=== PATIENT | female | born 1935 | race American Indian/Alaskan Native ===

== ENCOUNTER 2018-05-15 10:01 | Inpatient (IN) | payer MEDICARE, BC ==
[2018-05-15] MEDS ORDERED: Iodixanol 320 MG/ML 100 ML BOTTLE IV ONE ×3 (10:25→13:08)
[2018-05-15] MEDS ORDERED: Iodixanol 320 MG/ML 200 ML BOTTLE IV ONE (10:25)
[2018-05-15] MEDS ORDERED: Lidocaine PF 2% (5 ml) Inj (For Cardiac Arrhy) ONE (10:25)
[2018-05-15 10:30] LABS: BASO # 0.03 K/mm3 (0.0-2.0); BASO % 0.4 % (0.0-3.0); EOS # 0.1 (0.0-0.7); EOS % 1.5 % (1.5-5.0); GRAN # 4.94 (1.4-6.5); GRAN % 72.9 % (50.0-68.0); HEMOGLOBIN 13.4 g/dL (12.0-16.0); LYMPH # 0.9 (1.2-3.4); LYMPH % 12.5 % (22.0-35.0); MEAN CELL VOLUME 97.5 fl (80.0-105.0); MEAN CORPUSCULAR HGB CONC 31.8 g/dl (31.0-37.0); MONO # 0.9 (0.1-0.6); MONO % 12.7 % (1.0-6.0); RBC 4.32 10^6/uL (3.5-6.1); RED CELL DISTRIBUTION WIDTH 15.9 % (11.5-14.5); WHITE BLOOD COUNT 6.8 10^3/ul (4.5-11.0)
[2018-05-15 10:38] LABS: INR 1.17; PARTIAL THROMBOPLASTIN TIME 32.6 Seconds (25.1-36.5); PROTHROMBIN TIME 13.5 SECONDS (9.4-12.5)
[2018-05-15 10:46] LABS: CALCIUM 10.9 mg/dL (8.4-10.5)
[2018-05-15] MEDS ORDERED: Midazolam 2 MG/2 ML VIAL ONE ×2 (11:42→12:48)
[2018-05-15] MEDS ORDERED: DiphenhydrAMINE 50 mg/ml Inj ONE ×2 (13:00→14:07)
[2018-05-15] MEDS ORDERED: Albuterol-Ipratrop 3 mg / 0.5 (3 ml) UD IH ONE (13:17)
[2018-05-15] MEDS ORDERED: Levalbuterol 1.25 MG/3 ML Inhal Soln UD ONE (13:57)
[2018-05-15] MEDS ORDERED: Levalbuterol 1.25 MG/3 ML Inhal Soln UD IH ONE (13:57)
[2018-05-15] MEDS ORDERED: DiphenhydrAMINE 50 mg/ml Inj IVP ONE (14:07)
[2018-05-15] MEDS: Racepinephrine 2.25% Inhal Soln 0.5 ML UD IH PRN ×2 (14:10→22:02)
[2018-05-15] MEDS ORDERED: Racepinephrine 2.25% Inhal Soln 0.5 ML UD ONE (14:10)
[2018-05-15] MEDS ORDERED: MethylPREDNISolone 40 mg Vial ONE ×2 (14:32→14:42)
[2018-05-15 14:50] LABS: ARTERIAL BLOOD GAS HCO3 20.5 mmol/L (21-28); ARTERIAL BLOOD GAS HEMOGLOBIN 13.3 g/dL (11.7-17.4); ARTERIAL BLOOD GAS O2 CAPACITY 18.6 mL/dl (16-24); ARTERIAL BLOOD GAS O2 CONTENT 18.6 ML/dl (15-23); ARTERIAL BLOOD GAS O2 SAT 99.9 % (95-98); ARTERIAL BLOOD GAS PCO2 55 mm/Hg (35-45); ARTERIAL BLOOD GAS TCO2 22.2 mmol.L (22-28)
[2018-05-15 14:52] LABS: ARTERIAL BLOOD GAS PH 7.18 (7.35-7.45)
--- NOTE | 2018-05-15 15:05 | CP.PCM.HP ---
<Antonella Leyva - Last Filed: 05/15/18 18:28> History of Present Illness - History of Present Illness History of Present Illness: PGY-1 Antonella Leyva D.O. H&P for Dr. Cast's service: Susan Meza is an 82 yo female with a history of Afib, CHF, pacemaker, CAD, PVD, HTN, HLD, GERD, and hypothyroidism who presented from [facility] ( [facility]) for a same-day surgery of femoral angioplasty. While post-op in the PACU, patient began experiencing significant shortness of breath and cough. Patient in respiratory distress and could not tell us history or how she was feeling. Patient's daughter, Jose Manuel ([phone]), was contacted. She stated that the patient lives with her; however, she's been in rehab since January after being hospitalized for dysfunctional AVM for hemodialysis and hypotension. Daughter reported that patient was complaining of a "rattling" cough for the last 2 days. She denies fevers, chills, or pain. She denies any history of pulmonary disorders. She has a remote smoking history- quit 40 years ago. Patient's PMD, Dr. Mueller, was also called to obtain medical history and medications. In the PACU, patient was given Benadryl, racemic epi, Pepcid, and Solu-medrol. She was place don BiPap. CXR and AXR were negative. ICU was consulted and accepted the patient to the unit. PMH: CKD- HD TThSat HTN HLD CAD- no stents PVD- multiple stents in LEs GERD Hypothyroidism Afib CHF Pacemaker Carotid endarterectomy H/o gout H/o pleural effusions Meds: ASA 81 mg PO daily Protonix 40 mg PO daily Midodrine 5 mg PO TTS Sensipar 30 mg PO daily Phoslo 667 mg PO TID Lipitor 40 mg PO daily Allopurinol 100 mg PO daily Tylenol 325 mg PO PRN All: NKA FH: reviewed and unremarkable SH: lives with daughter currently in [facility] since January remote smoking history denies alcohol, illicit drugs PMD: Ervin Nephro: Bi Cardio: Ameen Code status : DNR- discussed at length with daughterJose Manuel Present on Admission - Present on Admission Any Indicators Present on Admission: No History of DVT/PE: No History of Uncontrolled Diabetes: No Urinary Catheter: No Decubitus Ulcer Present: No History Surgical Site Infection Following: None Review of Systems - Review of Systems Systems not reviewed;Unavailable: Acuity of Condition, Respiratory Distress Past Patient History - Infectious Disease Hx of Infectious Diseases: None - Tetanus Immunizations Tetanus Immunization: Unknown - Past Medical History & Family History Past Medical History?: Yes Past Family History: Reviewed and not pertinent - Past Social History Smoking Status: Former Smoker Chewing Tobacco Use: No Cigar Use: No Alcohol: None Drugs: Denies Home Situation {Lives}: With Family (daughter) - CARDIAC Hx Cardiac Disorders: Yes Hx Atrial Fibrillation: Yes Hx Congestive Heart Failure: Yes Hx Pacemaker: Yes - NEUROLOGICAL Hx Paralysis: No - RENAL Hx Chronic Kidney Disease: Yes Hx Dialysis: Yes - HEMATOLOGICAL/ONCOLOGICAL Hx Blood Transfusions: No Hx Blood Transfusion Reaction: No - MUSCULOSKELETAL/RHEUMATOLOGICAL Hx Musculoskeletal Disorders: No - PSYCHIATRIC Hx Emotional Abuse: No Hx Physical Abuse: No Hx Substance Use: No - SURGICAL HISTORY Hx Surgeries: Yes - ANESTHESIA Hx Anesthesia Reactions: No Hx Malignant Hyperthermia: No Meds Allergies/Adverse Reactions: Allergies Allergy/AdvReac Type Severity Reaction Status Date / Time No Known Allergies Allergy Verified 05/07/18 11:54 Physical Exam - Constitutional Appears: In Acute Distress - Head Exam Head Exam: ATRAUMATIC, NORMAL INSPECTION - Eye Exam Eye Exam: EOMI, Normal appearance - ENT Exam ENT Exam: Mucous Membranes Moist, Normal Exam - Neck Exam Neck exam: Positive for: Normal Inspection - Respiratory Exam Respiratory Exam: Accessory Muscle Use, Decreased Breath Sounds, Respiratory Distress, Stridor. absent: Wheezes - Cardiovascular Exam Cardiovascular Exam: Tachycardia, REGULAR RHYTHM, +S1, +S2 - GI/Abdominal Exam GI & Abdominal Exam: Distended, Normal Bowel Sounds - Rectal Exam Rectal Exam: Deferred - Extremities Exam Additional comments: discoloration of LEs, pedal pulses 1+ b/l - Neurological Exam Neurological exam: Alert - Psychiatric Exam Psychiatric exam: Anxious - Skin Skin Exam: Dry, Normal Color, Warm Additional comments: dialysis cath on L chest wall Results - Vital Signs Recent Vital Signs: Last Vital Signs Temp 96.2 F L 05/15/18 10:38 Pulse 74 05/15/18 10:38 Resp 20 05/15/18 10:38 BP 129/65 05/15/18 10:38 Pulse Ox 96 05/15/18 10:38 - Labs Result Diagrams: 05/15/18 17:47 05/15/18 10:25 Labs: Laboratory Results - last 24 hr 05/15/18 05/15/18 05/15/18 10:25 10:25 10:25 WBC 6.8 RBC 4.32 Hgb 13.4 Hct 42.1 MCV 97.5 MCH 31.0 MCHC 31.8 RDW 15.9 H Plt Count 224 MPV 10.0 Gran % 72.9 H Lymph % (Auto) 12.5 L Todd % (Auto) 12.7 H Eos % (Auto) 1.5 Baso % (Auto) 0.4 Gran # 4.94 Lymph # (Auto) 0.9 L Todd # (Auto) 0.9 H Eos # (Auto) 0.1 Baso # (Auto) 0.03 PT 13.5 H INR 1.17 APTT 32.6 Sodium 136 Potassium 5.7 H* Chloride 97 L Carbon Dioxide 27 Anion Gap 18 BUN 41 H Creatinine 6.5 H Est GFR ( Amer) 7 Est GFR (Non-Af Amer) 6 Random Glucose 88 Calcium 10.9 H Assessment & Plan - Assessment and Plan (Free Text) Assessment: Patient is an 82 yo female who presented after a femoral angioplasty with respiratory distress. Patient's daughter reports patient had a cough for the past 2 days. Patient was treated for a potential allergic reaction as she was noted to have stridor. She was placed on BiPap and admitted to the ICU. Plan: Shortness of breath with respiratory acidosis, improved- suspect 2/2 sedation or allergic reaction or fluid overload - CXR: no active disease - ABG, FiO2 100: pH 7.18, pO2 221, pCO2 55 - ABG on BiPap, FiO2 50: pH 7.42, pO2 188, pCO2 32 - BiPap - Benadryl x1 - Solumedrol x1 - Racepinephrine 0,5 mL IH Q3H PRN - Xopenex 1,25 mg IH Q6H ZAINAB, Q3H PRN - Acetylcysteine 20% 4mL Q6H - f/u BNP - f/u LA, procal - ICU consulted (Macario) Abdominal distention - AXR: no abnormalities - Zofran 4 mg IV x1 - GI consulted (Blanca) CKD on HD TTSat - K 5.7 - Ca 10.9 - BUN 41, Cr 6.5 - Nephrology consulted (Bi) H/o of Afib with pacemaker - Cardiology consulted (Ramiro) H/o of CHF - f/u BNP - f/u echo - Cardiology consulted (Ramiro) HTN - Hold midodrine - Hydralazine 10 mg IV Q6H PRN IVF: not indicated Diet: NPO- swallow eval GI ppx: Pepcid 20 mg IV daily VTE ppx: SCDs Code status: DNR Case discussed with Dr. Cast <Selam Cast - Last Filed: 05/17/18 17:42> Results - Vital Signs Recent Vital Signs: Last Vital Signs Temp 97.2 F L 05/17/18 08:50 Pulse 70 05/17/18 11:37 Resp 18 05/17/18 08:50 BP 117/56 L 05/17/18 11:37 Pulse Ox 83 L 05/17/18 08:50 - Labs Result Diagrams: 05/17/18 14:30 05/17/18 13:20 Labs: Laboratory Results - last 24 hr 05/16/18 05/16/18 05/16/18 23:18 23:18 23:18 WBC 7.3 D RBC 3.81 Hgb 11.8 L Hct 36.4 MCV 95.5 MCH 31.0 MCHC 32.4 RDW 15.8 H Plt Count 239 MPV 11.0 Gran % 82.2 H Lymph % (Auto) 12.1 L Todd % (Auto) 5.6 Eos % (Auto) 0.0 L Baso % (Auto) 0.1 Gran # 5.99 Lymph # (Auto) 0.9 L Todd # (Auto) 0.4 Eos # (Auto) 0.0 Baso # (Auto) 0.01 PT 15.6 H INR 1.36 Sodium 134 Potassium 5.9 H* D Chloride 96 L Carbon Dioxide 22 Anion Gap 21 H BUN 38 H Creatinine 6.0 H Est GFR ( Amer) 8 Est GFR (Non-Af Amer) 7 POC Glucose (mg/dL) Random Glucose 83 Calcium 10.1 Phosphorus Magnesium Total Bilirubin 0.8 AST 31 ALT 16 Alkaline Phosphatase 90 Total Protein 7.2 Albumin 3.5 Globulin 3.7 Albumin/Globulin Ratio 0.9 L Blood Type Blood Type Confirm Antibody Screen Crossmatch BBK History Checked 05/16/18 05/17/18 05/17/18 23:18 00:04 05:25 WBC 7.4 RBC 3.49 L Hgb 10.5 L Hct 33.2 L MCV 95.1 MCH 30.1 MCHC 31.6 RDW 15.9 H Plt Count 189 MPV 10.1 Gran % 76.2 H Lymph % (Auto) 13.0 L Todd % (Auto) 10.8 H Eos % (Auto) 0.0 L Baso % (Auto) 0.0 Gran # 5.62 Lymph # (Auto) 1.0 L Todd # (Auto) 0.8 H Eos # (Auto) 0.0 Baso # (Auto) 0.00 PT INR Sodium Potassium Chloride Carbon Dioxide Anion Gap BUN Creatinine Est GFR ( Amer) Est GFR (Non-Af Amer) POC Glucose (mg/dL) Random Glucose Calcium Phosphorus Magnesium Total Bilirubin AST ALT Alkaline Phosphatase Total Protein Albumin Globulin Albumin/Globulin Ratio Blood Type B POSITIVE Blood Type Confirm B POSITIVE Antibody Screen Negative Crossmatch See Detail BBK History Checked No verified bt 05/17/18 05/17/18 05/17/18 05:25 13:20 13:58 WBC RBC Hgb Hct MCV MCH MCHC RDW Plt Count MPV Gran % Lymph % (Auto) Todd % (Auto) Eos % (Auto) Baso % (Auto) Gran # Lymph # (Auto) Todd # (Auto) Eos # (Auto) Baso # (Auto) PT INR Sodium 133 135 Potassium 6.3 H* 5.6 H* Chloride 97 L 97 L Carbon Dioxide 24 16 L Anion Gap 19 28 H BUN 44 H 42 H Creatinine 5.9 H 6.2 H Est GFR ( Amer) 8 8 Est GFR (Non-Af Amer) 7 6 POC Glucose (mg/dL) 22 L* Random Glucose 73 30 L* D Calcium 9.8 10.5 Phosphorus 4.8 H Magnesium 2.2 Total Bilirubin 0.7 AST 31 ALT 20 Alkaline Phosphatase 76 Total Protein 6.3 Albumin 3.0 Globulin 3.3 Albumin/Globulin Ratio 0.9 L Blood Type Blood Type Confirm Antibody Screen Crossmatch BBK History Checked 05/17/18 14:30 WBC RBC Hgb 11.2 L Hct 34.4 L MCV MCH MCHC RDW Plt Count MPV Gran % Lymph % (Auto) Todd % (Auto) Eos % (Auto) Baso % (Auto) Gran # Lymph # (Auto) Todd # (Auto) Eos # (Auto) Baso # (Auto) PT INR Sodium Potassium Chloride Carbon Dioxide Anion Gap BUN Creatinine Est GFR ( Amer) Est GFR (Non-Af Amer) POC Glucose (mg/dL) Random Glucose Calcium Phosphorus Magnesium Total Bilirubin AST ALT Alkaline Phosphatase Total Protein Albumin Globulin Albumin/Globulin Ratio Blood Type Blood Type Confirm Antibody Screen Crossmatch BBK History Checked Attending/Attestation - Attestation I have personally seen and examined this patient.: Yes I have fully participated in the care of the patient.: Yes I have reviewed all pertinent clinical information: Yes Notes (Text): 05/17/18 16:53 Attending note; Patient seen and examined with the resident in PACU. Patient's daughter by the bedside. Patient is alert and awake. Patient has significant shortness of breath and stridor. Just got breathing treatments and IV Solu-Medrol. Started on racemic epinephrine inhalation. Patient is a 82 year old female with a history of Afib, CHF, pacemaker, CAD, PVD, HTN, HLD, GERD, and hypothyroidism who presented from [facility] for a same-day surgery of femoral angioplasty. While post-op in the PACU, patient began experiencing significant shortness of breath and cough. significant wheezing noted. Continue DuoNeb, IV Solu-Medrol. Pulmonary evaluation appreciated. Patient will be transferred to ICU. Placed on BiPAP for hypercapnic respiratory failure. History of coronary artery disease. Continue aspirin. s/p femoral angiogram and angioplasty. End-stage renal disease on dialysis; patient will get hemodialysis tomorrow. Case discussed with nephrology in detail. Renal diet ordered. Abdominal distention; abdominal x-ray showed nonspecific gas pattern. GI evaluation requested. Follow up closely in ICU. Patient is DNR. The diagnosis, follow-up plan discussed with patient daughter in detail.
--- NOTE | 2018-05-15 15:28 | RAD ---
Date of service: 05/15/2018 HISTORY: dyspnea COMPARISON: 09/06/2017 FINDINGS: LUNGS: No active pulmonary disease. PLEURA: No significant pleural effusion identified, no pneumothorax apparent. CARDIOVASCULAR: Moderate cardiomegaly OSSEOUS STRUCTURES: No significant abnormalities. VISUALIZED UPPER ABDOMEN: Normal. OTHER FINDINGS: Right-sided pacemaker. Left-sided dialysis catheter IMPRESSION: No active disease.
[2018-05-15] MEDS ORDERED: Acetylcysteine 20% Inhal Soln (4ml) IH PRN (15:35)
[2018-05-15] MEDS ORDERED: Levalbuterol 1.25 MG/3 ML Inhal Soln UD IH PRN (16:00)
[2018-05-15] MEDS ORDERED: Albuterol 0.083% Inhal Sol (2.5 mg/3 mL) UD IH STA (16:15)
--- NOTE | 2018-05-15 17:08 | CP.PCM.CON ---
<Agueda Menendez - Last Filed: 05/15/18 17:03> History of Present Illness - History of Present Illness History of Present Illness: Agueda Menendez, PGY2, ICU Consult Note for Dr Jordan Sorto: Reason for consult: respiratory distress s/p angio 82 year old female with PMH CHF s/p pacemaker, HTN, GERD, CAD (no stents), gout , pleural effusions (many years ago), PAD (w stents), came to [facility] same day surgery today for angio cath vascular procedure for lower extremity PAD. LE duplex showed 05/01/18 showed severely abnormal ABIs at rest, R 0.56 and L 0.49., b/l SFA occlusive disease. Most HPI obtained from primary team, daughters at bedside, chart review due to patient's condition/respiratory distress. Patient underwent conscious sedation today during the procedure. After IV contrast injection, patient had respiratory distress with stridor, given racemic epinephrine with Benadryl with some improvement. CXR obtained showed vascular congestion, ABG showed respiratory acidosis. On Physical exam, patient AOx4, with inspiratory stridor, decreased breath sounds (no wheezing, crackles appreciated), pulse ox 96-98%. As per daughter, patient is coming from [facility] rehab, was having mild cough for past 2-3 days, no fevers, nausea, vomiting, abdominal pain, decreased appetite, diarrhea. ROS limited due to patient's condition. PMD: Dr Ervin Pat PMH: CHF s/p pacemaker, HTN, GERD, CAD (no stents), gout, pleural effusions ( many years ago), PAD (w stents) PSH: stent placement, cardiac cath NKA FH: noncontributory SH: Used to live with her daughter. Deconditioned in February 2018, went to [facility]. Former smoker, quit 40 years ago, occasional ETOH use. Review of Systems - Review of Systems Systems not reviewed;Unavailable: Respiratory Distress Past Patient History - CARDIAC Hx Pacemaker: No - NEUROLOGICAL Hx Paralysis: No - HEMATOLOGICAL/ONCOLOGICAL Hx Blood Transfusions: No Hx Blood Transfusion Reaction: No - MUSCULOSKELETAL/RHEUMATOLOGICAL Hx Musculoskeletal Disorders: No - PSYCHIATRIC Hx Emotional Abuse: No Hx Physical Abuse: No Hx Substance Use: No - SURGICAL HISTORY Hx Surgeries: Yes - ANESTHESIA Hx Anesthesia Reactions: No Hx Malignant Hyperthermia: No Meds Allergies/Adverse Reactions: Allergies Allergy/AdvReac Type Severity Reaction Status Date / Time No Known Allergies Allergy Verified 05/07/18 11:54 - Medications Medications: Current Medications Acetylcysteine (Acetylcysteine 20%) 4 ml IH Q6 PRN PRN Reason: Cough Darbepoetin Arthur (Aranesp) 40 mcg IVP ONCE ONE Stop: 05/16/18 06:01 Doxercalciferol (Hectorol) 4 mcg IV ONCE ONE Stop: 05/16/18 06:01 Famotidine (Pepcid) 20 mg IVP DAILY DIANA Hydralazine HCl (Apresoline) 10 mg IVP Q6 PRN PRN Reason: Systolic Blood Pressure Levalbuterol HCl (Xopenex) 1.25 mg IH [id number] DIANA Levalbuterol HCl (Xopenex) 1.25 mg IH Q3 PRN PRN Reason: Shortness of Breath Ondansetron HCl (Zofran Inj) 4 mg IVP ONCE PRN PRN Reason: Nausea/Vomiting Racepinephrine (Racepinephrine 2.25% Inhl Soln) 0.5 ml IH Q3 PRN PRN Reason: Shortness of Breath Physical Exam - Constitutional Appears: No Acute Distress Additional comments: Initially, patient had stridor. Once patient received duoneb treatment and put on bipap, patient was more comfortable with improving pulse ox, improving tachycardia - Head Exam Head Exam: ATRAUMATIC, NORMOCEPHALIC - Eye Exam Eye Exam: EOMI, PERRL. absent: Conjunctival injection, Nystagmus, Scleral icterus Pupil Exam: NORMAL ACCOMODATION, PERRL. absent: Mydriatic, Unequal - ENT Exam ENT Exam: Mucous Membranes Moist - Neck Exam Neck exam: Positive for: Full Rom - Respiratory Exam Respiratory Exam: Decreased Breath Sounds, Stridor. absent: Accessory Muscle Use, Rales, Rhonchi, Wheezes - Cardiovascular Exam Cardiovascular Exam: Tachycardia, +S1, +S2. absent: Systolic Murmur - GI/Abdominal Exam GI & Abdominal Exam: Distended, Hypoactive Bowel Sounds, Tenderness (Mild diffuse TTP). absent: Firm, Guarding, Rebound, Rigid - Extremities Exam Extremities exam: Positive for: normal inspection. Negative for: calf tenderness, pedal edema Additional comments: 1+ pulses, DP and PT pulses, left and right legs - Back Exam Back exam: NORMAL INSPECTION - Neurological Exam Neurological exam: Alert, Oriented x3 - Skin Skin Exam: Dry, Normal Color, Warm Results - Vital Signs Recent Vital Signs: Last Vital Signs Temp 98.2 F 05/15/18 15:28 Pulse 117 H 05/15/18 15:28 Resp 19 05/15/18 15:28 BP 182/98 H 05/15/18 15:28 Pulse Ox 96 05/15/18 10:38 - Labs Result Diagrams: 05/15/18 10:25 05/15/18 10:25 Labs: Laboratory Results - last 24 hr 05/15/18 05/15/18 05/15/18 10:25 10:25 10:25 WBC 6.8 RBC 4.32 Hgb 13.4 Hct 42.1 MCV 97.5 MCH 31.0 MCHC 31.8 RDW 15.9 H Plt Count 224 MPV 10.0 Gran % 72.9 H Lymph % (Auto) 12.5 L Baldwin % (Auto) 12.7 H Eos % (Auto) 1.5 Baso % (Auto) 0.4 Gran # 4.94 Lymph # (Auto) 0.9 L Baldwin # (Auto) 0.9 H Eos # (Auto) 0.1 Baso # (Auto) 0.03 PT 13.5 H INR 1.17 APTT 32.6 pCO2 pO2 HCO3 ABG pH ABG Total CO2 ABG O2 Saturation ABG O2 Content ABG Base Excess ABG Hemoglobin ABG Carboxyhemoglobin POC ABG HHb (Measured) ABG Methemoglobin ABG O2 Capacity Hgb O2 Saturation FiO2 Sodium 136 Potassium 5.7 H* Chloride 97 L Carbon Dioxide 27 Anion Gap 18 BUN 41 H Creatinine 6.5 H Est GFR ( Amer) 7 Est GFR (Non-Af Amer) 6 Random Glucose 88 Calcium 10.9 H 05/15/18 14:45 WBC RBC Hgb Hct MCV MCH MCHC RDW Plt Count MPV Gran % Lymph % (Auto) Baldwin % (Auto) Eos % (Auto) Baso % (Auto) Gran # Lymph # (Auto) Baldwin # (Auto) Eos # (Auto) Baso # (Auto) PT INR APTT pCO2 55 H pO2 221.0 H HCO3 20.5 L ABG pH 7.18 L* ABG Total CO2 22.2 ABG O2 Saturation 99.9 H ABG O2 Content 18.6 ABG Base Excess -8.3 L ABG Hemoglobin 13.3 ABG Carboxyhemoglobin 2.1 H POC ABG HHb (Measured) 0.1 ABG Methemoglobin 1.1 ABG O2 Capacity 18.6 Hgb O2 Saturation 96.8 FiO2 100.0 Sodium Potassium Chloride Carbon Dioxide Anion Gap BUN Creatinine Est GFR ( Amer) Est GFR (Non-Af Amer) Random Glucose Calcium Assessment & Plan - Assessment and Plan (Free Text) Assessment: 82 year old female with PMH CHF s/p pacemaker, HTN, GERD, CAD (no stents), gout , pleural effusions (many years ago), PAD (w stents), admitted to ICU for hypercapneic respiratory distress following angio cath vascular procedure for lower extremity PAD: Pulm: Hypercapneic respiratory distress 2/2 sedation in OR vs allergic reaction to dye vs fluid overload (chf exacerbation in dialysis patient) - ABG showed respiratory acidosis, pH 7.18, pCO2 55, pO2 221, HCO3 20.5. - CXR showed stable cardiomegaly, vascular congestion. - Will start bipap 18/6, will maintain SpO2>95%. - racemic epinehrine and benadryl given in OR. - start racemic epinephrine q3 prn, xopenex diana and prn - methylprednisolone 125 mg IV given. Will start scheduled IV steroids. - mucomyst inh for cough - F/u lactic acid, procal - f/u BNP, echo - Nephro Dr Pat consulted. Patient will go for dialysis tomorrow morning. - Low threshold for intubation - Monitor Cardio: HR 90s-100s, sinus rhythm. Hx of CAD, CHF w pacemaker f/u echo Hypertensive currently. Hydralazine prn. hold home midodrine GI: distended abdomen. Abdomen x ray reviewed, no perforation noted. NPO. Pepcid for prophylaxis. Renal: BUN/Cr 41/6.5. Will dram CMP now. Patient has a history of ESRD on HD T- -Sun. nephro Dr Pat on board. CXR shows vascular congestion. will go for dialysis tomorrow AM. ID: afebrile, no leukocytosis. F/u procal. CXR neg for infiltrates. No antibiotics for now. Monitor. Heme: Hgb stable. Plts stable. Cont to monitor. PPX: Pepcid, SCDs Code status: DNR Case seen and discussed with Dr Jordan Sorto. <Jordan Sorto - Last Filed: 05/15/18 17:19> Meds - Medications Medications: Current Medications Acetylcysteine (Acetylcysteine 20%) 4 ml IH Q6 PRN PRN Reason: Cough Darbepoetin Arthur (Aranesp) 40 mcg IVP ONCE ONE Stop: 05/16/18 06:01 Doxercalciferol (Hectorol) 4 mcg IV ONCE ONE Stop: 05/16/18 06:01 Famotidine (Pepcid) 20 mg IVP DAILY DIANA Hydralazine HCl (Apresoline) 10 mg IVP Q6 PRN PRN Reason: Systolic Blood Pressure Levalbuterol HCl (Xopenex) 1.25 mg IH [id number] DIANA Levalbuterol HCl (Xopenex) 1.25 mg IH Q3 PRN PRN Reason: Shortness of Breath Ondansetron HCl (Zofran Inj) 4 mg IVP ONCE PRN PRN Reason: Nausea/Vomiting Racepinephrine (Racepinephrine 2.25% Inhl Soln) 0.5 ml IH Q3 PRN PRN Reason: Shortness of Breath Results - Vital Signs Recent Vital Signs: Last Vital Signs Temp 98.2 F 05/15/18 15:28 Pulse 106 H 05/15/18 15:30 Resp 19 05/15/18 15:28 BP 182/98 H 05/15/18 15:28 Pulse Ox 96 05/15/18 10:38 - Labs Result Diagrams: 05/15/18 10:25 05/15/18 10:25 Labs: Laboratory Results - last 24 hr 05/15/18 05/15/18 05/15/18 10:25 10:25 10:25 WBC 6.8 RBC 4.32 Hgb 13.4 Hct 42.1 MCV 97.5 MCH 31.0 MCHC 31.8 RDW 15.9 H Plt Count 224 MPV 10.0 Gran % 72.9 H Lymph % (Auto) 12.5 L Baldwin % (Auto) 12.7 H Eos % (Auto) 1.5 Baso % (Auto) 0.4 Gran # 4.94 Lymph # (Auto) 0.9 L Baldwin # (Auto) 0.9 H Eos # (Auto) 0.1 Baso # (Auto) 0.03 PT 13.5 H INR 1.17 APTT 32.6 pCO2 pO2 HCO3 ABG pH ABG Total CO2 ABG O2 Saturation ABG O2 Content ABG Base Excess ABG Hemoglobin ABG Carboxyhemoglobin POC ABG HHb (Measured) ABG Methemoglobin ABG O2 Capacity Hgb O2 Saturation FiO2 Sodium 136 Potassium 5.7 H* Chloride 97 L Carbon Dioxide 27 Anion Gap 18 BUN 41 H Creatinine 6.5 H Est GFR ( Amer) 7 Est GFR (Non-Af Amer) 6 Random Glucose 88 Calcium 10.9 H 05/15/18 14:45 WBC RBC Hgb Hct MCV MCH MCHC RDW Plt Count MPV Gran % Lymph % (Auto) Baldwin % (Auto) Eos % (Auto) Baso % (Auto) Gran # Lymph # (Auto) Baldwin # (Auto) Eos # (Auto) Baso # (Auto) PT INR APTT pCO2 55 H pO2 221.0 H HCO3 20.5 L ABG pH 7.18 L* ABG Total CO2 22.2 ABG O2 Saturation 99.9 H ABG O2 Content 18.6 ABG Base Excess -8.3 L ABG Hemoglobin 13.3 ABG Carboxyhemoglobin 2.1 H POC ABG HHb (Measured) 0.1 ABG Methemoglobin 1.1 ABG O2 Capacity 18.6 Hgb O2 Saturation 96.8 FiO2 100.0 Sodium Potassium Chloride Carbon Dioxide Anion Gap BUN Creatinine Est GFR ( Amer) Est GFR (Non-Af Amer) Random Glucose Calcium Addendum Addendum: 05/15/18 17:19 ICU Attending Addendum: Patient seen and examined. Case reviewed on round with housestaff. Agree with resident note above with the following additions/exceptions: 82F PMH CHF s/p pacemaker, HTN, GERD, CAD, PAD (w stents), admitted to ICU for hypercapneic respiratory distress following angio cath vascular procedure for lower extremity PAD. ABG shows pH 7.18, pCO2 55, pO2 221 on 100% suggesting more of a ventilation problem. She has no hx of obstructive lung disease. She has had a cough the past few days. CXR shows some pulm vasc congestion. It is possible that she has a URI however no fevers, no leukocytosis, no sputum , no inflitrate on CXR. Possbile that she is fluid overloaded causing cough. FOr now will assist her ventilation with Bipap 16/8 repeat ABG in 1 hour If she gets worse, she will need to be intubated i discussed this with her daughers and they confirmed she is DNR but ok to intubate holding off abx in the absence of fever, leukocytosis, infiltrate on CXR in regards to fluids, she is HD dependant and nephro consulted for HD rest of care above Jordan Sorto MD [facility] TIme: 31 mins
[2018-05-15 17:58] LABS: BASO # 0.01 K/mm3 (0.0-2.0); BASO % 0.1 % (0.0-3.0); EOS % 0.4 % (1.5-5.0); GRAN # 6.51 (1.4-6.5); GRAN % 88.1 % (50.0-68.0); LYMPH # 0.4 (1.2-3.4); LYMPH % 5.9 % (22.0-35.0); MEAN CORPUSCULAR HEMOGLOBIN 33.8 pg (25.0-35.0); MEAN CORPUSCULAR HGB CONC 34.1 g/dl (31.0-37.0); MEAN PLATELET VOLUME 10.9 fl (7.0-11.0); MONO # 0.4 (0.1-0.6); MONO % 5.5 % (1.0-6.0); RBC 3.85 10^6/uL (3.5-6.1); RED CELL DISTRIBUTION WIDTH 16.1 % (11.5-14.5); WHITE BLOOD COUNT 7.4 10^3/ul (4.5-11.0)
[2018-05-15] MEDS ORDERED: Racepinephrine 2.25% Inhal Soln 0.5 ML UD IH SCH (18:00)
[2018-05-15 18:04] LABS: ARTERIAL BLOOD GAS HCO3 20.8 mmol/L (21-28); ARTERIAL BLOOD GAS O2 SAT 99.9 % (95-98); ARTERIAL BLOOD GAS PCO2 32 mm/Hg (35-45); ARTERIAL BLOOD GAS PH 7.42 (7.35-7.45); ARTERIAL BLOOD GAS TCO2 21.8 mmol.L (22-28)
--- NOTE | 2018-05-15 18:22 | RAD ---
Date of service: 05/15/2018 HISTORY: distention COMPARISON: No prior. FINDINGS: BOWEL: Examination is limited by patient body habitus. There is gas in the stomach and colon. The bowel gas pattern is nonspecific. No bowel dilatation. BONES: Normal. OTHER FINDINGS: None. IMPRESSION: Limited examination due to patient body habitus and underpenetration. Nonspecific bowel gas pattern.
[2018-05-15] MEDS: diltiaZEM IVPB 100mg in NS 100 ML IV PRN (18:59)
[2018-05-15 19:29] LABS: ALB/GLOB RATIO 0.9 (1.1-1.8); ALBUMIN 3.3 g/dL (3.0-4.8); CALCIUM 10.1 mg/dL (8.4-10.5)
[2018-05-15] MEDS: Levalbuterol 1.25 MG/3 ML Inhal Soln UD IH SCH (19:36)
[2018-05-15 19:44] LABS: TROPONIN I 0.14 ng/mL
[2018-05-15] MEDS ORDERED: Albuterol 0.083% Inhal Sol (2.5 mg/3 mL) UD INH SCH (20:00)
--- NOTE | 2018-05-15 20:01 | VASCULAR ---
PROCEDURE: 1. Abdominal aortogram and bilateral lower extremity runoff with left selective views. 2. Terminal left external iliac artery and left common femoral artery jet stream atherectomy and drug-eluting balloon angioplasty 3. Long segment left SFA jet stream atherectomy balloon angioplasty and drug-eluting balloon angioplasty. 4. Left tibioperoneal trunk and proximal left peroneal angioplasty 5. Left profunda femoral artery origin angioplasty. HISTORY: End-stage renal disease. Severe peripheral vascular disease. Left foot rest pain and gangrene. PHYSICIAN(S): Bk Ruiz M.D. TECHNIQUE: The relative risks and indications of the procedure were explained to the patient and her daughter and consent obtained. The patient was placed supine on the arteriogram table and the right groin prepped and draped in the usual sterile fashion. Conscious sedation and monitoring were provided throughout the procedure by a nurse. Via a right common femoral artery approach, a 5 [place] sheath was placed in the right groin. Through the sheath and over a guidewire, a 5 [place] flush catheter was placed in the abdominal aorta at the level of the renal arteries and a PA DSA abdominal aortogram performed. The catheter was pulled down to the aortic bifurcation and bilateral oblique DSA pelvic arteriograms performed. Overlapping bilateral lower extremity DSA arteriograms were obtained from the inguinal ligaments to the ankles. A 0.035 angled Glidewire was advanced over the bifurcation and placed in the proximal left SFA. A 7 [place] 45 cm destination sheath was placed in the left external iliac artery. Heparin 5000 units IV and nitroglycerin in 250 mcg aliquots were given. With significant difficulties diffuse calcified disease in the left common femoral artery and left SFA was crossed with various 0.035 and 0.014 guidewires.. 0.014 support wire was placed in the left peroneal artery. The left tibioperoneal trunk and proximal left peroneal artery were dilated with a 3.0 x 4 cm angioplasty balloon. An flux - neutrinity filter wire was deployed in the left popliteal artery below the knee. The terminal left external iliac artery and left common femoral artery underwent jet stream atherectomy with a 2.4/3.4 catheter. Four passes were performed. The left common femoral artery was dilated with 6 mm angioplasty balloon and subsequently 7 mm drug-eluting balloon. Jet stream atherectomy of the mid to distal left SFA was performed. The left popliteal artery was dilated with 5 mm drug-eluting balloon. The left SFA was dilated with 5 and 6 mm balloons. No stents were required. 0.035 support wire was placed across the left profunda femoral artery origin. The left profunda femoral artery origin was dilated with 6 mm balloon. Completion angiograms were obtained. The sheath was removed hemostasis obtained with a Perclose device. The patient was transferred to recovery. FINDINGS: Renal arteries are atretic consistent with history for dialysis. 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 The arteries are calcified. Aortic bifurcation is patent. The common and external iliac arteries are tortuous calcified but patent. Right lower extremity: The right common femoral artery is patent with significant posterior plaque.. The right profunda femoral artery is hypertrophied. There is critical diffuse calcified atherosclerotic disease with multiple critical stenoses of the right SFA. There is reconstitution of the right popliteal artery above the knee. The right popliteal artery is continuous. There is severe right trifurcation and tibial occlusive disease. The trifurcation 3 tibial arteries are occluded proximally. Left lower extremity: There is critical calcified irregular disease of the left common femoral artery. The left profunda femoral artery is hypertrophied. There is diffuse calcified disease of the left SFA of the mid to distal left SFA and left popliteal artery above the knee are noted. There is severe left trifurcation and tibial occlusive disease. Left anterior tibial and posterior tibial arteries are occluded. The left peroneal artery is a predominant supply to the foot with multifocal disease involving the left tibioperoneal trunk and proximal left peroneal artery. There is severe left pedal occlusive disease. The left peroneal artery supplies the plantar arch. There is reconstitution of the distal left anterior tibial artery and dorsalis pedis artery. IMPRESSION: 1.Successful terminal left external iliac artery and left common femoral artery jet stream atherectomy and drug-eluting balloon angioplasty. 2. Successful long segment jet stream atherectomy and balloon angioplasty of the mid to distal left SFA and popliteal artery above the knee 3. Successful left tibioperoneal trunk and proximal left peroneal artery angioplasty. 4. Successful left profunda femoral artery origin angioplasty.
[2018-05-15 21:29] VITALS: BMI 26.1
[2018-05-15] MEDS ORDERED: guaiFENesin 100 mg/5 ml Syrup UD PO PRN (22:52)
[2018-05-16] MEDS: Levalbuterol 1.25 MG/3 ML Inhal Soln UD IH SCH (02:02)
--- NOTE | 2018-05-16 02:40 | CON ---
DATE: 05/15/2018 CARDIOLOGY CONSULTATION REASON FOR THE CONSULTATION: AFib, sick sinus syndrome status post pacemaker, severe PAD, status post respiratory failure, impending. BRIEF CLINICAL HISTORY: An 82-year-old female with past medical history significant for atrial fibrillation, possibly status post pacemaker, hypertension, gastroesophageal reflux, coronary artery disease, gout, end-stage renal disease, on dialysis, resident of [facility], severe PAD, KLEVER done on 05/01/2018 shows right has 0.56 and left has 0.56. Today, the patient was undergoing for abdominal aortogram and peripheral angiogram, During the anesthesia, the patient developed a stridor, get epinephrine and Benadryl with improvement and put on noninvasive ventilator. Now the patient in room 129, bed 3. Denies any chest pain, shortness of breath, any palpitation, on noninvasive ventilator. PAST HISTORY: Significant for gastroesophageal reflux disease, hypertension, coronary artery disease, in the chart mentioned no stent, history of atrial fibrillation, not on anticoagulation, status post pacemaker. History of end stage renal disease, on dialysis. History of gout, blurred vision, CAD, no stent in the chart mentioned. SOCIAL HISTORY: Lives with daughter. Now the patient is at [facility] after body get deconditionig since , ex-smoker, quit 40 years ago. No history of alcohol abuse. PHYSICAL EXAMINATION: VITAL SIGNS: As follows: Height of the patient is 5 feet 5 inches, weight of the patient is 180pounds, body mass index 26.3 kg/m2. Temperature afebrile, heart rate 106, blood pressure 182/98. HEENT: PERRLA. Extraocular muscles intact. NECK: Supple. No carotid bruits or thyromegaly. CHEST: Clear to auscultation. HEART: S1 and S2 regular. ABDOMEN: Soft. EXTREMITIES: Clubbing and cyanosis negative. DIAGNOSTIC DATA: Telemetry shows atrial flutter, rate of 85. LABORATORY DATA: Blood workup as follows: WBC 7.4, hemoglobin 13, hematocrit 38.1, platelet count 179. Chemistry shows sodium 137, potassium 5.7, chloride 97, carbon dioxide 27, anion gap of 18, BUN 41, creatinine 6.5. IMPRESSION: An 82-year-old female with past medical history significant for coronary artery disease, nonobstructive, no stent; end-stage renal disease, on dialysis; severe peripheral arterial disease, status post peripheral angiogram and percutaneous transluminal coronary angioplasty, after that the patient possibly developed ALLERGIC TO DYE, respiratory distress, maintained with noninvasive ventilator; history of atrial fibrillation, not on anticoagulation; status post pacemaker. RECOMMENDATIONS: We will start IV Cardizem. Get EKG, lipid profile, TSH, hemoglobin A1c. We will get echo. Further recommendations after hospital course. We will follow with you. Thank you, , for providing us the opportunity in taking care of the patient Susan Meza. Liam Rubio MD MTDD
[2018-05-16 04:52] LABS: BASO # 0.01 K/mm3 (0.0-2.0); BASO % 0.2 % (0.0-3.0); GRAN # 4.21 (1.4-6.5); GRAN % 90.8 % (50.0-68.0); HEMOGLOBIN 11.3 g/dL (12.0-16.0); LYMPH # 0.4 (1.2-3.4); LYMPH % 7.5 % (22.0-35.0); MEAN CELL VOLUME 96.2 fl (80.0-105.0); MEAN CORPUSCULAR HEMOGLOBIN 30.4 pg (25.0-35.0); MEAN CORPUSCULAR HGB CONC 31.6 g/dl (31.0-37.0); MEAN PLATELET VOLUME 10.4 fl (7.0-11.0); MONO # 0.1 (0.1-0.6); MONO % 1.5 % (1.0-6.0); PLATELET COUNT 207 10^3/uL (120.0-450.0); RBC 3.72 10^6/uL (3.5-6.1); RED CELL DISTRIBUTION WIDTH 15.8 % (11.5-14.5); WHITE BLOOD COUNT 4.6 10^3/ul (4.5-11.0)
[2018-05-16] MEDS ORDERED: Darbepoetin Alfa 40 mcg/ml Inj IVP ONE (06:00)
[2018-05-16] MEDS ORDERED: Doxercalciferol 4 mcg/2 ml Inj IV ONE (06:00)
[2018-05-16 06:09] LABS: ALB/GLOB RATIO 0.9 (1.1-1.8); ALBUMIN 3.2 g/dL (3.0-4.8); CALCIUM 10.2 mg/dL (8.4-10.5); TROPONIN I 0.16 ng/mL
[2018-05-16] MEDS: diltiaZEM IVPB 100mg in NS 100 ML IV PRN (06:17)
[2018-05-16 06:46] LABS: BAND 2 % (0-2); LARGE PLATELETS PRESENT; LYMPHOCYTE 5 % (22.0-35.0); MONOCYTE 4 % (1.0-6.0); NEUTROPHIL 89 % (50.0-70.0); PLATELET ESTIMATE NORMAL (NORMAL)
[2018-05-16 06:47] LABS: HYPOCHROMIA SLIGHT
--- NOTE | 2018-05-16 07:55 | CP.PCM.CON ---
<Reyes Quinonez - Last Filed: 05/16/18 13:12> History of Present Illness - History of Present Illness History of Present Illness: GI Fellow PGY4, Consult note. Susan Meza is an 82F with extensive medical history who presented for elective femoral angioplasty and became SOB in pacu so transferred to ICU for observation. Patient is currently stable in NAD. GI is consulted for abdominal distension. Patient denies n/v/abdominal pain. She has had this abdominal distension "for awhile". She admits to have BMs and passing flatus. Nursing reports no BMs overnight. PMHx - Afib, chf, PM, CAD, HTN, ESRD 12pt ROS neg except for above. Past Patient History - Infectious Disease Hx of Infectious Diseases: None - Tetanus Immunizations Tetanus Immunization: Unknown - Past Medical History & Family History Past Medical History?: Yes Past Family History: Reviewed and not pertinent - Past Social History Smoking Status: Former Smoker - CARDIAC Hx Cardiac Disorders: Yes Hx Congestive Heart Failure: Yes Hx Hypertension: Yes Hx Pacemaker: Yes Hx Peripheral Vascular Disease: Yes - NEUROLOGICAL Hx Paralysis: No - HEENT Hx Cataracts: Yes - RENAL Hx Chronic Kidney Disease: Yes Hx Dialysis: Yes (//sun) Date of Last Dialysis Treatment: 05/13/18 - ENDOCRINE/METABOLIC Hx Hypothyroidism: Yes - HEMATOLOGICAL/ONCOLOGICAL Hx Blood Transfusions: No Hx Blood Transfusion Reaction: No - MUSCULOSKELETAL/RHEUMATOLOGICAL Hx Musculoskeletal Disorders: Yes Hx Falls: No Hx Gout: Yes - GASTROINTESTINAL Hx Gastrointestinal Disorders: Yes Hx Gastroesophageal Reflux: Yes - PSYCHIATRIC Hx Emotional Abuse: No Hx Physical Abuse: No Hx Substance Use: No - SURGICAL HISTORY Hx Surgeries: Yes Other/Comment: left AV shunt - ANESTHESIA Hx Anesthesia Reactions: No Hx Malignant Hyperthermia: No Meds Allergies/Adverse Reactions: Allergies Allergy/AdvReac Type Severity Reaction Status Date / Time No Known Allergies Allergy Verified 05/07/18 11:54 - Medications Medications: Current Medications Acetylcysteine (Acetylcysteine 20%) 4 ml IH Q6 PRN PRN Reason: Cough Famotidine (Pepcid) 20 mg IVP DAILY ZAINAB Guaifenesin (Robitussin) 100 mg PO Q4H PRN PRN Reason: Cough Last Admin: 05/15/18 22:59 Dose: 100 mg Hydralazine HCl (Apresoline) 10 mg IVP Q6 PRN PRN Reason: Systolic Blood Pressure diltiaZEM IVPB 100mg in NS (Cardizem 100mg In Ns) 100 mls @ 5 mls/hr IV .Q20H PRN; Protocol; 5 MG/HR PRN Reason: TITRATE PER MD ORDER Last Admin: 05/16/18 06:17 Dose: 5 mg/hr, 5 mls/hr Levalbuterol HCl (Xopenex) 1.25 mg IH [id number] Last Admin: 05/16/18 02:02 Dose: 1.25 mg Levalbuterol HCl (Xopenex) 1.25 mg IH Q3 PRN PRN Reason: Shortness of Breath Ondansetron HCl (Zofran Inj) 4 mg IVP ONCE PRN PRN Reason: Nausea/Vomiting Racepinephrine (Racepinephrine 2.25% Inhl Soln) 0.5 ml IH Q3 PRN PRN Reason: Shortness of Breath Last Admin: 05/15/18 22:02 Dose: 0.5 ml Physical Exam - Constitutional Appears: Non-toxic, No Acute Distress - Head Exam Head Exam: NORMAL INSPECTION - Eye Exam Eye Exam: Normal appearance - ENT Exam ENT Exam: Mucous Membranes Moist - Neck Exam Neck exam: Positive for: Normal Inspection - Respiratory Exam Respiratory Exam: Clear to Auscultation Bilateral, NORMAL BREATHING PATTERN - Cardiovascular Exam Cardiovascular Exam: REGULAR RHYTHM, +S1, +S2 - GI/Abdominal Exam GI & Abdominal Exam: Distended, Normal Bowel Sounds, Soft. absent: Tenderness Additional comments: Percussion tympanic - Rectal Exam Rectal Exam: Deferred - Extremities Exam Extremities exam: Positive for: normal inspection - Neurological Exam Neurological exam: Alert, CN II-XII Intact, Oriented x3 - Psychiatric Exam Psychiatric exam: Normal Affect, Normal Mood - Skin Skin Exam: Dry, Normal Color Results - Vital Signs Recent Vital Signs: Last Vital Signs Temp 96.6 F L 05/15/18 19:09 Pulse 75 05/16/18 06:00 Resp 17 05/15/18 19:09 BP 160/97 H 05/15/18 19:09 Pulse Ox 96 05/15/18 10:38 - Labs Result Diagrams: 05/16/18 08:30 05/16/18 08:30 Labs: Laboratory Results - last 24 hr 05/15/18 05/15/18 05/15/18 10:25 10:25 10:25 WBC 6.8 RBC 4.32 Hgb 13.4 Hct 42.1 MCV 97.5 MCH 31.0 MCHC 31.8 RDW 15.9 H Plt Count 224 MPV 10.0 Gran % 72.9 H Lymph % (Auto) 12.5 L [place] % (Auto) 12.7 H Eos % (Auto) 1.5 Baso % (Auto) 0.4 Gran # 4.94 Lymph # (Auto) 0.9 L [place] # (Auto) 0.9 H Eos # (Auto) 0.1 Baso # (Auto) 0.03 Neutrophils % (Manual) Band Neutrophils % Lymphocytes % (Manual) Monocytes % (Manual) Platelet Evaluation Large Platelets Hypochromasia PT 13.5 H INR 1.17 APTT 32.6 pCO2 pO2 HCO3 ABG pH ABG Total CO2 ABG O2 Saturation ABG O2 Content ABG Base Excess ABG Hemoglobin ABG Carboxyhemoglobin POC ABG HHb (Measured) ABG Methemoglobin ABG O2 Capacity ABG Potassium Hgb O2 Saturation Glucose Lactate FiO2 Pressure Support Inspiratory BiPAP Sodium 136 Potassium 5.7 H* Chloride 97 L Carbon Dioxide 27 Anion Gap 18 BUN 41 H Creatinine 6.5 H Est GFR ( Amer) 7 Est GFR (Non-Af Amer) 6 Random Glucose 88 Calcium 10.9 H Phosphorus Magnesium Total Bilirubin AST ALT Alkaline Phosphatase Troponin I NT-Pro-B Natriuret Pep Total Protein Albumin Globulin Albumin/Globulin Ratio Triglycerides Cholesterol LDL Cholesterol Direct HDL Cholesterol TSH 3rd Generation Arterial Blood Potassium 05/15/18 05/15/18 05/15/18 14:45 17:47 17:47 WBC 7.4 RBC 3.85 Hgb 13.0 Hct 38.1 MCV 99.0 MCH 33.8 MCHC 34.1 RDW 16.1 H Plt Count 179 MPV 10.9 Gran % 88.1 H Lymph % (Auto) 5.9 L [place] % (Auto) 5.5 Eos % (Auto) 0.4 L Baso % (Auto) 0.1 Gran # 6.51 H Lymph # (Auto) 0.4 L [place] # (Auto) 0.4 Eos # (Auto) 0.0 Baso # (Auto) 0.01 Neutrophils % (Manual) Band Neutrophils % Lymphocytes % (Manual) Monocytes % (Manual) Platelet Evaluation Large Platelets Hypochromasia PT INR APTT pCO2 55 H pO2 221.0 H HCO3 20.5 L ABG pH 7.18 L* ABG Total CO2 22.2 ABG O2 Saturation 99.9 H ABG O2 Content 18.6 ABG Base Excess -8.3 L ABG Hemoglobin 13.3 ABG Carboxyhemoglobin 2.1 H POC ABG HHb (Measured) 0.1 ABG Methemoglobin 1.1 ABG O2 Capacity 18.6 ABG Potassium Hgb O2 Saturation 96.8 Glucose Lactate FiO2 100.0 Pressure Support Inspiratory BiPAP Sodium 135 Potassium 5.8 H* Chloride 98 Carbon Dioxide 25 Anion Gap 18 BUN 41 H Creatinine 6.4 H Est GFR ( Amer) 8 Est GFR (Non-Af Amer) 6 Random Glucose 98 Calcium 10.1 Phosphorus 3.9 Magnesium 2.2 Total Bilirubin 1.1 AST 42 H ALT 13 Alkaline Phosphatase 104 Troponin I 0.14 H* NT-Pro-B Natriuret Pep 150712 H Total Protein 6.7 Albumin 3.3 Globulin 3.5 Albumin/Globulin Ratio 0.9 L Triglycerides Cholesterol LDL Cholesterol Direct HDL Cholesterol TSH 3rd Generation Arterial Blood Potassium 05/15/18 05/15/18 05/16/18 17:59 21:58 04:15 WBC 4.6 D RBC 3.72 Hgb 11.3 L Hct 35.8 L MCV 96.2 MCH 30.4 MCHC 31.6 RDW 15.8 H Plt Count 207 MPV 10.4 Gran % 90.8 H Lymph % (Auto) 7.5 L [place] % (Auto) 1.5 Eos % (Auto) 0.0 L Baso % (Auto) 0.2 Gran # 4.21 Lymph # (Auto) 0.4 L [place] # (Auto) 0.1 Eos # (Auto) 0.0 Baso # (Auto) 0.01 Neutrophils % (Manual) 89 H Band Neutrophils % 2 Lymphocytes % (Manual) 5 L Monocytes % (Manual) 4 Platelet Evaluation Normal Large Platelets Present Hypochromasia Slight PT INR APTT pCO2 32 L pO2 188.0 H HCO3 20.8 L ABG pH 7.42 ABG Total CO2 21.8 L ABG O2 Saturation 99.9 H ABG O2 Content ABG Base Excess -2.8 L ABG Hemoglobin ABG Carboxyhemoglobin POC ABG HHb (Measured) ABG Methemoglobin ABG O2 Capacity ABG Potassium 5.3 H Hgb O2 Saturation Glucose 96 Lactate 1.5 FiO2 50.0 Pressure Support 8 Inspiratory BiPAP 16 Sodium 133.0 Potassium Chloride 102.0 Carbon Dioxide Anion Gap BUN Creatinine Est GFR ( Amer) Est GFR (Non-Af Amer) Random Glucose Calcium Phosphorus Magnesium Total Bilirubin AST ALT Alkaline Phosphatase Troponin I 0.15 H* NT-Pro-B Natriuret Pep Total Protein Albumin Globulin Albumin/Globulin Ratio Triglycerides Cholesterol LDL Cholesterol Direct HDL Cholesterol TSH 3rd Generation Arterial Blood Potassium 5.3 H 05/16/18 05/16/18 04:15 04:15 WBC RBC Hgb Hct MCV MCH MCHC RDW Plt Count MPV Gran % Lymph % (Auto) [place] % (Auto) Eos % (Auto) Baso % (Auto) Gran # Lymph # (Auto) [place] # (Auto) Eos # (Auto) Baso # (Auto) Neutrophils % (Manual) Band Neutrophils % Lymphocytes % (Manual) Monocytes % (Manual) Platelet Evaluation Large Platelets Hypochromasia PT INR APTT pCO2 pO2 HCO3 ABG pH ABG Total CO2 ABG O2 Saturation ABG O2 Content ABG Base Excess ABG Hemoglobin ABG Carboxyhemoglobin POC ABG HHb (Measured) ABG Methemoglobin ABG O2 Capacity ABG Potassium Hgb O2 Saturation Glucose Lactate FiO2 Pressure Support Inspiratory BiPAP Sodium 136 Potassium 6.4 H* Chloride 98 Carbon Dioxide 20 L Anion Gap 25 H BUN 46 H Creatinine 6.8 H Est GFR ( Amer) 7 Est GFR (Non-Af Amer) 6 Random Glucose 116 H Calcium 10.2 Phosphorus 4.5 Magnesium 2.2 Total Bilirubin 0.9 AST 29 ALT 14 Alkaline Phosphatase 94 Troponin I 0.16 H* NT-Pro-B Natriuret Pep Total Protein 6.6 Albumin 3.2 Globulin 3.4 Albumin/Globulin Ratio 0.9 L Triglycerides 73 Cholesterol 101 L LDL Cholesterol Direct 33 HDL Cholesterol 35 TSH 3rd Generation 3.79 Arterial Blood Potassium Assessment & Plan - Assessment and Plan (Free Text) Assessment: 82F with extensive medical history admitted to ICU after elective femoral angioplast for acute SOB and GI consulted for chronic abdominal distension. #Chronic abdominal distension #SOB #ESRD #CHF #CAD #HTN #Afib s/p PPM PLAN: - DDx includes chronic obstruction, pseudo-obstruction ([place]). - Encourage mobilization, out of bed to chair - CT abdomen pelvis without contrast - Monitor BMs, nausea, vomiting. - Avoid medicines that can slow the bowels (anticholinergics, opiates.) - IVF per ICU - OK to start full liquid and advance to Puree diet as tolerated. - Date & Time Date: 05/16/18 Time: 07:58 <Neema Rios V - Last Filed: 05/16/18 22:02> Meds - Medications Medications: Current Medications Acetylcysteine (Acetylcysteine 20%) 4 ml IH Q6 PRN PRN Reason: Cough Diltiazem HCl (Cardizem) 30 mg PO QID [facility] Last Admin: 05/16/18 17:45 Dose: 30 mg Famotidine (Pepcid) 20 mg IVP DAILY [facility] Last Admin: 05/16/18 13:26 Dose: 20 mg Guaifenesin (Robitussin) 100 mg PO Q4H PRN PRN Reason: Cough Last Admin: 05/15/18 22:59 Dose: 100 mg Hydralazine HCl (Apresoline) 10 mg IVP Q6 PRN PRN Reason: Systolic Blood Pressure Levalbuterol HCl (Xopenex) 1.25 mg IH [id number] [facility] Last Admin: 05/16/18 02:02 Dose: 1.25 mg Levalbuterol HCl (Xopenex) 1.25 mg IH Q3 PRN PRN Reason: Shortness of Breath Ondansetron HCl (Zofran Inj) 4 mg IVP ONCE PRN PRN Reason: Nausea/Vomiting Racepinephrine (Racepinephrine 2.25% Inhl Soln) 0.5 ml IH Q3 PRN PRN Reason: Shortness of Breath Last Admin: 05/15/18 22:02 Dose: 0.5 ml Results - Vital Signs Recent Vital Signs: Last Vital Signs Temp 97.3 F L 05/16/18 19:42 Pulse 70 05/16/18 19:42 Resp 22 05/16/18 19:42 BP 119/53 L 05/16/18 19:00 Pulse Ox 96 05/15/18 10:38 - Labs Result Diagrams: 05/16/18 08:30 05/16/18 08:30 Labs: Laboratory Results - last 24 hr 05/15/18 05/16/18 05/16/18 21:58 04:15 04:15 WBC 4.6 D RBC 3.72 Hgb 11.3 L Hct 35.8 L MCV 96.2 MCH 30.4 MCHC 31.6 RDW 15.8 H Plt Count 207 MPV 10.4 Gran % 90.8 H Lymph % (Auto) 7.5 L [place] % (Auto) 1.5 Eos % (Auto) 0.0 L Baso % (Auto) 0.2 Gran # 4.21 Lymph # (Auto) 0.4 L [place] # (Auto) 0.1 Eos # (Auto) 0.0 Baso # (Auto) 0.01 Neutrophils % (Manual) 89 H Band Neutrophils % 2 Lymphocytes % (Manual) 5 L Monocytes % (Manual) 4 Platelet Evaluation Normal Large Platelets Present Hypochromasia Slight Sodium Potassium Chloride Carbon Dioxide Anion Gap BUN Creatinine Est GFR ( Amer) Est GFR (Non-Af Amer) Random Glucose Hemoglobin A1c Calcium Phosphorus Magnesium Total Bilirubin AST ALT Alkaline Phosphatase Troponin I 0.15 H* Total Protein Albumin Globulin Albumin/Globulin Ratio Triglycerides Cholesterol LDL Cholesterol Direct HDL Cholesterol Procalcitonin 3.58 H TSH 3rd Generation Hep Bs Antigen Hep Bs Antibody Hep B Core IgM Ab 05/16/18 05/16/18 05/16/18 04:15 04:15 04:15 WBC RBC Hgb Hct MCV MCH MCHC RDW Plt Count MPV Gran % Lymph % (Auto) [place] % (Auto) Eos % (Auto) Baso % (Auto) Gran # Lymph # (Auto) [place] # (Auto) Eos # (Auto) Baso # (Auto) Neutrophils % (Manual) Band Neutrophils % Lymphocytes % (Manual) Monocytes % (Manual) Platelet Evaluation Large Platelets Hypochromasia Sodium 136 Potassium 6.4 H* Chloride 98 Carbon Dioxide 20 L Anion Gap 25 H BUN 46 H Creatinine 6.8 H Est GFR ( Amer) 7 Est GFR (Non-Af Amer) 6 Random Glucose 116 H Hemoglobin A1c 4.9 Calcium 10.2 Phosphorus 4.5 Magnesium 2.2 Total Bilirubin 0.9 AST 29 ALT 14 Alkaline Phosphatase 94 Troponin I 0.16 H* Total Protein 6.6 Albumin 3.2 Globulin 3.4 Albumin/Globulin Ratio 0.9 L Triglycerides 73 Cholesterol 101 L LDL Cholesterol Direct 33 HDL Cholesterol 35 Procalcitonin TSH 3rd Generation 3.79 Hep Bs Antigen Hep Bs Antibody Hep B Core IgM Ab 05/16/18 05/16/18 05/16/18 07:00 07:00 08:30 WBC 4.9 RBC 3.52 Hgb 10.8 L Hct 33.8 L MCV 96.0 MCH 30.7 MCHC 32.0 RDW 15.9 H Plt Count 199 MPV 9.9 Gran % 85.3 H Lymph % (Auto) 6.5 L [place] % (Auto) 8.0 H Eos % (Auto) 0.0 L Baso % (Auto) 0.2 Gran # 4.17 Lymph # (Auto) 0.3 L [place] # (Auto) 0.4 Eos # (Auto) 0.0 Baso # (Auto) 0.01 Neutrophils % (Manual) Band Neutrophils % Lymphocytes % (Manual) Monocytes % (Manual) Platelet Evaluation Large Platelets Hypochromasia Sodium Potassium Chloride Carbon Dioxide Anion Gap BUN Creatinine Est GFR ( Amer) Est GFR (Non-Af Amer) Random Glucose Hemoglobin A1c Calcium Phosphorus Magnesium Total Bilirubin AST ALT Alkaline Phosphatase Troponin I Total Protein Albumin Globulin Albumin/Globulin Ratio Triglycerides Cholesterol LDL Cholesterol Direct HDL Cholesterol Procalcitonin TSH 3rd Generation Hep Bs Antigen Negative Hep Bs Antibody Positive Hep B Core IgM Ab Negative 05/16/18 08:30 WBC RBC Hgb Hct MCV MCH MCHC RDW Plt Count MPV Gran % Lymph % (Auto) [place] % (Auto) Eos % (Auto) Baso % (Auto) Gran # Lymph # (Auto) [place] # (Auto) Eos # (Auto) Baso # (Auto) Neutrophils % (Manual) Band Neutrophils % Lymphocytes % (Manual) Monocytes % (Manual) Platelet Evaluation Large Platelets Hypochromasia Sodium 136 Potassium 4.4 Chloride 96 L Carbon Dioxide 26 Anion Gap 18 BUN 26 H Creatinine 4.0 H Est GFR ( Amer) 13 Est GFR (Non-Af Amer) 11 Random Glucose 105 Hemoglobin A1c Calcium 9.3 Phosphorus 2.9 Magnesium 2.1 Total Bilirubin 0.9 AST 28 ALT 17 Alkaline Phosphatase 102 Troponin I Total Protein 7.0 Albumin 3.4 Globulin 3.6 Albumin/Globulin Ratio 0.9 L Triglycerides Cholesterol LDL Cholesterol Direct HDL Cholesterol Procalcitonin TSH 3rd Generation Hep Bs Antigen Hep Bs Antibody Hep B Core IgM Ab Attending/Attestation - Attestation I have personally seen and examined this patient.: Yes I have fully participated in the care of the patient.: Yes I have reviewed all pertinent clinical information: Yes Notes (Text): This is an addendum to GI consult report dictated by the GI Fellow.The patient was seen and examined earlier. Medical records, lab studies, imagings were reviewed. Last 24 hours events reviewed. Agreed with the above treatment plan as outlined in GI Fellow 's notes with the addition of the following This 82 year old patient status post femoral angiogram Post procedure found to have some wheezing possible allergic reaction was admitted ICU Patient did have episode of A.fib History of status post PPM for sick sinus syndrome The patient was found to have an abdominal distention GI consult was called for evaluation Patient denies any abdominal pain On examination abdomen distended nontender Abdominal xray was non diagnostic Request CT of the abdomen and pelvis with no yesica or PO contrast 05/16/18 21:45
--- NOTE | 2018-05-16 08:11 | CON ---
DATE: 05/15/2018 REASON FOR CONSULTATION: Hyperkalemia, shortness of breath, ESRD, status post angiogram. HISTORY OF PRESENTING ILLNESS: An 82-year lady, known to me from prior evaluations, outpatient hemodialysis. The patient was brought to the hospital for a same day procedure, the patient had an angiogram and angioplasty done of her left lower extremity. This was sent for a nonhealing ulcer of the left heel. Procedure was successfully performed. The patient started complaining of shortness of breath in the PACU. Consultation is requested for shortness of breath and hyperkalemia. Currently, the patient is seen in the PACU. She is on her way to the ICU. She is on BiPAP. She is awake. She is responsive. Daughter is at bedside. The patient denies any pain. She denies any shortness of breath at present. She denies any chest tightness. As per the daughter, the patient is feeling much better right now. Earlier, she was agitated and uncomfortable. Currently, her blood pressure is 182/98, heart rate is 117, respiratory rate is 19. She is afebrile. Her blood work showed a potassium of 5.7. PAST MEDICAL AND SURGICAL HISTORY: Hypertension, CHF, pulmonary hypertension, COPD, ESRD, anemia of chronic kidney disease, secondary hyperparathyroidism, peripheral vascular disease. FAMILY HISTORY: Noncontributory. SOCIAL HISTORY: Ex-smoker, no alcohol use, no IV drug abuse. ALLERGIES: NO KNOWN DRUG ALLERGIES. MEDICATIONS: Protonix 40; midodrine 5 Sunday, , Sunday; Cinacalcet 30, calcium acetate 3 caps three times a day, Lipitor 40, aspirin 81, allopurinol 100, Tylenol 325 p.r.n. REVIEW OF SYSTEMS: All systems are reviewed, pertinent positives as mentioned in the history of presenting illness, rest unremarkable. PHYSICAL EXAMINATION: GENERAL: Elderly lady lying in bed in the PACU, en route to the ICU. VITAL SIGNS: Blood pressure 188/98, heart rate 117, respiratory rate 19, temperature 98.2. HEENT: Normocephalic, atraumatic, positive pallor. NECK: Supple, no JVD. Lungs: Bilateral equal entry, bilateral equal expansion, no rales appreciated anteriorly. CARDIAC: S1 and S2, , regular rate and rhythm, positive murmur, no rub. ABDOMEN: Distended, soft, bowel sounds present. EXTREMITIES: Ulcer of the left heel, left foot feels warm. Actually feels warmer than the right foot. CURRENT MEDICATIONS: Mucomyst every 6, Xopenex, Zofran. The patient also received Solu-Medrol 40 mg, Pepcid 20 mg, DuoNeb. ASSESSMENT AND PLAN 1. Respiratory distress./respiratory failure/chronic obstructive pulmonary disease exacerbation. 2. Demetrice Pat MD MTDD
[2018-05-16] MEDS ORDERED: Barium Sulfate Susp 2.1% w/v, 2.0% w/w 450 mL Bottle PO ONE (08:19)
[2018-05-16 08:36] LABS: BASO # 0.01 K/mm3 (0.0-2.0); BASO % 0.2 % (0.0-3.0); GRAN # 4.17 (1.4-6.5); GRAN % 85.3 % (50.0-68.0); HEMOGLOBIN 10.8 g/dL (12.0-16.0); LYMPH # 0.3 (1.2-3.4); LYMPH % 6.5 % (22.0-35.0); MEAN CORPUSCULAR HEMOGLOBIN 30.7 pg (25.0-35.0); MEAN PLATELET VOLUME 9.9 fl (7.0-11.0); MONO # 0.4 (0.1-0.6); RBC 3.52 10^6/uL (3.5-6.1); RED CELL DISTRIBUTION WIDTH 15.9 % (11.5-14.5); WHITE BLOOD COUNT 4.9 10^3/ul (4.5-11.0)
[2018-05-16 08:57] LABS: ALB/GLOB RATIO 0.9 (1.1-1.8); ALBUMIN 3.4 g/dL (3.0-4.8); CALCIUM 9.3 mg/dL (8.4-10.5)
--- NOTE | 2018-05-16 10:02 | CP.CCUPN ---
<Erika Ghotra - Last Filed: 05/16/18 12:09> CCU Subjective - Physician Review Subjective (Free Text): ICU progress note for Dr. Hernandez Patient seen and examined this am at bedside. Patient is resting comfortably on 2LNC. No longer exhibiting afib on monitor. Patient otherwise denies SINGH, CP , SOB, abdominal pain, N, or vomiting. 05/16/18 09:58 CCU Objective - Vital Signs / Intake & Output Vital Signs (Last 4 hours): Vital Signs Pulse 05/16/18 06:00 75 Intake and Output (Last 8hrs): Intake & Output 05/15/18 05/16/18 05/16/18 22:59 06:59 14:59 Intake Total 15 160 Balance 15 160 Weight 157 lb 157 lb Intake: IV 15 160 Right Antecubital 15 60 Other: # Voids Urine, Voided 0 - Physical Exam Head: Positive for: Atraumatic, Normocephalic Pupils: Positive for: PERRL Extroacular Muscles: Positive for: EOMI Mouth: Positive for: Moist Mucous Membranes Respiratory/Chest: Positive for: Clear to Auscultation, Good Air Exchange Cardiovascular: Positive for: Regular Rate and Rhythm Abdomen: Positive for: Distention, Normal Bowel Sounds. Negative for: Tenderness, Peritoneal Signs, Guarding Upper Extremity: Positive for: Normal Inspection. Negative for: Cyanosis, Edema Lower Extremity: Positive for: Normal Inspection. Negative for: Edema Neurological: Positive for: GCS=15, CN II-XII Intact, Speech Normal Skin: Positive for: Warm, Dry, Rashes, Normal Color Psychiatric: Positive for: Alert, Oriented x 3 - Medications Active Medications: Active Medications Generic Name Dose Route Start Last Admin Trade Name Freq PRN Reason Stop Dose Admin Acetylcysteine 4 ml 05/15/18 15:35 Acetylcysteine 20% IH Q6 PRN Cough Famotidine 20 mg 05/15/18 16:30 Pepcid IVP DAILY DIANA Guaifenesin 100 mg 05/15/18 22:52 05/15/18 22:59 Robitussin PO 100 mg Q4H PRN Administration Cough Hydralazine HCl 10 mg 05/15/18 16:14 Apresoline IVP Q6 PRN Systolic Blood Pressure diltiaZEM IVPB 100mg in NS 100 mls @ 5 mls/hr 05/15/18 18:47 05/16/18 06:17 Cardizem 100mg In Ns IV 5 mg/hr .Q20H PRN 5 mls/hr TITRATE PER MD ORDER Administration Protocol 5 MG/HR Levalbuterol HCl 1.25 mg 05/15/18 20:00 05/16/18 02:02 Xopenex IH 1.25 mg [id number] DIANA Administration Levalbuterol HCl 1.25 mg 05/15/18 16:00 Xopenex IH Q3 PRN Shortness of Breath Ondansetron HCl 4 mg 05/15/18 14:19 Zofran Inj IVP ONCE PRN Nausea/Vomiting Racepinephrine 0.5 ml 05/15/18 15:23 05/15/18 22:02 Racepinephrine 2.25% Inhl Soln IH 0.5 ml Q3 PRN Administration Shortness of Breath - Patient Studies Lab Studies: Lab Studies 05/16/18 05/16/18 05/16/18 Range/Units 08:30 08:30 04:15 WBC 4.9 (4.5-11.0) 10^3/ul RBC 3.52 (3.5-6.1) 10^6/uL Hgb 10.8 L (12.0-16.0) g/dL Hct 33.8 L (36.0-48.0) % MCV 96.0 (80.0-105.0) fl MCH 30.7 (25.0-35.0) pg MCHC 32.0 (31.0-37.0) g/dl RDW 15.9 H (11.5-14.5) % Plt Count 199 (120.0-450.0) 10^3/uL MPV 9.9 (7.0-11.0) fl Gran % 85.3 H (50.0-68.0) % Lymph % (Auto) 6.5 L (22.0-35.0) % [place] % (Auto) 8.0 H (1.0-6.0) % Eos % (Auto) 0.0 L (1.5-5.0) % Baso % (Auto) 0.2 (0.0-3.0) % Gran # 4.17 (1.4-6.5) Lymph # (Auto) 0.3 L (1.2-3.4) [place] # (Auto) 0.4 (0.1-0.6) Eos # (Auto) 0.0 (0.0-0.7) Baso # (Auto) 0.01 (0.0-2.0) K/mm3 Neutrophils % (Manual) (50.0-70.0) % Band Neutrophils % (0-2) % Lymphocytes % (Manual) (22.0-35.0) % Monocytes % (Manual) (1.0-6.0) % Platelet Evaluation (NORMAL) Large Platelets Hypochromasia PT (9.4-12.5) SECONDS INR APTT (25.1-36.5) Seconds pCO2 (35-45) mm/Hg pO2 (80-100) mm/Hg HCO3 (21-28) mmol/L ABG pH (7.35-7.45) ABG Total CO2 (22-28) mmol.L ABG O2 Saturation (95-98) % ABG O2 Content (15-23) ML/dl ABG Base Excess (-2.0-3.0) mmol/L ABG Hemoglobin (11.7-17.4) g/dL ABG Carboxyhemoglobin (0.5-1.5) % POC ABG HHb (Measured) (0-5) % ABG Methemoglobin (0.0-3.0) % ABG O2 Capacity (16-24) mL/dl ABG Potassium (3.6-5.2) mmol/L Hgb O2 Saturation (95.0-98.0) % Glucose (65-105) mg/dl Lactate (0.7-2.1) mmol/L FiO2 % Pressure Support Inspiratory BiPAP Sodium 136 (132-148) mmol/L Potassium 4.4 (3.6-5.0) mmol/L Chloride 96 L (98-107) mmol/L Carbon Dioxide 26 (21-33) mmol/L Anion Gap 18 (10-20) BUN 26 H (7-21) mg/dL Creatinine 4.0 H (0.7-1.2) mg/dl Est GFR ( Amer) 13 Est GFR (Non-Af Amer) 11 Random Glucose 105 (70-110) mg/dL Calcium 9.3 (8.4-10.5) mg/dL Phosphorus 2.9 (2.5-4.5) mg/dL Magnesium 2.1 (1.7-2.2) mg/dL Total Bilirubin 0.9 (0.2-1.3) mg/dL AST 28 (14-36) U/L ALT 17 (7-56) U/L Alkaline Phosphatase 102 (38-126) U/L Troponin I ng/mL NT-Pro-B Natriuret Pep (0-450) pg/mL Total Protein 7.0 (5.8-8.3) g/dL Albumin 3.4 (3.0-4.8) g/dL Globulin 3.6 gm/dL Albumin/Globulin Ratio 0.9 L (1.1-1.8) Triglycerides (35-160) mg/dL Cholesterol (130-200) mg/dL LDL Cholesterol Direct (0-129) mg/dL HDL Cholesterol (29-60) mg/dL TSH 3rd Generation 3.79 (0.46-4.68) mIU/mL Arterial Blood Potassium (3.6-5.2) mmol/L 05/16/18 05/16/18 05/15/18 Range/Units 04:15 04:15 21:58 WBC 4.6 D (4.5-11.0) 10^3/ul RBC 3.72 (3.5-6.1) 10^6/uL Hgb 11.3 L (12.0-16.0) g/dL Hct 35.8 L (36.0-48.0) % MCV 96.2 (80.0-105.0) fl MCH 30.4 (25.0-35.0) pg MCHC 31.6 (31.0-37.0) g/dl RDW 15.8 H (11.5-14.5) % Plt Count 207 (120.0-450.0) 10^3/uL MPV 10.4 (7.0-11.0) fl Gran % 90.8 H (50.0-68.0) % Lymph % (Auto) 7.5 L (22.0-35.0) % [place] % (Auto) 1.5 (1.0-6.0) % Eos % (Auto) 0.0 L (1.5-5.0) % Baso % (Auto) 0.2 (0.0-3.0) % Gran # 4.21 (1.4-6.5) Lymph # (Auto) 0.4 L (1.2-3.4) [place] # (Auto) 0.1 (0.1-0.6) Eos # (Auto) 0.0 (0.0-0.7) Baso # (Auto) 0.01 (0.0-2.0) K/mm3 Neutrophils % (Manual) 89 H (50.0-70.0) % Band Neutrophils % 2 (0-2) % Lymphocytes % (Manual) 5 L (22.0-35.0) % Monocytes % (Manual) 4 (1.0-6.0) % Platelet Evaluation Normal (NORMAL) Large Platelets Present Hypochromasia Slight PT (9.4-12.5) SECONDS INR APTT (25.1-36.5) Seconds pCO2 (35-45) mm/Hg pO2 (80-100) mm/Hg HCO3 (21-28) mmol/L ABG pH (7.35-7.45) ABG Total CO2 (22-28) mmol.L ABG O2 Saturation (95-98) % ABG O2 Content (15-23) ML/dl ABG Base Excess (-2.0-3.0) mmol/L ABG Hemoglobin (11.7-17.4) g/dL ABG Carboxyhemoglobin (0.5-1.5) % POC ABG HHb (Measured) (0-5) % ABG Methemoglobin (0.0-3.0) % ABG O2 Capacity (16-24) mL/dl ABG Potassium (3.6-5.2) mmol/L Hgb O2 Saturation (95.0-98.0) % Glucose (65-105) mg/dl Lactate (0.7-2.1) mmol/L FiO2 % Pressure Support Inspiratory BiPAP Sodium 136 (132-148) mmol/L Potassium 6.4 H* (3.6-5.0) mmol/L Chloride 98 (98-107) mmol/L Carbon Dioxide 20 L (21-33) mmol/L Anion Gap 25 H (10-20) BUN 46 H (7-21) mg/dL Creatinine 6.8 H (0.7-1.2) mg/dl Est GFR ( Amer) 7 Est GFR (Non-Af Amer) 6 Random Glucose 116 H (70-110) mg/dL Calcium 10.2 (8.4-10.5) mg/dL Phosphorus 4.5 (2.5-4.5) mg/dL Magnesium 2.2 (1.7-2.2) mg/dL Total Bilirubin 0.9 (0.2-1.3) mg/dL AST 29 (14-36) U/L ALT 14 (7-56) U/L Alkaline Phosphatase 94 (38-126) U/L Troponin I 0.16 H* 0.15 H* ng/mL NT-Pro-B Natriuret Pep (0-450) pg/mL Total Protein 6.6 (5.8-8.3) g/dL Albumin 3.2 (3.0-4.8) g/dL Globulin 3.4 gm/dL Albumin/Globulin Ratio 0.9 L (1.1-1.8) Triglycerides 73 (35-160) mg/dL Cholesterol 101 L (130-200) mg/dL LDL Cholesterol Direct 33 (0-129) mg/dL HDL Cholesterol 35 (29-60) mg/dL TSH 3rd Generation (0.46-4.68) mIU/mL Arterial Blood Potassium (3.6-5.2) mmol/L 05/15/18 05/15/18 05/15/18 Range/Units 17:59 17:47 17:47 WBC 7.4 (4.5-11.0) 10^3/ul RBC 3.85 (3.5-6.1) 10^6/uL Hgb 13.0 (12.0-16.0) g/dL Hct 38.1 (36.0-48.0) % MCV 99.0 (80.0-105.0) fl MCH 33.8 (25.0-35.0) pg MCHC 34.1 (31.0-37.0) g/dl RDW 16.1 H (11.5-14.5) % Plt Count 179 (120.0-450.0) 10^3/uL MPV 10.9 (7.0-11.0) fl Gran % 88.1 H (50.0-68.0) % Lymph % (Auto) 5.9 L (22.0-35.0) % [place] % (Auto) 5.5 (1.0-6.0) % Eos % (Auto) 0.4 L (1.5-5.0) % Baso % (Auto) 0.1 (0.0-3.0) % Gran # 6.51 H (1.4-6.5) Lymph # (Auto) 0.4 L (1.2-3.4) [place] # (Auto) 0.4 (0.1-0.6) Eos # (Auto) 0.0 (0.0-0.7) Baso # (Auto) 0.01 (0.0-2.0) K/mm3 Neutrophils % (Manual) (50.0-70.0) % Band Neutrophils % (0-2) % Lymphocytes % (Manual) (22.0-35.0) % Monocytes % (Manual) (1.0-6.0) % Platelet Evaluation (NORMAL) Large Platelets Hypochromasia PT (9.4-12.5) SECONDS INR APTT (25.1-36.5) Seconds pCO2 32 L (35-45) mm/Hg pO2 188.0 H (80-100) mm/Hg HCO3 20.8 L (21-28) mmol/L ABG pH 7.42 (7.35-7.45) ABG Total CO2 21.8 L (22-28) mmol.L ABG O2 Saturation 99.9 H (95-98) % ABG O2 Content (15-23) ML/dl ABG Base Excess -2.8 L (-2.0-3.0) mmol/L ABG Hemoglobin (11.7-17.4) g/dL ABG Carboxyhemoglobin (0.5-1.5) % POC ABG HHb (Measured) (0-5) % ABG Methemoglobin (0.0-3.0) % ABG O2 Capacity (16-24) mL/dl ABG Potassium 5.3 H (3.6-5.2) mmol/L Hgb O2 Saturation (95.0-98.0) % Glucose 96 (65-105) mg/dl Lactate 1.5 (0.7-2.1) mmol/L FiO2 50.0 % Pressure Support 8 Inspiratory BiPAP 16 Sodium 133.0 135 (132-148) mmol/L Potassium 5.8 H* (3.6-5.0) mmol/L Chloride 102.0 98 (98-107) mmol/L Carbon Dioxide 25 (21-33) mmol/L Anion Gap 18 (10-20) BUN 41 H (7-21) mg/dL Creatinine 6.4 H (0.7-1.2) mg/dl Est GFR ( Amer) 8 Est GFR (Non-Af Amer) 6 Random Glucose 98 (70-110) mg/dL Calcium 10.1 (8.4-10.5) mg/dL Phosphorus 3.9 (2.5-4.5) mg/dL Magnesium 2.2 (1.7-2.2) mg/dL Total Bilirubin 1.1 (0.2-1.3) mg/dL AST 42 H (14-36) U/L ALT 13 (7-56) U/L Alkaline Phosphatase 104 (38-126) U/L Troponin I 0.14 H* ng/mL NT-Pro-B Natriuret Pep [id number] H (0-450) pg/mL Total Protein 6.7 (5.8-8.3) g/dL Albumin 3.3 (3.0-4.8) g/dL Globulin 3.5 gm/dL Albumin/Globulin Ratio 0.9 L (1.1-1.8) Triglycerides (35-160) mg/dL Cholesterol (130-200) mg/dL LDL Cholesterol Direct (0-129) mg/dL HDL Cholesterol (29-60) mg/dL TSH 3rd Generation (0.46-4.68) mIU/mL Arterial Blood Potassium 5.3 H (3.6-5.2) mmol/L 05/15/18 05/15/18 05/15/18 Range/Units 14:45 10:25 10:25 WBC (4.5-11.0) 10^3/ul RBC (3.5-6.1) 10^6/uL Hgb (12.0-16.0) g/dL Hct (36.0-48.0) % MCV (80.0-105.0) fl MCH (25.0-35.0) pg MCHC (31.0-37.0) g/dl RDW (11.5-14.5) % Plt Count (120.0-450.0) 10^3/uL MPV (7.0-11.0) fl Gran % (50.0-68.0) % Lymph % (Auto) (22.0-35.0) % [place] % (Auto) (1.0-6.0) % Eos % (Auto) (1.5-5.0) % Baso % (Auto) (0.0-3.0) % Gran # (1.4-6.5) Lymph # (Auto) (1.2-3.4) [place] # (Auto) (0.1-0.6) Eos # (Auto) (0.0-0.7) Baso # (Auto) (0.0-2.0) K/mm3 Neutrophils % (Manual) (50.0-70.0) % Band Neutrophils % (0-2) % Lymphocytes % (Manual) (22.0-35.0) % Monocytes % (Manual) (1.0-6.0) % Platelet Evaluation (NORMAL) Large Platelets Hypochromasia PT 13.5 H (9.4-12.5) SECONDS INR 1.17 APTT 32.6 (25.1-36.5) Seconds pCO2 55 H (35-45) mm/Hg pO2 221.0 H (80-100) mm/Hg HCO3 20.5 L (21-28) mmol/L ABG pH 7.18 L* (7.35-7.45) ABG Total CO2 22.2 (22-28) mmol.L ABG O2 Saturation 99.9 H (95-98) % ABG O2 Content 18.6 (15-23) ML/dl ABG Base Excess -8.3 L (-2.0-3.0) mmol/L ABG Hemoglobin 13.3 (11.7-17.4) g/dL ABG Carboxyhemoglobin 2.1 H (0.5-1.5) % POC ABG HHb (Measured) 0.1 (0-5) % ABG Methemoglobin 1.1 (0.0-3.0) % ABG O2 Capacity 18.6 (16-24) mL/dl ABG Potassium (3.6-5.2) mmol/L Hgb O2 Saturation 96.8 (95.0-98.0) % Glucose (65-105) mg/dl Lactate (0.7-2.1) mmol/L FiO2 100.0 % Pressure Support Inspiratory BiPAP Sodium 136 (132-148) mmol/L Potassium 5.7 H* (3.6-5.0) mmol/L Chloride 97 L (98-107) mmol/L Carbon Dioxide 27 (21-33) mmol/L Anion Gap 18 (10-20) BUN 41 H (7-21) mg/dL Creatinine 6.5 H (0.7-1.2) mg/dl Est GFR ( Amer) 7 Est GFR (Non-Af Amer) 6 Random Glucose 88 (70-110) mg/dL Calcium 10.9 H (8.4-10.5) mg/dL Phosphorus (2.5-4.5) mg/dL Magnesium (1.7-2.2) mg/dL Total Bilirubin (0.2-1.3) mg/dL AST (14-36) U/L ALT (7-56) U/L Alkaline Phosphatase (38-126) U/L Troponin I ng/mL NT-Pro-B Natriuret Pep (0-450) pg/mL Total Protein (5.8-8.3) g/dL Albumin (3.0-4.8) g/dL Globulin gm/dL Albumin/Globulin Ratio (1.1-1.8) Triglycerides (35-160) mg/dL Cholesterol (130-200) mg/dL LDL Cholesterol Direct (0-129) mg/dL HDL Cholesterol (29-60) mg/dL TSH 3rd Generation (0.46-4.68) mIU/mL Arterial Blood Potassium (3.6-5.2) mmol/L 05/15/18 Range/Units 10:25 WBC 6.8 (4.5-11.0) 10^3/ul RBC 4.32 (3.5-6.1) 10^6/uL Hgb 13.4 (12.0-16.0) g/dL Hct 42.1 (36.0-48.0) % MCV 97.5 (80.0-105.0) fl MCH 31.0 (25.0-35.0) pg MCHC 31.8 (31.0-37.0) g/dl RDW 15.9 H (11.5-14.5) % Plt Count 224 (120.0-450.0) 10^3/uL MPV 10.0 (7.0-11.0) fl Gran % 72.9 H (50.0-68.0) % Lymph % (Auto) 12.5 L (22.0-35.0) % [place] % (Auto) 12.7 H (1.0-6.0) % Eos % (Auto) 1.5 (1.5-5.0) % Baso % (Auto) 0.4 (0.0-3.0) % Gran # 4.94 (1.4-6.5) Lymph # (Auto) 0.9 L (1.2-3.4) [place] # (Auto) 0.9 H (0.1-0.6) Eos # (Auto) 0.1 (0.0-0.7) Baso # (Auto) 0.03 (0.0-2.0) K/mm3 Neutrophils % (Manual) (50.0-70.0) % Band Neutrophils % (0-2) % Lymphocytes % (Manual) (22.0-35.0) % Monocytes % (Manual) (1.0-6.0) % Platelet Evaluation (NORMAL) Large Platelets Hypochromasia PT (9.4-12.5) SECONDS INR APTT (25.1-36.5) Seconds pCO2 (35-45) mm/Hg pO2 (80-100) mm/Hg HCO3 (21-28) mmol/L ABG pH (7.35-7.45) ABG Total CO2 (22-28) mmol.L ABG O2 Saturation (95-98) % ABG O2 Content (15-23) ML/dl ABG Base Excess (-2.0-3.0) mmol/L ABG Hemoglobin (11.7-17.4) g/dL ABG Carboxyhemoglobin (0.5-1.5) % POC ABG HHb (Measured) (0-5) % ABG Methemoglobin (0.0-3.0) % ABG O2 Capacity (16-24) mL/dl ABG Potassium (3.6-5.2) mmol/L Hgb O2 Saturation (95.0-98.0) % Glucose (65-105) mg/dl Lactate (0.7-2.1) mmol/L FiO2 % Pressure Support Inspiratory BiPAP Sodium (132-148) mmol/L Potassium (3.6-5.0) mmol/L Chloride (98-107) mmol/L Carbon Dioxide (21-33) mmol/L Anion Gap (10-20) BUN (7-21) mg/dL Creatinine (0.7-1.2) mg/dl Est GFR ( Amer) Est GFR (Non-Af Amer) Random Glucose (70-110) mg/dL Calcium (8.4-10.5) mg/dL Phosphorus (2.5-4.5) mg/dL Magnesium (1.7-2.2) mg/dL Total Bilirubin (0.2-1.3) mg/dL AST (14-36) U/L ALT (7-56) U/L Alkaline Phosphatase (38-126) U/L Troponin I ng/mL NT-Pro-B Natriuret Pep (0-450) pg/mL Total Protein (5.8-8.3) g/dL Albumin (3.0-4.8) g/dL Globulin gm/dL Albumin/Globulin Ratio (1.1-1.8) Triglycerides (35-160) mg/dL Cholesterol (130-200) mg/dL LDL Cholesterol Direct (0-129) mg/dL HDL Cholesterol (29-60) mg/dL TSH 3rd Generation (0.46-4.68) mIU/mL Arterial Blood Potassium (3.6-5.2) mmol/L Laboratory Results - last 24 hr 05/15/18 05/15/18 05/15/18 10:25 10:25 10:25 WBC 6.8 RBC 4.32 Hgb 13.4 Hct 42.1 MCV 97.5 MCH 31.0 MCHC 31.8 RDW 15.9 H Plt Count 224 MPV 10.0 Gran % 72.9 H Lymph % (Auto) 12.5 L [place] % (Auto) 12.7 H Eos % (Auto) 1.5 Baso % (Auto) 0.4 Gran # 4.94 Lymph # (Auto) 0.9 L [place] # (Auto) 0.9 H Eos # (Auto) 0.1 Baso # (Auto) 0.03 Neutrophils % (Manual) Band Neutrophils % Lymphocytes % (Manual) Monocytes % (Manual) Platelet Evaluation Large Platelets Hypochromasia PT 13.5 H INR 1.17 APTT 32.6 pCO2 pO2 HCO3 ABG pH ABG Total CO2 ABG O2 Saturation ABG O2 Content ABG Base Excess ABG Hemoglobin ABG Carboxyhemoglobin POC ABG HHb (Measured) ABG Methemoglobin ABG O2 Capacity ABG Potassium Hgb O2 Saturation Glucose Lactate FiO2 Pressure Support Inspiratory BiPAP Sodium 136 Potassium 5.7 H* Chloride 97 L Carbon Dioxide 27 Anion Gap 18 BUN 41 H Creatinine 6.5 H Est GFR ( Amer) 7 Est GFR (Non-Af Amer) 6 Random Glucose 88 Calcium 10.9 H Phosphorus Magnesium Total Bilirubin AST ALT Alkaline Phosphatase Troponin I NT-Pro-B Natriuret Pep Total Protein Albumin Globulin Albumin/Globulin Ratio Triglycerides Cholesterol LDL Cholesterol Direct HDL Cholesterol TSH 3rd Generation Arterial Blood Potassium 05/15/18 05/15/18 05/15/18 14:45 17:47 17:47 WBC 7.4 RBC 3.85 Hgb 13.0 Hct 38.1 MCV 99.0 MCH 33.8 MCHC 34.1 RDW 16.1 H Plt Count 179 MPV 10.9 Gran % 88.1 H Lymph % (Auto) 5.9 L [place] % (Auto) 5.5 Eos % (Auto) 0.4 L Baso % (Auto) 0.1 Gran # 6.51 H Lymph # (Auto) 0.4 L [place] # (Auto) 0.4 Eos # (Auto) 0.0 Baso # (Auto) 0.01 Neutrophils % (Manual) Band Neutrophils % Lymphocytes % (Manual) Monocytes % (Manual) Platelet Evaluation Large Platelets Hypochromasia PT INR APTT pCO2 55 H pO2 221.0 H HCO3 20.5 L ABG pH 7.18 L* ABG Total CO2 22.2 ABG O2 Saturation 99.9 H ABG O2 Content 18.6 ABG Base Excess -8.3 L ABG Hemoglobin 13.3 ABG Carboxyhemoglobin 2.1 H POC ABG HHb (Measured) 0.1 ABG Methemoglobin 1.1 ABG O2 Capacity 18.6 ABG Potassium Hgb O2 Saturation 96.8 Glucose Lactate FiO2 100.0 Pressure Support Inspiratory BiPAP Sodium 135 Potassium 5.8 H* Chloride 98 Carbon Dioxide 25 Anion Gap 18 BUN 41 H Creatinine 6.4 H Est GFR ( Amer) 8 Est GFR (Non-Af Amer) 6 Random Glucose 98 Calcium 10.1 Phosphorus 3.9 Magnesium 2.2 Total Bilirubin 1.1 AST 42 H ALT 13 Alkaline Phosphatase 104 Troponin I 0.14 H* NT-Pro-B Natriuret Pep [id number] H Total Protein 6.7 Albumin 3.3 Globulin 3.5 Albumin/Globulin Ratio 0.9 L Triglycerides Cholesterol LDL Cholesterol Direct HDL Cholesterol TSH 3rd Generation Arterial Blood Potassium 05/15/18 05/15/18 05/16/18 17:59 21:58 04:15 WBC 4.6 D RBC 3.72 Hgb 11.3 L Hct 35.8 L MCV 96.2 MCH 30.4 MCHC 31.6 RDW 15.8 H Plt Count 207 MPV 10.4 Gran % 90.8 H Lymph % (Auto) 7.5 L [place] % (Auto) 1.5 Eos % (Auto) 0.0 L Baso % (Auto) 0.2 Gran # 4.21 Lymph # (Auto) 0.4 L [place] # (Auto) 0.1 Eos # (Auto) 0.0 Baso # (Auto) 0.01 Neutrophils % (Manual) 89 H Band Neutrophils % 2 Lymphocytes % (Manual) 5 L Monocytes % (Manual) 4 Platelet Evaluation Normal Large Platelets Present Hypochromasia Slight PT INR APTT pCO2 32 L pO2 188.0 H HCO3 20.8 L ABG pH 7.42 ABG Total CO2 21.8 L ABG O2 Saturation 99.9 H ABG O2 Content ABG Base Excess -2.8 L ABG Hemoglobin ABG Carboxyhemoglobin POC ABG HHb (Measured) ABG Methemoglobin ABG O2 Capacity ABG Potassium 5.3 H Hgb O2 Saturation Glucose 96 Lactate 1.5 FiO2 50.0 Pressure Support 8 Inspiratory BiPAP 16 Sodium 133.0 Potassium Chloride 102.0 Carbon Dioxide Anion Gap BUN Creatinine Est GFR ( Amer) Est GFR (Non-Af Amer) Random Glucose Calcium Phosphorus Magnesium Total Bilirubin AST ALT Alkaline Phosphatase Troponin I 0.15 H* NT-Pro-B Natriuret Pep Total Protein Albumin Globulin Albumin/Globulin Ratio Triglycerides Cholesterol LDL Cholesterol Direct HDL Cholesterol TSH 3rd Generation Arterial Blood Potassium 5.3 H 05/16/18 05/16/18 05/16/18 04:15 04:15 08:30 WBC 4.9 RBC 3.52 Hgb 10.8 L Hct 33.8 L MCV 96.0 MCH 30.7 MCHC 32.0 RDW 15.9 H Plt Count 199 MPV 9.9 Gran % 85.3 H Lymph % (Auto) 6.5 L [place] % (Auto) 8.0 H Eos % (Auto) 0.0 L Baso % (Auto) 0.2 Gran # 4.17 Lymph # (Auto) 0.3 L [place] # (Auto) 0.4 Eos # (Auto) 0.0 Baso # (Auto) 0.01 Neutrophils % (Manual) Band Neutrophils % Lymphocytes % (Manual) Monocytes % (Manual) Platelet Evaluation Large Platelets Hypochromasia PT INR APTT pCO2 pO2 HCO3 ABG pH ABG Total CO2 ABG O2 Saturation ABG O2 Content ABG Base Excess ABG Hemoglobin ABG Carboxyhemoglobin POC ABG HHb (Measured) ABG Methemoglobin ABG O2 Capacity ABG Potassium Hgb O2 Saturation Glucose Lactate FiO2 Pressure Support Inspiratory BiPAP Sodium 136 Potassium 6.4 H* Chloride 98 Carbon Dioxide 20 L Anion Gap 25 H BUN 46 H Creatinine 6.8 H Est GFR ( Amer) 7 Est GFR (Non-Af Amer) 6 Random Glucose 116 H Calcium 10.2 Phosphorus 4.5 Magnesium 2.2 Total Bilirubin 0.9 AST 29 ALT 14 Alkaline Phosphatase 94 Troponin I 0.16 H* NT-Pro-B Natriuret Pep Total Protein 6.6 Albumin 3.2 Globulin 3.4 Albumin/Globulin Ratio 0.9 L Triglycerides 73 Cholesterol 101 L LDL Cholesterol Direct 33 HDL Cholesterol 35 TSH 3rd Generation 3.79 Arterial Blood Potassium 05/16/18 08:30 WBC RBC Hgb Hct MCV MCH MCHC RDW Plt Count MPV Gran % Lymph % (Auto) [place] % (Auto) Eos % (Auto) Baso % (Auto) Gran # Lymph # (Auto) [place] # (Auto) Eos # (Auto) Baso # (Auto) Neutrophils % (Manual) Band Neutrophils % Lymphocytes % (Manual) Monocytes % (Manual) Platelet Evaluation Large Platelets Hypochromasia PT INR APTT pCO2 pO2 HCO3 ABG pH ABG Total CO2 ABG O2 Saturation ABG O2 Content ABG Base Excess ABG Hemoglobin ABG Carboxyhemoglobin POC ABG HHb (Measured) ABG Methemoglobin ABG O2 Capacity ABG Potassium Hgb O2 Saturation Glucose Lactate FiO2 Pressure Support Inspiratory BiPAP Sodium 136 Potassium 4.4 Chloride 96 L Carbon Dioxide 26 Anion Gap 18 BUN 26 H Creatinine 4.0 H Est GFR ( Amer) 13 Est GFR (Non-Af Amer) 11 Random Glucose 105 Calcium 9.3 Phosphorus 2.9 Magnesium 2.1 Total Bilirubin 0.9 AST 28 ALT 17 Alkaline Phosphatase 102 Troponin I NT-Pro-B Natriuret Pep Total Protein 7.0 Albumin 3.4 Globulin 3.6 Albumin/Globulin Ratio 0.9 L Triglycerides Cholesterol LDL Cholesterol Direct HDL Cholesterol TSH 3rd Generation Arterial Blood Potassium Review of Systems - Review of Systems All systems: reviewed and no additional remarkable complaints except (as per HPI ) Critical Care Progress Note - Prophylaxis GI Prophylaxis GI: PPI - Prophylaxis DVT Prophylaxis DVT: SCDs - Nutrition Nutrition: Nutrition Category Date Time Status NPO Diet [DIET] Diets 05/15/18 Dinner Ordered Assessment/Plan - Assessment and Plan (Free Text) Assessment: 82 year old female with PMH CHF s/p pacemaker, HTN, GERD, CAD (no stents), gout , pleural effusions (many years ago), PAD (w stents), admitted to ICU for hypercapneic respiratory distress following angio cath vascular procedure for lower extremity PAD; placed on bipap, repeat blood gas approximately 2-3 hours later normal. decreased to 12/6 on bipap. Bipap removed overnight satting well on 2L NC. Recieving dialysis today in setting of ESRD and hyperkalemia; Cleared for transfer out of ICU after dialysis today. Plan: Pulm: Hypercapneic respiratory distress 2/2 sedation in OR vs allergic reaction to dye vs fluid overload (chf exacerbation in dialysis patient) - initial ABG showed respiratory acidosis, pH 7.18, pCO2 55, pO2 221, HCO3 20.5. - CXR showed stable cardiomegaly, vascular congestion. - racemic epinehrine and benadryl given in OR. - repeat blood gas pH 7.42 O2 221 - on 2LNC, will maintain SpO2>95%. - duobebs Q6hrs, xopenex diana and prn - Steroids 20 BID - mucomyst inh for cough - Lactic acid and procal WNL - BNP 08094+ - Nephro Dr Pat consulted. Patient being dialyzed this am. - Monitor Cardio: -HR 90s-100s, sinus rhythm; overnight patient developed afib no longer in afib - started on cardizem drip; now transitioned to 30mg PO daily cardizem per Dr. Rubio -Hx of CAD, CHF w pacemaker -f/u echo -Hypertensive intermittently; Hydralazine prn. -hold home midodrine GI: - soft,distended abdomen. -Abdomen x ray reviewed, no perforation noted. -GI consulted, f/u recs -Abdomen CT pending -NPO. -Pepcid for prophylaxis. Renal: -BUN/Cr 26/4 -K 6.7 prior to dialysis, 4.4 after -Patient has a history of ESRD on HD T--Sat. -nephro Dr Pat on board. -CXR shows vascular congestion. - dialysis this am ID: -afebrile, no leukocytosis. - procal negative -CXR neg for infiltrates. -No antibiotics for now. Monitor. Heme: Hgb stable. Plts stable. Cont to monitor. PPX: Pepcid, SCDs Code status: DNR Seen and discussed with Dr. Hernandez - Date & Time Date: 05/16/18 <Sherwin Hernandez - Last Filed: 05/16/18 14:33> CCU Objective - Vital Signs / Intake & Output Vital Signs (Last 4 hours): Vital Signs Temp Pulse Resp BP 05/16/18 14:11 70 24 05/16/18 14:10 70 05/16/18 14:09 70 24 05/16/18 14:08 70 71 H 05/16/18 14:07 70 23 05/16/18 14:06 70 21 05/16/18 14:05 70 20 05/16/18 14:04 70 27 H 05/16/18 14:03 70 17 05/16/18 14:02 70 05/16/18 14:01 70 22 05/16/18 14:00 70 05/16/18 13:59 70 23 05/16/18 13:58 71 05/16/18 13:57 70 21 05/16/18 13:56 70 18 05/16/18 13:55 70 20 05/16/18 13:54 70 05/16/18 13:53 70 36 H 05/16/18 13:52 77 76 H 05/16/18 13:51 77 59 H 05/16/18 13:50 70 23 05/16/18 13:49 70 42 H 05/16/18 13:48 70 24 05/16/18 13:47 70 56 H 05/16/18 13:46 70 20 05/16/18 13:45 70 69 H 05/16/18 13:44 71 23 05/16/18 13:43 70 05/16/18 13:42 70 23 05/16/18 13:41 70 70 H 05/16/18 13:40 70 24 05/16/18 13:39 70 65 H 05/16/18 13:38 70 55 H 05/16/18 13:37 70 57 H 05/16/18 13:36 70 05/16/18 13:35 70 45 H 05/16/18 13:34 70 71 H 05/16/18 13:33 70 42 H 05/16/18 13:32 70 05/16/18 13:31 70 21 05/16/18 13:30 70 54 H 05/16/18 13:29 70 22 05/16/18 13:28 70 86 H 05/16/18 13:27 70 26 H 05/16/18 13:26 70 18 05/16/18 13:25 70 23 05/16/18 13:24 70 47 H 05/16/18 13:23 70 31 H 05/16/18 13:22 70 70 H 05/16/18 13:21 70 30 H 05/16/18 13:20 70 38 H 05/16/18 13:19 70 47 H 05/16/18 13:18 70 40 H 05/16/18 13:17 70 05/16/18 13:16 70 33 H 05/16/18 13:15 70 05/16/18 13:14 70 41 H 05/16/18 13:13 70 55 H 05/16/18 13:12 70 35 H 18 13:11 70 70 H 05/16/18 13:10 70 41 H 05/16/18 13:09 70 67 H 05/16/18 13:08 70 48 H 05/16/18 13:07 70 31 H 05/16/18 12:48 97.9 F 70 22 05/16/18 12:47 97.9 F 70 21 05/16/18 12:46 97.9 F 70 23 05/16/18 12:45 97.9 F 70 84 H 05/16/18 12:44 97.9 F 70 24 05/16/18 12:43 97.9 F 70 38 H 05/16/18 12:42 97.9 F 70 23 05/16/18 12:41 97.9 F 70 52 H 05/16/18 12:40 97.9 F 70 61 H 05/16/18 12:39 97.9 F 70 56 H 05/16/18 12:38 97.9 F 70 55 H 05/16/18 12:37 97.9 F 70 05/16/18 11:26 70 118/63 Intake and Output (Last 8hrs): Intake & Output 05/15/18 05/16/18 05/16/18 22:59 06:59 14:59 Intake Total 15 160 Balance 15 160 Weight 157 lb 157 lb Intake: IV 15 160 Right Antecubital 15 60 Other: # Voids Urine, Voided 0 - Medications Active Medications: Active Medications Generic Name Dose Route Start Last Admin Trade Name Freq PRN Reason Stop Dose Admin Acetylcysteine 4 ml 05/15/18 15:35 Acetylcysteine 20% IH Q6 PRN Cough Diltiazem HCl 30 mg 05/16/18 10:00 05/16/18 11:26 Cardizem PO 30 mg QID DIANA Administration Famotidine 20 mg 05/15/18 16:30 05/16/18 13:26 Pepcid IVP 20 mg DAILY DIANA Administration Guaifenesin 100 mg 05/15/18 22:52 05/15/18 22:59 Robitussin PO 100 mg Q4H PRN Administration Cough Hydralazine HCl 10 mg 05/15/18 16:14 Apresoline IVP Q6 PRN Systolic Blood Pressure Levalbuterol HCl 1.25 mg 05/15/18 20:00 05/16/18 02:02 Xopenex IH 1.25 mg [id number] DIANA Administration Levalbuterol HCl 1.25 mg 05/15/18 16:00 Xopenex IH Q3 PRN Shortness of Breath Ondansetron HCl 4 mg 05/15/18 14:19 Zofran Inj IVP ONCE PRN Nausea/Vomiting Racepinephrine 0.5 ml 05/15/18 15:23 05/15/18 22:02 Racepinephrine 2.25% Inhl Soln IH 0.5 ml Q3 PRN Administration Shortness of Breath - Patient Studies Lab Studies: Lab Studies 05/16/18 05/16/18 05/16/18 Range/Units 08:30 08:30 07:00 WBC 4.9 (4.5-11.0) 10^3/ul RBC 3.52 (3.5-6.1) 10^6/uL Hgb 10.8 L (12.0-16.0) g/dL Hct 33.8 L (36.0-48.0) % MCV 96.0 (80.0-105.0) fl MCH 30.7 (25.0-35.0) pg MCHC 32.0 (31.0-37.0) g/dl RDW 15.9 H (11.5-14.5) % Plt Count 199 (120.0-450.0) 10^3/uL MPV 9.9 (7.0-11.0) fl Gran % 85.3 H (50.0-68.0) % Lymph % (Auto) 6.5 L (22.0-35.0) % [place] % (Auto) 8.0 H (1.0-6.0) % Eos % (Auto) 0.0 L (1.5-5.0) % Baso % (Auto) 0.2 (0.0-3.0) % Gran # 4.17 (1.4-6.5) Lymph # (Auto) 0.3 L (1.2-3.4) [place] # (Auto) 0.4 (0.1-0.6) Eos # (Auto) 0.0 (0.0-0.7) Baso # (Auto) 0.01 (0.0-2.0) K/mm3 Neutrophils % (Manual) (50.0-70.0) % Band Neutrophils % (0-2) % Lymphocytes % (Manual) (22.0-35.0) % Monocytes % (Manual) (1.0-6.0) % Platelet Evaluation (NORMAL) Large Platelets Hypochromasia pCO2 (35-45) mm/Hg pO2 (80-100) mm/Hg HCO3 (21-28) mmol/L ABG pH (7.35-7.45) ABG Total CO2 (22-28) mmol.L ABG O2 Saturation (95-98) % ABG O2 Content (15-23) ML/dl ABG Base Excess (-2.0-3.0) mmol/L ABG Hemoglobin (11.7-17.4) g/dL ABG Carboxyhemoglobin (0.5-1.5) % POC ABG HHb (Measured) (0-5) % ABG Methemoglobin (0.0-3.0) % ABG O2 Capacity (16-24) mL/dl ABG Potassium (3.6-5.2) mmol/L Hgb O2 Saturation (95.0-98.0) % Glucose (65-105) mg/dl Lactate (0.7-2.1) mmol/L FiO2 % Pressure Support Inspiratory BiPAP Sodium 136 (132-148) mmol/L Potassium 4.4 (3.6-5.0) mmol/L Chloride 96 L (98-107) mmol/L Carbon Dioxide 26 (21-33) mmol/L Anion Gap 18 (10-20) BUN 26 H (7-21) mg/dL Creatinine 4.0 H (0.7-1.2) mg/dl Est GFR ( Amer) 13 Est GFR (Non-Af Amer) 11 Random Glucose 105 (70-110) mg/dL Hemoglobin A1c (4.2-6.5) % Calcium 9.3 (8.4-10.5) mg/dL Phosphorus 2.9 (2.5-4.5) mg/dL Magnesium 2.1 (1.7-2.2) mg/dL Total Bilirubin 0.9 (0.2-1.3) mg/dL AST 28 (14-36) U/L ALT 17 (7-56) U/L Alkaline Phosphatase 102 (38-126) U/L Troponin I ng/mL NT-Pro-B Natriuret Pep (0-450) pg/mL Total Protein 7.0 (5.8-8.3) g/dL Albumin 3.4 (3.0-4.8) g/dL Globulin 3.6 gm/dL Albumin/Globulin Ratio 0.9 L (1.1-1.8) Triglycerides (35-160) mg/dL Cholesterol (130-200) mg/dL LDL Cholesterol Direct (0-129) mg/dL HDL Cholesterol (29-60) mg/dL Procalcitonin (0.19-0.49) NG/ML TSH 3rd Generation (0.46-4.68) mIU/mL Arterial Blood Potassium (3.6-5.2) mmol/L Hep Bs Antigen (NEGATIVE) Hep Bs Antibody Positive (NEGATIVE) Hep B Core IgM Ab (NEGATIVE) 05/16/18 05/16/18 05/16/18 Range/Units 07:00 04:15 04:15 WBC (4.5-11.0) 10^3/ul RBC (3.5-6.1) 10^6/uL Hgb (12.0-16.0) g/dL Hct (36.0-48.0) % MCV (80.0-105.0) fl MCH (25.0-35.0) pg MCHC (31.0-37.0) g/dl RDW (11.5-14.5) % Plt Count (120.0-450.0) 10^3/uL MPV (7.0-11.0) fl Gran % (50.0-68.0) % Lymph % (Auto) (22.0-35.0) % [place] % (Auto) (1.0-6.0) % Eos % (Auto) (1.5-5.0) % Baso % (Auto) (0.0-3.0) % Gran # (1.4-6.5) Lymph # (Auto) (1.2-3.4) [place] # (Auto) (0.1-0.6) Eos # (Auto) (0.0-0.7) Baso # (Auto) (0.0-2.0) K/mm3 Neutrophils % (Manual) (50.0-70.0) % Band Neutrophils % (0-2) % Lymphocytes % (Manual) (22.0-35.0) % Monocytes % (Manual) (1.0-6.0) % Platelet Evaluation (NORMAL) Large Platelets Hypochromasia pCO2 (35-45) mm/Hg pO2 (80-100) mm/Hg HCO3 (21-28) mmol/L ABG pH (7.35-7.45) ABG Total CO2 (22-28) mmol.L ABG O2 Saturation (95-98) % ABG O2 Content (15-23) ML/dl ABG Base Excess (-2.0-3.0) mmol/L ABG Hemoglobin (11.7-17.4) g/dL ABG Carboxyhemoglobin (0.5-1.5) % POC ABG HHb (Measured) (0-5) % ABG Methemoglobin (0.0-3.0) % ABG O2 Capacity (16-24) mL/dl ABG Potassium (3.6-5.2) mmol/L Hgb O2 Saturation (95.0-98.0) % Glucose (65-105) mg/dl Lactate (0.7-2.1) mmol/L FiO2 % Pressure Support Inspiratory BiPAP Sodium (132-148) mmol/L Potassium (3.6-5.0) mmol/L Chloride (98-107) mmol/L Carbon Dioxide (21-33) mmol/L Anion Gap (10-20) BUN (7-21) mg/dL Creatinine (0.7-1.2) mg/dl Est GFR ( Amer) Est GFR (Non-Af Amer) Random Glucose (70-110) mg/dL Hemoglobin A1c 4.9 (4.2-6.5) % Calcium (8.4-10.5) mg/dL Phosphorus (2.5-4.5) mg/dL Magnesium (1.7-2.2) mg/dL Total Bilirubin (0.2-1.3) mg/dL AST (14-36) U/L ALT (7-56) U/L Alkaline Phosphatase (38-126) U/L Troponin I ng/mL NT-Pro-B Natriuret Pep (0-450) pg/mL Total Protein (5.8-8.3) g/dL Albumin (3.0-4.8) g/dL Globulin gm/dL Albumin/Globulin Ratio (1.1-1.8) Triglycerides (35-160) mg/dL Cholesterol (130-200) mg/dL LDL Cholesterol Direct (0-129) mg/dL HDL Cholesterol (29-60) mg/dL Procalcitonin (0.19-0.49) NG/ML TSH 3rd Generation 3.79 (0.46-4.68) mIU/mL Arterial Blood Potassium (3.6-5.2) mmol/L Hep Bs Antigen Negative (NEGATIVE) Hep Bs Antibody (NEGATIVE) Hep B Core IgM Ab Negative (NEGATIVE) 05/16/18 05/16/18 05/16/18 Range/Units 04:15 04:15 04:15 WBC 4.6 D (4.5-11.0) 10^3/ul RBC 3.72 (3.5-6.1) 10^6/uL Hgb 11.3 L (12.0-16.0) g/dL Hct 35.8 L (36.0-48.0) % MCV 96.2 (80.0-105.0) fl MCH 30.4 (25.0-35.0) pg MCHC 31.6 (31.0-37.0) g/dl RDW 15.8 H (11.5-14.5) % Plt Count 207 (120.0-450.0) 10^3/uL MPV 10.4 (7.0-11.0) fl Gran % 90.8 H (50.0-68.0) % Lymph % (Auto) 7.5 L (22.0-35.0) % [place] % (Auto) 1.5 (1.0-6.0) % Eos % (Auto) 0.0 L (1.5-5.0) % Baso % (Auto) 0.2 (0.0-3.0) % Gran # 4.21 (1.4-6.5) Lymph # (Auto) 0.4 L (1.2-3.4) [place] # (Auto) 0.1 (0.1-0.6) Eos # (Auto) 0.0 (0.0-0.7) Baso # (Auto) 0.01 (0.0-2.0) K/mm3 Neutrophils % (Manual) 89 H (50.0-70.0) % Band Neutrophils % 2 (0-2) % Lymphocytes % (Manual) 5 L (22.0-35.0) % Monocytes % (Manual) 4 (1.0-6.0) % Platelet Evaluation Normal (NORMAL) Large Platelets Present Hypochromasia Slight pCO2 (35-45) mm/Hg pO2 (80-100) mm/Hg HCO3 (21-28) mmol/L ABG pH (7.35-7.45) ABG Total CO2 (22-28) mmol.L ABG O2 Saturation (95-98) % ABG O2 Content (15-23) ML/dl ABG Base Excess (-2.0-3.0) mmol/L ABG Hemoglobin (11.7-17.4) g/dL ABG Carboxyhemoglobin (0.5-1.5) % POC ABG HHb (Measured) (0-5) % ABG Methemoglobin (0.0-3.0) % ABG O2 Capacity (16-24) mL/dl ABG Potassium (3.6-5.2) mmol/L Hgb O2 Saturation (95.0-98.0) % Glucose (65-105) mg/dl Lactate (0.7-2.1) mmol/L FiO2 % Pressure Support Inspiratory BiPAP Sodium 136 (132-148) mmol/L Potassium 6.4 H* (3.6-5.0) mmol/L Chloride 98 (98-107) mmol/L Carbon Dioxide 20 L (21-33) mmol/L Anion Gap 25 H (10-20) BUN 46 H (7-21) mg/dL Creatinine 6.8 H (0.7-1.2) mg/dl Est GFR ( Amer) 7 Est GFR (Non-Af Amer) 6 Random Glucose 116 H (70-110) mg/dL Hemoglobin A1c (4.2-6.5) % Calcium 10.2 (8.4-10.5) mg/dL Phosphorus 4.5 (2.5-4.5) mg/dL Magnesium 2.2 (1.7-2.2) mg/dL Total Bilirubin 0.9 (0.2-1.3) mg/dL AST 29 (14-36) U/L ALT 14 (7-56) U/L Alkaline Phosphatase 94 (38-126) U/L Troponin I 0.16 H* ng/mL NT-Pro-B Natriuret Pep (0-450) pg/mL Total Protein 6.6 (5.8-8.3) g/dL Albumin 3.2 (3.0-4.8) g/dL Globulin 3.4 gm/dL Albumin/Globulin Ratio 0.9 L (1.1-1.8) Triglycerides 73 (35-160) mg/dL Cholesterol 101 L (130-200) mg/dL LDL Cholesterol Direct 33 (0-129) mg/dL HDL Cholesterol 35 (29-60) mg/dL Procalcitonin 3.58 H (0.19-0.49) NG/ML TSH 3rd Generation (0.46-4.68) mIU/mL Arterial Blood Potassium (3.6-5.2) mmol/L Hep Bs Antigen (NEGATIVE) Hep Bs Antibody (NEGATIVE) Hep B Core IgM Ab (NEGATIVE) 05/15/18 05/15/18 05/15/18 Range/Units 21:58 17:59 17:47 WBC (4.5-11.0) 10^3/ul RBC (3.5-6.1) 10^6/uL Hgb (12.0-16.0) g/dL Hct (36.0-48.0) % MCV (80.0-105.0) fl MCH (25.0-35.0) pg MCHC (31.0-37.0) g/dl RDW (11.5-14.5) % Plt Count (120.0-450.0) 10^3/uL MPV (7.0-11.0) fl Gran % (50.0-68.0) % Lymph % (Auto) (22.0-35.0) % [place] % (Auto) (1.0-6.0) % Eos % (Auto) (1.5-5.0) % Baso % (Auto) (0.0-3.0) % Gran # (1.4-6.5) Lymph # (Auto) (1.2-3.4) [place] # (Auto) (0.1-0.6) Eos # (Auto) (0.0-0.7) Baso # (Auto) (0.0-2.0) K/mm3 Neutrophils % (Manual) (50.0-70.0) % Band Neutrophils % (0-2) % Lymphocytes % (Manual) (22.0-35.0) % Monocytes % (Manual) (1.0-6.0) % Platelet Evaluation (NORMAL) Large Platelets Hypochromasia pCO2 32 L (35-45) mm/Hg pO2 188.0 H (80-100) mm/Hg HCO3 20.8 L (21-28) mmol/L ABG pH 7.42 (7.35-7.45) ABG Total CO2 21.8 L (22-28) mmol.L ABG O2 Saturation 99.9 H (95-98) % ABG O2 Content (15-23) ML/dl ABG Base Excess -2.8 L (-2.0-3.0) mmol/L ABG Hemoglobin (11.7-17.4) g/dL ABG Carboxyhemoglobin (0.5-1.5) % POC ABG HHb (Measured) (0-5) % ABG Methemoglobin (0.0-3.0) % ABG O2 Capacity (16-24) mL/dl ABG Potassium 5.3 H (3.6-5.2) mmol/L Hgb O2 Saturation (95.0-98.0) % Glucose 96 (65-105) mg/dl Lactate 1.5 (0.7-2.1) mmol/L FiO2 50.0 % Pressure Support 8 Inspiratory BiPAP 16 Sodium 133.0 135 (132-148) mmol/L Potassium 5.8 H* (3.6-5.0) mmol/L Chloride 102.0 98 (98-107) mmol/L Carbon Dioxide 25 (21-33) mmol/L Anion Gap 18 (10-20) BUN 41 H (7-21) mg/dL Creatinine 6.4 H (0.7-1.2) mg/dl Est GFR ( Amer) 8 Est GFR (Non-Af Amer) 6 Random Glucose 98 (70-110) mg/dL Hemoglobin A1c (4.2-6.5) % Calcium 10.1 (8.4-10.5) mg/dL Phosphorus 3.9 (2.5-4.5) mg/dL Magnesium 2.2 (1.7-2.2) mg/dL Total Bilirubin 1.1 (0.2-1.3) mg/dL AST 42 H (14-36) U/L ALT 13 (7-56) U/L Alkaline Phosphatase 104 (38-126) U/L Troponin I 0.15 H* 0.14 H* ng/mL NT-Pro-B Natriuret Pep [id number] H (0-450) pg/mL Total Protein 6.7 (5.8-8.3) g/dL Albumin 3.3 (3.0-4.8) g/dL Globulin 3.5 gm/dL Albumin/Globulin Ratio 0.9 L (1.1-1.8) Triglycerides (35-160) mg/dL Cholesterol (130-200) mg/dL LDL Cholesterol Direct (0-129) mg/dL HDL Cholesterol (29-60) mg/dL Procalcitonin (0.19-0.49) NG/ML TSH 3rd Generation (0.46-4.68) mIU/mL Arterial Blood Potassium 5.3 H (3.6-5.2) mmol/L Hep Bs Antigen (NEGATIVE) Hep Bs Antibody (NEGATIVE) Hep B Core IgM Ab (NEGATIVE) 05/15/18 05/15/18 Range/Units 17:47 14:45 WBC 7.4 (4.5-11.0) 10^3/ul RBC 3.85 (3.5-6.1) 10^6/uL Hgb 13.0 (12.0-16.0) g/dL Hct 38.1 (36.0-48.0) % MCV 99.0 (80.0-105.0) fl MCH 33.8 (25.0-35.0) pg MCHC 34.1 (31.0-37.0) g/dl RDW 16.1 H (11.5-14.5) % Plt Count 179 (120.0-450.0) 10^3/uL MPV 10.9 (7.0-11.0) fl Gran % 88.1 H (50.0-68.0) % Lymph % (Auto) 5.9 L (22.0-35.0) % [place] % (Auto) 5.5 (1.0-6.0) % Eos % (Auto) 0.4 L (1.5-5.0) % Baso % (Auto) 0.1 (0.0-3.0) % Gran # 6.51 H (1.4-6.5) Lymph # (Auto) 0.4 L (1.2-3.4) [place] # (Auto) 0.4 (0.1-0.6) Eos # (Auto) 0.0 (0.0-0.7) Baso # (Auto) 0.01 (0.0-2.0) K/mm3 Neutrophils % (Manual) (50.0-70.0) % Band Neutrophils % (0-2) % Lymphocytes % (Manual) (22.0-35.0) % Monocytes % (Manual) (1.0-6.0) % Platelet Evaluation (NORMAL) Large Platelets Hypochromasia pCO2 55 H (35-45) mm/Hg pO2 221.0 H (80-100) mm/Hg HCO3 20.5 L (21-28) mmol/L ABG pH 7.18 L* (7.35-7.45) ABG Total CO2 22.2 (22-28) mmol.L ABG O2 Saturation 99.9 H (95-98) % ABG O2 Content 18.6 (15-23) ML/dl ABG Base Excess -8.3 L (-2.0-3.0) mmol/L ABG Hemoglobin 13.3 (11.7-17.4) g/dL ABG Carboxyhemoglobin 2.1 H (0.5-1.5) % POC ABG HHb (Measured) 0.1 (0-5) % ABG Methemoglobin 1.1 (0.0-3.0) % ABG O2 Capacity 18.6 (16-24) mL/dl ABG Potassium (3.6-5.2) mmol/L Hgb O2 Saturation 96.8 (95.0-98.0) % Glucose (65-105) mg/dl Lactate (0.7-2.1) mmol/L FiO2 100.0 % Pressure Support Inspiratory BiPAP Sodium (132-148) mmol/L Potassium (3.6-5.0) mmol/L Chloride (98-107) mmol/L Carbon Dioxide (21-33) mmol/L Anion Gap (10-20) BUN (7-21) mg/dL Creatinine (0.7-1.2) mg/dl Est GFR ( Amer) Est GFR (Non-Af Amer) Random Glucose (70-110) mg/dL Hemoglobin A1c (4.2-6.5) % Calcium (8.4-10.5) mg/dL Phosphorus (2.5-4.5) mg/dL Magnesium (1.7-2.2) mg/dL Total Bilirubin (0.2-1.3) mg/dL AST (14-36) U/L ALT (7-56) U/L Alkaline Phosphatase (38-126) U/L Troponin I ng/mL NT-Pro-B Natriuret Pep (0-450) pg/mL Total Protein (5.8-8.3) g/dL Albumin (3.0-4.8) g/dL Globulin gm/dL Albumin/Globulin Ratio (1.1-1.8) Triglycerides (35-160) mg/dL Cholesterol (130-200) mg/dL LDL Cholesterol Direct (0-129) mg/dL HDL Cholesterol (29-60) mg/dL Procalcitonin (0.19-0.49) NG/ML TSH 3rd Generation (0.46-4.68) mIU/mL Arterial Blood Potassium (3.6-5.2) mmol/L Hep Bs Antigen (NEGATIVE) Hep Bs Antibody (NEGATIVE) Hep B Core IgM Ab (NEGATIVE) Laboratory Results - last 24 hr 05/15/18 05/15/18 05/15/18 14:45 17:47 17:47 WBC 7.4 RBC 3.85 Hgb 13.0 Hct 38.1 MCV 99.0 MCH 33.8 MCHC 34.1 RDW 16.1 H Plt Count 179 MPV 10.9 Gran % 88.1 H Lymph % (Auto) 5.9 L [place] % (Auto) 5.5 Eos % (Auto) 0.4 L Baso % (Auto) 0.1 Gran # 6.51 H Lymph # (Auto) 0.4 L [place] # (Auto) 0.4 Eos # (Auto) 0.0 Baso # (Auto) 0.01 Neutrophils % (Manual) Band Neutrophils % Lymphocytes % (Manual) Monocytes % (Manual) Platelet Evaluation Large Platelets Hypochromasia pCO2 55 H pO2 221.0 H HCO3 20.5 L ABG pH 7.18 L* ABG Total CO2 22.2 ABG O2 Saturation 99.9 H ABG O2 Content 18.6 ABG Base Excess -8.3 L ABG Hemoglobin 13.3 ABG Carboxyhemoglobin 2.1 H POC ABG HHb (Measured) 0.1 ABG Methemoglobin 1.1 ABG O2 Capacity 18.6 ABG Potassium Hgb O2 Saturation 96.8 Glucose Lactate FiO2 100.0 Pressure Support Inspiratory BiPAP Sodium 135 Potassium 5.8 H* Chloride 98 Carbon Dioxide 25 Anion Gap 18 BUN 41 H Creatinine 6.4 H Est GFR ( Amer) 8 Est GFR (Non-Af Amer) 6 Random Glucose 98 Hemoglobin A1c Calcium 10.1 Phosphorus 3.9 Magnesium 2.2 Total Bilirubin 1.1 AST 42 H ALT 13 Alkaline Phosphatase 104 Troponin I 0.14 H* NT-Pro-B Natriuret Pep [id number] H Total Protein 6.7 Albumin 3.3 Globulin 3.5 Albumin/Globulin Ratio 0.9 L Triglycerides Cholesterol LDL Cholesterol Direct HDL Cholesterol Procalcitonin TSH 3rd Generation Arterial Blood Potassium Hep Bs Antigen Hep Bs Antibody Hep B Core IgM Ab 05/15/18 05/15/18 05/16/18 17:59 21:58 04:15 WBC RBC Hgb Hct MCV MCH MCHC RDW Plt Count MPV Gran % Lymph % (Auto) [place] % (Auto) Eos % (Auto) Baso % (Auto) Gran # Lymph # (Auto) [place] # (Auto) Eos # (Auto) Baso # (Auto) Neutrophils % (Manual) Band Neutrophils % Lymphocytes % (Manual) Monocytes % (Manual) Platelet Evaluation Large Platelets Hypochromasia pCO2 32 L pO2 188.0 H HCO3 20.8 L ABG pH 7.42 ABG Total CO2 21.8 L ABG O2 Saturation 99.9 H ABG O2 Content ABG Base Excess -2.8 L ABG Hemoglobin ABG Carboxyhemoglobin POC ABG HHb (Measured) ABG Methemoglobin ABG O2 Capacity ABG Potassium 5.3 H Hgb O2 Saturation Glucose 96 Lactate 1.5 FiO2 50.0 Pressure Support 8 Inspiratory BiPAP 16 Sodium 133.0 Potassium Chloride 102.0 Carbon Dioxide Anion Gap BUN Creatinine Est GFR ( Amer) Est GFR (Non-Af Amer) Random Glucose Hemoglobin A1c Calcium Phosphorus Magnesium Total Bilirubin AST ALT Alkaline Phosphatase Troponin I 0.15 H* NT-Pro-B Natriuret Pep Total Protein Albumin Globulin Albumin/Globulin Ratio Triglycerides Cholesterol LDL Cholesterol Direct HDL Cholesterol Procalcitonin 3.58 H TSH 3rd Generation Arterial Blood Potassium 5.3 H Hep Bs Antigen Hep Bs Antibody Hep B Core IgM Ab 05/16/18 05/16/18 05/16/18 04:15 04:15 04:15 WBC 4.6 D RBC 3.72 Hgb 11.3 L Hct 35.8 L MCV 96.2 MCH 30.4 MCHC 31.6 RDW 15.8 H Plt Count 207 MPV 10.4 Gran % 90.8 H Lymph % (Auto) 7.5 L [place] % (Auto) 1.5 Eos % (Auto) 0.0 L Baso % (Auto) 0.2 Gran # 4.21 Lymph # (Auto) 0.4 L [place] # (Auto) 0.1 Eos # (Auto) 0.0 Baso # (Auto) 0.01 Neutrophils % (Manual) 89 H Band Neutrophils % 2 Lymphocytes % (Manual) 5 L Monocytes % (Manual) 4 Platelet Evaluation Normal Large Platelets Present Hypochromasia Slight pCO2 pO2 HCO3 ABG pH ABG Total CO2 ABG O2 Saturation ABG O2 Content ABG Base Excess ABG Hemoglobin ABG Carboxyhemoglobin POC ABG HHb (Measured) ABG Methemoglobin ABG O2 Capacity ABG Potassium Hgb O2 Saturation Glucose Lactate FiO2 Pressure Support Inspiratory BiPAP Sodium 136 Potassium 6.4 H* Chloride 98 Carbon Dioxide 20 L Anion Gap 25 H BUN 46 H Creatinine 6.8 H Est GFR ( Amer) 7 Est GFR (Non-Af Amer) 6 Random Glucose 116 H Hemoglobin A1c 4.9 Calcium 10.2 Phosphorus 4.5 Magnesium 2.2 Total Bilirubin 0.9 AST 29 ALT 14 Alkaline Phosphatase 94 Troponin I 0.16 H* NT-Pro-B Natriuret Pep Total Protein 6.6 Albumin 3.2 Globulin 3.4 Albumin/Globulin Ratio 0.9 L Triglycerides 73 Cholesterol 101 L LDL Cholesterol Direct 33 HDL Cholesterol 35 Procalcitonin TSH 3rd Generation Arterial Blood Potassium Hep Bs Antigen Hep Bs Antibody Hep B Core IgM Ab 05/16/18 05/16/18 05/16/18 04:15 07:00 07:00 WBC RBC Hgb Hct MCV MCH MCHC RDW Plt Count MPV Gran % Lymph % (Auto) [place] % (Auto) Eos % (Auto) Baso % (Auto) Gran # Lymph # (Auto) [place] # (Auto) Eos # (Auto) Baso # (Auto) Neutrophils % (Manual) Band Neutrophils % Lymphocytes % (Manual) Monocytes % (Manual) Platelet Evaluation Large Platelets Hypochromasia pCO2 pO2 HCO3 ABG pH ABG Total CO2 ABG O2 Saturation ABG O2 Content ABG Base Excess ABG Hemoglobin ABG Carboxyhemoglobin POC ABG HHb (Measured) ABG Methemoglobin ABG O2 Capacity ABG Potassium Hgb O2 Saturation Glucose Lactate FiO2 Pressure Support Inspiratory BiPAP Sodium Potassium Chloride Carbon Dioxide Anion Gap BUN Creatinine Est GFR ( Amer) Est GFR (Non-Af Amer) Random Glucose Hemoglobin A1c Calcium Phosphorus Magnesium Total Bilirubin AST ALT Alkaline Phosphatase Troponin I NT-Pro-B Natriuret Pep Total Protein Albumin Globulin Albumin/Globulin Ratio Triglycerides Cholesterol LDL Cholesterol Direct HDL Cholesterol Procalcitonin TSH 3rd Generation 3.79 Arterial Blood Potassium Hep Bs Antigen Negative Hep Bs Antibody Positive Hep B Core IgM Ab Negative 05/16/18 05/16/18 08:30 08:30 WBC 4.9 RBC 3.52 Hgb 10.8 L Hct 33.8 L MCV 96.0 MCH 30.7 MCHC 32.0 RDW 15.9 H Plt Count 199 MPV 9.9 Gran % 85.3 H Lymph % (Auto) 6.5 L [place] % (Auto) 8.0 H Eos % (Auto) 0.0 L Baso % (Auto) 0.2 Gran # 4.17 Lymph # (Auto) 0.3 L [place] # (Auto) 0.4 Eos # (Auto) 0.0 Baso # (Auto) 0.01 Neutrophils % (Manual) Band Neutrophils % Lymphocytes % (Manual) Monocytes % (Manual) Platelet Evaluation Large Platelets Hypochromasia pCO2 pO2 HCO3 ABG pH ABG Total CO2 ABG O2 Saturation ABG O2 Content ABG Base Excess ABG Hemoglobin ABG Carboxyhemoglobin POC ABG HHb (Measured) ABG Methemoglobin ABG O2 Capacity ABG Potassium Hgb O2 Saturation Glucose Lactate FiO2 Pressure Support Inspiratory BiPAP Sodium 136 Potassium 4.4 Chloride 96 L Carbon Dioxide 26 Anion Gap 18 BUN 26 H Creatinine 4.0 H Est GFR ( Amer) 13 Est GFR (Non-Af Amer) 11 Random Glucose 105 Hemoglobin A1c Calcium 9.3 Phosphorus 2.9 Magnesium 2.1 Total Bilirubin 0.9 AST 28 ALT 17 Alkaline Phosphatase 102 Troponin I NT-Pro-B Natriuret Pep Total Protein 7.0 Albumin 3.4 Globulin 3.6 Albumin/Globulin Ratio 0.9 L Triglycerides Cholesterol LDL Cholesterol Direct HDL Cholesterol Procalcitonin TSH 3rd Generation Arterial Blood Potassium Hep Bs Antigen Hep Bs Antibody Hep B Core IgM Ab Critical Care Progress Note - Nutrition Nutrition: Nutrition Category Date Time Status NPO Diet [DIET] Diets 05/15/18 Dinner Ordered Assessment/Plan - Assessment and Plan (Free Text) Plan: Patient seen and examined on rounds with resident, agree with note with following additions/exceptions: Patient is 82yo female with PMH CHF s/p pacemaker, HTN, GERD, CAD (no stents), gout, pleural effusions (many years ago), PAD (w stents), admitted to ICU for hypercapneic respiratory failure following angio cath vascular procedure for lower extremity PAD, placed on bipap, with subsequent resolution of hypercapnia. Currently afebrile, BP stable, comfortable in NAD, doing well, on 2LNC, AAOx3, undergoing HD, tolerating it well. GI following. CT A/P pending Nausea, Vomiting, Diarrhea ESRD on HD PAD Hypercapnic resp failure, resolved CAD Recommend: - supp o2 as needed, duonebs PRN - NO ID issues - follow up CT A/P, follow up GI - follow up IR - ASA, Plavix, Statin - FS control - rate control, switch IV cardizem to PO cardizem, current HR 70s - A/C as per cardiology - GI ppx - DVT ppx - transfer to telemetry
--- NOTE | 2018-05-16 11:01 | PN ---
DATE: 05/16/2018 REASON FOR THE CONSULTATION: Atrial fibrillation, sick sinus syndrome, status post pacemaker, severe PAD, status post impending respiratory failure, on noninvasive ventilator. PHYSICAL EXAMINATION: GENERAL: On examination, the patient feels a lot better. Awake and alert than yesterday, on noninvasive ventilator. VITAL SIGNS: Temperature afebrile, heart rate 72, blood pressure 175/100. HEENT: PERRLA, intact. NECK: Supple. No carotid bruit. No thyromegaly. CHEST: Clear to auscultation. HEART: S1 and S2 regular. ABDOMEN: Soft. EXTREMITIES: Clubbing and cyanosis negative. LABORATORY DATA: Blood workup as follows: WBC 4.9, hemoglobin 10.8, hematocrit 33.8, platelet count 199. Chemistry: Sodium 130, potassium 4.4, chloride 93, carbon dioxide 26, anion gap of 18, BUN 26, creatinine 4. IMPRESSION: An 82-year-old female with past medical history significant for coronary artery disease, severe peripheral arterial disease, bedridden, sick sinus syndrome with status post pacemaker. Yesterday, underwent abdominal aortogram, peripheral angiogram, possible allergic reaction to the dye and started wheezing. Moved to Intensive Care Unit. Initially, thought the patient needs to be intubated, but later on managed by noninvasive ventilator, went into atrial fibrillation with rapid ventricular rate. Subsequently, the patient was managed and started on Cardizem drip, hemodynamically stable. RECOMMENDATIONS: We will change the Cardizem to p.o. We will get echo to assess LV function. We will also get TSH, lipid profile and hemoglobin A1c. Thank you, Dr. Cast, for providing us the opportunity in taking care of Susan Meza. Liam Rubio MD
[2018-05-16 12:59] LABS: HEPATITIS B SURFACE AG Negative (NEGATIVE)
[2018-05-16 13:04] LABS: HEPATITIS B CORE AB NEGATIVE (NEGATIVE)
--- NOTE | 2018-05-16 14:57 | CP.PCM.PN ---
<Antonella Leyva - Last Filed: 05/16/18 16:39> Subjective - Date & Time of Evaluation Date of Evaluation: 05/16/18 Time of Evaluation: 07:30 - Subjective Subjective: PGY-1 Antonella Leyva D.O. Medicine progress note for Dr. Cast's service : Patient was seen and examined this morning. Overnight, the patient developed Afib RVR and was placed on a Cardizem drip by cardiology. Patient has a history of Afib. She is in normal sinus rhythm this morning. She is not in acute distress. She was able to be taken off BiPap last night. She now has 2L O2 via nasal cannula. Patiant is able to state that she feels "ok." She denies pain. Objective - Vital Signs/Intake and Output Vital Signs (last 24 hours): Temp Pulse Resp BP Pulse Ox 97.9 F 70 24 118/63 96 05/16/18 12:48 05/16/18 14:11 05/16/18 14:11 05/16/18 11:26 05/15/18 10:38 Intake and Output: 05/16/18 05/16/18 06:59 18:59 Intake Total 160 Balance 160 - Medications Medications: Current Medications Acetylcysteine (Acetylcysteine 20%) 4 ml IH Q6 PRN PRN Reason: Cough Diltiazem HCl (Cardizem) 30 mg PO QID COUNTS INCLUDE 234 BEDS AT THE [facility] Last Admin: 05/16/18 11:26 Dose: 30 mg Famotidine (Pepcid) 20 mg IVP DAILY COUNTS INCLUDE 234 BEDS AT THE [facility] Last Admin: 05/16/18 13:26 Dose: 20 mg Guaifenesin (Robitussin) 100 mg PO Q4H PRN PRN Reason: Cough Last Admin: 05/15/18 22:59 Dose: 100 mg Hydralazine HCl (Apresoline) 10 mg IVP Q6 PRN PRN Reason: Systolic Blood Pressure Levalbuterol HCl (Xopenex) 1.25 mg IH [id number] COUNTS INCLUDE 234 BEDS AT THE [facility] Last Admin: 05/16/18 02:02 Dose: 1.25 mg Levalbuterol HCl (Xopenex) 1.25 mg IH Q3 PRN PRN Reason: Shortness of Breath Ondansetron HCl (Zofran Inj) 4 mg IVP ONCE PRN PRN Reason: Nausea/Vomiting Racepinephrine (Racepinephrine 2.25% Inhl Soln) 0.5 ml IH Q3 PRN PRN Reason: Shortness of Breath Last Admin: 05/15/18 22:02 Dose: 0.5 ml - Labs Labs: 05/16/18 08:30 05/16/18 08:30 PT 13.5 SECONDS (9.4-12.5) H 05/15/18 10:25 INR 1.17 05/15/18 10:25 APTT 32.6 Seconds (25.1-36.5) 05/15/18 10:25 - Constitutional Appears: Non-toxic, No Acute Distress - Head Exam Head Exam: ATRAUMATIC, NORMAL INSPECTION - Eye Exam Eye Exam: EOMI, Normal appearance - ENT Exam ENT Exam: Mucous Membranes Moist - Neck Exam Neck Exam: Normal Inspection - Respiratory Exam Respiratory Exam: Decreased Breath Sounds, Wheezes, NORMAL BREATHING PATTERN. absent: Accessory Muscle Use Additional comments: nasal cannula 2 L O2 - Cardiovascular Exam Cardiovascular Exam: REGULAR RHYTHM, +S1, +S2 Additional comments: pacemaker - GI/Abdominal Exam GI & Abdominal Exam: Distended, Normal Bowel Sounds. absent: Tenderness - Rectal Exam Rectal Exam: Deferred - Extremities Exam Extremities Exam: Normal Inspection - Back Exam Additional comments: discoloration of LEs, pedal pulses 1+ b/l - Neurological Exam Neurological Exam: Alert, Awake, Oriented x3 Neuro motor strength exam: Left Upper Extremity: 5, Right Upper Extremity: 5, Left Lower Extremity: 5, Right Lower Extremity: 5 - Skin Skin Exam: Dry, Normal Color, Warm - Additional Findings Additional findings: dialysis cath on L chest wall Assessment and Plan - Assessment and Plan (Free Text) Assessment: Patient is an 82 yo female who presented after a femoral angioplasty with respiratory distress. Patient's daughter reports patient had a cough for the past 2 days. Patient was treated for a potential allergic reaction as she was noted to have stridor. She was placed on BiPap and admitted to the ICU. She was able to be taken off of BiPap. She received dialysis this morning (TThSat). Plan: Shortness of breath with respiratory acidosis, resolved- suspect 2/2 sedation or allergic reaction or fluid overload - CXR: cardiomegaly, no active disease - ABG, FiO2 100: pH 7.18, pO2 221, pCO2 55 - ABG on BiPap, FiO2 50: pH 7.42, pO2 188, pCO2 32 - BiPap discontinued, now on NC 2L - Benadryl x1 - Solumedrol x1 - Racepinephrine 0.5 mL IH Q3H PRN - Xopenex 1,25 mg IH Q6H ZAINAB, Q3H PRN - Acetylcysteine 20% 4mL Q6H - Robitussin 100 mg PO Q4H - BNP 144,000 (before HD) - LA wnl (1.5) - Procal elevated (3.58) - ICU consulted (Macario) Abdominal distention - AXR: no abnormalities - Zofran 4 mg IV x1 - f/u CT A/P - GI consulted (Blanca) CKD on HD TTSat - K 5.7->4.4 - Ca 10.9 - BUN 41->26, Cr 6.5->4 - Trop 0.14-0.16 - Nephrology consulted (Bi) H/o of Afib with pacemaker- patient went into Afib RVR over night and was placed on Cardizem drip, now NSR - Pacemaker - Cardizem 30 mg PO QID - Cardiology consulted (Ramiro) H/o of CHF - BNP 144,000 (before HD) - f/u echo - Cardiology consulted (Ramiro) HTN - Hold midodrine - Hydralazine 10 mg IV Q6H PRN IVF: not indicated Diet: clear liquids- advance as tolerated GI ppx: Pepcid 20 mg IV daily VTE ppx: SCDs Code status: DNR Case discussed with Dr. Cast. <Selam Cast - Last Filed: 05/17/18 17:46> Objective - Vital Signs/Intake and Output Vital Signs (last 24 hours): Temp Pulse Resp BP Pulse Ox 97.2 F L 70 18 117/56 L 83 L 05/17/18 08:50 05/17/18 11:37 05/17/18 08:50 05/17/18 11:37 05/17/18 08:50 Intake and Output: 05/17/18 05/17/18 06:59 18:59 Intake Total 300 Balance 300 - Medications Medications: Current Medications Acetylcysteine (Acetylcysteine 20%) 4 ml IH Q6 PRN PRN Reason: Cough Diltiazem HCl (Cardizem) 30 mg PO QID COUNTS INCLUDE 234 BEDS AT THE [facility] Last Admin: 05/17/18 11:37 Dose: 30 mg Famotidine (Pepcid) 20 mg IVP DAILY COUNTS INCLUDE 234 BEDS AT THE [facility] Last Admin: 05/16/18 13:26 Dose: 20 mg Guaifenesin (Robitussin) 100 mg PO Q4H PRN PRN Reason: Cough Last Admin: 05/15/18 22:59 Dose: 100 mg Hydralazine HCl (Apresoline) 10 mg IVP Q6 PRN PRN Reason: Systolic Blood Pressure Levalbuterol HCl (Xopenex) 1.25 mg IH [id number] COUNTS INCLUDE 234 BEDS AT THE [facility] Last Admin: 05/17/18 13:19 Dose: 1.25 mg Levalbuterol HCl (Xopenex) 1.25 mg IH Q3 PRN PRN Reason: Shortness of Breath Mupirocin (Bactroban Ointment) 1 gm NS BID COUNTS INCLUDE 234 BEDS AT THE [facility] Stop: 05/21/18 10:01 Last Admin: 05/17/18 03:02 Dose: 1 dose Ondansetron HCl (Zofran Inj) 4 mg IVP ONCE PRN PRN Reason: Nausea/Vomiting Racepinephrine (Racepinephrine 2.25% Inhl Soln) 0.5 ml IH Q3 PRN PRN Reason: Shortness of Breath Last Admin: 05/15/18 22:02 Dose: 0.5 ml - Labs Labs: 05/17/18 14:30 05/17/18 13:20 PT 15.6 SECONDS (9.4-12.5) H 05/16/18 23:18 INR 1.36 05/16/18 23:18 APTT 32.6 Seconds (25.1-36.5) 05/15/18 10:25 Attending/Attestation - Attestation I have personally seen and examined this patient.: Yes I have fully participated in the care of the patient.: Yes I have reviewed all pertinent clinical information, including history, physical exam and plan: Yes Notes (Text): 05/17/18 17:42 Attending note; Patient seen and examined with the resident in ICU. Getting hemodialysis now. Patient is more alert and awake. Denies any shortness of breath. On oxygen nasal cannula. Complaining of mild cough. Denies any fevers, chills. Complaining of abdominal distention. But denies any abdominal pain. Tolerating liquid diet. Patient is a 82 year old female with a history of Afib, CHF, pacemaker, CAD, PVD, HTN, HLD, GERD, and hypothyroidism who presented from [facility] for a same-day surgery of femoral angioplasty. While post-op in the PACU, patient began experiencing significant shortness of breath and cough. Shortness of breath and wheezing improved. Continue DuoNeb. Pulmonary evaluation appreciated. History of coronary artery disease. Continue aspirin. Mildly elevated troponin. Patient had an episode of atrial fibrillation. Treated with IV cardizem drip. We will switch to by mouth Cardizem. Cardiology evaluation appreciated. s/p femoral angiogram and angioplasty. Patient was evaluated by Dr. Bk Ruiz today. End-stage renal disease on dialysis; continue hemodialysis. Case discussed with nephrology in detail. Renal diet ordered. Abdominal distention; abdominal x-ray showed nonspecific gas pattern. GI evaluation appreciated. We will get CT abdomen and pelvis. Follow up closely in ICU. Patient is DNR. The diagnosis, follow-up plan discussed with patient daughter in detail. 05/17/18 17:44 05/17/18 17:45
--- NOTE | 2018-05-16 16:50 | PN ---
DATE: 05/16/2018 SUBJECTIVE: The patient is seen in the ICU. She is awake. She is alert. She complains of some shortness of breath. She complains of cough. She complains of abdominal distention. She denies any chest tightness. She reports that the pain in her left foot is much better. She reports that her left foot appears much better than before. PHYSICAL EXAMINATION: GENERAL: Elderly lady lying in bed in the ICU. VITAL SIGNS: Blood pressure 118/63, heart rate 104, respiratory rate 30, temperature 97.9. HEENT: Normocephalic, atraumatic, positive pallor. NECK: Supple, no JVD. LUNGS: Bilateral equal air entry, bilateral rhonchi, distant breath sounds. CARDIAC: S1 and S2, regular rate and rhythm, positive murmur, no rub. ABDOMEN: Distended, soft, nontender. Bowel sounds present. EXTREMITIES: Hyperpigmentation of the left foot, Doppler pulses on the left foot. At present, left foot appears warmer than the right foot, no edema. LABORATORY DATA: WBC 4.9, hemoglobin 10.8, hematocrit 33.8, platelets 199. Sodium 136, potassium 4.4, chloride 96, CO2 26, BUN 26, creatinine 4, glucose 105, calcium 9.3, phosphorus 2.9, magnesium 2.1, albumin 3.4. Abdominal x-ray, nonspecific bowel gas pattern. CURRENT MEDICATIONS: Mucomyst, Apresoline p.r.n., Cardizem 30 q.i.d., Pepcid, Xopenex, Zofran, calcium gluconate 1 g given this morning. ASSESSMENT: 1. An 82-year-old lady with history of longstanding hypertension, congestive heart failure, coronary artery disease, permanent pacemaker, severe peripheral arterial disease, end-stage renal disease, anemia of chronic kidney disease, secondary hyperparathyroidism, gastroesophageal reflux disease, was admitted to the ICU after angiogram and angioplasty of the left lower extremity yesterday. The patient became increasingly short of breath in the PACU. She developed respiratory failure, respiratory acidosis. The patient was started on BiPAP. She was also found to be hyperkalemic. Patient monitored overnight in the ICU. 2. Hyperkalemia, resolved with treatment. 3. Respiratory distress, much improved. 4. End-stage renal disease, the patient underwent an urgent dialysis early this morning. 5. Anemia of chronic kidney disease. 6. Chronic dry cough. 7. History of pleural effusions. PLAN: 1. The patient is stable post urgent dialysis this morning. 2. Hyperkalemia has resolved. 3. We will assess for dialysis again tomorrow. 4. Blood pressure is much better controlled now. 5. Distended abdomen, follow up CT scan report. Case discussed with ICU team at length, case discussed with dialysis staff multiple times, case discussed with residents. More than 35 minutes spent in the care of this elderly patient with multiple medical problems. Demetrice Pat MD
--- NOTE | 2018-05-16 18:21 | CT ---
Date of service: 05/16/2018 PROCEDURE: CT Abdomen and Pelvis without intravenous contrast HISTORY: abdominal distention COMPARISON: None. TECHNIQUE: Unenhanced study. Neither oral nor intravenous contrast administered. Radiation dose: Total exam DLP = 860.09 mGy-cm. This CT exam was performed using one or more of the following dose reduction techniques: Automated exposure control, adjustment of the mA and/or kV according to patient size, and/or use of iterative reconstruction technique. FINDINGS: LOWER THORAX: Small bilateral pleural effusions with increased, elevated Hounsfield unit values suggesting either hemorrhagic or densely proteinaceous fluid. LIVER: Unremarkable. No gross lesion or ductal dilatation. GALLBLADDER AND BILE DUCTS: Vicarious excretion of contrast in the gallbladder. PANCREAS: Unremarkable. No gross lesion or ductal dilatation. SPLEEN: Unremarkable. ADRENALS: Unremarkable. No mass. KIDNEYS AND URETERS: Atrophic kidneys bilaterally. Right kidney measures 3.2 x 4.7 cm. Left kidney measures 2.8 x 6.9 cm. Upper tract nonobstructing calculi identified on the left. VASCULATURE: Calcified nonaneurysmal abdominal aorta. BOWEL: Diverticulosis without an acute inflammatory component or other associated pathologic process. APPENDIX: Unremarkable. Normal appendix. PERITONEUM: High density and large volume intra-abdominal and pelvic ascites. Mean Hounsfield unit values vary between 65 and 80. The findings are consistent with an likely reflective of hemorrhagic ascitic fluid. High density proteinaceous fluid can also assume this appearance. LYMPH NODES: Unremarkable. No enlarged lymph nodes. BLADDER: Unremarkable. REPRODUCTIVE: Unremarkable. BONES: No acute fracture. OTHER FINDINGS: Bilateral flank edema and anasarca. This is particularly prominent in the left flank. This raise possibility of hemorrhagic fluid. No discrete, drainable collection. Cephalocaudal dimension of this 24.6 cm with orthogonal measurements 8 cm. IMPRESSION: High volume, complex intra-abdominal and pelvic ascites. Most likely etiology relates to hemorrhage/hemoperitoneum. Severe diffuse anasarca bilaterally. The findings in the left flank particularly severe. Severe bilateral renal atrophy. Additional benign and/or incidental findings described above.. Delay in interpretation relates to the fact that this inpatient study was marked routine and therefore not interpreted in a more timely manner. This relates to the ordering status of the examination.
[2018-05-16 23:29] LABS: BASO # 0.01 K/mm3 (0.0-2.0); BASO % 0.1 % (0.0-3.0); GRAN # 5.99 (1.4-6.5); GRAN % 82.2 % (50.0-68.0); HEMOGLOBIN 11.8 g/dL (12.0-16.0); LYMPH # 0.9 (1.2-3.4); LYMPH % 12.1 % (22.0-35.0); MEAN CELL VOLUME 95.5 fl (80.0-105.0); MEAN CORPUSCULAR HGB CONC 32.4 g/dl (31.0-37.0); MONO # 0.4 (0.1-0.6); MONO % 5.6 % (1.0-6.0); RBC 3.81 10^6/uL (3.5-6.1); RED CELL DISTRIBUTION WIDTH 15.8 % (11.5-14.5); WHITE BLOOD COUNT 7.3 10^3/ul (4.5-11.0)
[2018-05-16 23:33] LABS: INR 1.36; PROTHROMBIN TIME 15.6 SECONDS (9.4-12.5)
[2018-05-16 23:45] LABS: ALB/GLOB RATIO 0.9 (1.1-1.8); ALBUMIN 3.5 g/dL (3.0-4.8); CALCIUM 10.1 mg/dL (8.4-10.5)
[2018-05-17] MEDS ORDERED: Sod Polystyrene Sulf 15 gm/60 ml Susp PO ONE (00:39)
[2018-05-17] MEDS: Mupirocin 2% Ointment 15 GM TUBE NS SCH ×3 (03:02→18:09)
[2018-05-17 06:28] LABS: GRAN # 5.62 (1.4-6.5); GRAN % 76.2 % (50.0-68.0); HEMOGLOBIN 10.5 g/dL (12.0-16.0); MEAN CELL VOLUME 95.1 fl (80.0-105.0); MEAN CORPUSCULAR HEMOGLOBIN 30.1 pg (25.0-35.0); MEAN CORPUSCULAR HGB CONC 31.6 g/dl (31.0-37.0); MEAN PLATELET VOLUME 10.1 fl (7.0-11.0); MONO # 0.8 (0.1-0.6); MONO % 10.8 % (1.0-6.0); RBC 3.49 10^6/uL (3.5-6.1); RED CELL DISTRIBUTION WIDTH 15.9 % (11.5-14.5); WHITE BLOOD COUNT 7.4 10^3/ul (4.5-11.0)
[2018-05-17 07:20] LABS: ALB/GLOB RATIO 0.9 (1.1-1.8); CALCIUM 9.8 mg/dL (8.4-10.5)
[2018-05-17] MEDS ORDERED: Albuterol 0.083% Inhal Sol (2.5 mg/3 mL) UD INH STA (07:44)
[2018-05-17] MEDS ORDERED: Insulin Regular 1 UNITS/0.01 ML ML IV ONE (07:51)
[2018-05-17] MEDS ORDERED: Dextrose 50% SYRINGE Inj (50 ml) IVP ONE (07:51)
--- NOTE | 2018-05-17 07:53 | CP.PCM.PN ---
<Teja Almazan - Last Filed: 05/17/18 11:55> Subjective - Date & Time of Evaluation Date of Evaluation: 05/17/18 Time of Evaluation: 07:53 - Subjective Subjective: GI Progress Note for Dr. Rios's Service- Manuel, PGY2 Patient seen and assessed at bedside in ICU. Overnight patient was found to have large fluid collection in abdomen/pelvis suspicious for hemorrhage on CT. She was transferred to ICU from telemetry for closer monitoring of VS and H/H. Patient currently denies any fevers, chills, chest pain, SOB, abdominal pain, N/ V/D/C, changes in urine output or any skin changes. Objective - Vital Signs/Intake and Output Vital Signs (last 24 hours): Temp Pulse Resp BP Pulse Ox 95.7 F L 73 25 H 100/48 L 96 05/16/18 21:54 05/16/18 22:50 05/16/18 21:54 05/16/18 22:50 05/15/18 10:38 - Medications Medications: Current Medications Acetylcysteine (Acetylcysteine 20%) 4 ml IH Q6 PRN PRN Reason: Cough Calcium Gluconate (Calcium Gluconate Iv) 1,000 mg IVP ONCE ONE Stop: 05/17/18 07:45 Dextrose (Dextrose 50% Inj) 50 ml IVP ONCE ONE Stop: 05/17/18 07:52 Diltiazem HCl (Cardizem) 30 mg PO QID [facility] Last Admin: 05/16/18 22:50 Dose: 30 mg Famotidine (Pepcid) 20 mg IVP DAILY [facility] Last Admin: 05/16/18 13:26 Dose: 20 mg Guaifenesin (Robitussin) 100 mg PO Q4H PRN PRN Reason: Cough Last Admin: 05/15/18 22:59 Dose: 100 mg Hydralazine HCl (Apresoline) 10 mg IVP Q6 PRN PRN Reason: Systolic Blood Pressure Insulin Human Regular (Humulin R) 10 units IV ONCE ONE Stop: 05/17/18 07:52 Levalbuterol HCl (Xopenex) 1.25 mg IH [id number] [facility] Last Admin: 05/16/18 02:02 Dose: 1.25 mg Levalbuterol HCl (Xopenex) 1.25 mg IH Q3 PRN PRN Reason: Shortness of Breath Mupirocin (Bactroban Ointment) 1 gm NS BID ZAINAB Stop: 05/21/18 10:01 Last Admin: 05/17/18 03:02 Dose: 1 dose Ondansetron HCl (Zofran Inj) 4 mg IVP ONCE PRN PRN Reason: Nausea/Vomiting Racepinephrine (Racepinephrine 2.25% Inhl Soln) 0.5 ml IH Q3 PRN PRN Reason: Shortness of Breath Last Admin: 05/15/18 22:02 Dose: 0.5 ml - Labs Labs: 05/17/18 05:25 05/17/18 05:25 PT 15.6 SECONDS (9.4-12.5) H 05/16/18 23:18 INR 1.36 05/16/18 23:18 APTT 32.6 Seconds (25.1-36.5) 05/15/18 10:25 - Constitutional Appears: Non-toxic, No Acute Distress - Head Exam Head Exam: ATRAUMATIC - Eye Exam Eye Exam: EOMI - Neck Exam Neck Exam: Full ROM - Respiratory Exam Respiratory Exam: NORMAL BREATHING PATTERN. absent: Accessory Muscle Use, Respiratory Distress - Cardiovascular Exam Cardiovascular Exam: Irregular Rhythm, +S1, +S2. absent: Bradycardia, Tachycardia, Clicks, Diastolic murmur, Gallop, REGULAR RHYTHM, JVD, RRR, Rubs, + S4, Murmur - GI/Abdominal Exam GI & Abdominal Exam: Distended (Moderate), Firm (Lower quadrants firm), Soft ( Upper quadrants soft to palpation), Normal Bowel Sounds. absent: Bruit, Guarding, Rigid, Diminished Bowel Sounds, Hernia, Hyperactive Bowel Sounds, Hypoactive Bowel Sounds, Mass, Organomegaly, Pulsatile Mass, Rebound - Rectal Exam Rectal Exam: Deferred - Neurological Exam Neurological Exam: Alert, Awake, Oriented x3 - Psychiatric Exam Psychiatric exam: Normal Affect, Normal Mood - Skin Skin Exam: Dry, Intact, Normal Color, Warm Assessment and Plan - Assessment and Plan (Free Text) Assessment: 82 year old female with a past medical history significant for CHF, atrial fibrillation, ESRD (HD TThSa), HTN, GERD, CAD, gout, and PAD (w/ stents) admitted to CCU after becoming SOB s/p elective femoral angioplasty on 05/15. GI was consulted for abdominal distention, noted to be chronic by patient. Plan: -CT Abdomen/Pelvis showed high volume complex intra-abdominal and pelvic ascites most likely etiology relates to hemorrhage/hemoperitoneum, severe diffuse anasarca bilaterally with the left flank particularly severe and severe bilateral renal atrophy -H/H currently stable at 10.5/33.2 (13.4/42.1 on 05/15/18) -HDS and VSS -Clear Liquid Diet -Continue Pepcid for GI prophylaxis GI Disposition: Patient to have paracentesis done by IR. Will follow up total protein, albumin, cell count, gram stain, culture/smear and cytology. Continue to follow up hemoglobin with serial CBC's. Patient seen and case discussed with attending, Dr. Rios. <Neema Rios V - Last Filed: 05/18/18 20:41> Objective - Vital Signs/Intake and Output Vital Signs (last 24 hours): Temp Pulse Resp BP Pulse Ox 98.8 F 68 23 119/48 L 91 L 05/18/18 18:20 05/18/18 18:36 05/18/18 18:20 05/18/18 18:36 05/18/18 18:20 Intake and Output: 05/18/18 05/19/18 18:59 06:59 Intake Total 950 Output Total 0 Balance 950 - Medications Medications: Current Medications Acetaminophen (Tylenol 325mg Tab) 650 mg PO Q6H PRN PRN Reason: Pain, Mild (1-3) Acetylcysteine (Acetylcysteine 20%) 4 ml IH Q6 PRN PRN Reason: Cough Aspirin (Ecotrin) 81 mg PO DAILY [facility] Last Admin: 05/18/18 14:32 Dose: 81 mg Clopidogrel Bisulfate (Plavix) 75 mg PO DAILY [facility] Last Admin: 05/18/18 14:32 Dose: 75 mg Diltiazem HCl (Cardizem) 30 mg PO QID [facility] Last Admin: 05/18/18 18:36 Dose: Not Given Famotidine (Pepcid) 20 mg IVP DAILY [facility] Last Admin: 05/18/18 10:05 Dose: 20 mg Guaifenesin (Robitussin) 100 mg PO Q4H PRN PRN Reason: Cough Last Admin: 05/15/18 22:59 Dose: 100 mg Hydralazine HCl (Apresoline) 10 mg IVP Q6 PRN PRN Reason: Systolic Blood Pressure Meropenem 500 mg/ Sodium (Chloride) 50 mls @ 100 mls/hr IVPB Q12 ZAINAB PRN Reason: Protocol Last Admin: 05/18/18 10:08 Dose: 100 mls/hr Levalbuterol HCl (Xopenex) 1.25 mg IH [id number] ZAINAB Last Admin: 05/18/18 08:33 Dose: 1.25 mg Levalbuterol HCl (Xopenex) 1.25 mg IH Q3 PRN PRN Reason: Shortness of Breath Mupirocin (Bactroban Ointment) 1 gm NS BID ZAINAB Stop: 05/21/18 10:01 Last Admin: 05/18/18 18:43 Dose: 1 dose Ondansetron HCl (Zofran Inj) 4 mg IVP ONCE PRN PRN Reason: Nausea/Vomiting Oxycodone HCl (Oxycodone Immediate Release Tab) 5 mg PO Q6H PRN PRN Reason: Pain, severe (8-10) Last Admin: 05/18/18 20:22 Dose: 5 mg Racepinephrine (Racepinephrine 2.25% Inhl Soln) 0.5 ml IH Q3 PRN PRN Reason: Shortness of Breath Last Admin: 05/15/18 22:02 Dose: 0.5 ml - Labs Labs: 05/18/18 05:00 05/18/18 05:00 PT 15.6 SECONDS (9.4-12.5) H 05/16/18 23:18 INR 1.36 05/16/18 23:18 APTT 32.6 Seconds (25.1-36.5) 05/15/18 10:25 Attending/Attestation - Attestation I have personally seen and examined this patient.: Yes I have fully participated in the care of the patient.: Yes I have reviewed all pertinent clinical information, including history, physical exam and plan: Yes Notes (Text): This is a delayed addendum to GI followup report dictated by the Furnace Repair Mechanic. The patient was seen and evaluated earlier. Medical records, lab studies, imagings were reviewed. Last 24 hours events reviewed. Agreed with the above treatment plan as outlined in Furnace Repair Mechanic 's notes with the addition of the following Status post large volume paracentesis 4.8 liters fluid removed Discussed with auto job estimator and Dr. Bk Ruiz Followup ascitic fluid studies 05/18/18 20:37
[2018-05-17] MEDS: Levalbuterol 1.25 MG/3 ML Inhal Soln UD IH SCH ×3 (08:34→20:05)
--- NOTE | 2018-05-17 10:36 | CP.CCUPN ---
<Erika Ghotra - Last Filed: 05/17/18 11:25> CCU Subjective - Physician Review Subjective (Free Text): ICU progress note for Dr. Hernandez Patient seen and examined this am at bedside. NAEO per nursing. Patient has been hypothermic overnight but denies feeling cold and is fully alert and oriented. Patient is resting comfortably on 2LNC. Not exhibiting afib on monitor. Patient otherwise denies SINGH, CP, SOB, abdominal pain, N, or vomiting. 05/17/18 07:34 Critical Care Time Spent (in minutes): 734 CCU Objective - Vital Signs / Intake & Output Vital Signs (Last 4 hours): Vital Signs Temp Pulse Resp BP Pulse Ox 05/17/18 08:50 97.2 F L 70 18 83 L 05/17/18 08:40 97.2 F L 71 25 H 78 L 05/17/18 08:30 97.2 F L 70 26 H 92 L 05/17/18 08:20 97.2 F L 70 29 H 95 05/17/18 08:14 97.2 F L 70 22 05/17/18 08:13 97.2 F L 70 25 H 05/17/18 08:12 97.2 F L 70 55 H 05/17/18 08:11 97.2 F L 70 20 05/17/18 08:10 97.2 F L 70 19 05/17/18 08:09 97.2 F L 72 23 05/17/18 08:08 97.2 F L 73 15 05/17/18 08:07 97.2 F L 71 18 05/17/18 08:06 97.2 F L 70 20 05/17/18 08:05 97.2 F L 71 23 05/17/18 08:04 97.2 F L 70 05/17/18 08:03 97.2 F L 70 24 05/17/18 08:02 97.2 F L 70 22 05/17/18 08:01 97.2 F L 70 22 05/17/18 08:00 112/59 L 05/17/18 07:59 97.2 F L 70 43 H 05/17/18 07:58 97.2 F L 70 21 05/17/18 07:57 97.2 F L 70 20 05/17/18 07:56 108/45 L 05/17/18 07:55 97.2 F L 70 20 05/17/18 07:54 97.2 F L 70 26 H 05/17/18 07:53 97.2 F L 70 35 H 05/17/18 07:52 97.2 F L 70 16 05/17/18 07:51 97.2 F L 70 8 L 05/17/18 07:50 97.2 F L 70 21 05/17/18 07:49 97.2 F L 70 20 05/17/18 07:48 97.2 F L 70 18 05/17/18 07:47 97.2 F L 70 18 05/17/18 07:46 97.2 F L 70 16 05/17/18 07:45 97.2 F L 70 20 05/17/18 07:44 97.2 F L 70 05/17/18 07:43 97.2 F L 70 22 05/17/18 07:42 97.2 F L 70 05/17/18 07:41 97.2 F L 70 21 05/17/18 07:40 97.2 F L 70 05/17/18 07:39 97.2 F L 70 20 05/17/18 07:38 97.2 F L 70 14 05/17/18 07:37 97.2 F L 70 18 Intake and Output (Last 8hrs): Intake & Output 05/16/18 05/17/18 05/17/18 22:59 06:59 14:59 Intake Total 520 300 Output Total 2500 Balance -1979 300 Weight 161 lb 9.6 oz Intake: IV 40 100 Right Antecubital 40 100 Oral 480 200 Output: Other 2500 Other: # Voids Urine, Voided 0 # Bowel Movements 2 - Physical Exam Head: Positive for: Atraumatic, Normocephalic Pupils: Positive for: PERRL Extroacular Muscles: Positive for: EOMI Mouth: Positive for: Moist Mucous Membranes Respiratory/Chest: Positive for: Clear to Auscultation, Good Air Exchange Cardiovascular: Positive for: Regular Rate and Rhythm Abdomen: Positive for: Distention, Normal Bowel Sounds. Negative for: Tenderness, Peritoneal Signs, Guarding, McBurney's Point Tender Upper Extremity: Positive for: Normal Inspection. Negative for: Cyanosis, Edema Lower Extremity: Positive for: Normal Inspection. Negative for: Edema Neurological: Positive for: GCS=15, CN II-XII Intact, Speech Normal Skin: Positive for: Warm, Dry, Rashes, Normal Color Psychiatric: Positive for: Alert, Oriented x 3 - Medications Active Medications: Active Medications Generic Name Dose Route Start Last Admin Trade Name Freq PRN Reason Stop Dose Admin Acetylcysteine 4 ml 05/15/18 15:35 Acetylcysteine 20% IH Q6 PRN Cough Diltiazem HCl 30 mg 05/16/18 10:00 05/16/18 22:50 Cardizem PO 30 mg QID DIANA Administration Famotidine 20 mg 05/15/18 16:30 05/16/18 13:26 Pepcid IVP 20 mg DAILY DIANA Administration Guaifenesin 100 mg 05/15/18 22:52 05/15/18 22:59 Robitussin PO 100 mg Q4H PRN Administration Cough Hydralazine HCl 10 mg 05/15/18 16:14 Apresoline IVP Q6 PRN Systolic Blood Pressure Levalbuterol HCl 1.25 mg 05/15/18 20:00 05/17/18 08:34 Xopenex IH Not Given [id number] DIANA Levalbuterol HCl 1.25 mg 05/15/18 16:00 Xopenex IH Q3 PRN Shortness of Breath Mupirocin 1 gm 05/17/18 00:15 05/17/18 03:02 Bactroban Ointment NS 05/21/18 10:01 1 dose BID DIANA Administration Ondansetron HCl 4 mg 05/15/18 14:19 Zofran Inj IVP ONCE PRN Nausea/Vomiting Racepinephrine 0.5 ml 05/15/18 15:23 05/15/18 22:02 Racepinephrine 2.25% Inhl Soln IH 0.5 ml Q3 PRN Administration Shortness of Breath - Patient Studies Lab Studies: Microbiology Studies 05/15/18 16:20 MRSA Culture (Admit) - Final Naris MRSA DETECTED Lab Studies 05/17/18 05/17/18 05/17/18 Range/Units 05:25 05:25 00:04 WBC 7.4 (4.5-11.0) 10^3/ul RBC 3.49 L (3.5-6.1) 10^6/uL Hgb 10.5 L (12.0-16.0) g/dL Hct 33.2 L (36.0-48.0) % MCV 95.1 (80.0-105.0) fl MCH 30.1 (25.0-35.0) pg MCHC 31.6 (31.0-37.0) g/dl RDW 15.9 H (11.5-14.5) % Plt Count 189 (120.0-450.0) 10^3/uL MPV 10.1 (7.0-11.0) fl Gran % 76.2 H (50.0-68.0) % Lymph % (Auto) 13.0 L (22.0-35.0) % [place] % (Auto) 10.8 H (1.0-6.0) % Eos % (Auto) 0.0 L (1.5-5.0) % Baso % (Auto) 0.0 (0.0-3.0) % Gran # 5.62 (1.4-6.5) Lymph # (Auto) 1.0 L (1.2-3.4) [place] # (Auto) 0.8 H (0.1-0.6) Eos # (Auto) 0.0 (0.0-0.7) Baso # (Auto) 0.00 (0.0-2.0) K/mm3 PT (9.4-12.5) SECONDS INR Sodium 133 (132-148) mmol/L Potassium 6.3 H* (3.6-5.0) mmol/L Chloride 97 L (98-107) mmol/L Carbon Dioxide 24 (21-33) mmol/L Anion Gap 19 (10-20) BUN 44 H (7-21) mg/dL Creatinine 5.9 H (0.7-1.2) mg/dl Est GFR ( Amer) 8 Est GFR (Non-Af Amer) 7 Random Glucose 73 (70-110) mg/dL Hemoglobin A1c (4.2-6.5) % Calcium 9.8 (8.4-10.5) mg/dL Phosphorus 4.8 H (2.5-4.5) mg/dL Magnesium 2.2 (1.7-2.2) mg/dL Total Bilirubin 0.7 (0.2-1.3) mg/dL AST 31 (14-36) U/L ALT 20 (7-56) U/L Alkaline Phosphatase 76 (38-126) U/L Total Protein 6.3 (5.8-8.3) g/dL Albumin 3.0 (3.0-4.8) g/dL Globulin 3.3 gm/dL Albumin/Globulin Ratio 0.9 L (1.1-1.8) Procalcitonin (0.19-0.49) NG/ML Hep Bs Antigen (NEGATIVE) Hep Bs Antibody (NEGATIVE) Hep B Core IgM Ab (NEGATIVE) Blood Type Blood Type Confirm B POSITIVE Antibody Screen Crossmatch BBK History Checked 05/16/18 05/16/18 05/16/18 Range/Units 23:18 23:18 23:18 WBC (4.5-11.0) 10^3/ul RBC (3.5-6.1) 10^6/uL Hgb (12.0-16.0) g/dL Hct (36.0-48.0) % MCV (80.0-105.0) fl MCH (25.0-35.0) pg MCHC (31.0-37.0) g/dl RDW (11.5-14.5) % Plt Count (120.0-450.0) 10^3/uL MPV (7.0-11.0) fl Gran % (50.0-68.0) % Lymph % (Auto) (22.0-35.0) % [place] % (Auto) (1.0-6.0) % Eos % (Auto) (1.5-5.0) % Baso % (Auto) (0.0-3.0) % Gran # (1.4-6.5) Lymph # (Auto) (1.2-3.4) [place] # (Auto) (0.1-0.6) Eos # (Auto) (0.0-0.7) Baso # (Auto) (0.0-2.0) K/mm3 PT 15.6 H (9.4-12.5) SECONDS INR 1.36 Sodium 134 (132-148) mmol/L Potassium 5.9 H* D (3.6-5.0) mmol/L Chloride 96 L (98-107) mmol/L Carbon Dioxide 22 (21-33) mmol/L Anion Gap 21 H (10-20) BUN 38 H (7-21) mg/dL Creatinine 6.0 H (0.7-1.2) mg/dl Est GFR ( Amer) 8 Est GFR (Non-Af Amer) 7 Random Glucose 83 (70-110) mg/dL Hemoglobin A1c (4.2-6.5) % Calcium 10.1 (8.4-10.5) mg/dL Phosphorus (2.5-4.5) mg/dL Magnesium (1.7-2.2) mg/dL Total Bilirubin 0.8 (0.2-1.3) mg/dL AST 31 (14-36) U/L ALT 16 (7-56) U/L Alkaline Phosphatase 90 (38-126) U/L Total Protein 7.2 (5.8-8.3) g/dL Albumin 3.5 (3.0-4.8) g/dL Globulin 3.7 gm/dL Albumin/Globulin Ratio 0.9 L (1.1-1.8) Procalcitonin (0.19-0.49) NG/ML Hep Bs Antigen (NEGATIVE) Hep Bs Antibody (NEGATIVE) Hep B Core IgM Ab (NEGATIVE) Blood Type B POSITIVE Blood Type Confirm Antibody Screen Negative Crossmatch See Detail BBK History Checked No verified bt 05/16/18 05/16/18 05/16/18 Range/Units 23:18 07:00 07:00 WBC 7.3 D (4.5-11.0) 10^3/ul RBC 3.81 (3.5-6.1) 10^6/uL Hgb 11.8 L (12.0-16.0) g/dL Hct 36.4 (36.0-48.0) % MCV 95.5 (80.0-105.0) fl MCH 31.0 (25.0-35.0) pg MCHC 32.4 (31.0-37.0) g/dl RDW 15.8 H (11.5-14.5) % Plt Count 239 (120.0-450.0) 10^3/uL MPV 11.0 (7.0-11.0) fl Gran % 82.2 H (50.0-68.0) % Lymph % (Auto) 12.1 L (22.0-35.0) % [place] % (Auto) 5.6 (1.0-6.0) % Eos % (Auto) 0.0 L (1.5-5.0) % Baso % (Auto) 0.1 (0.0-3.0) % Gran # 5.99 (1.4-6.5) Lymph # (Auto) 0.9 L (1.2-3.4) [place] # (Auto) 0.4 (0.1-0.6) Eos # (Auto) 0.0 (0.0-0.7) Baso # (Auto) 0.01 (0.0-2.0) K/mm3 PT (9.4-12.5) SECONDS INR Sodium (132-148) mmol/L Potassium (3.6-5.0) mmol/L Chloride (98-107) mmol/L Carbon Dioxide (21-33) mmol/L Anion Gap (10-20) BUN (7-21) mg/dL Creatinine (0.7-1.2) mg/dl Est GFR ( Amer) Est GFR (Non-Af Amer) Random Glucose (70-110) mg/dL Hemoglobin A1c (4.2-6.5) % Calcium (8.4-10.5) mg/dL Phosphorus (2.5-4.5) mg/dL Magnesium (1.7-2.2) mg/dL Total Bilirubin (0.2-1.3) mg/dL AST (14-36) U/L ALT (7-56) U/L Alkaline Phosphatase (38-126) U/L Total Protein (5.8-8.3) g/dL Albumin (3.0-4.8) g/dL Globulin gm/dL Albumin/Globulin Ratio (1.1-1.8) Procalcitonin (0.19-0.49) NG/ML Hep Bs Antigen Negative (NEGATIVE) Hep Bs Antibody Positive (NEGATIVE) Hep B Core IgM Ab Negative (NEGATIVE) Blood Type Blood Type Confirm Antibody Screen Crossmatch BBK History Checked 05/16/18 05/16/18 Range/Units 04:15 04:15 WBC (4.5-11.0) 10^3/ul RBC (3.5-6.1) 10^6/uL Hgb (12.0-16.0) g/dL Hct (36.0-48.0) % MCV (80.0-105.0) fl MCH (25.0-35.0) pg MCHC (31.0-37.0) g/dl RDW (11.5-14.5) % Plt Count (120.0-450.0) 10^3/uL MPV (7.0-11.0) fl Gran % (50.0-68.0) % Lymph % (Auto) (22.0-35.0) % [place] % (Auto) (1.0-6.0) % Eos % (Auto) (1.5-5.0) % Baso % (Auto) (0.0-3.0) % Gran # (1.4-6.5) Lymph # (Auto) (1.2-3.4) [place] # (Auto) (0.1-0.6) Eos # (Auto) (0.0-0.7) Baso # (Auto) (0.0-2.0) K/mm3 PT (9.4-12.5) SECONDS INR Sodium (132-148) mmol/L Potassium (3.6-5.0) mmol/L Chloride (98-107) mmol/L Carbon Dioxide (21-33) mmol/L Anion Gap (10-20) BUN (7-21) mg/dL Creatinine (0.7-1.2) mg/dl Est GFR ( Amer) Est GFR (Non-Af Amer) Random Glucose (70-110) mg/dL Hemoglobin A1c 4.9 (4.2-6.5) % Calcium (8.4-10.5) mg/dL Phosphorus (2.5-4.5) mg/dL Magnesium (1.7-2.2) mg/dL Total Bilirubin (0.2-1.3) mg/dL AST (14-36) U/L ALT (7-56) U/L Alkaline Phosphatase (38-126) U/L Total Protein (5.8-8.3) g/dL Albumin (3.0-4.8) g/dL Globulin gm/dL Albumin/Globulin Ratio (1.1-1.8) Procalcitonin 3.58 H (0.19-0.49) NG/ML Hep Bs Antigen (NEGATIVE) Hep Bs Antibody (NEGATIVE) Hep B Core IgM Ab (NEGATIVE) Blood Type Blood Type Confirm Antibody Screen Crossmatch BBK History Checked Laboratory Results - last 24 hr 05/16/18 05/16/18 05/16/18 04:15 04:15 07:00 WBC RBC Hgb Hct MCV MCH MCHC RDW Plt Count MPV Gran % Lymph % (Auto) [place] % (Auto) Eos % (Auto) Baso % (Auto) Gran # Lymph # (Auto) [place] # (Auto) Eos # (Auto) Baso # (Auto) PT INR Sodium Potassium Chloride Carbon Dioxide Anion Gap BUN Creatinine Est GFR ( Amer) Est GFR (Non-Af Amer) Random Glucose Hemoglobin A1c 4.9 Calcium Phosphorus Magnesium Total Bilirubin AST ALT Alkaline Phosphatase Total Protein Albumin Globulin Albumin/Globulin Ratio Procalcitonin 3.58 H Hep Bs Antigen Negative Hep Bs Antibody Hep B Core IgM Ab Negative Blood Type Blood Type Confirm Antibody Screen Crossmatch BBK History Checked 05/16/18 05/16/18 05/16/18 07:00 23:18 23:18 WBC 7.3 D RBC 3.81 Hgb 11.8 L Hct 36.4 MCV 95.5 MCH 31.0 MCHC 32.4 RDW 15.8 H Plt Count 239 MPV 11.0 Gran % 82.2 H Lymph % (Auto) 12.1 L [place] % (Auto) 5.6 Eos % (Auto) 0.0 L Baso % (Auto) 0.1 Gran # 5.99 Lymph # (Auto) 0.9 L [place] # (Auto) 0.4 Eos # (Auto) 0.0 Baso # (Auto) 0.01 PT 15.6 H INR 1.36 Sodium Potassium Chloride Carbon Dioxide Anion Gap BUN Creatinine Est GFR ( Amer) Est GFR (Non-Af Amer) Random Glucose Hemoglobin A1c Calcium Phosphorus Magnesium Total Bilirubin AST ALT Alkaline Phosphatase Total Protein Albumin Globulin Albumin/Globulin Ratio Procalcitonin Hep Bs Antigen Hep Bs Antibody Positive Hep B Core IgM Ab Blood Type Blood Type Confirm Antibody Screen Crossmatch BBK History Checked 05/16/18 05/16/18 05/17/18 23:18 23:18 00:04 WBC RBC Hgb Hct MCV MCH MCHC RDW Plt Count MPV Gran % Lymph % (Auto) [place] % (Auto) Eos % (Auto) Baso % (Auto) Gran # Lymph # (Auto) [place] # (Auto) Eos # (Auto) Baso # (Auto) PT INR Sodium 134 Potassium 5.9 H* D Chloride 96 L Carbon Dioxide 22 Anion Gap 21 H BUN 38 H Creatinine 6.0 H Est GFR ( Amer) 8 Est GFR (Non-Af Amer) 7 Random Glucose 83 Hemoglobin A1c Calcium 10.1 Phosphorus Magnesium Total Bilirubin 0.8 AST 31 ALT 16 Alkaline Phosphatase 90 Total Protein 7.2 Albumin 3.5 Globulin 3.7 Albumin/Globulin Ratio 0.9 L Procalcitonin Hep Bs Antigen Hep Bs Antibody Hep B Core IgM Ab Blood Type B POSITIVE Blood Type Confirm B POSITIVE Antibody Screen Negative Crossmatch See Detail BBK History Checked No verified bt 05/17/18 05/17/18 05:25 05:25 WBC 7.4 RBC 3.49 L Hgb 10.5 L Hct 33.2 L MCV 95.1 MCH 30.1 MCHC 31.6 RDW 15.9 H Plt Count 189 MPV 10.1 Gran % 76.2 H Lymph % (Auto) 13.0 L [place] % (Auto) 10.8 H Eos % (Auto) 0.0 L Baso % (Auto) 0.0 Gran # 5.62 Lymph # (Auto) 1.0 L [place] # (Auto) 0.8 H Eos # (Auto) 0.0 Baso # (Auto) 0.00 PT INR Sodium 133 Potassium 6.3 H* Chloride 97 L Carbon Dioxide 24 Anion Gap 19 BUN 44 H Creatinine 5.9 H Est GFR ( Amer) 8 Est GFR (Non-Af Amer) 7 Random Glucose 73 Hemoglobin A1c Calcium 9.8 Phosphorus 4.8 H Magnesium 2.2 Total Bilirubin 0.7 AST 31 ALT 20 Alkaline Phosphatase 76 Total Protein 6.3 Albumin 3.0 Globulin 3.3 Albumin/Globulin Ratio 0.9 L Procalcitonin Hep Bs Antigen Hep Bs Antibody Hep B Core IgM Ab Blood Type Blood Type Confirm Antibody Screen Crossmatch BBK History Checked EKG/Cardiology Studies: Cardiology / EKG Studies 05/17/18 08:46 ELECTROCARDIOGRAM Routine Comment: Reason For Exam: A fib PRE OP:: N Does Patient Have a Pacemaker?: No Review of Systems - Review of Systems All systems: reviewed and no additional remarkable complaints except Review of Systems: as per HPI Critical Care Progress Note - Nutrition Nutrition: Nutrition Category Date Time Status Liquid Diet [DIET] Diets 05/16/18 Lunch Ordered Assessment/Plan - Assessment and Plan (Free Text) Assessment: Patient is 82yo female with PMH CHF s/p pacemaker, HTN, GERD, CAD (no stents), gout, pleural effusions (many years ago), PAD (w stents), admitted to ICU for hypercapneic respiratory failure following angio cath vascular procedure for lower extremity PAD, placed on bipap, with subsequent resolution of hypercapnia. Currently afebrile, BP stable, comfortable in NAD, doing well, on 2LNC, AAOx3, undergoing HD, tolerating it well. Will receive Dialysis today as well as paracentesis for evaluation of ascitic fluid. Plan: Pulm: - stable on O2NC 1-3 L, comfortable, no SOB, saturating well - Initial Hypercapneic respiratory distress 2/2 sedation in OR vs allergic reaction to dye vs fluid overload (chf exacerbation in dialysis patient) - initial ABG showed respiratory acidosis, pH 7.18, pCO2 55, pO2 221, HCO3 20.5. - CXR showed stable cardiomegaly, vascular congestion. - racemic epinehrine and benadryl given in OR. - repeat blood gas pH 7.42 O2 221 HCO3 32 CO2 20 - on 2LNC, will maintain SpO2>95%. - duobebs Q6hrs, xopenex diana and prn - Steroids 20 BID - mucomyst inh for cough - Lactic acid 1.4 and procal 3.58 - BNP 71770+ - Nephro Dr Pat consulted. Patient being dialyzed this am. - Monitor Cardio: -HR 90s-100s, sinus rhythm; previous run of Afib has resolved -30mg PO daily cardizem per Dr. Rubio -Hx of CAD, CHF w pacemaker -f/u echo read -Hypertensive intermittently; Hydralazine prn. -hold home midodrine GI: - soft,distended abdomen. -Abdomen x ray reviewed, no perforation noted. -GI consulted -Abdomen CT shows proteinaceous vs hemorrhagic ascites and similar looking small pleural effusions bilaterally -Normotensive, nontachycardic, nondiaphoretic, hgb 10.5 (baseline 11) -IR to do paracentesis today for fluid analysis -CLD -Pepcid for prophylaxis. Renal: -BUN/Cr 26/4 -K 6.3, Ca gluconate, Kayexalte and insulin/D50 given, will repeat BMP after dialysis -Patient has a history of ESRD on HD T-Th-Sat. -nephro Dr Pat on board. -previous CXR shows vascular congestion. - dialysis this am ID: -afebrile, no leukocytosis, mild hypothermia - procal 3.58 -CXR neg for infiltrates. -ID consulted, f/u recs Heme: Hgb stable 10.5 Plts stable. Cont to monitor. PPX: Pepcid, SCDs Code status: DNR Seen and discussed with Dr. David Ghotra, PGY 1 - Date & Time Date: 05/17/18 Time: 07:35 <Sherwin Hernandez - Last Filed: 05/17/18 12:16> CCU Objective - Vital Signs / Intake & Output Vital Signs (Last 4 hours): Vital Signs Temp Pulse Resp BP Pulse Ox 05/17/18 11:37 70 117/56 L 05/17/18 08:50 97.2 F L 70 18 83 L 05/17/18 08:40 97.2 F L 71 25 H 78 L 05/17/18 08:30 97.2 F L 70 26 H 92 L 05/17/18 08:20 97.2 F L 70 29 H 95 05/17/18 08:14 97.2 F L 70 22 Intake and Output (Last 8hrs): Intake & Output 05/16/18 05/17/18 05/17/18 22:59 06:59 14:59 Intake Total 520 300 Output Total 2500 Balance -1979 300 Weight 161 lb 9.6 oz Intake: IV 40 100 Right Antecubital 40 100 Oral 480 200 Output: Other 2500 Other: # Voids Urine, Voided 0 # Bowel Movements 2 - Medications Active Medications: Active Medications Generic Name Dose Route Start Last Admin Trade Name Freq PRN Reason Stop Dose Admin Acetylcysteine 4 ml 05/15/18 15:35 Acetylcysteine 20% IH Q6 PRN Cough Diltiazem HCl 30 mg 05/16/18 10:00 05/17/18 11:37 Cardizem PO 30 mg QID DIANA Administration Famotidine 20 mg 05/15/18 16:30 05/16/18 13:26 Pepcid IVP 20 mg DAILY DIANA Administration Guaifenesin 100 mg 05/15/18 22:52 05/15/18 22:59 Robitussin PO 100 mg Q4H PRN Administration Cough Hydralazine HCl 10 mg 05/15/18 16:14 Apresoline IVP Q6 PRN Systolic Blood Pressure Levalbuterol HCl 1.25 mg 05/15/18 20:00 05/17/18 08:34 Xopenex IH Not Given [id number] DIANA Levalbuterol HCl 1.25 mg 05/15/18 16:00 Xopenex IH Q3 PRN Shortness of Breath Mupirocin 1 gm 05/17/18 00:15 05/17/18 03:02 Bactroban Ointment NS 05/21/18 10:01 1 dose BID DIANA Administration Ondansetron HCl 4 mg 05/15/18 14:19 Zofran Inj IVP ONCE PRN Nausea/Vomiting Racepinephrine 0.5 ml 05/15/18 15:23 05/15/18 22:02 Racepinephrine 2.25% Inhl Soln IH 0.5 ml Q3 PRN Administration Shortness of Breath - Patient Studies Lab Studies: Microbiology Studies 05/15/18 16:20 MRSA Culture (Admit) - Final Naris MRSA DETECTED Lab Studies 05/17/18 05/17/18 05/17/18 Range/Units 05:25 05:25 00:04 WBC 7.4 (4.5-11.0) 10^3/ul RBC 3.49 L (3.5-6.1) 10^6/uL Hgb 10.5 L (12.0-16.0) g/dL Hct 33.2 L (36.0-48.0) % MCV 95.1 (80.0-105.0) fl MCH 30.1 (25.0-35.0) pg MCHC 31.6 (31.0-37.0) g/dl RDW 15.9 H (11.5-14.5) % Plt Count 189 (120.0-450.0) 10^3/uL MPV 10.1 (7.0-11.0) fl Gran % 76.2 H (50.0-68.0) % Lymph % (Auto) 13.0 L (22.0-35.0) % [place] % (Auto) 10.8 H (1.0-6.0) % Eos % (Auto) 0.0 L (1.5-5.0) % Baso % (Auto) 0.0 (0.0-3.0) % Gran # 5.62 (1.4-6.5) Lymph # (Auto) 1.0 L (1.2-3.4) [place] # (Auto) 0.8 H (0.1-0.6) Eos # (Auto) 0.0 (0.0-0.7) Baso # (Auto) 0.00 (0.0-2.0) K/mm3 PT (9.4-12.5) SECONDS INR Sodium 133 (132-148) mmol/L Potassium 6.3 H* (3.6-5.0) mmol/L Chloride 97 L (98-107) mmol/L Carbon Dioxide 24 (21-33) mmol/L Anion Gap 19 (10-20) BUN 44 H (7-21) mg/dL Creatinine 5.9 H (0.7-1.2) mg/dl Est GFR ( Amer) 8 Est GFR (Non-Af Amer) 7 Random Glucose 73 (70-110) mg/dL Hemoglobin A1c (4.2-6.5) % Calcium 9.8 (8.4-10.5) mg/dL Phosphorus 4.8 H (2.5-4.5) mg/dL Magnesium 2.2 (1.7-2.2) mg/dL Total Bilirubin 0.7 (0.2-1.3) mg/dL AST 31 (14-36) U/L ALT 20 (7-56) U/L Alkaline Phosphatase 76 (38-126) U/L Total Protein 6.3 (5.8-8.3) g/dL Albumin 3.0 (3.0-4.8) g/dL Globulin 3.3 gm/dL Albumin/Globulin Ratio 0.9 L (1.1-1.8) Procalcitonin (0.19-0.49) NG/ML Hep Bs Antigen (NEGATIVE) Hep Bs Antibody (NEGATIVE) Hep B Core IgM Ab (NEGATIVE) Blood Type Blood Type Confirm B POSITIVE Antibody Screen Crossmatch BBK History Checked 05/16/18 05/16/18 05/16/18 Range/Units 23:18 23:18 23:18 WBC (4.5-11.0) 10^3/ul RBC (3.5-6.1) 10^6/uL Hgb (12.0-16.0) g/dL Hct (36.0-48.0) % MCV (80.0-105.0) fl MCH (25.0-35.0) pg MCHC (31.0-37.0) g/dl RDW (11.5-14.5) % Plt Count (120.0-450.0) 10^3/uL MPV (7.0-11.0) fl Gran % (50.0-68.0) % Lymph % (Auto) (22.0-35.0) % [place] % (Auto) (1.0-6.0) % Eos % (Auto) (1.5-5.0) % Baso % (Auto) (0.0-3.0) % Gran # (1.4-6.5) Lymph # (Auto) (1.2-3.4) [place] # (Auto) (0.1-0.6) Eos # (Auto) (0.0-0.7) Baso # (Auto) (0.0-2.0) K/mm3 PT 15.6 H (9.4-12.5) SECONDS INR 1.36 Sodium 134 (132-148) mmol/L Potassium 5.9 H* D (3.6-5.0) mmol/L Chloride 96 L (98-107) mmol/L Carbon Dioxide 22 (21-33) mmol/L Anion Gap 21 H (10-20) BUN 38 H (7-21) mg/dL Creatinine 6.0 H (0.7-1.2) mg/dl Est GFR ( Amer) 8 Est GFR (Non-Af Amer) 7 Random Glucose 83 (70-110) mg/dL Hemoglobin A1c (4.2-6.5) % Calcium 10.1 (8.4-10.5) mg/dL Phosphorus (2.5-4.5) mg/dL Magnesium (1.7-2.2) mg/dL Total Bilirubin 0.8 (0.2-1.3) mg/dL AST 31 (14-36) U/L ALT 16 (7-56) U/L Alkaline Phosphatase 90 (38-126) U/L Total Protein 7.2 (5.8-8.3) g/dL Albumin 3.5 (3.0-4.8) g/dL Globulin 3.7 gm/dL Albumin/Globulin Ratio 0.9 L (1.1-1.8) Procalcitonin (0.19-0.49) NG/ML Hep Bs Antigen (NEGATIVE) Hep Bs Antibody (NEGATIVE) Hep B Core IgM Ab (NEGATIVE) Blood Type B POSITIVE Blood Type Confirm Antibody Screen Negative Crossmatch See Detail BBK History Checked No verified bt 05/16/18 05/16/18 05/16/18 Range/Units 23:18 07:00 07:00 WBC 7.3 D (4.5-11.0) 10^3/ul RBC 3.81 (3.5-6.1) 10^6/uL Hgb 11.8 L (12.0-16.0) g/dL Hct 36.4 (36.0-48.0) % MCV 95.5 (80.0-105.0) fl MCH 31.0 (25.0-35.0) pg MCHC 32.4 (31.0-37.0) g/dl RDW 15.8 H (11.5-14.5) % Plt Count 239 (120.0-450.0) 10^3/uL MPV 11.0 (7.0-11.0) fl Gran % 82.2 H (50.0-68.0) % Lymph % (Auto) 12.1 L (22.0-35.0) % [place] % (Auto) 5.6 (1.0-6.0) % Eos % (Auto) 0.0 L (1.5-5.0) % Baso % (Auto) 0.1 (0.0-3.0) % Gran # 5.99 (1.4-6.5) Lymph # (Auto) 0.9 L (1.2-3.4) [place] # (Auto) 0.4 (0.1-0.6) Eos # (Auto) 0.0 (0.0-0.7) Baso # (Auto) 0.01 (0.0-2.0) K/mm3 PT (9.4-12.5) SECONDS INR Sodium (132-148) mmol/L Potassium (3.6-5.0) mmol/L Chloride (98-107) mmol/L Carbon Dioxide (21-33) mmol/L Anion Gap (10-20) BUN (7-21) mg/dL Creatinine (0.7-1.2) mg/dl Est GFR ( Amer) Est GFR (Non-Af Amer) Random Glucose (70-110) mg/dL Hemoglobin A1c (4.2-6.5) % Calcium (8.4-10.5) mg/dL Phosphorus (2.5-4.5) mg/dL Magnesium (1.7-2.2) mg/dL Total Bilirubin (0.2-1.3) mg/dL AST (14-36) U/L ALT (7-56) U/L Alkaline Phosphatase (38-126) U/L Total Protein (5.8-8.3) g/dL Albumin (3.0-4.8) g/dL Globulin gm/dL Albumin/Globulin Ratio (1.1-1.8) Procalcitonin (0.19-0.49) NG/ML Hep Bs Antigen Negative (NEGATIVE) Hep Bs Antibody Positive (NEGATIVE) Hep B Core IgM Ab Negative (NEGATIVE) Blood Type Blood Type Confirm Antibody Screen Crossmatch BBK History Checked 05/16/18 05/16/18 Range/Units 04:15 04:15 WBC (4.5-11.0) 10^3/ul RBC (3.5-6.1) 10^6/uL Hgb (12.0-16.0) g/dL Hct (36.0-48.0) % MCV (80.0-105.0) fl MCH (25.0-35.0) pg MCHC (31.0-37.0) g/dl RDW (11.5-14.5) % Plt Count (120.0-450.0) 10^3/uL MPV (7.0-11.0) fl Gran % (50.0-68.0) % Lymph % (Auto) (22.0-35.0) % [place] % (Auto) (1.0-6.0) % Eos % (Auto) (1.5-5.0) % Baso % (Auto) (0.0-3.0) % Gran # (1.4-6.5) Lymph # (Auto) (1.2-3.4) [place] # (Auto) (0.1-0.6) Eos # (Auto) (0.0-0.7) Baso # (Auto) (0.0-2.0) K/mm3 PT (9.4-12.5) SECONDS INR Sodium (132-148) mmol/L Potassium (3.6-5.0) mmol/L Chloride (98-107) mmol/L Carbon Dioxide (21-33) mmol/L Anion Gap (10-20) BUN (7-21) mg/dL Creatinine (0.7-1.2) mg/dl Est GFR ( Amer) Est GFR (Non-Af Amer) Random Glucose (70-110) mg/dL Hemoglobin A1c 4.9 (4.2-6.5) % Calcium (8.4-10.5) mg/dL Phosphorus (2.5-4.5) mg/dL Magnesium (1.7-2.2) mg/dL Total Bilirubin (0.2-1.3) mg/dL AST (14-36) U/L ALT (7-56) U/L Alkaline Phosphatase (38-126) U/L Total Protein (5.8-8.3) g/dL Albumin (3.0-4.8) g/dL Globulin gm/dL Albumin/Globulin Ratio (1.1-1.8) Procalcitonin 3.58 H (0.19-0.49) NG/ML Hep Bs Antigen (NEGATIVE) Hep Bs Antibody (NEGATIVE) Hep B Core IgM Ab (NEGATIVE) Blood Type Blood Type Confirm Antibody Screen Crossmatch BBK History Checked Laboratory Results - last 24 hr 05/16/18 05/16/18 05/16/18 04:15 04:15 07:00 WBC RBC Hgb Hct MCV MCH MCHC RDW Plt Count MPV Gran % Lymph % (Auto) [place] % (Auto) Eos % (Auto) Baso % (Auto) Gran # Lymph # (Auto) [place] # (Auto) Eos # (Auto) Baso # (Auto) PT INR Sodium Potassium Chloride Carbon Dioxide Anion Gap BUN Creatinine Est GFR ( Amer) Est GFR (Non-Af Amer) Random Glucose Hemoglobin A1c 4.9 Calcium Phosphorus Magnesium Total Bilirubin AST ALT Alkaline Phosphatase Total Protein Albumin Globulin Albumin/Globulin Ratio Procalcitonin 3.58 H Hep Bs Antigen Negative Hep Bs Antibody Hep B Core IgM Ab Negative Blood Type Blood Type Confirm Antibody Screen Crossmatch BBK History Checked 05/16/18 05/16/18 05/16/18 07:00 23:18 23:18 WBC 7.3 D RBC 3.81 Hgb 11.8 L Hct 36.4 MCV 95.5 MCH 31.0 MCHC 32.4 RDW 15.8 H Plt Count 239 MPV 11.0 Gran % 82.2 H Lymph % (Auto) 12.1 L [place] % (Auto) 5.6 Eos % (Auto) 0.0 L Baso % (Auto) 0.1 Gran # 5.99 Lymph # (Auto) 0.9 L [place] # (Auto) 0.4 Eos # (Auto) 0.0 Baso # (Auto) 0.01 PT 15.6 H INR 1.36 Sodium Potassium Chloride Carbon Dioxide Anion Gap BUN Creatinine Est GFR ( Amer) Est GFR (Non-Af Amer) Random Glucose Hemoglobin A1c Calcium Phosphorus Magnesium Total Bilirubin AST ALT Alkaline Phosphatase Total Protein Albumin Globulin Albumin/Globulin Ratio Procalcitonin Hep Bs Antigen Hep Bs Antibody Positive Hep B Core IgM Ab Blood Type Blood Type Confirm Antibody Screen Crossmatch BBK History Checked 05/16/18 05/16/18 05/17/18 23:18 23:18 00:04 WBC RBC Hgb Hct MCV MCH MCHC RDW Plt Count MPV Gran % Lymph % (Auto) [place] % (Auto) Eos % (Auto) Baso % (Auto) Gran # Lymph # (Auto) [place] # (Auto) Eos # (Auto) Baso # (Auto) PT INR Sodium 134 Potassium 5.9 H* D Chloride 96 L Carbon Dioxide 22 Anion Gap 21 H BUN 38 H Creatinine 6.0 H Est GFR ( Amer) 8 Est GFR (Non-Af Amer) 7 Random Glucose 83 Hemoglobin A1c Calcium 10.1 Phosphorus Magnesium Total Bilirubin 0.8 AST 31 ALT 16 Alkaline Phosphatase 90 Total Protein 7.2 Albumin 3.5 Globulin 3.7 Albumin/Globulin Ratio 0.9 L Procalcitonin Hep Bs Antigen Hep Bs Antibody Hep B Core IgM Ab Blood Type B POSITIVE Blood Type Confirm B POSITIVE Antibody Screen Negative Crossmatch See Detail BBK History Checked No verified bt 05/17/18 05/17/18 05:25 05:25 WBC 7.4 RBC 3.49 L Hgb 10.5 L Hct 33.2 L MCV 95.1 MCH 30.1 MCHC 31.6 RDW 15.9 H Plt Count 189 MPV 10.1 Gran % 76.2 H Lymph % (Auto) 13.0 L [place] % (Auto) 10.8 H Eos % (Auto) 0.0 L Baso % (Auto) 0.0 Gran # 5.62 Lymph # (Auto) 1.0 L [place] # (Auto) 0.8 H Eos # (Auto) 0.0 Baso # (Auto) 0.00 PT INR Sodium 133 Potassium 6.3 H* Chloride 97 L Carbon Dioxide 24 Anion Gap 19 BUN 44 H Creatinine 5.9 H Est GFR ( Amer) 8 Est GFR (Non-Af Amer) 7 Random Glucose 73 Hemoglobin A1c Calcium 9.8 Phosphorus 4.8 H Magnesium 2.2 Total Bilirubin 0.7 AST 31 ALT 20 Alkaline Phosphatase 76 Total Protein 6.3 Albumin 3.0 Globulin 3.3 Albumin/Globulin Ratio 0.9 L Procalcitonin Hep Bs Antigen Hep Bs Antibody Hep B Core IgM Ab Blood Type Blood Type Confirm Antibody Screen Crossmatch BBK History Checked EKG/Cardiology Studies: Cardiology / EKG Studies 05/17/18 08:46 ELECTROCARDIOGRAM Routine Comment: Reason For Exam: A fib PRE OP:: N Does Patient Have a Pacemaker?: No Critical Care Progress Note - Nutrition Nutrition: Nutrition Category Date Time Status Liquid Diet [DIET] Diets 05/16/18 Lunch Ordered Assessment/Plan - Assessment and Plan (Free Text) Plan: Patient seen and examined on rounds with resident, agree with note with following additions/exceptions: Patient is 82yo female with PMH CHF s/p pacemaker, HTN, GERD, CAD (no stents), gout, pleural effusions (many years ago), PAD (w stents), admitted to ICU for hypercapneic respiratory failure following angio cath vascular procedure for lower extremity PAD, placed on bipap, with subsequent resolution of hypercapnia. Currently afebrile, BP stable, comfortable in NAD, doing well, on 2LNC, AAOx3, to undergo HD again today, K 6.[address] A/P done yesterday last night which showed cirrhosis, ascites, with possible proteinaceous vs hemorrhagic acites, patient to have diagnostic paracentesis today. HH stable. Nausea, Vomiting, Diarrhea ESRD on HD PAD Hypercapnic resp failure, resolved CAD Ascites, proteinaceous vs hemorrhagic Recommend: - supp o2 as needed, duonebs PRN - NO ID issues - follow up GI - follow up IR, paracentesis today - Statin - hold Plavix, ASA for now - FS control - Cardizem PO - GI ppx - DVT ppx, SCDs - monitor in MICU
--- NOTE | 2018-05-17 10:42 | CP.PCM.CON ---
<Zoila Montalvo - Last Filed: 05/17/18 11:51> History of Present Illness - History of Present Illness History of Present Illness: [id number] ID Consult note for Dr. Kerns Reason for consult: hypothermia, elevated procalcitonin 82yo female PMHx CHF s/p pacemaker, Afib, ESRD on HD T-Th-Sat, HTN, GERD, CAD ( no stents), gout, pleural effusions (many years ago), PAD (w/ stents) admitted to CCU after becoming SOB s/p elective femoral angioplasty on 05/15. Patient underwent conscious sedation and after receiving IV contrast, she started to experience respiratoy distress with stridor. Patient was given Racemic epinephrine and Benadryl and placed on BiPAP and had some improvement. CXR showed vascular congestion and ABG was evident for respiratory acidosis at that time but hypercapnia resolved on BiPAP. After patient was transferred to CCU, over the first night, she developed Afib RVR and was placed on a Cardizem drip by cardiology which is now switched to PO cardizem. Patient also has a history of abdominal distention and had a CT A/P that was evident of high volume complex intra-abdominal and pelvic ascites- etiology related to hemorrhage/ hemoperitoneium. IR to do paracentesis today for fluid analysis. Since admission , patient has also had low temperatures 96.2F-97.2F. Patient did not have an elevated WBC however she did have an elevated %neutrophils of 89 and band neutrophils of 2. Patient also had an elevated procalcitonin of 3.58. ID was consulted for hypothermia and elevated procalcitonin. Patient seen and examined at bedside this AM. Nursing reported no acute events overnight and patient has been NSR. Although patient continues to be hypothermic , she denies any subjective fever/chills. She reports her breathing has much improved and she is comfortable on NC. Patient denied acute complaints of headache, dizziness, chest pain, palpitations, SOB, cough, nausea, vomiting, bowel/bladder complaints, pain/swelling in her legs b/l. Of note, patient's LE duplex showed 05/01/18 showed severely abnormal ABIs at rest , R 0.56 and L 0.49., b/l SFA occlusive disease. PMHx: CHF s/p pacemaker, Afib, ESRD on HD T--Sat, HTN, GERD, CAD (no stents), gout, pleural effusions (many years ago), PAD (w/ stents) PSurgHx: stent placement, cardiac cath Meds: pls see chart ALL: NKDA FamHx: noncontributory SocHx: Used to live with her daughter. Deconditioned in February 2018, went to [facility]. Former smoker, quit 40 years ago, occasional ETOH use. Review of Systems - Review of Systems All systems: reviewed and no additional remarkable complaints except Review of Systems: as per HPI Past Patient History - Infectious Disease Hx of Infectious Diseases: None - Tetanus Immunizations Tetanus Immunization: Unknown - Past Medical History & Family History Past Medical History?: Yes Past Family History: Reviewed and not pertinent - Past Social History Smoking Status: Former Smoker - CARDIAC Hx Cardiac Disorders: Yes Hx Congestive Heart Failure: Yes Hx Hypertension: Yes Hx Pacemaker: Yes Hx Peripheral Vascular Disease: Yes - NEUROLOGICAL Hx Paralysis: No - HEENT Hx Cataracts: Yes - RENAL Hx Chronic Kidney Disease: Yes Hx Dialysis: Yes (//sun) Date of Last Dialysis Treatment: 05/13/18 - ENDOCRINE/METABOLIC Hx Hypothyroidism: Yes - HEMATOLOGICAL/ONCOLOGICAL Hx Blood Transfusions: No Hx Blood Transfusion Reaction: No - MUSCULOSKELETAL/RHEUMATOLOGICAL Hx Musculoskeletal Disorders: Yes Hx Falls: No Hx Gout: Yes - GASTROINTESTINAL Hx Gastrointestinal Disorders: Yes Hx Gastroesophageal Reflux: Yes - PSYCHIATRIC Hx Emotional Abuse: No Hx Physical Abuse: No Hx Substance Use: No - SURGICAL HISTORY Hx Surgeries: Yes Other/Comment: left AV shunt - ANESTHESIA Hx Anesthesia Reactions: No Hx Malignant Hyperthermia: No Meds Allergies/Adverse Reactions: Allergies Allergy/AdvReac Type Severity Reaction Status Date / Time No Known Allergies Allergy Verified 05/07/18 11:54 - Medications Medications: Current Medications Acetylcysteine (Acetylcysteine 20%) 4 ml IH Q6 PRN PRN Reason: Cough Diltiazem HCl (Cardizem) 30 mg PO QID ON LICENSE OF [facility] Last Admin: 05/16/18 22:50 Dose: 30 mg Famotidine (Pepcid) 20 mg IVP DAILY ON LICENSE OF [facility] Last Admin: 05/16/18 13:26 Dose: 20 mg Guaifenesin (Robitussin) 100 mg PO Q4H PRN PRN Reason: Cough Last Admin: 05/15/18 22:59 Dose: 100 mg Hydralazine HCl (Apresoline) 10 mg IVP Q6 PRN PRN Reason: Systolic Blood Pressure Levalbuterol HCl (Xopenex) 1.25 mg IH [id number] ON LICENSE OF [facility] Last Admin: 05/17/18 08:34 Dose: Not Given Levalbuterol HCl (Xopenex) 1.25 mg IH Q3 PRN PRN Reason: Shortness of Breath Mupirocin (Bactroban Ointment) 1 gm NS BID ZAINAB Stop: 05/21/18 10:01 Last Admin: 05/17/18 03:02 Dose: 1 dose Ondansetron HCl (Zofran Inj) 4 mg IVP ONCE PRN PRN Reason: Nausea/Vomiting Racepinephrine (Racepinephrine 2.25% Inhl Soln) 0.5 ml IH Q3 PRN PRN Reason: Shortness of Breath Last Admin: 05/15/18 22:02 Dose: 0.5 ml Physical Exam - Constitutional Appears: Non-toxic, No Acute Distress - Head Exam Head Exam: ATRAUMATIC, NORMAL INSPECTION, NORMOCEPHALIC - Eye Exam Eye Exam: EOMI, Normal appearance. absent: Conjunctival injection, Scleral icterus - ENT Exam ENT Exam: Mucous Membranes Dry - Respiratory Exam Respiratory Exam: NORMAL BREATHING PATTERN. absent: Accessory Muscle Use, Rales , Rhonchi, Wheezes, Respiratory Distress - Cardiovascular Exam Cardiovascular Exam: RRR, +S1, +S2 - GI/Abdominal Exam GI & Abdominal Exam: Diminished Bowel Sounds, Distended, Soft. absent: Firm, Guarding, Pulsatile Mass, Rigid, Tenderness Additional comments: tympanic to percussion - Rectal Exam Rectal Exam: Deferred - Extremities Exam Extremities exam: Negative for: pedal edema - Neurological Exam Neurological exam: Alert, CN II-XII Intact, Oriented x3 - Psychiatric Exam Psychiatric exam: Normal Affect, Normal Mood - Skin Skin Exam: Dry, Intact Results - Vital Signs Recent Vital Signs: Last Vital Signs Temp 97.2 F L 05/17/18 08:50 Pulse 70 05/17/18 08:50 Resp 18 05/17/18 08:50 BP 112/59 L 05/17/18 08:00 Pulse Ox 83 L 05/17/18 08:50 - Labs Result Diagrams: 05/17/18 05:25 05/17/18 05:25 Labs: Laboratory Results - last 24 hr 05/16/18 05/16/18 05/16/18 04:15 04:15 07:00 WBC RBC Hgb Hct MCV MCH MCHC RDW Plt Count MPV Gran % Lymph % (Auto) [place] % (Auto) Eos % (Auto) Baso % (Auto) Gran # Lymph # (Auto) [place] # (Auto) Eos # (Auto) Baso # (Auto) PT INR Sodium Potassium Chloride Carbon Dioxide Anion Gap BUN Creatinine Est GFR ( Amer) Est GFR (Non-Af Amer) Random Glucose Hemoglobin A1c 4.9 Calcium Phosphorus Magnesium Total Bilirubin AST ALT Alkaline Phosphatase Total Protein Albumin Globulin Albumin/Globulin Ratio Procalcitonin 3.58 H Hep Bs Antigen Negative Hep Bs Antibody Hep B Core IgM Ab Negative Blood Type Blood Type Confirm Antibody Screen Crossmatch BBK History Checked 05/16/18 05/16/18 05/16/18 07:00 23:18 23:18 WBC 7.3 D RBC 3.81 Hgb 11.8 L Hct 36.4 MCV 95.5 MCH 31.0 MCHC 32.4 RDW 15.8 H Plt Count 239 MPV 11.0 Gran % 82.2 H Lymph % (Auto) 12.1 L [place] % (Auto) 5.6 Eos % (Auto) 0.0 L Baso % (Auto) 0.1 Gran # 5.99 Lymph # (Auto) 0.9 L [place] # (Auto) 0.4 Eos # (Auto) 0.0 Baso # (Auto) 0.01 PT 15.6 H INR 1.36 Sodium Potassium Chloride Carbon Dioxide Anion Gap BUN Creatinine Est GFR ( Amer) Est GFR (Non-Af Amer) Random Glucose Hemoglobin A1c Calcium Phosphorus Magnesium Total Bilirubin AST ALT Alkaline Phosphatase Total Protein Albumin Globulin Albumin/Globulin Ratio Procalcitonin Hep Bs Antigen Hep Bs Antibody Positive Hep B Core IgM Ab Blood Type Blood Type Confirm Antibody Screen Crossmatch BBK History Checked 05/16/18 05/16/18 05/17/18 23:18 23:18 00:04 WBC RBC Hgb Hct MCV MCH MCHC RDW Plt Count MPV Gran % Lymph % (Auto) [place] % (Auto) Eos % (Auto) Baso % (Auto) Gran # Lymph # (Auto) [place] # (Auto) Eos # (Auto) Baso # (Auto) PT INR Sodium 134 Potassium 5.9 H* D Chloride 96 L Carbon Dioxide 22 Anion Gap 21 H BUN 38 H Creatinine 6.0 H Est GFR ( Amer) 8 Est GFR (Non-Af Amer) 7 Random Glucose 83 Hemoglobin A1c Calcium 10.1 Phosphorus Magnesium Total Bilirubin 0.8 AST 31 ALT 16 Alkaline Phosphatase 90 Total Protein 7.2 Albumin 3.5 Globulin 3.7 Albumin/Globulin Ratio 0.9 L Procalcitonin Hep Bs Antigen Hep Bs Antibody Hep B Core IgM Ab Blood Type B POSITIVE Blood Type Confirm B POSITIVE Antibody Screen Negative Crossmatch See Detail BBK History Checked No verified bt 05/17/18 05/17/18 05:25 05:25 WBC 7.4 RBC 3.49 L Hgb 10.5 L Hct 33.2 L MCV 95.1 MCH 30.1 MCHC 31.6 RDW 15.9 H Plt Count 189 MPV 10.1 Gran % 76.2 H Lymph % (Auto) 13.0 L [place] % (Auto) 10.8 H Eos % (Auto) 0.0 L Baso % (Auto) 0.0 Gran # 5.62 Lymph # (Auto) 1.0 L [place] # (Auto) 0.8 H Eos # (Auto) 0.0 Baso # (Auto) 0.00 PT INR Sodium 133 Potassium 6.3 H* Chloride 97 L Carbon Dioxide 24 Anion Gap 19 BUN 44 H Creatinine 5.9 H Est GFR ( Amer) 8 Est GFR (Non-Af Amer) 7 Random Glucose 73 Hemoglobin A1c Calcium 9.8 Phosphorus 4.8 H Magnesium 2.2 Total Bilirubin 0.7 AST 31 ALT 20 Alkaline Phosphatase 76 Total Protein 6.3 Albumin 3.0 Globulin 3.3 Albumin/Globulin Ratio 0.9 L Procalcitonin Hep Bs Antigen Hep Bs Antibody Hep B Core IgM Ab Blood Type Blood Type Confirm Antibody Screen Crossmatch BBK History Checked Assessment & Plan - Assessment and Plan (Free Text) Assessment: 82yo female PMHx CHF s/p pacemaker, Afib, ESRD on HD T--Sat, HTN, GERD, CAD ( no stents), gout, pleural effusions (many years ago), PAD (w/ stents) admitted to CCU after becoming SOB s/p elective femoral angioplasty on 05/15. ID consulted for hypothermia and elevated procalcitonin. Plan: -no leukocytosis/fever or overt signs of sepsis/infection with VSS -CT A/P evident of high volume complex intra-abdominal and pelvic ascites- etiology related to hemorrhage/hemoperitoneium. -IR to do paracentesis today for fluid analysis f/u fluid studies -f/u blood and urine cx -f/u Echo -MRSA Nares + Bactroban 1gm NS bid -elevated procalcitonin 3.58 noted - likely secondary to hx of ESRD on HD -CXR 05/15 unremarkable -monitor clinically closely of antibiotics at this time -continue management as per CCU team, primary team, and specialist teams ID will continue to follow Discussed with Dr. Saumya Montlavo PGY3 <Teddy Kerns - Last Filed: 05/17/18 16:38> Meds - Medications Medications: Current Medications Acetylcysteine (Acetylcysteine 20%) 4 ml IH Q6 PRN PRN Reason: Cough Diltiazem HCl (Cardizem) 30 mg PO QID ON LICENSE OF [facility] Last Admin: 05/17/18 11:37 Dose: 30 mg Famotidine (Pepcid) 20 mg IVP DAILY ON LICENSE OF [facility] Last Admin: 05/16/18 13:26 Dose: 20 mg Guaifenesin (Robitussin) 100 mg PO Q4H PRN PRN Reason: Cough Last Admin: 05/15/18 22:59 Dose: 100 mg Hydralazine HCl (Apresoline) 10 mg IVP Q6 PRN PRN Reason: Systolic Blood Pressure Levalbuterol HCl (Xopenex) 1.25 mg IH [id number] ON LICENSE OF [facility] Last Admin: 05/17/18 13:19 Dose: 1.25 mg Levalbuterol HCl (Xopenex) 1.25 mg IH Q3 PRN PRN Reason: Shortness of Breath Mupirocin (Bactroban Ointment) 1 gm NS BID ON LICENSE OF [facility] Stop: 05/21/18 10:01 Last Admin: 05/17/18 03:02 Dose: 1 dose Ondansetron HCl (Zofran Inj) 4 mg IVP ONCE PRN PRN Reason: Nausea/Vomiting Racepinephrine (Racepinephrine 2.25% Inhl Soln) 0.5 ml IH Q3 PRN PRN Reason: Shortness of Breath Last Admin: 05/15/18 22:02 Dose: 0.5 ml Results - Vital Signs Recent Vital Signs: Last Vital Signs Temp 97.2 F L 05/17/18 08:50 Pulse 70 05/17/18 11:37 Resp 18 05/17/18 08:50 BP 117/56 L 05/17/18 11:37 Pulse Ox 83 L 05/17/18 08:50 - Labs Result Diagrams: 05/17/18 14:30 05/17/18 13:20 Labs: Laboratory Results - last 24 hr 05/16/18 05/16/18 05/16/18 23:18 23:18 23:18 WBC 7.3 D RBC 3.81 Hgb 11.8 L Hct 36.4 MCV 95.5 MCH 31.0 MCHC 32.4 RDW 15.8 H Plt Count 239 MPV 11.0 Gran % 82.2 H Lymph % (Auto) 12.1 L [place] % (Auto) 5.6 Eos % (Auto) 0.0 L Baso % (Auto) 0.1 Gran # 5.99 Lymph # (Auto) 0.9 L [place] # (Auto) 0.4 Eos # (Auto) 0.0 Baso # (Auto) 0.01 PT 15.6 H INR 1.36 Sodium 134 Potassium 5.9 H* D Chloride 96 L Carbon Dioxide 22 Anion Gap 21 H BUN 38 H Creatinine 6.0 H Est GFR ( Amer) 8 Est GFR (Non-Af Amer) 7 POC Glucose (mg/dL) Random Glucose 83 Calcium 10.1 Phosphorus Magnesium Total Bilirubin 0.8 AST 31 ALT 16 Alkaline Phosphatase 90 Total Protein 7.2 Albumin 3.5 Globulin 3.7 Albumin/Globulin Ratio 0.9 L Blood Type Blood Type Confirm Antibody Screen Crossmatch BBK History Checked 05/16/18 05/17/18 05/17/18 23:18 00:04 05:25 WBC 7.4 RBC 3.49 L Hgb 10.5 L Hct 33.2 L MCV 95.1 MCH 30.1 MCHC 31.6 RDW 15.9 H Plt Count 189 MPV 10.1 Gran % 76.2 H Lymph % (Auto) 13.0 L [place] % (Auto) 10.8 H Eos % (Auto) 0.0 L Baso % (Auto) 0.0 Gran # 5.62 Lymph # (Auto) 1.0 L [place] # (Auto) 0.8 H Eos # (Auto) 0.0 Baso # (Auto) 0.00 PT INR Sodium Potassium Chloride Carbon Dioxide Anion Gap BUN Creatinine Est GFR ( Amer) Est GFR (Non-Af Amer) POC Glucose (mg/dL) Random Glucose Calcium Phosphorus Magnesium Total Bilirubin AST ALT Alkaline Phosphatase Total Protein Albumin Globulin Albumin/Globulin Ratio Blood Type B POSITIVE Blood Type Confirm B POSITIVE Antibody Screen Negative Crossmatch See Detail BBK History Checked No verified bt 05/17/18 05/17/18 05/17/18 05:25 13:20 13:58 WBC RBC Hgb Hct MCV MCH MCHC RDW Plt Count MPV Gran % Lymph % (Auto) [place] % (Auto) Eos % (Auto) Baso % (Auto) Gran # Lymph # (Auto) [place] # (Auto) Eos # (Auto) Baso # (Auto) PT INR Sodium 133 135 Potassium 6.3 H* 5.6 H* Chloride 97 L 97 L Carbon Dioxide 24 16 L Anion Gap 19 28 H BUN 44 H 42 H Creatinine 5.9 H 6.2 H Est GFR ( Amer) 8 8 Est GFR (Non-Af Amer) 7 6 POC Glucose (mg/dL) 22 L* Random Glucose 73 30 L* D Calcium 9.8 10.5 Phosphorus 4.8 H Magnesium 2.2 Total Bilirubin 0.7 AST 31 ALT 20 Alkaline Phosphatase 76 Total Protein 6.3 Albumin 3.0 Globulin 3.3 Albumin/Globulin Ratio 0.9 L Blood Type Blood Type Confirm Antibody Screen Crossmatch BBK History Checked 05/17/18 14:30 WBC RBC Hgb 11.2 L Hct 34.4 L MCV MCH MCHC RDW Plt Count MPV Gran % Lymph % (Auto) [place] % (Auto) Eos % (Auto) Baso % (Auto) Gran # Lymph # (Auto) [place] # (Auto) Eos # (Auto) Baso # (Auto) PT INR Sodium Potassium Chloride Carbon Dioxide Anion Gap BUN Creatinine Est GFR ( Amer) Est GFR (Non-Af Amer) POC Glucose (mg/dL) Random Glucose Calcium Phosphorus Magnesium Total Bilirubin AST ALT Alkaline Phosphatase Total Protein Albumin Globulin Albumin/Globulin Ratio Blood Type Blood Type Confirm Antibody Screen Crossmatch BBK History Checked Assessment & Plan - Assessment and Plan (Free Text) Plan: Infectious Diseases Attending Physician Addendum Patient seen and examined, discussed with medical staff physician. I have reviewed the pertinent clinical information for the patient, including history of present illness, medical, personal and social histories, lab results and imaging findings. I agree with the above findings, assessment and plan. In addition, we will monitor the patient off antibiotics. Patient presenting with dyspnea after angioplasty of lower extremities, with hypothermia - currently no signs of sepsis, no leukocytosis, stable blood pressure, no tachycardia. Since patient has pacemaker and dialysis catheter, will get blood cx, and do urine cx as well. Will monitor clinically together with the ICU team.
--- NOTE | 2018-05-17 11:59 | CARD ---
APPROVED REPORT Date of service: 05/17/2018 EKG Measurement Heart [id number] <Conclusion> Electronic ventricular pacemaker
[2018-05-17] MEDS ORDERED: MethylPREDNISolone 40 mg Vial IVP SCH (13:45)
[2018-05-17 13:58] LABS: CALCIUM 10.5 mg/dL (8.4-10.5)
[2018-05-17] MEDS ORDERED: Dextrose 50% SYRINGE Inj (50 ml) ONE (14:00)
--- NOTE | 2018-05-17 14:25 | PN ---
DATE: 05/17/2018 REASON FOR THE CONSULTATION AND FOLLOWUP: Atrial fibrillation, sick sinus syndrome, status post pacemaker, severe PAD, status post impending respiratory failure, on noninvasive ventilator. SUBJECTIVE: The patient denies any chest pain, shortness of breath, or any palpitation. OBJECTIVE: GENERAL: Not in apparent distress. VITAL SIGNS: Temperature afebrile, heart rate 73, blood pressure 100/48. HEENT: PERRLA. Extraocular muscles intact. NECK: Supple. No carotid bruits or thyromegaly. CHEST: Clear to auscultation. HEART: S1 and S2 regular. ABDOMEN: Soft. EXTREMITIES: Clubbing and cyanosis negative. LABORATORY DATA: Blood workup as follows: WBC 7.4, hemoglobin 10.5, hematocrit 33.2, platelet count 189. Chemistry shows sodium 136, potassium 6.3, chloride 97, carbon dioxide 27, anion gap of 19, BUN 44, creatinine 5.9. IMPRESSION: An 82-year-old female with a past medical history significant for chronic atrial fibrillation, resident of a [facility], severe peripheral arterial disease, sick sinus syndrome, status post permanent pacemaker, underwent abdominal aortogram and peripheral angiogram day before, possible allergic reaction to the dye, started wheezing, impending respiratory failure, managed without intubation with noninvasive ventilator. Now, the patient is much awake and alert, had a dialysis yesterday. RECOMMENDATIONS: Continue Cardizem 30 mg every 6. Dialysis as per gymnasium teacher. CVS status is stable. The patient is at [facility], [place]. The patient is bedridden. Risks and benefits ratio for anticoagulation though the patient has flutter/fib on admission, but the patient is bedridden and hard for her to manage anticoagulation, though risk for buttermaker stroke is much higher, but risks and benefits ratio for starting anticoagulation to be high; so, we will do without anticoagulation. We will repeat EKG. Telemetry earlier shows atrial flutter. Continue Cardizem and p.r.n. hydralazine. So far, the patient is stable and manage without noninvasive ventilator. Liam Rubio MD [facility] # [id number]
[2018-05-17 14:51] LABS: HEMOGLOBIN 11.2 g/dL (12.0-16.0)
--- NOTE | 2018-05-17 14:57 | CP.PCM.PN ---
<Antonella Leyva - Last Filed: 05/17/18 17:01> Subjective - Date & Time of Evaluation Date of Evaluation: 05/17/18 Time of Evaluation: 09:30 - Subjective Subjective: PGY-1 Antonella Leyva D.O. Medicine progress note for Dr. Cast's service : Patient was seen and examined this morning. Over night, patient became hypothermic at 95.7 F. Patient is normothermic this morning. She is resting comfortably. She denies pain. She denies shortness of breath. She says her cough is improving. She is scheduled for another dialysis session today due to hyperkalemia. She is also scheduled for a paracentesis. Daughter, Jose Manuel, was called and updated on patient condition. Daughter denies any history of liver disease or significant alcohol use. She states patient's abdomen has been distended over the 6 months but has never been worked up. Patient was re-examined in the afternoon after having a blood glucose reading of 22. She was treated with D50. Throughout the hypoglycemic episode, patient was asymptomatic. She had just finished lunch. We will advance her diet. Objective - Vital Signs/Intake and Output Vital Signs (last 24 hours): Temp Pulse Resp BP Pulse Ox 97.2 F L 70 18 117/56 L 83 L 05/17/18 08:50 05/17/18 11:37 05/17/18 08:50 05/17/18 11:37 05/17/18 08:50 Intake and Output: 05/17/18 05/17/18 06:59 18:59 Intake Total 300 Balance 300 - Medications Medications: Current Medications Acetylcysteine (Acetylcysteine 20%) 4 ml IH Q6 PRN PRN Reason: Cough Diltiazem HCl (Cardizem) 30 mg PO QID [facility] Last Admin: 05/17/18 11:37 Dose: 30 mg Famotidine (Pepcid) 20 mg IVP DAILY [facility] Last Admin: 05/16/18 13:26 Dose: 20 mg Guaifenesin (Robitussin) 100 mg PO Q4H PRN PRN Reason: Cough Last Admin: 05/15/18 22:59 Dose: 100 mg Hydralazine HCl (Apresoline) 10 mg IVP Q6 PRN PRN Reason: Systolic Blood Pressure Levalbuterol HCl (Xopenex) 1.25 mg IH [id number] [facility] Last Admin: 05/17/18 13:19 Dose: 1.25 mg Levalbuterol HCl (Xopenex) 1.25 mg IH Q3 PRN PRN Reason: Shortness of Breath Mupirocin (Bactroban Ointment) 1 gm NS BID ZAINAB Stop: 05/21/18 10:01 Last Admin: 05/17/18 03:02 Dose: 1 dose Ondansetron HCl (Zofran Inj) 4 mg IVP ONCE PRN PRN Reason: Nausea/Vomiting Racepinephrine (Racepinephrine 2.25% Inhl Soln) 0.5 ml IH Q3 PRN PRN Reason: Shortness of Breath Last Admin: 05/15/18 22:02 Dose: 0.5 ml - Labs Labs: 05/17/18 14:30 05/17/18 13:20 PT 15.6 SECONDS (9.4-12.5) H 05/16/18 23:18 INR 1.36 05/16/18 23:18 APTT 32.6 Seconds (25.1-36.5) 05/15/18 10:25 - Constitutional Appears: Non-toxic, No Acute Distress - Head Exam Head Exam: ATRAUMATIC, NORMAL INSPECTION - Eye Exam Eye Exam: EOMI, Normal appearance - ENT Exam ENT Exam: Mucous Membranes Moist, Normal Exam - Neck Exam Neck Exam: Normal Inspection - Respiratory Exam Respiratory Exam: Decreased Breath Sounds, NORMAL BREATHING PATTERN Additional comments: 5 L O2 via NC - Cardiovascular Exam Cardiovascular Exam: REGULAR RHYTHM, +S1, +S2. absent: Irregular Rhythm, Murmur - GI/Abdominal Exam GI & Abdominal Exam: Distended, Normal Bowel Sounds. absent: Tenderness - Rectal Exam Rectal Exam: Deferred - Extremities Exam Extremities Exam: Normal Inspection. absent: Normal Capillary Refill - Neurological Exam Neurological Exam: Alert, Awake, CN II-XII Intact, Oriented x3 - Psychiatric Exam Psychiatric exam: Normal Mood - Skin Skin Exam: Dry, Intact, Normal Color, Warm Assessment and Plan - Assessment and Plan (Free Text) Assessment: Patient is an 82 yo female who presented after a femoral angioplasty with respiratory distress. Patient's daughter reports patient had a cough for the past 2 days. Patient was treated for a potential allergic reaction as she was noted to have stridor. She was placed on BiPap and admitted to the ICU. She was able to be taken off of BiPap. She received dialysis yesterday on her regular schedule (TThSat). She was downgraded to telemetry yesterday. She is getting HD and paracentesis today. Plan: Shortness of breath with respiratory acidosis, resolved- suspect 2/2 fluid overload - CXR: cardiomegaly, no active disease - ABG, FiO2 100: pH 7.18, pO2 221, pCO2 55 - ABG on BiPap, FiO2 50: pH 7.42, pO2 188, pCO2 32 - BiPap discontinued, now on NC 5L - Racepinephrine 0.5 mL IH Q3H PRN - Xopenex 1,25 mg IH Q6H ZAINAB, Q3H PRN - Acetylcysteine 20% 4mL Q6H - Robitussin 100 mg PO Q4H - BNP 144,000 (before HD) - ICU consulted (Macario)- patient downgraded to telemetry Abdominal distention - AXR: no abnormalities - CT A/P: High volume, complex intra-abdominal and pelvic ascites. Most likely etiology relates to hemorrhage/hemoperitoneum. Severe diffuse anasarca bilaterally. The findings in the left flank particularly severe. Severe bilateral renal atrophy. - Zofran 4 mg IV x1 PRN - f/u paracentesis - GI consulted (Blanca) - IR consulted- paracentesis today Hypothermia- Tmin 95.7 - MRSA colonizer- Mupirocin in nares BID - CXR: cardiomegaly, no active disease - WBC wnl with L-shift - LA wnl (1.5) - Procal elevated (3.58) - ID consulted (Saumya)- rebolledo cultures, no abx at this time CKD on HD TTSat - Trop 0.14-0.16 - Nephrology consulted (Bi)- HD today for hyperkalemia (6.3->5.6) H/o of Afib with pacemaker- patient went into Afib RVR over night and was placed on Cardizem drip, now NSR - Pacemaker - Cardizem 30 mg PO QID - Cardiology consulted (Ramiro) H/o of CHF - BNP 144,000 (before HD) - f/u echo - Cardiology consulted (Ramiro) HTN - Hold midodrine - Hydralazine 10 mg IV Q6H PRN IVF: not indicated Diet: full liquids- advance as tolerated GI ppx: Pepcid 20 mg IV daily VTE ppx: SCDs Code status: DNR Case discussed with Dr. Cast. <Selam Cast - Last Filed: 05/18/18 13:18> Objective - Vital Signs/Intake and Output Vital Signs (last 24 hours): Temp Pulse Resp BP Pulse Ox 98.1 F 71 20 121/51 L 100 05/18/18 11:04 05/18/18 11:04 05/18/18 11:04 05/18/18 11:00 05/18/18 10:30 Intake and Output: 05/18/18 05/18/18 06:59 18:59 Intake Total 200 Output Total 0 Balance 200 - Medications Medications: Current Medications Acetaminophen (Tylenol 325mg Tab) 650 mg PO Q6H PRN PRN Reason: Pain, Mild (1-3) Acetylcysteine (Acetylcysteine 20%) 4 ml IH Q6 PRN PRN Reason: Cough Diltiazem HCl (Cardizem) 30 mg PO QID [facility] Last Admin: 05/18/18 10:07 Dose: 30 mg Famotidine (Pepcid) 20 mg IVP DAILY [facility] Last Admin: 05/18/18 10:05 Dose: 20 mg Guaifenesin (Robitussin) 100 mg PO Q4H PRN PRN Reason: Cough Last Admin: 05/15/18 22:59 Dose: 100 mg Hydralazine HCl (Apresoline) 10 mg IVP Q6 PRN PRN Reason: Systolic Blood Pressure Meropenem 500 mg/ Sodium (Chloride) 50 mls @ 100 mls/hr IVPB Q12 ZAINAB PRN Reason: Protocol Last Admin: 05/18/18 10:08 Dose: 100 mls/hr Levalbuterol HCl (Xopenex) 1.25 mg IH [id number] [facility] Last Admin: 05/18/18 08:33 Dose: 1.25 mg Levalbuterol HCl (Xopenex) 1.25 mg IH Q3 PRN PRN Reason: Shortness of Breath Mupirocin (Bactroban Ointment) 1 gm NS BID [facility] Stop: 05/21/18 10:01 Last Admin: 05/18/18 10:05 Dose: 1 dose Ondansetron HCl (Zofran Inj) 4 mg IVP ONCE PRN PRN Reason: Nausea/Vomiting Oxycodone HCl (Oxycodone Immediate Release Tab) 5 mg PO Q6H PRN PRN Reason: Pain, severe (8-10) Last Admin: 05/18/18 12:59 Dose: 5 mg Racepinephrine (Racepinephrine 2.25% Inhl Soln) 0.5 ml IH Q3 PRN PRN Reason: Shortness of Breath Last Admin: 05/15/18 22:02 Dose: 0.5 ml - Labs Labs: 05/18/18 05:00 05/18/18 05:00 PT 15.6 SECONDS (9.4-12.5) H 05/16/18 23:18 INR 1.36 05/16/18 23:18 APTT 32.6 Seconds (25.1-36.5) 05/15/18 10:25 Attending/Attestation - Attestation I have personally seen and examined this patient.: Yes I have fully participated in the care of the patient.: Yes I have reviewed all pertinent clinical information, including history, physical exam and plan: Yes Notes (Text): 05/18/18 13:10 Attending note; Patient seen and examined with the resident in ICU. Getting hemodialysis today. Denies any shortness of breath. On oxygen nasal cannula. Denies any fevers, chills. CT abdomen showed intra-abdominal and pelvic ascites. Complaining of abdominal distention. But denies any abdominal pain. Tolerating liquid diet. Patient is a 82 year old female with a history of Afib, CHF, pacemaker, CAD, PVD, HTN, HLD, GERD, and hypothyroidism who presented from [facility] for a same-day surgery of femoral angioplasty. While post-op in the PACU, patient began experiencing significant shortness of breath and cough. Shortness of breath and wheezing improved. Continue DuoNeb. Pulmonary evaluation appreciated. History of coronary artery disease. Mildly elevated troponin. Patient had an episode of atrial fibrillation. rate controlled. continue po Cardizem. Cardiology evaluation appreciated. Currently aspirin on hold. Patient had a history of GI bleed 1 month ago. EGD and colonoscopy not done. Eliquis and plavix was discontinued at that time. s/p femoral angiogram and angioplasty. Patient was evaluated by Dr. kB Ruiz today. plan for paracentesis to rule out hemoperitoneum. End-stage renal disease on dialysis; continue hemodialysis. Case discussed with nephrology in detail. Renal diet ordered. Hyperkalemia; continue dialysis. Follow up closely in ICU. Patient is DNR. Upon discharge the patient will follow up with PMD Dr. Mueller. Follow-up with cardiology Dr. Rivers at [facility]. The diagnosis, follow-up plan discussed with patient daughter in detail. 05/18/18 13:18
[2018-05-17] MEDS ORDERED: NOREPINEPHRINE BIT/0.9 % NACL 4 MG/250 ML BAG IV ONE (18:06)
--- NOTE | 2018-05-17 18:40 | CARD ---
APPROVED REPORT Date of service: 05/16/2018 EXAM: Two-dimensional and M-mode echocardiogram with Doppler and color Doppler. INDICATION CP/LVFX 2D DIMENSIONS RVDd4.7 (2.9-3.5cm)Left Atrium (2D)5.9 (1.6-4.0cm) IVSd1.3 (0.7-1.1cm)LVDd3.7 (3.9-5.9cm) PWd1.4 (0.7-1.1cm)LVDs2.2 (2.5-4.0cm) FS (%) 39.7 %LVEF (%)71.1 (>50%) M-Mode DIMENSIONS Aortic Root2.90 (2.2-3.7cm)Aortic Cusp Exc.0.50 (1.5-2.0cm) Aortic Valve AoV Peak Fthzelzo640.0cm/sAoV VTI24.1cmAO Peak GR.7mmHg LVOT Peak Btvasnoh69.0cm/sLVOT VTI15.10cmAO Mean GR.4mmHg Mitral Valve MV [id number] ratio0.0MVA (PHT)2.29cm2 TDI E/Lateral E'0.0E/Medial E'0.0 Pulmonary Valve PV Peak Lsrbunot70.3cm/sPV Peak Grad.3mmHg Tricuspid Valve TR Peak Ijreecoe492vn/sRAP [id number] Peak Gr.71mmHg [id number] LEFT VENTRICLE The left ventricle is normal size. There is mild concentric left ventricular hypertrophy. The left ventricular function is normal.Ef-65-70% There is a flattened septum consistent with right ventricle volume and pressure overload. A fib No left ventricle thrombus noted on this study. There is no ventricular septal defect visualized. There is no left ventricular aneurysm. There is no mass noted in the left ventricle. RIGHT VENTRICLE The right ventricle is severely dilated. There is normal right ventricular wall thickness. Systolic function is moderately to severely reduced. There is a pacemaker lead in the right ventricle. ATRIA The left atrium is severely dilated. The right atrium is severely dilated. There is a catheter/pacemaker lead seen in the right atrium. The interatrial septum is intact with no evidence for an atrial septal defect. AORTIC VALVE The aortic valve is calcified and displays decreased opening. There is trace aortic regurgitation. There is mild to moderate valvular aortic stenosis.ROBIN 1.5 cm2 by planimetry. There is no aortic valvular vegetation. MITRAL VALVE The mitral valve is calcified and displays decreased opening. Mitral regurgitation is mild to moderate. There is mild mitral valve stenosis.MVA 2.2 cm2 There is no evidence of mitral valve prolapse. TRICUSPID VALVE The tricuspid valve leaflets are thickened , but open well. There is severe tricuspid regurgitation.RVSP-81 mmof hg. There is severe pulmonary hypertension. There is no tricuspid valve stenosis. There is no tricuspid valve prolapse or vegetation. PULMONIC VALVE The pulmonic valve is mildly thickened. There is moderate to severe pulmonic valvular regurgitation. There is no pulmonic valvular stenosis. GREAT VESSELS The aortic root is normal in size. The ascending aorta is normal in size. The pulmonary artery is normal. The IVC is dilated. PERICARDIAL EFFUSION There is large left pleural effusion. There is no pericardial effusion. <Conclusion> The left ventricle is normal size. There is mild concentric left ventricular hypertrophy. The left ventricular function is normal.Ef-65-70% The right ventricle is severely dilated. Systolic function is moderately to severely reduced. There is trace aortic regurgitation. There is mild to moderate valvular aortic stenosis.ROBIN 1.5 cm2 by planimetry. Mitral regurgitation is mild to moderate. There is mild mitral valve stenosis.MVA 2.2 cm2 There is severe tricuspid regurgitation.RVSP-81 mmof hg. There is severe pulmonary hypertension. There is moderate to severe pulmonic valvular regurgitation. The IVC is dilated.
--- NOTE | 2018-05-17 18:40 | PN ---
Copied To: Demetrice Pat MD Attending MD: Demetrice Pat MD DATE: 05/17/2018 SUBJECTIVE: The patient is seen lying in bed in the ICU. She is arousable, she is groggy. She complains of being very tired. She complains of fatigue. She complains of some shortness of breath. She is currently receiving dialysis. Her potassium was 6.3 this morning. Although she had a CT scan done of her abdomen, which showed large collection in the left flank region. She is supposed to have paracentesis post dialysis. PHYSICAL EXAMINATION: GENERAL: Elderly lady lying in bed in the ICU, in moderate distress. VITAL SIGNS: Blood pressure 117/76, heart rate 70, respiratory rate 18 to 24, and temperature 97.2. HEENT: Normocephalic, atraumatic, positive pallor. NECK: Supple, no JVD. LUNGS: Bilateral equal air entry, bilateral rhonchi, no rales. CARDIAC: S1 and S2, regular rate and rhythm, positive murmur, no rub. ABDOMEN: Distended, soft, nontender, bowel sounds present. EXTREMITIES: No lower extremity edema. INTAKE AND OUTPUT: 820/2500 LABORATORY DATA: WBC 7.4, hemoglobin 10.5, hematocrit 33, and platelets 189. Sodium 135, potassium 5.6, chloride 97, CO2 of 16. BUN 42, creatinine 6.2. Glucose 30. Calcium 10.5, phosphorus 4.8. CT of the abdomen, high-volume complex intra-abdominal and pelvic ascites, diffuse anasarca. CURRENT MEDICATIONS: Cardizem 30 four times a day, Pepcid 20 IV daily, racepinephrine, Robitussin, Xopenex, and Zofran. ASSESSMENT: 1. Recurrent hyperkalemia, the patient received dialysis yesterday. She has hyperkalemia again. 2. Ascites, hemorrhagic ascites. 3. Cirrhosis of the liver? 4. Recent gastrointestinal bleed, the patient was admitted to the [facility] in March with black stools. 4. Congestive heart failure, cardiomyopathy, atrial fibrillation, and pulmonary hypertension. 5. End-stage renal disease. 6. Anemia of chronic kidney disease. 7. Hyperphosphatemia. PLAN: 1. Stable dialysis right now. 2. Ultrafiltration about 1-1/2 kg as tolerated. 3. Agree with paracentesis post dialysis. 4. Continue phosphate binders. 5. Monitor H and H. 6. The patient declined EGD and colonoscopy in March when she was admitted to the [facility]. 7. DNR/DNI noted. 8. Case discussed at length with ICU staff, ICU attending, PMD, and dialysis staff. More than 35 minutes spent in the care of this critically ill patient. Demetrice Pat MD
[2018-05-17 18:43] LABS: BODY FLUID TYPE PERITONEAL/ASCITES
[2018-05-17 19:21] LABS: BF GROSS APPEARANCE SL CLOUDY (CLEAR)
[2018-05-17 19:22] LABS: BODY FLUID TOTAL COUNT 100 (0-0)
[2018-05-18] MEDS: Levalbuterol 1.25 MG/3 ML Inhal Soln UD IH SCH ×2 (02:35→08:33)
[2018-05-18] MEDS ORDERED: Acetaminophen 650mg/20.3ml solution UD PO STA (03:31)
[2018-05-18 06:14] LABS: EOS % 0.1 % (1.5-5.0); GRAN # 5.91 (1.4-6.5); GRAN % 78.4 % (50.0-68.0); HEMOGLOBIN 10.7 g/dL (12.0-16.0); LYMPH % 12.7 % (22.0-35.0); MEAN CELL VOLUME 94.9 fl (80.0-105.0); MEAN CORPUSCULAR HEMOGLOBIN 30.6 pg (25.0-35.0); MEAN CORPUSCULAR HGB CONC 32.2 g/dl (31.0-37.0); MONO # 0.7 (0.1-0.6); MONO % 8.8 % (1.0-6.0); RBC 3.5 10^6/uL (3.5-6.1); RED CELL DISTRIBUTION WIDTH 15.8 % (11.5-14.5); WHITE BLOOD COUNT 7.5 10^3/ul (4.5-11.0)
[2018-05-18 06:26] LABS: ALB/GLOB RATIO 0.9 (1.1-1.8); ALBUMIN 2.8 g/dL (3.0-4.8); CALCIUM 9.4 mg/dL (8.4-10.5)
--- NOTE | 2018-05-18 07:10 | CP.PCM.PN ---
<Zoila Montalvo - Last Filed: 05/18/18 12:55> Subjective - Date & Time of Evaluation Date of Evaluation: 05/18/18 Time of Evaluation: 07:09 - Subjective Subjective: Pgy3 Medicine note for Dr. Cast Patient seen and examined at bedside. Bear-hugger in place. Patient s/p paracentesis by IR yesterday. No acute complaints this AM and no overnight events as per nursing. Patient denied acute complaints of fever, headache, dizziness, chest pain, SOB, cough, abd pain, nausea, vomiting, bowel/bladder complaints, pain/swelling in her legs b/l. Patient to be transferred to [facility]. Objective - Vital Signs/Intake and Output Vital Signs (last 24 hours): Temp Pulse Resp BP Pulse Ox 97.9 F 71 37 H 85/46 L 96 05/18/18 06:47 05/18/18 06:47 05/18/18 06:47 05/18/18 06:01 05/18/18 06:10 - Medications Medications: Current Medications Acetylcysteine (Acetylcysteine 20%) 4 ml IH Q6 PRN PRN Reason: Cough Diltiazem HCl (Cardizem) 30 mg PO QID [facility] Last Admin: 05/17/18 21:58 Dose: 30 mg Famotidine (Pepcid) 20 mg IVP DAILY [facility] Last Admin: 05/17/18 11:05 Dose: 20 mg Guaifenesin (Robitussin) 100 mg PO Q4H PRN PRN Reason: Cough Last Admin: 05/15/18 22:59 Dose: 100 mg Hydralazine HCl (Apresoline) 10 mg IVP Q6 PRN PRN Reason: Systolic Blood Pressure Levalbuterol HCl (Xopenex) 1.25 mg IH [id number] [facility] Last Admin: 05/18/18 02:35 Dose: 1.25 mg Levalbuterol HCl (Xopenex) 1.25 mg IH Q3 PRN PRN Reason: Shortness of Breath Mupirocin (Bactroban Ointment) 1 gm NS BID [facility] Stop: 05/21/18 10:01 Last Admin: 05/17/18 18:09 Dose: 1 dose Ondansetron HCl (Zofran Inj) 4 mg IVP ONCE PRN PRN Reason: Nausea/Vomiting Racepinephrine (Racepinephrine 2.25% Inhl Soln) 0.5 ml IH Q3 PRN PRN Reason: Shortness of Breath Last Admin: 05/15/18 22:02 Dose: 0.5 ml - Labs Labs: 05/18/18 05:00 05/18/18 05:00 PT 15.6 SECONDS (9.4-12.5) H 05/16/18 23:18 INR 1.36 05/16/18 23:18 APTT 32.6 Seconds (25.1-36.5) 05/15/18 10:25 - Constitutional Appears: Non-toxic, No Acute Distress - Head Exam Head Exam: ATRAUMATIC, NORMAL INSPECTION, NORMOCEPHALIC - Eye Exam Eye Exam: EOMI, Normal appearance. absent: Conjunctival injection, Scleral icterus - ENT Exam ENT Exam: Mucous Membranes Moist - Respiratory Exam Respiratory Exam: NORMAL BREATHING PATTERN. absent: Accessory Muscle Use, Rales , Rhonchi, Wheezes, Respiratory Distress - Cardiovascular Exam Cardiovascular Exam: REGULAR RHYTHM, +S1, +S2 - GI/Abdominal Exam GI & Abdominal Exam: Distended, Soft, Tenderness (mild to palpation). absent: Firm, Guarding, Rigid - Rectal Exam Rectal Exam: Deferred - Extremities Exam Extremities Exam: Normal Inspection. absent: Pedal Edema - Neurological Exam Neurological Exam: Alert, Awake, Oriented x3 - Psychiatric Exam Psychiatric exam: Normal Affect, Normal Mood - Skin Skin Exam: Dry, Intact Assessment and Plan - Assessment and Plan (Free Text) Assessment: 82yo female PMHx CHF s/p pacemaker, Afib, ESRD on HD T-Th-Sat, HTN, GERD, CAD ( no stents), gout, pleural effusions (many years ago), PAD (w/ stents) admitted to CCU after becoming SOB s/p elective femoral angioplasty on 05/15. Patient was placed on BiPAP with subsequent resolution of hypercapnia. Currently VSS. Patient has resumed HD as per regular TThSat schedule. Patient is s/p paracentesis that removed 4.8L nonbloody fluid yesterday. Patient clinically improving and has been downgraded to TELE. Plan: Abdominal distention - POD#1 IR u/s guided paracentesis Appearance- cloudy and netta WBC- 189 RBC- 4026 Total cell count- 100 Neutrophils- 26.5 Lymphocytes- 73.5 - f/u fluid studies - f/u GI reccs - AXR: no abnormalities - CT A/P: High volume, complex intra-abdominal and pelvic ascites. Most likely etiology relates to hemorrhage/hemoperitoneum. Severe diffuse anasarca bilaterally. The findings in the left flank particularly severe. Severe bilateral renal atrophy. - GI consulted (Blanca) Shortness of breath with respiratory acidosis - resolved; suspect 2/2 fluid overload - CXR: cardiomegaly, no active disease - ABG on admission: FiO2 100: pH 7.18, pO2 221, pCO2 55 ABG on BiPap, FiO2 50: pH 7.42, pO2 188, pCO2 32 BiPap discontinued, now on NC 5L - Racepinephrine 0.5 mL IH Q3H PRN - Xopenex 1,25 mg IH Q6H ZAINAB, Q3H PRN - Acetylcysteine 20% 4mL Q6H - Robitussin 100 mg PO Q4H - BNP 144,000 (before HD) Hypothermia- Tmin 95.7 - normothermic overnight - patient had barehugger in place this AM - Merrem q12 (started 05/18) - Patient received 1 dose of Vanc - MRSA colonizer- Mupirocin in nares BID - CXR: cardiomegaly, no active disease - WBC wnl with L-shift - LA wnl (1.5) - Procal elevated (3.58) - ID consulted (Saumya) CKD on HD TTSat - Trop 0.14-0.16 - Nephrology consulted (Bi) H/o of Afib with pacemaker - Pacemaker - Cardizem 30 mg PO QID - Cardiology consulted (Ramiro) H/o of CHF - BNP 144,000 (before HD) - Echo 05/17: LV wnl; mild concentric LVH; LVF normal EF 65-70%; RV severely dilated; systolic function is mod-severely reduced; trace AR, mild to mod valvular with ROBIN 1.5c,2; MR is mild-mod; mild MV stenosis MVA 2.2cm2; severe tricuspid regurg RVSP 81mmHg; severe pulm HTN; mod-severe pulm valvular regurg; IVC is dilated - Cardiology consulted (Ramiro) HTN - Hydralazine 10 mg IV Q6H PRN Diet: Renal GI ppx: Pepcid 20 mg IV daily VTE ppx: SCDs Code status: DNR Discussed with Dr. Segun Montalvo PGY3 <Selam Cast - Last Filed: 05/19/18 16:00> Objective - Vital Signs/Intake and Output Vital Signs (last 24 hours): Temp Pulse Resp BP Pulse Ox 97.2 F L 70 21 110/42 L 72 L 05/19/18 08:40 05/19/18 13:06 05/19/18 08:39 05/19/18 13:06 05/19/18 08:20 Intake and Output: 05/19/18 05/19/18 06:59 18:59 Intake Total 600 Output Total 0 Balance 600 - Medications Medications: Current Medications Acetaminophen (Tylenol 325mg Tab) 650 mg PO Q6H PRN PRN Reason: Pain, Mild (1-3) Acetylcysteine (Acetylcysteine 20%) 4 ml IH Q6 PRN PRN Reason: Cough Aspirin (Ecotrin) 81 mg PO DAILY [facility] Last Admin: 05/19/18 10:27 Dose: 81 mg Clopidogrel Bisulfate (Plavix) 75 mg PO DAILY [facility] Last Admin: 05/19/18 10:27 Dose: 75 mg Diltiazem HCl (Cardizem) 30 mg PO QID [facility] Last Admin: 05/19/18 13:06 Dose: Not Given Docusate Sodium (Colace) 100 mg PO TID [facility] Last Admin: 05/19/18 13:07 Dose: 100 mg Famotidine (Pepcid) 20 mg IVP DAILY [facility] Last Admin: 05/19/18 10:28 Dose: 20 mg Guaifenesin (Robitussin) 100 mg PO Q4H PRN PRN Reason: Cough Last Admin: 05/15/18 22:59 Dose: 100 mg Hydralazine HCl (Apresoline) 10 mg IVP Q6 PRN PRN Reason: Systolic Blood Pressure Levalbuterol HCl (Xopenex) 1.25 mg IH [id number] [facility] Last Admin: 05/19/18 13:18 Dose: Not Given Levalbuterol HCl (Xopenex) 1.25 mg IH Q3 PRN PRN Reason: Shortness of Breath Mupirocin (Bactroban Ointment) 1 gm NS BID [facility] Stop: 05/21/18 10:01 Last Admin: 05/19/18 10:20 Dose: 1 dose Ondansetron HCl (Zofran Inj) 4 mg IVP ONCE PRN PRN Reason: Nausea/Vomiting Oxycodone HCl (Oxycodone Immediate Release Tab) 5 mg PO Q6H PRN PRN Reason: Pain, severe (8-10) Last Admin: 05/19/18 01:30 Dose: 5 mg Racepinephrine (Racepinephrine 2.25% Inhl Soln) 0.5 ml IH Q3 PRN PRN Reason: Shortness of Breath Last Admin: 05/15/18 22:02 Dose: 0.5 ml - Labs Labs: 05/19/18 05:00 05/19/18 05:00 PT 15.6 SECONDS (9.4-12.5) H 05/16/18 23:18 INR 1.36 05/16/18 23:18 APTT 32.6 Seconds (25.1-36.5) 05/15/18 10:25 Attending/Attestation - Attestation I have personally seen and examined this patient.: Yes I have fully participated in the care of the patient.: Yes I have reviewed all pertinent clinical information, including history, physical exam and plan: Yes Notes (Text): 05/19/18 14:38 Attending note; Patient seen and examined with the resident in ICU. Denies any shortness of breath. On oxygen nasal cannula. Denies any fevers, chills. CT abdomen showed intra-abdominal and pelvic ascites. status post paracentesis. abdominal distention is improved. But denies any abdominal pain. Tolerating liquid diet. Patient is a 82 year old female with a history of Afib, CHF, pacemaker, CAD, PVD, HTN, HLD, GERD, and hypothyroidism who presented from [facility] for a same-day surgery of femoral angioplasty. While post-op in the PACU, patient began experiencing significant shortness of breath and cough. Shortness of breath and wheezing improved. Continue DuoNeb. Pulmonary evaluation appreciated. History of coronary artery disease. Mildly elevated troponin. Patient had an episode of atrial fibrillation. rate controlled. continue po Cardizem. Cardiology evaluation appreciated. started on aspirin and Plavix. Echocardiogram shows increased right ventricle systolic function,severe tricuspid regurgitation and severe pulmonary hypertension and elevated RVSP. s/p femoral angiogram and angioplasty.Continue asirin and plavix. End-stage renal disease on dialysis; continue hemodialysis. hyperkalemia; continue dialysis. Kayexalate when necessary. Low potassium diet ordered. Case discussed with nephrology in detail. ascites; status post paracentesis. Etiology unknown. Ascites fluid was cloudy. But no elevated neutrophils suggesting of SBP. ID evaluation appreciated. Systemic inflammatory response; status post one dose of vancomycin and meropenem. Cultures negative so far. ID evaluation appreciated. Upon discharge the patient will follow up with PMD . Follow-up with cardiology Dr. Rivers at [place]. prognosis is poor. Patient is DNR. PT evaluation requested. Possible transfer to [facility]. The diagnosis, follow-up plan discussed with patient daughter in detail.
[2018-05-18] MEDS ORDERED: Vancomycin 1gm in NS 250ml 1 GM/250 ML BAG IVPB STA (09:21)
[2018-05-18] MEDS ORDERED: Sod Polystyrene Sulf 15 gm/60 ml Susp PO ONE (09:57)
[2018-05-18] MEDS: Mupirocin 2% Ointment 15 GM TUBE NS SCH ×2 (10:05→18:43)
[2018-05-18] MEDS: Meropenem 500 MG in Sodium Chloride 0.9% 50 ML IVPB SCH ×2 (10:08→21:12)
--- NOTE | 2018-05-18 10:54 | CP.PCM.PN ---
<Reyes Quinonez - Last Filed: 05/18/18 10:50> Subjective - Date & Time of Evaluation Date of Evaluation: 05/18/18 Time of Evaluation: 10:50 - Subjective Subjective: She is doing well today. No complaints. 4.8L fluid removed for abdomen yesterday. Fluid sent for analysis. No complaints. Tolerating diet. Objective - Vital Signs/Intake and Output Vital Signs (last 24 hours): Temp Pulse Resp BP Pulse Ox 97.9 F 72 37 H 117/55 L 96 05/18/18 06:47 05/18/18 10:07 05/18/18 06:47 05/18/18 10:07 05/18/18 06:10 Intake and Output: 05/18/18 05/18/18 06:59 18:59 Intake Total 200 Output Total 0 Balance 200 - Medications Medications: Current Medications Acetylcysteine (Acetylcysteine 20%) 4 ml IH Q6 PRN PRN Reason: Cough Diltiazem HCl (Cardizem) 30 mg PO QID [facility] Last Admin: 05/18/18 10:07 Dose: 30 mg Famotidine (Pepcid) 20 mg IVP DAILY [facility] Last Admin: 05/18/18 10:05 Dose: 20 mg Guaifenesin (Robitussin) 100 mg PO Q4H PRN PRN Reason: Cough Last Admin: 05/15/18 22:59 Dose: 100 mg Hydralazine HCl (Apresoline) 10 mg IVP Q6 PRN PRN Reason: Systolic Blood Pressure Meropenem 500 mg/ Sodium (Chloride) 50 mls @ 100 mls/hr IVPB Q12 ZAIN[facility] PRN Reason: Protocol Last Admin: 05/18/18 10:08 Dose: 100 mls/hr Levalbuterol HCl (Xopenex) 1.25 mg IH [id number] [facility] Last Admin: 05/18/18 08:33 Dose: 1.25 mg Levalbuterol HCl (Xopenex) 1.25 mg IH Q3 PRN PRN Reason: Shortness of Breath Mupirocin (Bactroban Ointment) 1 gm NS BID [facility] Stop: 05/21/18 10:01 Last Admin: 05/18/18 10:05 Dose: 1 dose Ondansetron HCl (Zofran Inj) 4 mg IVP ONCE PRN PRN Reason: Nausea/Vomiting Racepinephrine (Racepinephrine 2.25% Inhl Soln) 0.5 ml IH Q3 PRN PRN Reason: Shortness of Breath Last Admin: 05/15/18 22:02 Dose: 0.5 ml - Labs Labs: 05/18/18 05:00 05/18/18 05:00 PT 15.6 SECONDS (9.4-12.5) H 05/16/18 23:18 INR 1.36 05/16/18 23:18 APTT 32.6 Seconds (25.1-36.5) 05/15/18 10:25 - Constitutional Appears: Non-toxic, No Acute Distress, Chronically Ill - Eye Exam Eye Exam: EOMI, Normal appearance - ENT Exam ENT Exam: Mucous Membranes Moist - Respiratory Exam Respiratory Exam: Clear to Ausculation Bilateral, NORMAL BREATHING PATTERN - Cardiovascular Exam Cardiovascular Exam: REGULAR RHYTHM - GI/Abdominal Exam GI & Abdominal Exam: Soft, Normal Bowel Sounds. absent: Tenderness - Extremities Exam Extremities Exam: Normal Inspection - Neurological Exam Neurological Exam: Alert, Awake, Oriented x3 - Psychiatric Exam Psychiatric exam: Normal Affect, Normal Mood - Skin Skin Exam: Dry, Normal Color Assessment and Plan - Assessment and Plan (Free Text) Assessment: 82F with extensive medical history admitted to ICU after elective femoral angioplast for acute SOB and GI consulted for chronic abdominal distension. #Tense Ascites #Hx of GI bleed at [facility] - she was on OAC which was d/c. She declined EGD/ colonoscopy at that time. She reports she did not want to take the risk at that time considering her extensive medical problems. #SOB #ESRD #CHF #CAD #HTN #Afib s/p PPM PLAN: - CT reviewed - significant ascites. s/p paracentesis 05/17 4.8L removed. - Unclear etiology of ascites - f/u fluid studies - Encourage mobilization, out of bed to chair - Monitor BMs, nausea, vomiting. - Avoid medicines that can slow the bowels (anticholinergics, opiates.) - IVF per ICU - Puree diet as tolerated. <Blanca,Kovil V - Last Filed: 05/18/18 20:46> Objective - Vital Signs/Intake and Output Vital Signs (last 24 hours): Temp Pulse Resp BP Pulse Ox 98.8 F 68 23 119/48 L 91 L 05/18/18 18:20 05/18/18 18:36 05/18/18 18:20 05/18/18 18:36 05/18/18 18:20 Intake and Output: 05/18/18 05/19/18 18:59 06:59 Intake Total 950 Output Total 0 Balance 950 - Medications Medications: Current Medications Acetaminophen (Tylenol 325mg Tab) 650 mg PO Q6H PRN PRN Reason: Pain, Mild (1-3) Acetylcysteine (Acetylcysteine 20%) 4 ml IH Q6 PRN PRN Reason: Cough Aspirin (Ecotrin) 81 mg PO DAILY [facility] Last Admin: 05/18/18 14:32 Dose: 81 mg Clopidogrel Bisulfate (Plavix) 75 mg PO DAILY [facility] Last Admin: 05/18/18 14:32 Dose: 75 mg Diltiazem HCl (Cardizem) 30 mg PO QID [facility] Last Admin: 05/18/18 18:36 Dose: Not Given Famotidine (Pepcid) 20 mg IVP DAILY [facility] Last Admin: 05/18/18 10:05 Dose: 20 mg Guaifenesin (Robitussin) 100 mg PO Q4H PRN PRN Reason: Cough Last Admin: 05/15/18 22:59 Dose: 100 mg Hydralazine HCl (Apresoline) 10 mg IVP Q6 PRN PRN Reason: Systolic Blood Pressure Meropenem 500 mg/ Sodium (Chloride) 50 mls @ 100 mls/hr IVPB Q12 [facility] PRN Reason: Protocol Last Admin: 05/18/18 10:08 Dose: 100 mls/hr Levalbuterol HCl (Xopenex) 1.25 mg IH [id number] [facility] Last Admin: 05/18/18 08:33 Dose: 1.25 mg Levalbuterol HCl (Xopenex) 1.25 mg IH Q3 PRN PRN Reason: Shortness of Breath Mupirocin (Bactroban Ointment) 1 gm NS BID [facility] Stop: 05/21/18 10:01 Last Admin: 05/18/18 18:43 Dose: 1 dose Ondansetron HCl (Zofran Inj) 4 mg IVP ONCE PRN PRN Reason: Nausea/Vomiting Oxycodone HCl (Oxycodone Immediate Release Tab) 5 mg PO Q6H PRN PRN Reason: Pain, severe (8-10) Last Admin: 05/18/18 20:22 Dose: 5 mg Racepinephrine (Racepinephrine 2.25% Inhl Soln) 0.5 ml IH Q3 PRN PRN Reason: Shortness of Breath Last Admin: 05/15/18 22:02 Dose: 0.5 ml - Labs Labs: 05/18/18 05:00 05/18/18 05:00 PT 15.6 SECONDS (9.4-12.5) H 05/16/18 23:18 INR 1.36 05/16/18 23:18 APTT 32.6 Seconds (25.1-36.5) 05/15/18 10:25 Attending/Attestation - Attestation I have personally seen and examined this patient.: Yes I have fully participated in the care of the patient.: Yes I have reviewed all pertinent clinical information, including history, physical exam and plan: Yes Notes (Text): This is a delayed addendum to GI progress report dictated by the GI Fellow.The patient was seen and examined earlier. Medical records, lab studies, imagings were reviewed. Last 24 hours events reviewed. Agreed with the above treatment plan as outlined in GI Fellow 's notes with the addition of the following Patient more comfortable Ascitic fluid albumen and cytology pending History of GI bleeding in the past Admitted in [facility] Refused endo procedures Presently DNR DNI Followup up conservative management Further GI workup based on clinic course 05/18/18 20:42
--- NOTE | 2018-05-18 11:22 | CP.PCM.PN ---
Subjective - Date & Time of Evaluation Date of Evaluation: 05/18/18 Time of Evaluation: 08:10 - Subjective Subjective: Patient seen and examined at bedside, reports no major complaints. Had paracentesis done yesterday by IR Objective - Vital Signs/Intake and Output Vital Signs (last 24 hours): Temp Pulse Resp BP Pulse Ox 98.1 F 71 20 121/51 L 100 05/18/18 11:04 05/18/18 11:04 05/18/18 11:04 05/18/18 11:00 05/18/18 10:30 Intake and Output: 05/18/18 05/18/18 06:59 18:59 Intake Total 200 Output Total 0 Balance 200 - Medications Medications: Current Medications Acetylcysteine (Acetylcysteine 20%) 4 ml IH Q6 PRN PRN Reason: Cough Diltiazem HCl (Cardizem) 30 mg PO QID [facility] Last Admin: 05/18/18 10:07 Dose: 30 mg Famotidine (Pepcid) 20 mg IVP DAILY [facility] Last Admin: 05/18/18 10:05 Dose: 20 mg Guaifenesin (Robitussin) 100 mg PO Q4H PRN PRN Reason: Cough Last Admin: 05/15/18 22:59 Dose: 100 mg Hydralazine HCl (Apresoline) 10 mg IVP Q6 PRN PRN Reason: Systolic Blood Pressure Meropenem 500 mg/ Sodium (Chloride) 50 mls @ 100 mls/hr IVPB Q12 [facility] PRN Reason: Protocol Last Admin: 05/18/18 10:08 Dose: 100 mls/hr Levalbuterol HCl (Xopenex) 1.25 mg IH [id number] [facility] Last Admin: 05/18/18 08:33 Dose: 1.25 mg Levalbuterol HCl (Xopenex) 1.25 mg IH Q3 PRN PRN Reason: Shortness of Breath Mupirocin (Bactroban Ointment) 1 gm NS BID [facility] Stop: 05/21/18 10:01 Last Admin: 05/18/18 10:05 Dose: 1 dose Ondansetron HCl (Zofran Inj) 4 mg IVP ONCE PRN PRN Reason: Nausea/Vomiting Racepinephrine (Racepinephrine 2.25% Inhl Soln) 0.5 ml IH Q3 PRN PRN Reason: Shortness of Breath Last Admin: 05/15/18 22:02 Dose: 0.5 ml - Labs Labs: 05/18/18 05:00 05/18/18 05:00 PT 15.6 SECONDS (9.4-12.5) H 05/16/18 23:18 INR 1.36 05/16/18 23:18 APTT 32.6 Seconds (25.1-36.5) 05/15/18 10:25 - Constitutional Appears: Non-toxic, No Acute Distress, Chronically Ill - Head Exam Head Exam: NORMAL INSPECTION - Eye Exam Eye Exam: Normal appearance - ENT Exam ENT Exam: Mucous Membranes Moist - Neck Exam Neck Exam: Full ROM - Respiratory Exam Respiratory Exam: Clear to Ausculation Bilateral, NORMAL BREATHING PATTERN - Cardiovascular Exam Cardiovascular Exam: REGULAR RHYTHM, +S1, +S2 - GI/Abdominal Exam GI & Abdominal Exam: Soft, Normal Bowel Sounds - Extremities Exam Extremities Exam: Pedal Edema - Neurological Exam Neurological Exam: Alert, Awake - Psychiatric Exam Psychiatric exam: Normal Affect - Skin Skin Exam: Normal Color, Warm Assessment and Plan - Assessment and Plan (Free Text) Assessment: Patient is 82yo female with PMH CHF s/p pacemaker, HTN, GERD, CAD, gout, PAD (w stents), admitted to ICU for hypercapneic respiratory failure following angio cath vascular procedure for lower extremity PAD, placed on bipap, with subsequent resolution of hypercapnia. Currently afebrile, BP stable, comfortable in NAD, doing well, on 2LNC, AAOx3, underwent HD yesterday, and had paracentesis (non-bloody), 4.8L removed GI following. HH stable. ESRD on HD PAD Hypercapnic resp failure, resolved CAD Ascites, s/p paracentesis Recommend: - supp o2 as needed, duonebs PRN - NO ID issues - follow up GI - follow up ascitic fluid cytology, cultures - Statin - ASA, Plavix - FS control - Cardizem PO - GI ppx - DVT ppx, HSQ - transfer to telemetry, stable
[2018-05-18] MEDS: oxyCODONE 5 mg Immediate Release Tab PO PRN ×2 (12:59→20:22)
--- NOTE | 2018-05-18 13:17 | PN ---
DATE: 05/17/2018 LOCATION: Patient in CCU 129, bed 3. REASON FOR CONSULTATION AND FOLLOWUP: Atrial fibrillation; sick sinus syndrome, status post permanent pacemaker insertion; severe PAD; status post impending respiratory failure. SUBJECTIVE: Patient conscious at rest, denies any chest pain. She states her breathing is better. Denies any palpitation. PHYSICAL EXAMINATION: VITAL SIGNS: Blood pressure 117/55, respirations 20, pulse 72, temperature 97.9. HEENT: Head is normocephalic. Eyes: Pupils normal. Conjunctivae slightly pale. NECK: JVP low. Carotid equal. THORAX: AP diameter normal. LUNGS: No significant rales. CARDIOVASCULAR: S1 and S2. ABDOMEN: Soft. EXTREMITIES: No clubbing. No cyanosis. LABORATORY DATA: WBC 7.5, hemoglobin 10.7, hematocrit 33.2, platelets 177. Sodium 134, potassium 5.3. BUN 39, creatinine 5.5. Sugar 88. Calcium, phosphorus, magnesium, AST, ALT normal. Total protein 5.8. Albumin 2.8. DIAGNOSES: Chronic atrial fibrillation, pacemaker; peripheral arterial disease; sick sinus syndrome, status post aortogram with peripheral angiography; possible allergic reaction to the dye and patient started wheezing, impending respiratory failure, managed with noninvasive ventilator. Now, the patient has improved. PLAN: The patient is getting hydralazine p.r.n. 10 mg IV for blood pressure, Cardizem 30 mg p.o. four times a day, meropenem 500 mg IV every 12 hours, Pepcid 20 mg IV daily, vancomycin 1 g IV stat was given, Xopenex hand nebulizer therapy. We will continue present therapy and we will follow with you. Presently, monitor showed paced rhythm. Dialysis as per Renal. Liam Liz MD
--- NOTE | 2018-05-18 15:11 | PN ---
DATE: 05/18/2018 SUBJECTIVE: The patient is seen earlier in 129, bed 3. No fevers and no chills. PHYSICAL EXAMINATION: VITAL SIGNS: Temperature is 97, blood pressure is 85/40, respiratory rate of 18, heart rate of 70. HEENT: Examination is unremarkable. NECK: Supple. LUNGS: Have decreased breath sounds. HEART: Normal S1 and S2. ABDOMEN: Soft. DATA: Laboratory examination reveals a white count of 7.5, hemoglobin of 10. Coagulation is noted and chemistries reveals a BUN of 39, creatinine of 5.5. Peritoneal fluid analysis is noted. Microbiology reveals MRSA is not detected. ASSESSMENT AND PLAN: This is an 82-year-old with congestive heart failure; pacemaker; atrial fibrillation; end-stage renal disease, on hemodialysis; hypertension; gastroesophageal reflux disease; coronary artery disease; gout; pleural effusion admitted with shortness of breath, respiratory failure, status post elective femoral angioplasty on 05/15/2018. The patient had hypothermia and shortness of breath. 1. SIRS, systemic inflammatory response syndrome and currently on Solu-Medrol. The patient did not have any leukocytosis. Awaiting for pancultures. We will follow closely with you. Currently off of antibiotics. Review of orders reveals the blood cultures are pending, body fluid cultures are pending. We will give a dose of vancomycin and empiric meropenem, pending culture results. Tom Gautam MD
[2018-05-19] MEDS ORDERED: Morphine 4 mg/ml ISec IVP ONE
[2018-05-19] MEDS: oxyCODONE 5 mg Immediate Release Tab PO PRN ×2 (01:30→21:19)
[2018-05-19 06:32] LABS: BASO # 0.01 K/mm3 (0.0-2.0); BASO % 0.1 % (0.0-3.0); EOS # 0.1 (0.0-0.7); EOS % 1.5 % (1.5-5.0); GRAN # 6.95 (1.4-6.5); GRAN % 79.6 % (50.0-68.0); HEMOGLOBIN 10.4 g/dL (12.0-16.0); LYMPH # 0.5 (1.2-3.4); LYMPH % 5.2 % (22.0-35.0); MEAN CELL VOLUME 96.2 fl (80.0-105.0); MEAN CORPUSCULAR HEMOGLOBIN 30.2 pg (25.0-35.0); MEAN CORPUSCULAR HGB CONC 31.4 g/dl (31.0-37.0); MEAN PLATELET VOLUME 11.1 fl (7.0-11.0); MONO # 1.2 (0.1-0.6); MONO % 13.6 % (1.0-6.0); RBC 3.44 10^6/uL (3.5-6.1); RED CELL DISTRIBUTION WIDTH 16.1 % (11.5-14.5); WHITE BLOOD COUNT 8.7 10^3/ul (4.5-11.0)
[2018-05-19 06:44] LABS: ALB/GLOB RATIO 0.9 (1.1-1.8); ALBUMIN 2.5 g/dL (3.0-4.8); CALCIUM 8.4 mg/dL (8.4-10.5)
--- NOTE | 2018-05-19 08:09 | CP.PCM.PN ---
<Reyes Quinonez - Last Filed: 05/19/18 08:04> Subjective - Date & Time of Evaluation Date of Evaluation: 05/19/18 Time of Evaluation: 08:04 - Subjective Subjective: GI Fellow PGY4 No acute overnight events. Possible reaccumulation of fluid, difficult to quantify. No complaints. She would like to get out of bed. Objective - Vital Signs/Intake and Output Vital Signs (last 24 hours): Temp Pulse Resp BP Pulse Ox 97.9 F 76 29 H 133/51 L 66 L 05/19/18 07:01 05/19/18 07:01 05/19/18 07:01 05/19/18 07:00 05/19/18 06:42 Intake and Output: 05/19/18 05/19/18 06:59 18:59 Intake Total 600 Output Total 0 Balance 600 - Medications Medications: Current Medications Acetaminophen (Tylenol 325mg Tab) 650 mg PO Q6H PRN PRN Reason: Pain, Mild (1-3) Acetylcysteine (Acetylcysteine 20%) 4 ml IH Q6 PRN PRN Reason: Cough Aspirin (Ecotrin) 81 mg PO DAILY [facility] Last Admin: 05/18/18 14:32 Dose: 81 mg Clopidogrel Bisulfate (Plavix) 75 mg PO DAILY [facility] Last Admin: 05/18/18 14:32 Dose: 75 mg Diltiazem HCl (Cardizem) 30 mg PO QID [facility] Last Admin: 05/19/18 00:02 Dose: Not Given Famotidine (Pepcid) 20 mg IVP DAILY [facility] Last Admin: 05/18/18 10:05 Dose: 20 mg Guaifenesin (Robitussin) 100 mg PO Q4H PRN PRN Reason: Cough Last Admin: 05/15/18 22:59 Dose: 100 mg Hydralazine HCl (Apresoline) 10 mg IVP Q6 PRN PRN Reason: Systolic Blood Pressure Meropenem 500 mg/ Sodium (Chloride) 50 mls @ 100 mls/hr IVPB Q12 ZAINAB PRN Reason: Protocol Last Admin: 05/18/18 21:12 Dose: 100 mls/hr Levalbuterol HCl (Xopenex) 1.25 mg IH [id number] [facility] Last Admin: 05/18/18 08:33 Dose: 1.25 mg Levalbuterol HCl (Xopenex) 1.25 mg IH Q3 PRN PRN Reason: Shortness of Breath Mupirocin (Bactroban Ointment) 1 gm NS BID ZAINAB Stop: 05/21/18 10:01 Last Admin: 05/18/18 18:43 Dose: 1 dose Ondansetron HCl (Zofran Inj) 4 mg IVP ONCE PRN PRN Reason: Nausea/Vomiting Oxycodone HCl (Oxycodone Immediate Release Tab) 5 mg PO Q6H PRN PRN Reason: Pain, severe (8-10) Last Admin: 05/19/18 01:30 Dose: 5 mg Racepinephrine (Racepinephrine 2.25% Inhl Soln) 0.5 ml IH Q3 PRN PRN Reason: Shortness of Breath Last Admin: 05/15/18 22:02 Dose: 0.5 ml - Labs Labs: 05/19/18 05:00 05/19/18 05:00 PT 15.6 SECONDS (9.4-12.5) H 05/16/18 23:18 INR 1.36 05/16/18 23:18 APTT 32.6 Seconds (25.1-36.5) 05/15/18 10:25 - Constitutional Appears: Non-toxic, No Acute Distress, Chronically Ill - Head Exam Head Exam: NORMAL INSPECTION - Eye Exam Eye Exam: Normal appearance - ENT Exam ENT Exam: Mucous Membranes Moist - Respiratory Exam Respiratory Exam: Clear to Ausculation Bilateral, NORMAL BREATHING PATTERN - Cardiovascular Exam Cardiovascular Exam: REGULAR RHYTHM, +S1, +S2 - GI/Abdominal Exam GI & Abdominal Exam: Distended, Soft, Normal Bowel Sounds. absent: Tenderness - Neurological Exam Neurological Exam: Alert, Awake, Oriented x3 - Psychiatric Exam Psychiatric exam: Normal Affect, Normal Mood - Skin Skin Exam: Dry, Normal Color Assessment and Plan - Assessment and Plan (Free Text) Assessment: 82F with extensive medical history admitted to ICU after elective femoral angioplast for acute SOB and GI consulted for chronic abdominal distension. #Tense Ascites #Hx of GI bleed at [facility] [place] - she was on OAC which was d/c. She declined EGD/ colonoscopy at that time. She reports she did not want to take the risk at that time considering her extensive medical problems. #SOB #ESRD #CHF #CAD #HTN #Afib s/p PPM PLAN: - CT reviewed - significant ascites. s/p paracentesis 05/17 4.8L removed. - Unclear etiology of ascites - f/u fluid studies... No signs of cirrhosis on imaging. Would recommend w/u for other causes, defer to primary based on plan of care given her medical history. - Encourage mobilization, out of bed to chair - Monitor BMs, nausea, vomiting. - Avoid medicines that can slow the bowels (anticholinergics, opiates.) - IVF per ICU - Puree diet as tolerated. <Blanca,Kovil V - Last Filed: 05/20/18 00:26> Objective - Vital Signs/Intake and Output Vital Signs (last 24 hours): Temp Pulse Resp BP Pulse Ox 99.1 F 72 21 90/40 L 93 L 05/19/18 18:12 05/19/18 18:12 05/19/18 18:12 05/19/18 18:00 05/19/18 17:20 - Medications Medications: Current Medications Acetaminophen (Tylenol 325mg Tab) 650 mg PO Q6H PRN PRN Reason: Pain, Mild (1-3) Acetylcysteine (Acetylcysteine 20%) 4 ml IH Q6 PRN PRN Reason: Cough Aspirin (Ecotrin) 81 mg PO DAILY [facility] Last Admin: 05/19/18 10:27 Dose: 81 mg Clopidogrel Bisulfate (Plavix) 75 mg PO DAILY [facility] Last Admin: 05/19/18 10:27 Dose: 75 mg Diltiazem HCl (Cardizem) 30 mg PO QID [facility] Last Admin: 05/19/18 13:06 Dose: Not Given Docusate Sodium (Colace) 100 mg PO TID [facility] Last Admin: 05/19/18 17:09 Dose: 100 mg Famotidine (Pepcid) 20 mg IVP DAILY [facility] Last Admin: 05/19/18 10:28 Dose: 20 mg Guaifenesin (Robitussin) 100 mg PO Q4H PRN PRN Reason: Cough Last Admin: 05/15/18 22:59 Dose: 100 mg Hydralazine HCl (Apresoline) 10 mg IVP Q6 PRN PRN Reason: Systolic Blood Pressure Levalbuterol HCl (Xopenex) 1.25 mg IH [id number] [facility] Last Admin: 05/19/18 13:18 Dose: Not Given Levalbuterol HCl (Xopenex) 1.25 mg IH Q3 PRN PRN Reason: Shortness of Breath Mupirocin (Bactroban Ointment) 1 gm NS BID ZAINAB Stop: 05/21/18 10:01 Last Admin: 05/19/18 17:10 Dose: 1 dose Ondansetron HCl (Zofran Inj) 4 mg IVP ONCE PRN PRN Reason: Nausea/Vomiting Oxycodone HCl (Oxycodone Immediate Release Tab) 5 mg PO Q6H PRN PRN Reason: Pain, severe (8-10) Last Admin: 05/19/18 01:30 Dose: 5 mg Racepinephrine (Racepinephrine 2.25% Inhl Soln) 0.5 ml IH Q3 PRN PRN Reason: Shortness of Breath Last Admin: 05/15/18 22:02 Dose: 0.5 ml - Labs Labs: 05/19/18 05:00 05/19/18 05:00 PT 15.6 SECONDS (9.4-12.5) H 05/16/18 23:18 INR 1.36 05/16/18 23:18 APTT 32.6 Seconds (25.1-36.5) 05/15/18 10:25 Attending/Attestation - Attestation I have personally seen and examined this patient.: Yes I have fully participated in the care of the patient.: Yes I have reviewed all pertinent clinical information, including history, physical exam and plan: Yes Notes (Text): This is an addendum to GI progress report dictated by the GI Fellow.The patient was seen and examined earlier. Medical records, lab studies, imagings were reviewed. Last 24 hours events reviewed. Agreed with the above treatment plan as outlined in GI Fellow 's notes with the addition of the following Followup LFT Ascitis fluid albumen pending Multiple co-morbidities 05/19/18 20:02 05/20/18 00:25
[2018-05-19] MEDS: Mupirocin 2% Ointment 15 GM TUBE NS SCH ×2 (10:20→17:10)
[2018-05-19] MEDS: Meropenem 500 MG in Sodium Chloride 0.9% 50 ML IVPB SCH (10:20)
--- NOTE | 2018-05-19 10:58 | PN ---
DATE: 05/19/2018 LOCATION: The patient is in CCU, 129, bed 3. REASON FOR CONSULTATION: Followup atrial fibrillation, sick sinus syndrome, status post permanent pacemaker insertion, severe PAD, status post impending respiratory failure. SUBJECTIVE: The patient is lying comfortably in bed without any chest pain. She denies any short of breath or palpitation at present. PHYSICAL EXAMINATION VITAL SIGNS: Blood pressure 126/54, respirations 17, pulse 76, temperature 97.2. HEENT: Head is normocephalic. Eyes: Pupils normal. Conjunctivae slightly pale. NECK: JVP low. Carotids equal. THORAX: AP diameter normal. LUNGS: No significant rales. CARDIOVASCULAR: S1 and S2. ABDOMEN: Soft. No organomegaly. EXTREMITIES: No clubbing. No cyanosis. LABORATORY DATA: WBC 8.7, hemoglobin 10.4, hematocrit 33.1, platelet 188. Sodium 134, potassium 4.6, BUN 36, creatinine 4.9. Calcium, phosphorus, magnesium normal. AST 44, ALT 21, total protein 5.5, albumin 2.5. DIAGNOSES: Chronic atrial fibrillation, pacemaker insertion, peripheral arterial disease, sick sinus syndrome, status post aortogram with peripheral angiography, possible allergic reaction to the dye and the patient started wheezing, impending respiratory failure, managed with noninvasive ventilator. Now, the patient's breathing is stable. The patient is on hydralazine 10 mg IV p.r.n. every 6 hourly, Cardizem 30 mg p.o. four times a day, aspirin 81 daily, meropenem 500 mg IV every 12 hours, Plavix 75 daily, Xopenex hand nebulizer therapy. We will follow with you. Liam Liz MD
--- NOTE | 2018-05-19 12:37 | PN ---
DATE: 05/19/2018 SUBJECTIVE: The patient is in bed in no acute distress, nontoxic. The patient is seen in [facility], bed 3. OBJECTIVE: VITAL SIGNS: On exam, temperature is 97, blood pressure is 129/50, respiratory rate of 18. HEENT: Examination is unremarkable. NECK: Supple. LUNGS: Have decreased breath sounds. HEART: Normal S1, S2. ABDOMEN: Soft. DATA: Laboratory examination reveals the patient's white count is 8.7, hemoglobin of 10, BUN of 36, creatinine of 4.9. Procalcitonin is noted at 3.58 and peritoneal fluid is noted to have 189 WBCs, which are 73% lymphocytes and hepatitis B surface antibody is positive. Microbiology reveals the peritoneal fluid cultures are negative. Ascitic fluid cultures, no growth. The blood cultures are negative. Nares MRSA is detected and review of orders reveals the patient to be on meropenem, Solu-Medrol, intermittent vancomycin. The patient's CAT scan of the abdomen and pelvis is reviewed, lower thorax with pleural effusions and anasarca, there is ascites. ASSESSMENT AND PLAN: This 82-year-old female seen in [facility], bed 3, appears to be comfortable with SIRS, systemic inflammatory response syndrome and cultures thus far are negative and currently, the patient is on intermittent vancomycin, empiric meropenem day #2. The patient now with a nasal cannula. The BiPAP is off, appears to be oxygenating well. Chest x-ray from 05/15/2018, no active lung disease. Afebrile. Normal white count. Negative cultures. We will discontinue the meropenem. Follow the patient off of antibiotics. The patient is at risk for developing nosocomial infections. Tom Gautam MD
[2018-05-19] MEDS: Levalbuterol 1.25 MG/3 ML Inhal Soln UD IH SCH (13:18)
--- NOTE | 2018-05-19 14:31 | CP.PCM.PN ---
<Anthony Argueta Mary Carmen - Last Filed: 05/19/18 14:27> Subjective - Date & Time of Evaluation Date of Evaluation: 05/19/18 Time of Evaluation: 14:29 - Subjective Subjective: Medicine progress note: Ellie, PGY - 2 IM Resdient Patient seen and examned at bedside. No acute events reported overnight. Patient states she is cold, but otherwsie denies any complaints. Tolerated breakfast well. Objective - Vital Signs/Intake and Output Vital Signs (last 24 hours): Temp Pulse Resp BP Pulse Ox 97.2 F L 70 21 110/42 L 72 L 05/19/18 08:40 05/19/18 13:06 05/19/18 08:39 05/19/18 13:06 05/19/18 08:20 Intake and Output: 05/19/18 05/19/18 06:59 18:59 Intake Total 600 Output Total 0 Balance 600 - Medications Medications: Current Medications Acetaminophen (Tylenol 325mg Tab) 650 mg PO Q6H PRN PRN Reason: Pain, Mild (1-3) Acetylcysteine (Acetylcysteine 20%) 4 ml IH Q6 PRN PRN Reason: Cough Aspirin (Ecotrin) 81 mg PO DAILY [facility] Last Admin: 05/19/18 10:27 Dose: 81 mg Clopidogrel Bisulfate (Plavix) 75 mg PO DAILY [facility] Last Admin: 05/19/18 10:27 Dose: 75 mg Diltiazem HCl (Cardizem) 30 mg PO QID [facility] Last Admin: 05/19/18 13:06 Dose: Not Given Docusate Sodium (Colace) 100 mg PO TID [facility] Last Admin: 05/19/18 13:07 Dose: 100 mg Famotidine (Pepcid) 20 mg IVP DAILY [facility] Last Admin: 05/19/18 10:28 Dose: 20 mg Guaifenesin (Robitussin) 100 mg PO Q4H PRN PRN Reason: Cough Last Admin: 05/15/18 22:59 Dose: 100 mg Hydralazine HCl (Apresoline) 10 mg IVP Q6 PRN PRN Reason: Systolic Blood Pressure Levalbuterol HCl (Xopenex) 1.25 mg IH [id number] [facility] Last Admin: 05/19/18 13:18 Dose: Not Given Levalbuterol HCl (Xopenex) 1.25 mg IH Q3 PRN PRN Reason: Shortness of Breath Mupirocin (Bactroban Ointment) 1 gm NS BID ZAINAB Stop: 05/21/18 10:01 Last Admin: 05/19/18 10:20 Dose: 1 dose Ondansetron HCl (Zofran Inj) 4 mg IVP ONCE PRN PRN Reason: Nausea/Vomiting Oxycodone HCl (Oxycodone Immediate Release Tab) 5 mg PO Q6H PRN PRN Reason: Pain, severe (8-10) Last Admin: 05/19/18 01:30 Dose: 5 mg Racepinephrine (Racepinephrine 2.25% Inhl Soln) 0.5 ml IH Q3 PRN PRN Reason: Shortness of Breath Last Admin: 05/15/18 22:02 Dose: 0.5 ml - Labs Labs: 05/19/18 05:00 05/19/18 05:00 PT 15.6 SECONDS (9.4-12.5) H 05/16/18 23:18 INR 1.36 05/16/18 23:18 APTT 32.6 Seconds (25.1-36.5) 05/15/18 10:25 - Constitutional Appears: Well - Head Exam Head Exam: ATRAUMATIC, NORMAL INSPECTION, NORMOCEPHALIC - Eye Exam Eye Exam: EOMI, Normal appearance, PERRL Pupil Exam: NORMAL ACCOMODATION, PERRL - ENT Exam ENT Exam: Mucous Membranes Moist, Normal Exam - Neck Exam Neck Exam: Full ROM, Normal Inspection. absent: Lymphadenopathy - Respiratory Exam Respiratory Exam: Clear to Ausculation Bilateral, NORMAL BREATHING PATTERN - Cardiovascular Exam Cardiovascular Exam: REGULAR RHYTHM, +S1, +S2. absent: Murmur - GI/Abdominal Exam GI & Abdominal Exam: Soft, Normal Bowel Sounds. absent: Tenderness - Extremities Exam Extremities Exam: Full ROM, Normal Capillary Refill, Normal Inspection. absent : Joint Swelling, Pedal Edema Additional comments: LLE pulse is dopplerable but not palpable. RLE no pulse palpabale - Back Exam Back Exam: NORMAL INSPECTION - Neurological Exam Neurological Exam: Alert, Awake, CN II-XII Intact, Normal Gait, Oriented x3 - Psychiatric Exam Psychiatric exam: Normal Affect, Normal Mood - Skin Skin Exam: Dry, Intact, Normal Color, Warm Assessment and Plan - Assessment and Plan (Free Text) Assessment: 82yo female PMHx CHF s/p pacemaker, Afib, ESRD on HD T-Th-Sat, HTN, GERD, CAD ( no stents), gout, pleural effusions (many years ago), PAD (w/ stents) admitted to CCU after becoming SOB s/p elective femoral angioplasty on 05/15. Patient was placed on BiPAP with subsequent resolution of hypercapnia. Currently VSS. Patient has resumed HD as per regular TThSat schedule. Patient is s/p paracentesis that removed 4.8L nonbloody fluid two days ago. Patient clinically improving and has been downgraded to remote tele. Plan: Abdominal distention - POD#2 IR u/s guided paracentesis Appearance- cloudy and netta WBC- 189 RBC- 4026 Total cell count- 100 Neutrophils- 26.5 Lymphocytes- 73.5 - f/u fluid studies - GI consulted (Blanca) Anemia, likely 2/2 CKD - Continue with Darbepoietin Acute Constipation - Colace TID Shortness of breath with respiratory acidosis - resolved - resolved; suspect 2/2 fluid overload - CXR: cardiomegaly, no active disease - BiPap discontinued - Racepinephrine 0.5 mL IH Q3H PRN - Xopenex 1,25 mg IH Q6H ZAINAB, Q3H PRN - Acetylcysteine 20% 4mL Q6H - Robitussin 100 mg PO Q4H Hypothermia- Tmin 95.7 - mildly hypothermic overnight - patient had barehugger in place this AM (only on her feet) - Merrem q12 (started 05/18) - Patient received 1 dose of Vanc - MRSA colonizer- Mupirocin in nares BID - CXR: cardiomegaly, no active disease - WBC wnl with L-shift - LA wnl (1.5) - Procal elevated (3.58) - ID consulted (Saumya) CKD on HD TTSat - Trop 0.14-0.16 - Nephrology consulted (Bi) H/o of Afib with pacemaker - Pacemaker - Cardizem 30 mg PO QID - Cardiology consulted (Ramiro) H/o of CHF - Cardiology consulted (Ramiro) - Continue cardizem as above, no new recs HTN - Hydralazine 10 mg IV Q6H PRN <Rangasamy,Ajantha - Last Filed: 05/19/18 16:13> Objective - Vital Signs/Intake and Output Vital Signs (last 24 hours): Temp Pulse Resp BP Pulse Ox 98.6 F 70 21 106/42 L 100 05/19/18 15:14 05/19/18 15:14 05/19/18 15:00 05/19/18 15:00 05/19/18 15:14 Intake and Output: 05/19/18 05/19/18 06:59 18:59 Intake Total 600 Output Total 0 Balance 600 - Medications Medications: Current Medications Acetaminophen (Tylenol 325mg Tab) 650 mg PO Q6H PRN PRN Reason: Pain, Mild (1-3) Acetylcysteine (Acetylcysteine 20%) 4 ml IH Q6 PRN PRN Reason: Cough Aspirin (Ecotrin) 81 mg PO DAILY [facility] Last Admin: 05/19/18 10:27 Dose: 81 mg Clopidogrel Bisulfate (Plavix) 75 mg PO DAILY [facility] Last Admin: 05/19/18 10:27 Dose: 75 mg Diltiazem HCl (Cardizem) 30 mg PO QID [facility] Last Admin: 05/19/18 13:06 Dose: Not Given Docusate Sodium (Colace) 100 mg PO TID [facility] Last Admin: 05/19/18 13:07 Dose: 100 mg Famotidine (Pepcid) 20 mg IVP DAILY [facility] Last Admin: 05/19/18 10:28 Dose: 20 mg Guaifenesin (Robitussin) 100 mg PO Q4H PRN PRN Reason: Cough Last Admin: 05/15/18 22:59 Dose: 100 mg Hydralazine HCl (Apresoline) 10 mg IVP Q6 PRN PRN Reason: Systolic Blood Pressure Levalbuterol HCl (Xopenex) 1.25 mg IH [id number] [facility] Last Admin: 05/19/18 13:18 Dose: Not Given Levalbuterol HCl (Xopenex) 1.25 mg IH Q3 PRN PRN Reason: Shortness of Breath Mupirocin (Bactroban Ointment) 1 gm NS BID [facility] Stop: 05/21/18 10:01 Last Admin: 05/19/18 10:20 Dose: 1 dose Ondansetron HCl (Zofran Inj) 4 mg IVP ONCE PRN PRN Reason: Nausea/Vomiting Oxycodone HCl (Oxycodone Immediate Release Tab) 5 mg PO Q6H PRN PRN Reason: Pain, severe (8-10) Last Admin: 05/19/18 01:30 Dose: 5 mg Racepinephrine (Racepinephrine 2.25% Inhl Soln) 0.5 ml IH Q3 PRN PRN Reason: Shortness of Breath Last Admin: 05/15/18 22:02 Dose: 0.5 ml - Labs Labs: 05/19/18 05:00 05/19/18 05:00 PT 15.6 SECONDS (9.4-12.5) H 05/16/18 23: INR 1.36 05/16/18: APTT 32.6 Seconds (25.1-36.5) 05/15/18 10:25 Attending/Attestation - Attestation I have personally seen and examined this patient.: Yes I have fully participated in the care of the patient.: Yes I have reviewed all pertinent clinical information, including history, physical exam and plan: Yes Notes (Text): 05/19/18 16:12 Attending note; Patient seen and examined with the resident in ICU. Denies any shortness of breath. Denies any fevers, chills. abdominal distention is improved. But denies any abdominal pain. Tolerating liquid diet. Patient is a 82 year old female with a history of Afib, CHF, pacemaker, CAD, PVD, HTN, HLD, GERD, and hypothyroidism who presented from [facility] for a same-day surgery of femoral angioplasty. While post-op in the PACU, patient began experiencing significant shortness of breath and cough. Shortness of breath and wheezing improved. Continue DuoNeb. Pulmonary evaluation appreciated. History of coronary artery disease. Mildly elevated troponin. Patient had an episode of atrial fibrillation. rate controlled. continue po Cardizem. Cardiology evaluation appreciated. started on aspirin and Plavix. Echocardiogram shows increased right ventricle systolic function,severe tricuspid regurgitation and severe pulmonary hypertension and elevated RVSP. s/p femoral angiogram and angioplasty.Continue aspirin and plavix. End-stage renal disease on dialysis; continue hemodialysis. hyperkalemia; resolved.continue dialysis. Kayexalate when necessary. Low potassium diet ordered. Case discussed with nephrology in detail. ascites; status post paracentesis. Etiology unknown. Ascites fluid was cloudy. But no elevated neutrophils suggesting of SBP. culture is negative. Systemic inflammatory response; status post one dose of vancomycin and meropenem. Cultures negative so far. ID evaluation appreciated. Upon discharge the patient will follow up with PMD . Follow-up with cardiology Dr. Rivers at [facility]. prognosis is poor. Patient is DNR. PT evaluation requested. Possible [facility]. The diagnosis, follow-up plan discussed with patient daughter in detail. 05/19/18 16:13
--- NOTE | 2018-05-19 18:24 | PN ---
DATE: 05/18/2018 SUBJECTIVE: The patient is seen in the ICU. She is awake. She is alert. She is complaining of intermittent pain in her left foot. She is currently receiving dialysis. PHYSICAL EXAMINATION: GENERAL: Elderly lady, lying in bed. VITAL SIGNS: Blood pressure 103/49, heart rate 74, respiratory rate 18-20, temperature 97.2. HEENT: Normocephalic, atraumatic, positive pallor. NECK: Supple, no JVD. LUNGS: Bilateral equal air entry, bilateral equal expansion, bilateral rhonchi. CARDIAC: S1 and S2, regular rate and rhythm, no murmur, no rub. ABDOMEN: Distended, soft, nontender, bowel sounds present. EXTREMITIES: No lower extremity edema. LABORATORY DATA: WBC 7.5, hemoglobin 10.7, hematocrit 33, platelets 177. Sodium 134, potassium 5.3, chloride 96, CO2 of 26, BUN 39, creatinine 5.5, glucose 89, calcium 9.4, phosphorus 3.9, magnesium 2.1, albumin 2.8. Peritoneal fluid slightly cloudy, wbc's 189, rbc's 4000. Blood cultures no growth. Body fluid culture no growth. MEDICATIONS: List reviewed. ASSESSMENT AND PLAN: 1. Respiratory failure/respiratory acidosis, resolved. 2. Ascites, status post paracentesis 4 L yesterday. 3. End-stage renal disease. 4. Hypertension. 5. Moderate pulmonary hypertension. 6. Peripheral vascular disease, status post angiogram and angioplasty of the left lower extremity. PLAN: 1. Follow up peritoneal fluid chemistries. 2. Stable dialysis. 3. Discontinue empiric antibiotics? Demetrice Pat MD
[2018-05-20 06:45] LABS: BASO # 0.02 K/mm3 (0.0-2.0); BASO % 0.2 % (0.0-3.0); EOS # 0.2 (0.0-0.7); EOS % 1.9 % (1.5-5.0); GRAN # 8.51 (1.4-6.5); GRAN % 81.3 % (50.0-68.0); HEMOGLOBIN 11.1 g/dL (12.0-16.0); LYMPH # 0.8 (1.2-3.4); MEAN CELL VOLUME 94.4 fl (80.0-105.0); MEAN CORPUSCULAR HGB CONC 32.8 g/dl (31.0-37.0); MEAN PLATELET VOLUME 10.2 fl (7.0-11.0); MONO # 0.9 (0.1-0.6); MONO % 8.6 % (1.0-6.0); RBC 3.58 10^6/uL (3.5-6.1); RED CELL DISTRIBUTION WIDTH 15.9 % (11.5-14.5); WHITE BLOOD COUNT 10.5 10^3/ul (4.5-11.0)
[2018-05-20 07:00] LABS: ALB/GLOB RATIO 0.9 (1.1-1.8); ALBUMIN 2.5 g/dL (3.0-4.8); CALCIUM 8.2 mg/dL (8.4-10.5)
[2018-05-20] MEDS: Levalbuterol 1.25 MG/3 ML Inhal Soln UD IH SCH ×3 (08:08→19:34)
--- NOTE | 2018-05-20 09:27 | US ---
PROCEDURE: Ultrasound guided paracentesis. HISTORY: End-stage renal disease. New onset ascites. PHYSICIAN(S): Bk Ruiz MD. TECHNIQUE: The relative risks and indications for the procedure were explained to the patient and informed written consent obtained. Sonography of the abdomen was performed in a supine position. This revealed a moderate amount of non-loculated ascites, greatest in the right lower quadrant. A puncture site was selected and the area was prepped and draped in the usual sterile fashion. 1% Xylocaine was used to anesthetize the skin and soft tissues. A 7 Nepali paracentesis catheter was trocared into the right lower quadrantand 5100 cc of uribe fluid aspirated. The appropriate labs were sent. IMPRESSION: Ultrasound-guided paracentesis in the right lower quadrant. 5100 cc of fluid were aspirated. Labs were sent
[2018-05-20] MEDS: Mupirocin 2% Ointment 15 GM TUBE NS SCH ×2 (09:36→17:33)
--- NOTE | 2018-05-20 12:06 | CP.PCM.PN ---
<Gonzalo Knapp - Last Filed: 05/20/18 12:02> Subjective - Date & Time of Evaluation Date of Evaluation: 05/20/18 Time of Evaluation: 12:02 - Subjective Subjective: Navdeep Knapp Internal Medicine Resident - Progress Note for GI service Patient seen and examined this AM. No acute events overnight. Patient tolerating diet, no complaints. Passing flatus, indicates no bm. Objective - Vital Signs/Intake and Output Vital Signs (last 24 hours): Temp Pulse Resp BP Pulse Ox 92.8 F L 73 23 115/76 100 05/20/18 04:25 05/20/18 11:10 05/20/18 11:10 05/20/18 11:00 05/20/18 11:10 Intake and Output: 05/20/18 05/20/18 06:59 18:59 Intake Total 600 Output Total 0 Balance 600 - Medications Medications: Current Medications Acetaminophen (Tylenol 325mg Tab) 650 mg PO Q6H PRN PRN Reason: Pain, Mild (1-3) Acetylcysteine (Acetylcysteine 20%) 4 ml IH Q6 PRN PRN Reason: Cough Aspirin (Ecotrin) 81 mg PO DAILY [facility] Last Admin: 05/20/18 09:34 Dose: 81 mg Clopidogrel Bisulfate (Plavix) 75 mg PO DAILY [facility] Last Admin: 05/20/18 09:34 Dose: 75 mg Diltiazem HCl (Cardizem) 30 mg PO QID [facility] Last Admin: 05/20/18 09:34 Dose: 30 mg Docusate Sodium (Colace) 100 mg PO TID [facility] Last Admin: 05/20/18 09:33 Dose: 100 mg Famotidine (Pepcid) 10 mg PO [facility] Guaifenesin (Robitussin) 100 mg PO Q4H PRN PRN Reason: Cough Last Admin: 05/15/18 22:59 Dose: 100 mg Hydralazine HCl (Apresoline) 10 mg IVP Q6 PRN PRN Reason: Systolic Blood Pressure Levalbuterol HCl (Xopenex) 1.25 mg IH [id number] [facility] Last Admin: 05/20/18 08:08 Dose: 1.25 mg Levalbuterol HCl (Xopenex) 1.25 mg IH Q3 PRN PRN Reason: Shortness of Breath Mupirocin (Bactroban Ointment) 1 gm NS BID [facility] Stop: 05/21/18 10:01 Last Admin: 05/20/18 09:36 Dose: 1 dose Ondansetron HCl (Zofran Inj) 4 mg IVP ONCE PRN PRN Reason: Nausea/Vomiting Oxycodone HCl (Oxycodone Immediate Release Tab) 5 mg PO Q6H PRN PRN Reason: Pain, severe (8-10) Last Admin: 05/19/18 21:19 Dose: 5 mg Racepinephrine (Racepinephrine 2.25% Inhl Soln) 0.5 ml IH Q3 PRN PRN Reason: Shortness of Breath Last Admin: 05/15/18 22:02 Dose: 0.5 ml - Labs Labs: 05/20/18 05:30 05/20/18 05:30 PT 15.6 SECONDS (9.4-12.5) H 05/16/18 23:18 INR 1.36 05/16/18 23:18 APTT 32.6 Seconds (25.1-36.5) 05/15/18 10:25 - Constitutional Appears: No Acute Distress - Head Exam Head Exam: ATRAUMATIC, NORMAL INSPECTION, NORMOCEPHALIC - Eye Exam Eye Exam: EOMI, PERRL - ENT Exam ENT Exam: Mucous Membranes Moist - Neck Exam Neck Exam: Full ROM - Respiratory Exam Respiratory Exam: Clear to Ausculation Bilateral, NORMAL BREATHING PATTERN. absent: Rhonchi, Wheezes - Cardiovascular Exam Cardiovascular Exam: REGULAR RHYTHM, +S1, +S2 - GI/Abdominal Exam GI & Abdominal Exam: Distended, Soft, Normal Bowel Sounds - Extremities Exam Extremities Exam: absent: Calf Tenderness, Pedal Edema - Neurological Exam Neurological Exam: Alert, Awake, Oriented x3 Neuro motor strength exam: Left Upper Extremity: 5, Right Upper Extremity: 5, Left Lower Extremity: 5, Right Lower Extremity: 5 - Psychiatric Exam Psychiatric exam: Normal Affect, Normal Mood - Skin Skin Exam: Dry, Intact Assessment and Plan - Assessment and Plan (Free Text) Assessment: 82F with extensive medical history admitted to ICU after elective femoral angioplast for acute SOB and GI consulted for chronic abdominal distension. Plan: Asicites Hx of GI bleed ESRD SOB CHF CADHTN AFib s/p PPM - CT reviewed - significant ascites. s/p paracentesis 05/17 4.8L removed. - Etiology: Unlcear at this time recommend further workup for other potential causes, defer to primary team - OOB to chair - Monitor BMs, nausea, vomiting. - Avoid medicines that can slow the bowels (anticholinergics, opiates.) - Renal diet as tolerated <Blanca,Kovil V - Last Filed: 05/20/18 20:27> Objective - Vital Signs/Intake and Output Vital Signs (last 24 hours): Temp Pulse Resp BP Pulse Ox 97.5 F L 78 19 124/69 55 L 05/20/18 16:00 05/20/18 17:47 05/20/18 17:47 05/20/18 17:32 05/20/18 17:00 Intake and Output: 05/20/18 05/21/18 18:59 06:59 Intake Total 690 Output Total 0 Balance 690 - Medications Medications: Current Medications Acetaminophen (Tylenol 325mg Tab) 650 mg PO Q6H PRN PRN Reason: Pain, Mild (1-3) Acetylcysteine (Acetylcysteine 20%) 4 ml IH Q6 PRN PRN Reason: Cough Aspirin (Ecotrin) 81 mg PO DAILY [facility] Last Admin: 05/20/18 09:34 Dose: 81 mg Clopidogrel Bisulfate (Plavix) 75 mg PO DAILY [facility] Last Admin: 05/20/18 09:34 Dose: 75 mg Diltiazem HCl (Cardizem) 30 mg PO QID [facility] Last Admin: 05/20/18 17:32 Dose: 30 mg Docusate Sodium (Colace) 100 mg PO TID [facility] Last Admin: 05/20/18 17:32 Dose: 100 mg Famotidine (Pepcid) 10 mg PO [facility] Guaifenesin (Robitussin) 100 mg PO Q4H PRN PRN Reason: Cough Last Admin: 05/15/18 22:59 Dose: 100 mg Hydralazine HCl (Apresoline) 10 mg IVP Q6 PRN PRN Reason: Systolic Blood Pressure Levalbuterol HCl (Xopenex) 1.25 mg IH [id number] [facility] Last Admin: 05/20/18 19:34 Dose: 1.25 mg Levalbuterol HCl (Xopenex) 1.25 mg IH Q3 PRN PRN Reason: Shortness of Breath Mupirocin (Bactroban Ointment) 1 gm NS BID [facility] Stop: 05/21/18 10:01 Last Admin: 05/20/18 17:33 Dose: 1 dose Ondansetron HCl (Zofran Inj) 4 mg IVP ONCE PRN PRN Reason: Nausea/Vomiting Oxycodone HCl (Oxycodone Immediate Release Tab) 5 mg PO Q8 [facility] Racepinephrine (Racepinephrine 2.25% Inhl Soln) 0.5 ml IH Q3 PRN PRN Reason: Shortness of Breath Last Admin: 05/15/18 22:02 Dose: 0.5 ml - Labs Labs: 05/20/18 05:30 05/20/18 05:30 PT 15.6 SECONDS (9.4-12.5) H 05/16/18 23:18 INR 1.36 05/16/18 23:18 APTT 32.6 Seconds (25.1-36.5) 05/15/18 10:25 Attending/Attestation - Attestation I have personally seen and examined this patient.: Yes I have fully participated in the care of the patient.: Yes I have reviewed all pertinent clinical information, including history, physical exam and plan: Yes Notes (Text): This is an addendum to GI followup report dictated by the [employer]. The patient was seen and evaluated earlier. Medical records, lab studies, imagings were reviewed. Last 24 hours events reviewed. Agreed with the above treatment plan as outlined in [employer] 's notes with the addition of the following There is re-accumulation of ascitis Etiology for ascitis unclear Ascitic fluid albumen pending Discussed with patient regarding EGD for further evaluation Patient refused 05/20/18 20:25
--- NOTE | 2018-05-20 12:20 | CP.PCM.PN ---
Subjective - Date & Time of Evaluation Date of Evaluation: 05/20/18 Time of Evaluation: 10:00 - Subjective Subjective: Comfortable in bed, afebrile, non-toxic. Objective - Vital Signs/Intake and Output Vital Signs (last 24 hours): Temp Pulse Resp BP Pulse Ox 99.1 F 72 21 90/40 L 93 L 05/19/18 18:12 05/19/18 18:12 05/19/18 18:12 05/19/18 18:00 05/19/18 17:20 - Medications Medications: Current Medications Acetaminophen (Tylenol 325mg Tab) 650 mg PO Q6H PRN PRN Reason: Pain, Mild (1-3) Acetylcysteine (Acetylcysteine 20%) 4 ml IH Q6 PRN PRN Reason: Cough Aspirin (Ecotrin) 81 mg PO DAILY [facility] Last Admin: 05/19/18 10:27 Dose: 81 mg Clopidogrel Bisulfate (Plavix) 75 mg PO DAILY [facility] Last Admin: 05/19/18 10:27 Dose: 75 mg Diltiazem HCl (Cardizem) 30 mg PO QID [facility] Last Admin: 05/19/18 21:19 Dose: Not Given Docusate Sodium (Colace) 100 mg PO TID [facility] Last Admin: 05/19/18 17:09 Dose: 100 mg Famotidine (Pepcid) 20 mg IVP DAILY [facility] Last Admin: 05/19/18 10:28 Dose: 20 mg Guaifenesin (Robitussin) 100 mg PO Q4H PRN PRN Reason: Cough Last Admin: 05/15/18 22:59 Dose: 100 mg Hydralazine HCl (Apresoline) 10 mg IVP Q6 PRN PRN Reason: Systolic Blood Pressure Levalbuterol HCl (Xopenex) 1.25 mg IH [id number] [facility] Last Admin: 05/19/18 13:18 Dose: Not Given Levalbuterol HCl (Xopenex) 1.25 mg IH Q3 PRN PRN Reason: Shortness of Breath Mupirocin (Bactroban Ointment) 1 gm NS BID [facility] Stop: 05/21/18 10:01 Last Admin: 05/19/18 17:10 Dose: 1 dose Ondansetron HCl (Zofran Inj) 4 mg IVP ONCE PRN PRN Reason: Nausea/Vomiting Oxycodone HCl (Oxycodone Immediate Release Tab) 5 mg PO Q6H PRN PRN Reason: Pain, severe (8-10) Last Admin: 05/19/18 21:19 Dose: 5 mg Racepinephrine (Racepinephrine 2.25% Inhl Soln) 0.5 ml IH Q3 PRN PRN Reason: Shortness of Breath Last Admin: 05/15/18 22:02 Dose: 0.5 ml - Labs Labs: 05/19/18 05:00 05/19/18 05:00 PT 15.6 SECONDS (9.4-12.5) H 05/16/18 23:18 INR 1.36 05/16/18 23:18 APTT 32.6 Seconds (25.1-36.5) 05/15/18 10:25 - Constitutional Appears: Chronically Ill - Head Exam Head Exam: NORMAL INSPECTION - Respiratory Exam Respiratory Exam: Decreased Breath Sounds - Cardiovascular Exam Cardiovascular Exam: +S1, +S2 - GI/Abdominal Exam GI & Abdominal Exam: Soft. absent: Tenderness Assessment and Plan - Assessment and Plan (Free Text) Plan: Assessment hypothermia, SIRS, without signs of sepsis and no current evidence of infection PAD S/P femoral angioplasty chronic CHF atrial fibrillation ESRD on HD GERD CAD gout Plan Will continue to monitor off antibiotics since she is at risk for nosocomial infections, cultures have been negative
--- NOTE | 2018-05-20 14:53 | PN ---
DATE: 05/20/2018 REASON FOR THE CONSULTATION AND FOLLOWUP: Atrial fibrillation, sick sinus rhythm, status post permanent pacemaker, severe PAD, status post impending respiratory failure. SUBJECTIVE: The patient denies any chest pain, shortness of breath, or any palpitation. OBJECTIVE: GENERAL: Not in any apparent distress. VITAL SIGNS: Temperature afebrile, heart rate 73, and blood pressure 115/76. HEENT: PERRLA. Extraocular muscles intact. NECK: Supple. No carotid bruit. No thyromegaly. CHEST: Clear to auscultation. HEART: S1 and S2, regular. ABDOMEN: Soft. EXTREMITIES: Clubbing and cyanosis negative. LABORATORY DATA: Blood workup as follows; WBC 10.5, hemoglobin 11.1, hematocrit 33.8, and platelet count 200. Chemistry shows sodium 134, potassium 4.3, chloride 90, carbon dioxide 25, anion gap of 16. BUN 48, creatinine 5.9. Total protein 5.5, albumin 2.5, albumin and globulin ratio 0.9. IMPRESSION: An 82-year-old female with past medical history significant for chronic atrial fibrillation; sick sinus syndrome, status post permanent pacemaker; end-stage renal disease, on dialysis. Admitted with acute impending respiratory failure after having possible allergic reaction to dye after having a peripheral intervention. Now, the patient is managed with noninvasive ventilator and now the patient is fairly stable. Currently, on Cardizem 4 times a day, aspirin, meropenem, and Plavix. Continue dialysis. We will follow. Overall, status is stable. Overall, the patient's condition is critical. [facility] prognosis is extremely guarded. Continue supportive care. We will follow with you. Awaiting for discharge for halfway. Liam Rubio MD
--- NOTE | 2018-05-20 16:18 | US ---
Date of service: 05/20/2018 PROCEDURE: Limited abdominal ultrasound HISTORY: Intra-abdominal ascites Relevant interventional procedure(s): 05/17/2018 paracentesis with removal 5.1 L fluid COMPARISON: None available. TECHNIQUE: Standard protocol for this study/examination. FINDINGS: Documentation of intra-abdominal and pelvic ascites. Right lower quadrant collection measures 473 mL. Left lower quadrant collection 321 mL IMPRESSION: Status post paracentesis with retrieval of 5.1 L intra-abdominal fluid. Persistent intra-abdominal and pelvic ascites.
--- NOTE | 2018-05-20 16:48 | CP.PCM.PN ---
<Antonella Leyva - Last Filed: 05/20/18 18:26> Subjective - Date & Time of Evaluation Date of Evaluation: 05/20/18 Time of Evaluation: 09:35 - Subjective Subjective: PGY-1 Antonella Leyva D.O. Medicine progress note for Dr. Alexis's service: Patient was seen and examined this morning. No over night events reported. Patient states that her SOB is still intermittent. She also still has an intermittent dry cough. She is no longer requiring supplemental O2. She denies pain, including abdominal pain despite distention. She is eating and sleeping well. Objective - Vital Signs/Intake and Output Vital Signs (last 24 hours): Temp Pulse Resp BP Pulse Ox 92.8 F L 70 23 111/57 L 100 05/20/18 04:25 05/20/18 13:36 05/20/18 11:10 05/20/18 13:36 05/20/18 11:10 Intake and Output: 05/20/18 05/20/18 06:59 18:59 Intake Total 600 Output Total 0 Balance 600 - Medications Medications: Current Medications Acetaminophen (Tylenol 325mg Tab) 650 mg PO Q6H PRN PRN Reason: Pain, Mild (1-3) Acetylcysteine (Acetylcysteine 20%) 4 ml IH Q6 PRN PRN Reason: Cough Aspirin (Ecotrin) 81 mg PO DAILY [facility] Last Admin: 05/20/18 09:34 Dose: 81 mg Clopidogrel Bisulfate (Plavix) 75 mg PO DAILY [facility] Last Admin: 05/20/18 09:34 Dose: 75 mg Diltiazem HCl (Cardizem) 30 mg PO QID [facility] Last Admin: 05/20/18 13:36 Dose: 30 mg Docusate Sodium (Colace) 100 mg PO TID [facility] Last Admin: 05/20/18 13:37 Dose: 100 mg Famotidine (Pepcid) 10 mg PO [facility] Guaifenesin (Robitussin) 100 mg PO Q4H PRN PRN Reason: Cough Last Admin: 05/15/18 22:59 Dose: 100 mg Hydralazine HCl (Apresoline) 10 mg IVP Q6 PRN PRN Reason: Systolic Blood Pressure Levalbuterol HCl (Xopenex) 1.25 mg IH [id number] [facility] Last Admin: 05/20/18 14:04 Dose: 1.25 mg Levalbuterol HCl (Xopenex) 1.25 mg IH Q3 PRN PRN Reason: Shortness of Breath Mupirocin (Bactroban Ointment) 1 gm NS BID [facility] Stop: 05/21/18 10:01 Last Admin: 05/20/18 09:36 Dose: 1 dose Ondansetron HCl (Zofran Inj) 4 mg IVP ONCE PRN PRN Reason: Nausea/Vomiting Oxycodone HCl (Oxycodone Immediate Release Tab) 5 mg PO Q6H PRN PRN Reason: Pain, severe (8-10) Last Admin: 05/19/18 21:19 Dose: 5 mg Racepinephrine (Racepinephrine 2.25% Inhl Soln) 0.5 ml IH Q3 PRN PRN Reason: Shortness of Breath Last Admin: 05/15/18 22:02 Dose: 0.5 ml - Labs Labs: 05/20/18 05:30 05/20/18 05:30 PT 15.6 SECONDS (9.4-12.5) H 05/16/18 23:18 INR 1.36 05/16/18 23:18 APTT 32.6 Seconds (25.1-36.5) 05/15/18 10:25 - Constitutional Appears: Non-toxic, No Acute Distress - Head Exam Head Exam: ATRAUMATIC, NORMAL INSPECTION - Eye Exam Eye Exam: EOMI, Normal appearance - ENT Exam ENT Exam: Mucous Membranes Moist, Normal Exam - Neck Exam Neck Exam: Normal Inspection - Respiratory Exam Respiratory Exam: Decreased Breath Sounds, NORMAL BREATHING PATTERN - Cardiovascular Exam Cardiovascular Exam: REGULAR RHYTHM, +S1, +S2, Murmur - GI/Abdominal Exam GI & Abdominal Exam: Distended, Normal Bowel Sounds. absent: Tenderness - Rectal Exam Rectal Exam: Deferred - Extremities Exam Extremities Exam: Pedal Edema (1+ b/l) Additional comments: pedal pulses 1+ - Back Exam Back Exam: NORMAL INSPECTION - Neurological Exam Neurological Exam: Alert, Awake, CN II-XII Intact, Oriented x3 Neuro motor strength exam: Left Upper Extremity: 5, Right Upper Extremity: 5, Left Lower Extremity: 5, Right Lower Extremity: 5 - Psychiatric Exam Psychiatric exam: Normal Affect, Normal Mood - Skin Skin Exam: Dry, Normal Color, Warm Assessment and Plan - Assessment and Plan (Free Text) Assessment: 82yo female PMH of CHF s/p pacemaker, Afib, ESRD on HD TThSat, HTN, GERD, CAD (no stents), gout, pleural effusions (many years ago), PAD (w/ stents) admitted to CCU after becoming SOB s/p elective femoral angioplasty on 05/15. Patient was placed on BiPAP with subsequent resolution of hypercapnia. Currently VSS. Patient has resumed HD as per regular TThSat schedule. Patient is s/p paracentesis that removed 5.1 L nonbloody fluid 05/17. Patient clinically impr oving and has been downgraded to med/surg. Plan: Shortness of breath with respiratory acidosis, resolved- suspect 2/2 fluid overload - CXR: cardiomegaly, no active disease - ABG, FiO2 100: pH 7.18, pO2 221, pCO2 55 - ABG on BiPap, FiO2 50: pH 7.42, pO2 188, pCO2 32 - BNP 144,000 (before HD) - Blood Cx - BiPap and nasal cannula discontinued, now on room air - Racepinephrine 0.5 mL IH Q3H PRN - Xopenex 1,25 mg IH Q6H ZAINAB, Q3H PRN - Acetylcysteine 20% 4mL Q6H - Robitussin 100 mg PO Q4H - ICU consulted (Macario)- patient downgraded to med/surg Ascites - Low albumin (2.5), low total protein (5.5) - AXR: no abnormalities - CT A/P: High volume, complex intra-abdominal and pelvic ascites. Most likely etiology relates to hemorrhage/hemoperitoneum. Severe diffuse anasarca bilaterally. The findings in the left flank particularly severe. Severe bilateral renal atrophy. - Paracentesis 05/17 ~5 L removed - Abd u/s 05/20- peritoneal fluid ~1 L - Tylenol 650 mg PO Q6H PRN - Percocet 5 mg PO Q8H PRN - GI consulted (Blanca) - IR consulted- paracentesis 05/17, repeat consult CKD on HD- TTSat - Trop 0.14-0.16 - Nephrology consulted (Bi)- emergent HD for hyperkalemia, now on schedule PVD, CAD- multiple LE stents, endartectomy - ASA 81 mg PO daily - Plavix 75 mg PO daily Hypothermia, improved- Tmin 95.7 on 05/17 - MRSA colonizer- Mupirocin in nares BID - CXR: cardiomegaly, no active disease - WBC wnl with L-shift - LA wnl (1.5) - Procal elevated (3.58) - ID consulted (Saumya)- rebolledo cultures, no abx at this time H/o of Afib with pacemaker- currently NSR - Pacemaker - Cardizem 30 mg PO QID - Cardiology consulted (Ramiro) H/o of CHF - BNP 144,000 (before HD) - Echo: EF 65-70%, RV severely dilated, mod-severely reduced systolic function, mild-mod AV stenosis, mild-mod MR, severe TR, severe pulm HTN, mod- severe pulm valve regurg, dilaated IVC - Cardiology consulted (Ramiro) HTN - Hold midodrine - Hydralazine 10 mg IV Q6H PRN IVF: not indicated Diet: renal GI ppx: Pepcid 20 mg IV daily VTE ppx: SCDs Code status: DNR Dispo: return to [facility] tomorrow pending IR eval Case discussed with Dr. Alexis. <Jane Alexis R - Last Filed: 05/21/18 17:39> Objective - Vital Signs/Intake and Output Vital Signs (last 24 hours): Temp Pulse Resp BP Pulse Ox 97.8 F 74 20 106/52 L 100 05/21/18 08:40 05/21/18 08:40 05/21/18 08:40 05/21/18 08:40 05/21/18 08:40 - Medications Medications: Current Medications Acetaminophen (Tylenol 325mg Tab) 650 mg PO Q6H PRN PRN Reason: Pain, Mild (1-3) Acetylcysteine (Acetylcysteine 20%) 4 ml IH Q6 PRN PRN Reason: Cough Aspirin (Ecotrin) 81 mg PO DAILY [facility] Last Admin: 05/20/18 09:34 Dose: 81 mg Clopidogrel Bisulfate (Plavix) 75 mg PO DAILY [facility] Last Admin: 05/20/18 09:34 Dose: 75 mg Diltiazem HCl (Cardizem) 30 mg PO QID [facility] Last Admin: 05/20/18 22:55 Dose: 30 mg Docusate Sodium (Colace) 100 mg PO TID [facility] Last Admin: 05/20/18 17:32 Dose: 100 mg Docusate Sodium (Colace) 100 mg PO DAILY [facility] Famotidine (Pepcid) 10 mg PO HS [facility] Last Admin: 05/20/18 22:57 Dose: 10 mg Guaifenesin (Robitussin) 100 mg PO Q4H PRN PRN Reason: Cough Last Admin: 05/15/18 22:59 Dose: 100 mg Hydralazine HCl (Apresoline) 10 mg IVP Q6 PRN PRN Reason: Systolic Blood Pressure Levalbuterol HCl (Xopenex) 1.25 mg IH Q4ACAMF [facility] Last Admin: 05/21/18 07:35 Dose: 1.25 mg Levalbuterol HCl (Xopenex) 1.25 mg IH Q3 PRN PRN Reason: Shortness of Breath Ondansetron HCl (Zofran Inj) 4 mg IVP ONCE PRN PRN Reason: Nausea/Vomiting Oxycodone HCl (Oxycodone Immediate Release Tab) 5 mg PO Q8 [facility] Last Admin: 05/20/18 22:55 Dose: 5 mg Polyethylene Glycol (Miralax) 17 gm PO DAILY [facility] Racepinephrine (Racepinephrine 2.25% Inhl Soln) 0.5 ml IH Q3 PRN PRN Reason: Shortness of Breath Last Admin: 05/15/18 22:02 Dose: 0.5 ml - Labs Labs: 05/21/18 06:00 05/21/18 06:00 PT 15.6 SECONDS (9.4-12.5) H 05/16/18 23:18 INR 1.36 05/16/18 23:18 APTT 32.6 Seconds (25.1-36.5) 05/15/18 10:25 Attending/Attestation - Attestation I have personally seen and examined this patient.: Yes I have fully participated in the care of the patient.: Yes I have reviewed all pertinent clinical information, including history, physical exam and plan: Yes Notes (Text): Patient seen and examined by me at 10AM with resident 05/20/18. Case including HPI, physical exam, and assessment and plan discussed with resident. Agree with above with following additions/corrections. Patient is an 82-year-old female with past medical history significant for atrial fibrillation, CHF, status post pacemaker, coronary artery disease, peripheral vascular disease, hypertension, hyperlipidemia, GERD, and hypothyroidism that presented from subacute rehabilitation for a same day surgery of femoral angioplasty. After procedure, patient started to experience shortness of breath and cough and was admitted to the hospital. Patient states he is feeling ok. States she still has some shortness of breath and abdomen still feels distended. No associated nausea or vomiting. No chest pain or palpitations. No headaches or dizziness. No fevers or chills. No diarrhea or constipation. No dysuria. Physical exam: General: Awake and alert sitting up in bed in no acute distress HEENT: Normocephalic atraumatic. Pupils equal reactive. No scleral icterus. Oropharynx is pink and moist. Neck is supple. Cardiovascular: Normal rhythm. Normal S1, S2. Positive systolic murmur. No rubs or gallops appreciated Pulmonary: Normal respiratory effort. Decreased breath sounds at bases. No rhonchi, rales or wheezing appreciated. Gastrointestinal: Soft, distended. Nontender. Positive bowel sounds all 4 qu adrants, no guarding. Musculoskeletal: Moves all extremities, no calf tenderness, positive bilateral lower extremity pitting edema. Central nervous system: AAOx 3, CN 2-12 grossly intact Dermatologic: Skin warm and dry. Assessment and plan: Patient is an 82-year-old female with past medical history significant for atrial fibrillation, CHF, status post pacemaker, coronary artery disease, peripheral vascular disease, hypertension, hyperlipidemia, GERD, and hypothyroidism that presented from subacute rehabilitation for a same day surgery of femoral angioplasty. After procedure, patient started to experience shortness of breath and cough and was admitted to the hospital. 1. Shortness of breath. Cough. Likely multifactorial secondary to ascites, pulmonary hypertension, CHF, and possible fluid overload. Shortness of breath improved. Still with some shortness of breath with exertion. Patient is status post paracentesis with 5.1 L of fluid removal. Patient is doing well on room air. Continue nebulizer treatments. Continue acetylcysteine inhaled every 6 hours as needed for cough. Continue Robitussin as needed for cough. We will recheck abdominal ultrasound to see if patient needs any further paracentesis. 2-D echo per public health technologist showed left ventricle is normal size, mild concentric left ventricular hypertrophy, left ventricular function is normal with an EF of 65-70%, right ventricle severely dilated, systolic function is moderately to severely reduced, trace aortic regurgitation, severe tricuspid regurgitation, and severe pulmonary hypertension (please see offical read for full details). 2. Ascites. Unclear etiology. May be secondary to heart failure vs ESRD. Patient status post paracentesis with 5.1 L of fluid removed. We'll repeat ultrasound to assess for need for repeat paracentesis. GI following, recommendations appreciated. CT abdomen and pelvis per radiologist showed high-volume complex intra-abdominal and pelvic ascites, most likely etiology relates to hemorrh age/hemoperitoneum; severe diffuse anasarca bilaterally, the findings in the left flank particularly severe; severe bilateral renal atrophy. 3. Hypothermia. Resolved. ID consulted, recommendations appreciated. Urine and blood cultures with no growth. Ascites fluid culture with no growth. Continue to monitor. 4. History of right-sided heart failure. Cardiology following, recommendations appreciated. Echo as above. 5. Coronary artery disease. Continue aspirin and Plavix. 6. Peripheral vascular disease. Continue aspirin and Plavix. 7. History of atrial fibrillation status post pacemaker. Cardiology following, recommendations appreciated. Continue Cardizem, aspirin, and Plavix. 8. End-stage renal disease on dialysis. Nephrology following, recommendations appreciated. Continue dialysis Sunday, , and Sunday. 9. Hypertension. Continue Cardizem. 10. Anemia. Likely secondary to chronic disease. Continue to monitor CBC. 11. Patient is a DNR. Case was discussed in detail with the patient regarding current diagnosis and treatment plan.
--- NOTE | 2018-05-20 16:57 | PN ---
Copied To: Demetrice Pat MD Attending MD: Demetrice Pat MD DATE: 05/20/2018 SUBJECTIVE: The patient is seen sitting in chair in the ICU. She is awake, she is alert, she is comfortable. She reports intermittent foot pain. Her daughter is at bedside. PHYSICAL EXAMINATION: GENERAL: Elderly lady sitting in chair. VITAL SIGNS: Blood pressure 111/57, heart rate 70, respiratory rate 18, and temperature 98.2. HEENT: Normocephalic, atraumatic, and positive pallor. NECK: Supple, no JVD. LUNGS: Bilateral equal air entry, bilateral rhonchi, no rales. CARDIAC: S1 and S2, irregularly irregular, positive murmur, no rub. ABDOMEN: Obese, distended, soft, nontender, bowel sounds present. EXTREMITIES: No lower extremity edema. INTAKE AND OUTPUT: Not charted. LABORATORY DATA: WBC 10.5, hemoglobin 11, hematocrit 34, and platelets 200. Sodium 134, potassium 4.3, chloride 98, CO2 of 25. BUN 48, creatinine 5.9. Glucose 77. Calcium 8.2, phosphorus 3.8, magnesium 1.9. Albumin 2.5. Cultures, no growth. CURRENT MEDICATIONS: Bactroban, Cardizem, Colace, Ecotrin, Pepcid, Plavix, Robitussin, Tylenol, Xopenex, and Zofran. ASSESSMENT: 1. Status post respiratory acidosis/respiratory failure, improved. 2. Recurrent ascites, status post paracentesis. 3. Pulmonary hypertension. 4. Congestive heart failure. 5. End-stage renal disease. 6. Anemia of chronic kidney disease. PLAN: 1. Next dialysis will be tomorrow. 2. May require repeat paracentesis. 3. Continue phosphate binders. Demetrice Pat MD
[2018-05-20] MEDS: oxyCODONE 5 mg Immediate Release Tab PO SCH (22:55)
[2018-05-21] MEDS: Levalbuterol 1.25 MG/3 ML Inhal Soln UD IH SCH ×2 (01:09→07:35)
[2018-05-21 06:44] LABS: EOS # 0.2 (0.0-0.7); EOS % 1.7 % (1.5-5.0); GRAN # 7.2 (1.4-6.5); GRAN % 80.1 % (50.0-68.0); HEMOGLOBIN 10.3 g/dL (12.0-16.0); LYMPH # 0.6 (1.2-3.4); LYMPH % 6.8 % (22.0-35.0); MEAN CELL VOLUME 92.6 fl (80.0-105.0); MEAN CORPUSCULAR HEMOGLOBIN 30.6 pg (25.0-35.0); MEAN PLATELET VOLUME 10.1 fl (7.0-11.0); MONO % 11.4 % (1.0-6.0); RBC 3.37 10^6/uL (3.5-6.1)
[2018-05-21 07:13] LABS: ALB/GLOB RATIO 0.9 (1.1-1.8); ALBUMIN 2.4 g/dL (3.0-4.8); CALCIUM 8.2 mg/dL (8.4-10.5)
--- NOTE | 2018-05-21 07:38 | CP.PCM.PN ---
Subjective - Date & Time of Evaluation Date of Evaluation: 05/21/18 Time of Evaluation: 06:35 - Subjective Subjective: Awake,alert,no distress Reason for consultation and follow up: Cardiac evaluation of atrial fibrillation,sick sinus syndrome, status post insertion of permanent pacemaker Seen and examined by me and Dr. Rubio Objective - Vital Signs/Intake and Output Vital Signs (last 24 hours): Temp Pulse Resp BP Pulse Ox 97.5 F L 77 19 141/64 55 L 05/20/18 16:00 05/20/18 22:55 05/20/18 17:47 05/20/18 22:55 05/20/18 17:00 - Medications Medications: Current Medications Acetaminophen (Tylenol 325mg Tab) 650 mg PO Q6H PRN PRN Reason: Pain, Mild (1-3) Acetylcysteine (Acetylcysteine 20%) 4 ml IH Q6 PRN PRN Reason: Cough Aspirin (Ecotrin) 81 mg PO DAILY [facility] Last Admin: 05/20/18 09:34 Dose: 81 mg Clopidogrel Bisulfate (Plavix) 75 mg PO DAILY [facility] Last Admin: 05/20/18 09:34 Dose: 75 mg Diltiazem HCl (Cardizem) 30 mg PO QID [facility] Last Admin: 05/20/18 22:55 Dose: 30 mg Docusate Sodium (Colace) 100 mg PO TID [facility] Last Admin: 05/20/18 17:32 Dose: 100 mg Famotidine (Pepcid) 10 mg PO HS [facility] Last Admin: 05/20/18 22:57 Dose: 10 mg Guaifenesin (Robitussin) 100 mg PO Q4H PRN PRN Reason: Cough Last Admin: 05/15/18 22:59 Dose: 100 mg Hydralazine HCl (Apresoline) 10 mg IVP Q6 PRN PRN Reason: Systolic Blood Pressure Levalbuterol HCl (Xopenex) 1.25 mg IH [id number] [facility] Last Admin: 05/21/18 01:09 Dose: 1.25 mg Levalbuterol HCl (Xopenex) 1.25 mg IH Q3 PRN PRN Reason: Shortness of Breath Mupirocin (Bactroban Ointment) 1 gm NS BID [facility] Stop: 05/21/18 10:01 Last Admin: 05/20/18 17:33 Dose: 1 dose Ondansetron HCl (Zofran Inj) 4 mg IVP ONCE PRN PRN Reason: Nausea/Vomiting Oxycodone HCl (Oxycodone Immediate Release Tab) 5 mg PO Q8 [facility] Last Admin: 05/20/18 22:55 Dose: 5 mg Racepinephrine (Racepinephrine 2.25% Inhl Soln) 0.5 ml IH Q3 PRN PRN Reason: Shortness of Breath Last Admin: 05/15/18 22:02 Dose: 0.5 ml - Labs Labs: 05/21/18 06:00 05/21/18 06:00 PT 15.6 SECONDS (9.4-12.5) H 05/16/18 23:18 INR 1.36 05/16/18 23: APTT 32.6 Seconds (25.1-36.5) 05/15/18 10:25 - Constitutional Appears: No Acute Distress - Eye Exam Eye Exam: Normal appearance - ENT Exam ENT Exam: Mucous Membranes Moist - Respiratory Exam Respiratory Exam: Decreased Breath Sounds, Clear to Ausculation Bilateral, NORMAL BREATHING PATTERN - Cardiovascular Exam Cardiovascular Exam: +S1, +S2 Additional comments: PPM - GI/Abdominal Exam GI & Abdominal Exam: Soft, Normal Bowel Sounds - Neurological Exam Neurological Exam: Alert, Awake, Oriented x3 - Psychiatric Exam Psychiatric exam: Normal Affect - Skin Skin Exam: Dry, Warm Assessment and Plan - Assessment and Plan (Free Text) Assessment: An 82 year old female who came in to [facility] for elective femoral angioplasty. postoperatively she had shortness of breath. History of Afib,PPM (sick sinus syndrome) ESRD on hemodialysis,CHF,CAD,PVD,hypertention, hyperlipidemia, hypoth yroidism and GERD, former smoker. Plan: Denies shortness of breath Heart rate and blood pressure stable Cardiac status stable Continue current medications Continue current treatment Possible discharge today Will follow up Plan and treatment discussed with Dr. Rubio
[2018-05-21 08:44] VITALS: RESP 20
--- NOTE | 2018-05-21 15:51 | CP.PCM.DIS ---
Provider - Provider Date of Admission: 05/16/18 13:00 Attending physician: Jane Alexis DO Primary care physician: Wilfrido Mueller DO Consults: ICU cardiology GI IR ID Time Spent in preparation of Discharge (in minutes): 45 Diagnosis - Discharge Diagnosis (1) SOB (shortness of breath) Status: Resolved Priority: High (2) Ascites Status: Chronic Priority: Medium (3) ESRD on dialysis Status: Chronic Priority: Medium (4) Atrial fibrillation Status: Chronic Priority: Medium (5) PVD (peripheral vascular disease) Status: Chronic Priority: Medium (6) CAD (coronary artery disease) Status: Chronic Priority: Medium (7) Anemia Status: Chronic Priority: Low (8) HTN (hypertension) Status: Chronic Priority: Low Hospital Course - Lab Results Lab Results: Micro Results 05/17/18 14:00 Blood-Venous Blood Culture - Preliminary NO GROWTH AFTER 4 DAYS 05/17/18 13:20 Blood-Venous Blood Culture - Preliminary NO GROWTH AFTER 4 DAYS 05/17/18 18:42 Ascitic Fluid Anaerobic Culture - Final NO ANAEROBES ISOLATED. 05/17/18 18:42 Ascitic Fluid Body Fluid Culture - Preliminary NO GROWTH AFTER 2 DAYS 05/17/18 19:00 Body Fluid - Ascites Fluid Body Fluid Culture - Preliminary NO GROWTH AFTER 3 DAYS 05/15/18 16:20 Naris MRSA Culture (Admit) - Final MRSA DETECTED Most Recent Lab Values WBC 9.0 10^3/ul (4.5-11.0) 05/21/18 06:00 RBC 3.37 10^6/uL (3.5-6.1) L 05/21/18 06:00 Hgb 10.3 g/dL (12.0-16.0) L 05/21/18 06:00 Hct 31.2 % (36.0-48.0) L 05/21/18 06:00 MCV 92.6 fl (80.0-105.0) 05/21/18 06:00 MCH 30.6 pg (25.0-35.0) 05/21/18 06:00 MCHC 33.0 g/dl (31.0-37.0) 05/21/18 06:00 RDW 16.0 % (11.5-14.5) H 05/21/18 06:00 Plt Count 204 10^3/uL (120.0-450.0) 05/21/18 06:00 MPV 10.1 fl (7.0-11.0) 05/21/18 06:00 Gran % 80.1 % (50.0-68.0) H 05/21/18 06:00 Lymph % (Auto) 6.8 % (22.0-35.0) L 05/21/18 06:00 [place] % (Auto) 11.4 % (1.0-6.0) H 05/21/18 06:00 Eos % (Auto) 1.7 % (1.5-5.0) 05/21/18 06:00 Baso % (Auto) 0.0 % (0.0-3.0) 05/21/18 06:00 Gran # 7.20 (1.4-6.5) H 05/21/18 06:00 Lymph # (Auto) 0.6 (1.2-3.4) L 05/21/18 06:00 [place] # (Auto) 1.0 (0.1-0.6) H 05/21/18 06:00 Eos # (Auto) 0.2 (0.0-0.7) 05/21/18 06:00 Baso # (Auto) 0.00 K/mm3 (0.0-2.0) 05/21/18 06:00 Neutrophils % (Manual) 89 % (50.0-70.0) H 05/16/18 04:15 Band Neutrophils % 2 % (0-2) 05/16/18 04:15 Lymphocytes % (Manual) 5 % (22.0-35.0) L 05/16/18 04:15 Monocytes % (Manual) 4 % (1.0-6.0) 05/16/18 04:15 Platelet Evaluation Normal (NORMAL) 05/16/18 04:15 Large Platelets Present 05/16/18 04:15 Hypochromasia Slight 05/16/18 04:15 PT 15.6 SECONDS (9.4-12.5) H 05/16/18 23:18 INR 1.36 05/16/18 23:18 APTT 32.6 Seconds (25.1-36.5) 05/15/18 10:25 pCO2 32 mm/Hg (35-45) L 05/15/18 17:59 pO2 188.0 mm/Hg (80-100) H 05/15/18 17:59 HCO3 20.8 mmol/L (21-28) L 05/15/18 17:59 ABG pH 7.42 (7.35-7.45) 05/15/18 17:59 ABG Total CO2 21.8 mmol.L (22-28) L 05/15/18 17:59 ABG O2 Saturation 99.9 % (95-98) H 05/15/18 17:59 ABG O2 Content 18.6 ML/dl (15-23) 05/15/18 14:45 ABG Base Excess -2.8 mmol/L (-2.0-3.0) L 05/15/18 17:59 ABG Hemoglobin 13.3 g/dL (11.7-17.4) 05/15/18 14:45 ABG Carboxyhemoglobin 2.1 % (0.5-1.5) H 05/15/18 14:45 POC ABG HHb (Measured) 0.1 % (0-5) 05/15/18 14:45 ABG Methemoglobin 1.1 % (0.0-3.0) 05/15/18 14:45 ABG O2 Capacity 18.6 mL/dl (16-24) 05/15/18 14:45 ABG Potassium 5.3 mmol/L (3.6-5.2) H 05/15/18 17:59 Hgb O2 Saturation 96.8 % (95.0-98.0) 05/15/18 14:45 Sodium 133.0 mmol/L (132-148) 05/15/18 17:59 Chloride 102.0 mmol/L (98-107) 05/15/18 17:59 Glucose 96 mg/dl (65-105) 05/15/18 17:59 Lactate 1.5 mmol/L (0.7-2.1) 05/15/18 17:59 FiO2 50.0 % 05/15/18 17:59 Pressure Support 8 05/15/18 17:59 Inspiratory BiPAP 16 05/15/18 17:59 Sodium 132 mmol/L (132-148) 05/21/18 06:00 Potassium 4.5 mmol/L (3.6-5.0) 05/21/18 06:00 Chloride 97 mmol/L (98-107) L 05/21/18 06:00 Carbon Dioxide 23 mmol/L (21-33) 05/21/18 06:00 Anion Gap 17 (10-20) 05/21/18 06:00 BUN 61 mg/dL (7-21) H 05/21/18 06:00 Creatinine 6.9 mg/dl (0.7-1.2) H 05/21/18 06:00 Est GFR ( Amer) 7 05/21/18 06:00 Est GFR (Non-Af Amer) 6 05/21/18 06:00 POC Glucose (mg/dL) 99 mg/dL (65-110) 05/21/18 08:07 Random Glucose 101 mg/dL (70-110) 05/21/18 06:00 Hemoglobin A1c 4.9 % (4.2-6.5) 05/16/18 04:15 Calcium 8.2 mg/dL (8.4-10.5) L 05/21/18 06:00 Phosphorus 4.4 mg/dL (2.5-4.5) 05/21/18 06:00 Magnesium 2.0 mg/dL (1.7-2.2) 05/21/18 06:00 Total Bilirubin 0.7 mg/dL (0.2-1.3) 05/21/18 06:00 AST 29 U/L (14-36) 05/21/18 06:00 ALT 21 U/L (7-56) 05/21/18 06:00 Alkaline Phosphatase 111 U/L (38-126) 05/21/18 06:00 Troponin I 0.16 ng/mL H* 05/16/18 04:15 NT-Pro-B Natriuret Pep 158253 pg/mL (0-450) H 05/15/18 17:47 Total Protein 5.3 g/dL (5.8-8.3) L 05/21/18 06:00 Albumin 2.4 g/dL (3.0-4.8) L 05/21/18 06:00 Globulin 2.8 gm/dL 05/21/18 06:00 Albumin/Globulin Ratio 0.9 (1.1-1.8) L 05/21/18 06:00 Triglycerides 73 mg/dL (35-160) 05/16/18 04:15 Cholesterol 101 mg/dL (130-200) L 05/16/18 04:15 LDL Cholesterol Direct 33 mg/dL (0-129) 05/16/18 04:15 HDL Cholesterol 35 mg/dL (29-60) 05/16/18 04:15 Procalcitonin 3.58 NG/ML (0.19-0.49) H 05/16/18 04:15 TSH 3rd Generation 3.79 mIU/mL (0.46-4.68) 05/16/18 04:15 Arterial Blood Potassium 5.3 mmol/L (3.6-5.2) H 05/15/18 17:59 Fluid Source Peritoneal/ascites 05/17/18 18:42 Fluid Appearance Sl cloudy (CLEAR) 05/17/18 18:42 Fluid WBC 189.0 /uL (0.0-300.0) 05/17/18 18:42 Fluid RBC 4026.0 /uL (0.0-0.0) H 05/17/18 18:42 Fluid Tot Cell Count 100 (0-0) H 05/17/18 18:42 Fluid Neutrophils 26.5 % (0-0) H 05/17/18 18:42 Fluid Lymphocytes 73.5 % (0-0) H 05/17/18 18:42 Fld Monocyte/Macrophag TEST NOT PERFORMED 05/17/18 18:42 Fluid Albumin 1.8 g/dL 05/17/18 18:42 Fluid Comment Sandy 05/17/18 18:42 Peritoneal Tot Protein 3.3 g/dL 05/17/18 18:42 Peritoneal Lipase 5.0 U/L (<10) 05/17/18 19:56 Hep Bs Antigen Negative (NEGATIVE) 05/16/18 07:00 Hep Bs Antibody Positive (NEGATIVE) 05/16/18 07:00 Hep B Core IgM Ab Negative (NEGATIVE) 05/16/18 07:00 Blood Type B POSITIVE 05/16/18 23:18 Blood Type Confirm B POSITIVE 05/17/18 00:04 Antibody Screen Negative 05/16/18 23:18 Crossmatch See Detail 05/16/18 23:18 BBK History Checked No verified bt 05/16/18 23:18 - Hospital Course Hospital Course: Susan Meza is an 82 yo female with a history of Afib, CHF, pacemaker, CAD, PVD, HTN, HLD, GERD, and hypothyroidism who presented from [facility] ([facility]) for a same-day surgery of femoral angioplasty. While post-op in the PACU, patient began experiencing significant shortness of breath and cough. Patient in respiratory distress and could not tell us history or how she was feeling. Patient's daughter, Jose Manuel ([phone]), was contacted. She stated that the patient lives with her; however, she's been in rehab since January after being hospitalized for dysfunctional AVM for hemodialysis and hypotension. Daughter reported that patient was complaining of a "rattling" cough for the last 2 days. She denies fevers, chills, or pain. She denies any history of pulmonary disorders. She has a remote smoking history- quit 40 years ago. Patient's PMD, Dr. Mueller, was also called to obtain medical history and medications. Discussion with daughter indicated that the patient was DNR but not DNI. Completion of a living will/advance directive was encouraged with the daughter. In the PACU, patient was given Benadryl, racemic epi, Pepcid, and Solu-medrol. She was placedon BiPap. CXR and AXR were negative. ICU was consulted and accepted the patient to the unit. During the first night of admission, the patient developed Afib RVR and was placed on a Cardizem drip by cardiology. She converted back to NSR. She was able to be taken off of BiPap in <24 hrs. Patient received dialysis on day 2. Patient was initially intermittently hypothermic. No leukocytosis. Lactate wnl. No source of infection was identified, and ID did not recommend antibiotics. Patient's abdomen has reportedly been distended over the past 6 months. Patient received a paracentesis and approximately 5L were removed. Preliminary fluid analysis indicates a likely cardiac etiology. Hepatitis panel negative. Patient does not have a significant alcohol history. Upon discharge, the patient denied SOB. Her abdominal distention remained, but patient was nontender. Repeat abdominal u/s showed approximately 1 L of fluid. She was sleeping and eating well. Her cough was improving. She was off all supplemental O2. her vital signs were stable. She is returning to [facility] at [facility]. She will resume HD on TThSat schedule. Discharge Exam - Head Exam Head Exam: ATRAUMATIC, NORMAL INSPECTION - Eye Exam Eye Exam: EOMI, Normal appearance - ENT Exam ENT Exam: Mucous Membranes Moist, Normal Exam - Neck Exam Neck exam: Normal Inspection - Respiratory Exam Respiratory Exam: Decreased Breath Sounds, Clear to PA & Lateral, NORMAL BREATHING PATTERN, UNREMARKABLE - Cardiovascular Exam Cardiovascular Exam: REGULAR RHYTHM, +S1, +S2, Systolic Murmur - GI/Abdominal Exam GI & Abdominal Exam: Distended, Normal Bowel Sounds. absent: Tenderness - Rectal Exam Rectal Exam: Deferred - Extremities Exam Extremities exam: normal inspection - Back Exam Back exam: NORMAL INSPECTION - Neurological Exam Neurological exam: Alert, CN II-XII Intact, Oriented x3 - Psychiatric Exam Psychiatric exam: Normal Affect, Normal Mood - Skin Skin Exam: Dry, Intact, Normal Color, Warm Discharge Plan - Discharge Medications Prescriptions: Aspirin [Ecotrin] 81 mg PO DAILY #21 tabec Clopidogrel [Plavix] 75 mg PO DAILY #21 tab diltiaZEM [Cardizem] 30 mg PO TID 21 Days tab - Follow Up Plan Condition: IMPROVED Disposition: REHAB FACILITY/REHAB UNIT Patient education suggested?: Yes Instructions: Abdominal Paracentesis, Fluid in the Belly (Ascites), Peripheral Vascular (Arterial) Disease (DC) Additional Instructions: You are being discharged from [facility] back to [facility] rehab. Please follow-up with your primary care provider, Dr. Mueller, within 3-5 days of discharge. You will need to follow-up your abdominal fluid final results through his office. Please follow-up with a credit product analyst Dr. Rios within 1 week of discharge. Please follow-up with your dental biller, Dr. Vilchis within 1 week of discharge. Please continue to follow-up with your mold yard supervisor, Dr. Pat, and receive hemodialysis as instructed. If symptoms return, please present to the nearest emergency department. Referrals: Britany Vilchis MD [Medical Doctor] - Demetrice Pat MD [Staff Provider] - Neema Rios MD [Medical Doctor] - Wilfrido Mueller DO [Primary Care Provider] -
--- NOTE | 2018-05-21 16:19 | PN ---
DATE: 05/21/2018 REASON FOR CONSULTATION: Followup atrial fibrillation; sick sinus syndrome, status post permanent pacemaker; severe PAD; status post impending respiratory failure, improved. SUBJECTIVE: This is an 82-year-old female with past medical history significant for chronic atrial fibrillation; sick sinus rhythm, status post permanent pacemaker; end-stage renal disease, on peritoneal dialysis, admitting with impending respiratory failure after peripheral intervention possibly secondary to allergic reaction to the dye. Now, the patient is fairly stable. RECOMMENDATIONS: Continue dialysis. Continue Cardizem. Continue aspirin. Plavix. We will follow with you. This note is an addendum to initial progress note dictated by our nurse practitioner, Nicole. Liam Rubio MD
--- NOTE | 2018-05-21 17:22 | CP.PCM.PN ---
<Reyes Quinonez - Last Filed: 05/21/18 17:23> Subjective - Date & Time of Evaluation Date of Evaluation: 05/21/18 Time of Evaluation: 17:15 - Subjective Subjective: No clinical changes. Passing flatus, tolerating diet. Small BM yesterday. Denies abdominal pain. Objective - Vital Signs/Intake and Output Vital Signs (last 24 hours): Temp Pulse Resp BP Pulse Ox 97.8 F 74 20 106/52 L 100 05/21/18 08:40 05/21/18 08:40 05/21/18 08:40 05/21/18 08:40 05/21/18 08:40 - Medications Medications: Current Medications Acetaminophen (Tylenol 325mg Tab) 650 mg PO Q6H PRN PRN Reason: Pain, Mild (1-3) Acetylcysteine (Acetylcysteine 20%) 4 ml IH Q6 PRN PRN Reason: Cough Aspirin (Ecotrin) 81 mg PO DAILY [facility] Last Admin: 05/20/18 09:34 Dose: 81 mg Clopidogrel Bisulfate (Plavix) 75 mg PO DAILY [facility] Last Admin: 05/20/18 09:34 Dose: 75 mg Diltiazem HCl (Cardizem) 30 mg PO QID [facility] Last Admin: 05/20/18 22:55 Dose: 30 mg Docusate Sodium (Colace) 100 mg PO TID [facility] Last Admin: 05/20/18 17:32 Dose: 100 mg Famotidine (Pepcid) 10 mg PO HS [facility] Last Admin: 05/20/18 22:57 Dose: 10 mg Guaifenesin (Robitussin) 100 mg PO Q4H PRN PRN Reason: Cough Last Admin: 05/15/18 22:59 Dose: 100 mg Hydralazine HCl (Apresoline) 10 mg IVP Q6 PRN PRN Reason: Systolic Blood Pressure Levalbuterol HCl (Xopenex) 1.25 mg IH [id number] [facility] Last Admin: 05/21/18 07:35 Dose: 1.25 mg Levalbuterol HCl (Xopenex) 1.25 mg IH Q3 PRN PRN Reason: Shortness of Breath Ondansetron HCl (Zofran Inj) 4 mg IVP ONCE PRN PRN Reason: Nausea/Vomiting Oxycodone HCl (Oxycodone Immediate Release Tab) 5 mg PO Q8 [facility] Last Admin: 05/20/18 22:55 Dose: 5 mg Racepinephrine (Racepinephrine 2.25% Inhl Soln) 0.5 ml IH Q3 PRN PRN Reason: Shortness of Breath Last Admin: 05/15/18 22:02 Dose: 0.5 ml - Labs Labs: 05/21/18 06:00 05/21/18 06:00 PT 15.6 SECONDS (9.4-12.5) H 05/16/18 23:18 INR 1.36 05/16/18 23:18 APTT 32.6 Seconds (25.1-36.5) 05/15/18 10:25 - Constitutional Appears: Non-toxic, No Acute Distress, Chronically Ill - Head Exam Head Exam: NORMAL INSPECTION - Eye Exam Eye Exam: EOMI, Normal appearance - ENT Exam ENT Exam: Mucous Membranes Moist - Respiratory Exam Respiratory Exam: Clear to Ausculation Bilateral, NORMAL BREATHING PATTERN - Cardiovascular Exam Cardiovascular Exam: REGULAR RHYTHM, +S1, +S2 - GI/Abdominal Exam GI & Abdominal Exam: Distended, Soft, Normal Bowel Sounds - Neurological Exam Neurological Exam: Alert, Awake, Oriented x3 - Psychiatric Exam Psychiatric exam: Normal Affect, Normal Mood - Skin Skin Exam: Dry, Normal Color Assessment and Plan - Assessment and Plan (Free Text) Assessment: 82F with extensive medical history admitted to ICU after elective femoral angioplast for acute SOB and GI consulted for chronic abdominal distension. #Tense Ascites #Hx of GI bleed [place] [facility] [place] she was on OAC which was d/c. She declined EGD/colonoscopy at that time after discussions with exhaust worker. She reports she did not want to take the risk at that time considering her extensive medical problems. #Severe right sided heart failure #SOB #ESRD #CHF #CAD #HTN #Afib s/p PPM PLAN: - CT reviewed - significant ascites. s/p paracentesis 05/17 5.1L removed. Fluid has reaccumulated. - SAAG 0.6 and TP 3.3. This indicated that ascites fluid is likely from her severe right sided heart failure i.e. congestive hepatopathy. - Would monitor fluids closely. She is on HD and fluid balance can be adjusted at that time. - F/U cytology of ascites fluid when it returns. - Encourage mobilization, out of bed to chair - Monitor BMs, nausea, vomiting. - Avoid medicines that can slow the bowels (anticholinergics, opiates.) - Puree diet as tolerated. - MiraLax and stool softener <Blanca,Kovil V - Last Filed: 05/21/18 23:13> Objective - Vital Signs/Intake and Output Vital Signs (last 24 hours): Temp Pulse Resp BP Pulse Ox 97.2 F L 88 20 129/61 97 05/21/18 18:00 05/21/18 18:00 05/21/18 18:00 05/21/18 18:00 05/21/18 18:00 - Labs Labs: 05/21/18 06:00 05/21/18 06:00 PT 15.6 SECONDS (9.4-12.5) H 05/16/18 23:18 INR 1.36 05/16/18 23: APTT 32.6 Seconds (25.1-36.5) 05/15/18 10:25 Attending/Attestation - Attestation I have personally seen and examined this patient.: Yes I have fully participated in the care of the patient.: Yes I have reviewed all pertinent clinical information, including history, physical exam and plan: Yes Notes (Text): This is an addendum to GI progress report dictated by the GI Fellow.The patient was seen and examined earlier. Medical records, lab studies, imagings were reviewed. Last 24 hours events reviewed. Agreed with the above treatment plan as outlined in GI Fellow 's notes with the addition of the following Patient SAG ratio 0.9 Patient's ascitic fluid was slightly tinged Discussed with the patient Patient does not want endoscopic evaluation Followup of hemoglobin hematocrit Cytology pending 05/21/18 23:11
[2018-05-21] MEDS: oxyCODONE 5 mg Immediate Release Tab PO SCH (17:45)
[2018-05-21] MEDS: Mupirocin 2% Ointment 15 GM TUBE NS SCH (17:46)
[2018-05-21 17:47] VITALS: BP 129/61; PULSE 88
[2018-05-21 18:50] VITALS: TEMP 97.2; O2SAT 97
--- NOTE | 2018-05-21 20:48 | CP.PCM.PCO ---
Addendum Addendum: Resident was paged regarding advance directives forms. Nurses stated that the DNR form could not be found in the chart, and were required prior to d/c to [facility]. Patient is alert and oriented x3. I had a lengthy discussion with her regarding the meaning of DNR/DNI and filled out the POLST form. Nurse was present to witness. POLST form was filled out and patient was able to repeat the wishes back to me that she would like to be DNR/DNI. The patient's daughter (Jose Manuel) was contacted and the information was explained to her and she was in full understanding; the patient's wishes is also that Jose Manuel would be making decisions moving forward if patient is unable to do so. Jeremiah Chisholm PGY2
--- NOTE | 2018-05-22 08:34 | PN ---
DATE: 05/21/2018 SUBJECTIVE: The patient is seen sitting in chair. She is eating breakfast. She denies any chest tightness. She complains of intermittent shortness of breath. She complains of intermittent pain in her left foot. PHYSICAL EXAMINATION: GENERAL: Elderly lady sitting in bed. VITAL SIGNS: Blood pressure 106/52, heart rate 74, respiratory rate 20, temperature 97.8. HEENT: Normocephalic, atraumatic. Positive pallor. NECK: Supple. No JVD. LUNGS: Bilateral equal air entry, bilateral rhonchi, decreased breath sounds at bases. CARDIAC: S1, S2. Regular rate and rhythm. Positive murmur, no rub. ABDOMEN: Obese, distended, soft, positive fluid thrill. EXTREMITIES: No lower extremity edema. INTAKE AND OUTPUT: Not charted. LABORATORY DATA: WBC 9, hemoglobin 10, hematocrit 31, platelets 204. Sodium 132, potassium 4.5, chloride 97, CO2 23, BUN 61, creatinine 6.9, glucose 101, calcium 8.2, phosphorus 4.4, magnesium 2, albumin 2.4. CURRENT MEDICATIONS: List reviewed. ASSESSMENT AND PLAN: 1. Status post respiratory failure/respiratory acidosis. 2. Ascites. 3. End-stage renal disease. 4. Congestive heart failure/pulmonary hypertension. 5. Anemia of chronic kidney disease. 6.. History of hypertension. 1. Dialysis today, ultrafiltration 2500. 2. Recurrent ascites, GI followup. 3. Continue phosphate binders. 4. Demetrice Pat MD
[2018-05-22] MEDS ORDERED: POLYETHYLENE GLYCOL 3350 17 GM/Dose PACKET PO SCH (10:00)
== END 2018-05-21 20:46 | DRG 166 ==
LOC: SDSVAS 10:01 → CCU 16:06 → SDSVAS 05-16 13:00 → 3RNO 05-20 18:45
PROVIDERS: ADMIT Hospitalist; ATTEND Hospitalist
PROC: 04CJ3ZZ Extirpation of Matter from Left External Iliac Artery, Percutaneous Approach (ICD-10-PCS; principal; 2018-05-15)
PROC: 047J3Z1 Dilation of Left External Iliac Artery using Drug-Coated Balloon, Percutaneous Approach (ICD-10-PCS; 2018-05-15)
PROC: 04CL3ZZ Extirpation of Matter from Left Femoral Artery, Percutaneous Approach (ICD-10-PCS; 2018-05-15)
PROC: 047L3Z1 Dilation of Left Femoral Artery using Drug-Coated Balloon, Percutaneous Approach (ICD-10-PCS; 2018-05-15)
PROC: 047U3ZZ Dilation of Left Peroneal Artery, Percutaneous Approach (ICD-10-PCS; 2018-05-15)
PROC: 047Q3ZZ Dilation of Left Anterior Tibial Artery, Percutaneous Approach (ICD-10-PCS; 2018-05-15)
PROC: B4101ZZ Fluoroscopy of Abdominal Aorta using Low Osmolar Contrast (ICD-10-PCS; 2018-05-15)
PROC: 5A09357 Assistance with Respiratory Ventilation, Less than 24 Consecutive Hours, Continuous Positive Airway Pressure (ICD-10-PCS; 2018-05-15)
PROC: 5A1D70Z Performance of Urinary Filtration, Intermittent, Less than 6 Hours Per Day (ICD-10-PCS; 2018-05-16)
PROC: 0W9G3ZX Drainage of Peritoneal Cavity, Percutaneous Approach, Diagnostic (ICD-10-PCS; 2018-05-17)
PROC: 5A1D70Z Performance of Urinary Filtration, Intermittent, Less than 6 Hours Per Day (ICD-10-PCS; 2018-05-17)
PROC: 5A1D70Z Performance of Urinary Filtration, Intermittent, Less than 6 Hours Per Day (ICD-10-PCS; 2018-05-18)
PROC: 5A1D70Z Performance of Urinary Filtration, Intermittent, Less than 6 Hours Per Day (ICD-10-PCS; 2018-05-21)
DX: J95.821 Acute postprocedural respiratory failure (principal); N18.6 End stage renal disease; I13.2 Hypertensive heart and chronic kidney disease with heart failure and with stage 5 chronic kidney disease, or end stage renal disease; E87.2 Acidosis; J44.1 Chronic obstructive pulmonary disease with (acute) exacerbation; R65.10 Systemic inflammatory response syndrome (SIRS) of non-infectious origin without acute organ dysfunction; N25.81 Secondary hyperparathyroidism of renal origin; I42.9 Cardiomyopathy, unspecified; R18.8 Other ascites; I73.9 Peripheral vascular disease, unspecified; D63.1 Anemia in chronic kidney disease; I25.10 Atherosclerotic heart disease of native coronary artery without angina pectoris; I27.20 Pulmonary hypertension, unspecified; E87.5 Hyperkalemia; I48.91 Unspecified atrial fibrillation; I50.9 Heart failure, unspecified; K21.9 Gastro-esophageal reflux disease without esophagitis; M10.9 Gout, unspecified; E03.9 Hypothyroidism, unspecified; E78.5 Hyperlipidemia, unspecified; E83.39 Other disorders of phosphorus metabolism; E16.2 Hypoglycemia, unspecified; I07.1 Rheumatic tricuspid insufficiency; I48.2 Chronic atrial fibrillation; Z66 Do not resuscitate; Y83.8 Other surgical procedures as the cause of abnormal reaction of the patient, or of later complication, without mention of misadventure at the time of the procedure; I49.5 Sick sinus syndrome; Z95.0 Presence of cardiac pacemaker; Z87.891 Personal history of nicotine dependence; Z95.820 Peripheral vascular angioplasty status with implants and grafts; Z99.2 Dependence on renal dialysis; Z79.82 Long term (current) use of aspirin

== ENCOUNTER 2018-05-31 17:37 | Inpatient (IN) | payer MEDICARE, BC ==
[2018-05-31 17:58] VITALS: BMI 25.0
--- NOTE | 2018-05-31 18:27 | ED PDOC ---
Arrival/HPI - General Historian: Patient, Snf - History of Present Illness Narrative History of Present Illness (Text): 05/31/18 18:24 82yo female with pmhx of hypertension, CHF, hypothyroid, Afib, pacemaker, and ESRD dialysis on TTHS bib EMS from [facility] for gangrenous left toe. Patient states the [employer] Operator Helper that has been taking care of her foot for a month now referred her to ED for evaluation. She denies pain, discharge, fever, chills, chest pain, SOB, nausea, vomiting, abdominal pain, any other complaint. <Florecita Bui A - Last Filed: 06/01/18 00:55> <Thu Allen - Last Filed: 06/03/18 07:43> - General Chief Complaint: Lower Extremity Problem/Injury Time Seen by Provider: 05/31/18 17:53 Past Medical History - Provider Review Nursing Documentation Reviewed: Yes - Infectious Disease Hx of Infectious Diseases: None - Tetanus Immunization Tetanus Immunization: Unknown - Cardiac Hx Congestive Heart Failure: Yes (s/p pacemaker, A fib) Hx Hypertension: Yes - Neurological Hx Paralysis: No - HEENT Hx Cataracts: Yes - Renal Hx Renal Disorder: Yes Hx Dialysis: Yes (t//sat) Date of Last Dialysis Treatment: 05/13/18 - Endocrine/Metabolic Hx Hypothyroidism: Yes - Hematological/Oncological Hx Blood Transfusions: No Hx Blood Transfusion Reaction: No - Musculoskeletal/Rheumatological Hx Rheumatoid Arthritis: Yes (T, TH, SAT) - Gastrointestinal Hx Gastrointestinal Disorders: Yes Hx Gastroesophageal Reflux: Yes - Psychiatric Hx Emotional Abuse: No Hx Physical Abuse: No Hx Substance Use: No - Surgical History Other/Comment: left AV shunt - Anesthesia Hx Anesthesia Reactions: No Hx Malignant Hyperthermia: No - Suicidal Assessment Feels Threatened In Home Enviroment: No <Florecita Bui A - Last Filed: 06/01/18 00:55> Family/Social History - Physician Review Nursing Documentation Reviewed: Yes Family/Social History: Unknown Family HX Smoking Status: Former Smoker Hx Alcohol Use: No Hx Substance Use: No <Florecita Bui A - Last Filed: 06/01/18 00:55> Allergies/Home Meds <Florecita Bui A - Last Filed: 06/01/18 00:55> <Thu Allen - Last Filed: 06/03/18 07:43> Allergies/Adverse Reactions: Allergies No Known Allergies Allergy (Verified 05/07/18 11:54) Home Medications: Home Meds Medication Instructions Recorded Confirmed Acetaminophen [Tylenol] 325 mg PO PRN PRN 05/07/18 06/01/18 Allopurinol [Zyloprim] 100 mg PO DAILY 05/07/18 06/01/18 Atorvastatin [Lipitor] 40 mg PO DAILY 05/07/18 06/01/18 Calcium Acetate [Phoslo] 3 cap PO TID 05/07/18 06/01/18 Cinacalcet [Sensipar] 30 mg PO DAILY 05/07/18 06/01/18 Pantoprazole Sodium [Protonix] 40 mg PO DAILY 05/07/18 06/01/18 Review of Systems - Physician Review All systems were reviewed & negative as marked: Yes - Review of Systems Constitutional: Normal Eyes: Normal ENT: Normal Respiratory: Normal Cardiovascular: Normal Gastrointestinal: Normal Genitourinary Female: Normal Musculoskeletal: Arthralgias (Left gangrenous 4th toe) Skin: Normal Neurological: Normal Endocrine: Normal Hemo/Lymphatic: Normal Psychiatric: Normal <Diru,Happiness A - Last Filed: 06/01/18 00:55> Physical Exam Vital Signs Reviewed: Yes Vital Signs Temp Pulse Resp BP Pulse Ox 05/31/18 17:38 98 F 88 18 114/57 L 93 L Temperature: Afebrile Blood Pressure: Normal Pulse: Regular Respiratory Rate: Normal Appearance: Positive for: Well-Appearing, Non-Toxic, Comfortable Pain Distress: None Mental Status: Positive for: Alert and Oriented X 3 - Systems Exam Head: Present: Atraumatic, Normocephalic Pupils: Present: PERRL Extroacular Muscles: Present: EOMI Conjunctiva: Present: Normal Mouth: Present: Moist Mucous Membranes Neck: Present: Normal Range of Motion Respiratory/Chest: Present: Clear to Auscultation, Good Air Exchange. No: Respiratory Distress, Accessory Muscle Use Cardiovascular: Present: Regular Rate and Rhythm, Murmurs (Bruit over the right atrium), Normal S1, S2 Abdomen: No: Tenderness, Distention, Peritoneal Signs Back: Present: Normal Inspection Upper Extremity: Present: Normal Inspection. No: Cyanosis, Edema Lower Extremity: Present: Other (Gangrenous left 1st, 3rd and 4th toes). No: Edema, CALF TENDERNESS, NORMAL PULSES (DEcreased pedis and posterior pulse), Tenderness Neurological: Present: GCS=15, CN II-XII Intact, Speech Normal Skin: Present: Warm, Dry, Normal Color. No: Rashes Psychiatric: Present: Alert, Oriented x 3, Normal Insight, Normal Concentration <Diru,Happiness A - Last Filed: 06/01/18 00:55> Vital Signs Temp Pulse Resp BP Pulse Ox 06/03/18 02:00 78 06/03/18 00:01 98.2 F 84 18 115/50 L 95 06/02/18 22:00 80 06/02/18 18:08 63 159/92 H 06/02/18 18:00 87 06/02/18 14:10 82 127/63 06/02/18 14:00 81 06/02/18 13:13 127/63 06/02/18 12:00 98.1 F 72 19 108/58 L 06/02/18 10:59 88 126/64 06/02/18 10:00 79 06/02/18 06:00 98.6 F 75 19 104/52 L 96 06/02/18 05:22 87 06/02/18 02:00 87 06/02/18 00:01 98.7 F 97 H 19 108/57 L 96 06/01/18 22:00 83 06/01/18 18:47 91 H 06/01/18 17:59 80 20 102/51 L 98 06/01/18 17:12 18 06/01/18 06:32 79 18 114/60 97 06/01/18 04:45 87 18 115/48 L 97 06/01/18 03:20 97.6 F 80 18 121/53 L 98 06/01/18 02:47 94 H 19 119/69 100 06/01/18 01:27 82 18 109/58 L 100 05/31/18 23:07 83 18 118/59 L 97 05/31/18 22:00 82 18 115/71 96 05/31/18 20:30 78 18 123/67 100 05/31/18 17:38 98 F 88 18 114/57 L 93 L <Thu Allen - Last Filed: 06/03/18 07:43> Medical Decision Making ED Course and Treatment: 05/31/18 18:33 82yo female bib [facility] for left 4th toe gangrene. Case was ALEKSANDRA Copeland, pt's Joy Operator Helper who referred pt to the ED. States pt had Angioplasty on the foot 2wweks ago by Dr. hannah. states he noted worsening gangrene of the left 4th toe so he referred pt to ED for admission to check the patency of the angioplasty. He requested pt be admitted to Dr. Lucas. Labs CXR/foot xray Arterial doppler Case was ALEKSANDRA Lucas. she accepted the pt to her service. 06/01/18 00:55 EKG AFib with PVC; Demand pacemaker; T wave abnormality on lateral leads @ 85bpm. CXR Cardiomegaly. NAD Pt's lab was reviewed and hyperkalemia was noted. Pt have some Peaked Twave changes in her EKG compare to her previous EKG. She is due for dialysis tomorrow. She was treated with the cocktail of kayexalate, insulin, D5 and albuterol. While taking the Kayelate the [facility] REYNAGA reported that pt suddenly started twit luc with her eyes rolling upwards and unresponsive for less than a minute. Pt's daughter was by the bedside. She states that pt have no history of seizure. Pt was AAO x3 and neurologically intact at this time. Head CT was ordered Pt was seen in ED by Dr. Allen. It was not clear if pt had a seizure or hypoglycemic episodes in ED Head CT - No acute finding. Old basal ganglia lacunar infarcts present. Lab result and episode was ALEKSANDRA Lucas and she requested Dr. Hikcs consulted. Dr. Allen DC with Dr. woodward and he states pt will be dialyzed in the morning. Repeat CMP show improved Potassium. 59BS was noted and pt was given orange juice. On repeat FS her BS was 41 and amp of dextrose was given. Pt was comfortable in ED pending Tele bed. - RAD Interpretation Radiology Orders: 05/31/18 18:06 CHEST ONE VIEW [RAD] Stat FOOT LEFT 4TH DIGIT (TOE) [RAD] Stat 05/31/18 18:22 DUPLEX LOWER EXTRM ARTR LEFT [US] Stat <Diru,Happiness A - Last Filed: 06/01/18 00:55> ED Course and Treatment: Patient seen and evaluated with PA. I examined patient and interviewed patient's family. Patient admitted for evaluation of infected foot. She is dialysis patient scheduled for dialysis following day. Denies any headache, chest pain or shortness of breath. She has hx of chornic cough which she states is not worse. K elevated. D50 and insulin ordered. Albuterol ordered. Kayexalate ordered. Patient witnessed by staff to have brief "few seconds" episode of "eyes rolling up" and "not responding". I immediately was at bedside and patient is awake, alert. Heart rate is 80 on monitor. Blood pressure is stable. She denies any pain or discomfort of shortness of breath. Ddx seizure, but no prior history and not postictal. No unstable arrhythmias noted. Patient also with blood sugar 200s, but cannot exclude medication reaction. Will admit to telemetry bed, I reviewed labs with Dr. Talbot, renal and PMD updated. She remains neuro intact with serial exams. - Lab Interpretations Microbiology Results: Microbiology Results 05/31/18 18:42 Blood-Venous Blood Culture - Preliminary NO GROWTH AFTER 48 HOURS Lab Results: 05/31/18 18:42 10 18:42 Lab Results 05/31/18 18:42: PT 13.7 H, INR 1.20, APTT 29.7 10 18:42: Sodium 135, Potassium 5.7 H* D, Chloride 97 L, Carbon Dioxide 27, Anion Gap 17, BUN 40 H, Creatinine 5.7 H, Est GFR ( Amer) 9, Est GFR (Non-Af Amer) 7, Random Glucose 86, Calcium 9.8, Total Bilirubin 0.9, AST 35, ALT 16, Alkaline Phosphatase 121, Total Protein 6.6, Albumin 3.2, Globulin 3.4, Albumin/Globulin Ratio 0.9 L 05/31/18 18:42: WBC 6.8 D, RBC 3.31 L, Hgb 10.2 L, Hct 31.7 L, MCV 95.8 D, MCH 30.8, MCHC 32.2, RDW 16.3 H, Plt Count 211, MPV 10.4, Gran % 75.8 H, Lymph % (Auto) 12.3 L, Wharton % (Auto) 8.5 H, Eos % (Auto) 2.8, Baso % (Auto) 0.6, Gran # 5.18, Lymph # (Auto) 0.8 L, Wharton # (Auto) 0.6, Eos # (Auto) 0.2, Baso # (Auto) 0.04 - RAD Interpretation Radiology Orders: 05/31/18 18:06 CHEST ONE VIEW [RAD] Stat FOOT LEFT 4TH DIGIT (TOE) [RAD] Stat 05/31/18 18:22 LOWER EXT ART NON-INV COMPL [US] Stat - Medication Orders Current Medication Orders: Acetaminophen (Tylenol 325mg Tab) 325 mg PO Q6 PRN PRN Reason: Pain, moderate (4-7) Albuterol/Ipratropium (Duoneb 3 Mg/0.5 Mg (3 Ml) Ud) 3 ml IH Q2H PRN PRN Reason: Shortness of Breath Last Admin: 06/02/18 13:28 Dose: 3 ml Allopurinol (Zyloprim) 100 mg PO DAILY [facility] Last Admin: 06/02/18 11:00 Dose: 100 mg Aspirin (Ecotrin) 81 mg PO DAILY [facility] Last Admin: 06/02/18 10:59 Dose: 81 mg Atorvastatin Calcium (Lipitor) 40 mg PO DAILY [facility] Last Admin: 06/02/18 10:59 Dose: 40 mg Calcium Acetate (Phoslo) 2,001 mg PO WM [facility] Last Admin: 06/02/18 18:08 Dose: 2,001 mg Cinacalcet (Sensipar) 30 mg PO DAILY [facility] Last Admin: 06/02/18 10:59 Dose: 30 mg Clopidogrel Bisulfate (Plavix) 75 mg PO DAILY [facility] Last Admin: 06/02/18 10:59 Dose: 75 mg Diltiazem HCl (Cardizem) 30 mg PO TID [facility] Last Admin: 06/02/18 18:08 Dose: 30 mg MAR Pulse and Blood Pressure Document 06/02/18 18:08 (Rec: 06/02/18 18:08 [id number]) Pulse Pulse Rate (60-90 beats/min) 63 Blood Pressure Blood Pressure (100/60-150/90 mm Hg) 159/92 Guaifenesin (Robitussin) 100 mg PO Q4H PRN PRN Reason: Cough Last Admin: 06/02/18 12:55 Dose: 100 mg Heparin Sodium (Porcine) (Heparin) 5,000 units SC Q8 [facility]; Protocol Last Admin: 06/03/18 06:46 Dose: 5,000 units Subcutaneous Administrations Document 06/03/18 06:46 SRE (Rec: 06/03/18 06:46 SRE [id number]) Injection Site MAR Injection Site Left Abdomen Charges for Administration # of Subcutaneous Administrations 1 Dextrose (Dextrose 10% In Water) 500 mls @ 40 mls/hr IV .[id number] [facility] Last Admin: 06/03/18 05:04 Dose: Not Given Non-Admin Reason: current IV infuing Lorazepam (Ativan) 0.5 mg IVP Q6H PRN; Protocol PRN Reason: Anxiety Last Admin: 06/02/18 16:28 Dose: 0.5 mg IVP Administration Document 06/02/18 16:28 KL (Rec: 06/02/18 16:29 KL [id number]) Charges for Administration # of IVP Administrations 1 Behavioural Document 06/02/18 16:28 KL (Rec: 06/02/18 16:29 [id number] Maintenance Maintenance Dose No Nonmedicinal Nonmedicinal Interventions Redirect Behavior Behavior for Medication: Anxiety Re-Assess: Reassess Psych Meds Document 06/02/18 16:58 KL (Rec: 06/02/18 17:01 [id number]) Reassess Psych Med Effective Mometasone Furoate (Asmanex Twisthaler 220 Mcg) 1 puff IH QPM [facility] Last Admin: 06/02/18 18:07 Dose: 1 puff Morphine Sulfate (Morphine) 2 mg IVP Q4H PRN PRN Reason: Pain, severe (8-10) Ondansetron HCl (Zofran Inj) 4 mg IVP Q6H PRN PRN Reason: Nausea/Vomiting Last Admin: 06/02/18 16:28 Dose: 4 mg IVP Administration Document 06/02/18 16:28 KL (Rec: 06/02/18 16:28 [id number]) Charges for Administration # of IVP Administrations 1 Pantoprazole Sodium (Protonix Ec Tab) 40 mg PO DAILY [facility] Last Admin: 06/02/18 11:00 Dose: 40 mg Discontinued Medications Acetaminophen (Tylenol 325mg Tab) 325 mg PO Q6H PRN PRN Reason: Pain, moderate (4-7) Al Hydrox/Mg Hydrox/Simethicone (Maalox Plus 30 Ml) 30 ml PO STAT STA Stop: 06/02/18 22:53 Last Admin: 06/02/18 23:37 Dose: 30 ml Albuterol Sulfate (Albuterol 0.5% Inhal Dena (5 Mg/ Ml) 20 Ml) 10 mg IH ONCE STA Stop: 05/31/18 19:50 Last Admin: 05/31/18 20:00 Dose: 10 mg Albuterol/Ipratropium (Duoneb 3 Mg/0.5 Mg (3 Ml) Ud) 3 ml IH STAT STA Stop: 06/01/18 02:35 Last Admin: 06/01/18 02:40 Dose: 3 ml Benzonatate (Tessalon Perles) 100 mg PO BID PRN PRN Reason: Cough Last Admin: 06/01/18 21:43 Dose: 100 mg Darbepoetin Arthur (Aranesp) 60 mcg IV ONCE ONE Stop: 06/01/18 09:26 Last Admin: 06/01/18 11:47 Dose: 60 mcg eMAR Start Stop Document 06/01/18 11:47 TH (Rec: 06/01/18 11:48 TH [id number]) Intravenous Solution Start Date 06/01/18 Start Time 11:48 End Date 06/01/18 End time 11:50 Total Infusion Time 2 Dextrose (Dextrose 50% Inj) 50 ml IVP ONCE ONE Stop: 05/31/18 19:50 Last Admin: 05/31/18 20:27 Dose: 50 ml IVP Administration Document 05/31/18 20:27 PR (Rec: 05/31/18 20:27 [id number]) Charges for Administration # of IVP Administrations 1 Dextrose (Dextrose 50% Inj) 50 ml IVP STAT STA Stop: 06/01/18 00:02 Last Admin: 06/01/18 00:04 Dose: 50 ml IVP Administration Document 06/01/18 00:04 RD (Rec: 06/01/18 00:04 RD [id number]) Charges for Administration # of IVP Administrations 1 Dextrose (Dextrose 50% Inj) 50 ml IVP STAT STA Stop: 06/01/18 01:50 Last Admin: 06/01/18 01:47 Dose: 50 ml IVP Administration Document 06/01/18 01:47 RD (Rec: 06/01/18 02:04 RD [id number]) Charges for Administration # of IVP Administrations 1 Furosemide (Lasix) 20 mg IVP ONCE ONE Stop: 06/02/18 13:00 Last Admin: 06/02/18 13:13 Dose: 20 mg MAR Blood Pressure Document 06/02/18 13:13 KL (Rec: 06/02/18 13:17 KL [id number]) Blood Pressure Blood Pressure (100/60-150/90 mm Hg) 127/63 IVP Administration Document 06/02/18 13:13 KL (Rec: 06/02/18 13:17 KL [id number]) Charges for Administration # of IVP Administrations 1 Glucagon (Glucagen Diagnostic Kit) 1 mg IV STAT STA Stop: 06/01/18 02:16 Last Admin: 06/01/18 02:34 Dose: 1 mg eMAR Start Stop Document 06/01/18 02:34 JMR (Rec: 06/01/18 02:34 R [id number]) Intravenous Solution Start Date 06/01/18 Start Time 02:34 End Date 06/01/18 End time 02:35 Total Infusion Time 1 Guaifenesin (Robitussin) 100 mg PO ONCE STA Stop: 05/31/18 20:30 Last Admin: 05/31/18 20:53 Dose: 100 mg Vancomycin HCl (Vancomycin 1gm) 1 gm in 250 mls @ 167 mls/hr IVPB STAT STA; Protocol Stop: 05/31/18 23:46 Last Admin: 05/31/18 23:51 Dose: 167 mls/hr eMAR Start Stop Document 05/31/18 23:51 RD (Rec: 05/31/18 23:51 RD [id number]) Intravenous Solution Start Date 05/31/18 Start Time 23:51 End Date 06/01/18 End time 01:21 Total Infusion Time 90 Vancomycin HCl (Vancomycin 1gm) 1 gm in 250 mls @ 167 mls/hr IVPB STAT STA; Protocol Stop: 06/01/18 14:50 Last Admin: 06/01/18 17:08 Dose: 167 mls/hr eMAR Start Stop Document 06/01/18 17:08 CRIMC (Rec: 06/01/18 17:08 CRIMC [id number]) Intravenous Solution Start Date 06/01/18 Start Time 17:08 End Date 06/01/18 End time 17:08 Total Infusion Time 0 Influenza Virus Vaccine (Flucelvax Quad 2420-7483 Syr) 60 mcg IM .ONCE ONE Stop: 06/01/18 18:00 Insulin Human Regular (Humulin R) 10 units IVP ONCE STA Stop: 05/31/18 19:51 Last Admin: 05/31/18 20:26 Dose: 10 units IVP Administration Document 05/31/18 20:26 PR (Rec: 05/31/18 20:27 PR [id number]) Charges for Administration # of IVP Administrations 1 Pneumococcal Polyvalent Vaccine (Pneumovax 23 Vaccine) 0.5 ml IM .ONCE ONE Stop: 06/01/18 18:00 Sodium Polystyrene Sulfonate (Kayexalate Susp) 30 gm PO STAT STA Stop: 05/31/18 19:50 Last Admin: 05/31/18 20:27 Dose: 30 gm <Thu Allen - Last Filed: 06/03/18 07:43> Disposition/Present on Arrival - Present on Arrival Any Indicators Present on Arrival: No History of DVT/PE: No History of Uncontrolled Diabetes: No Urinary Catheter: No History of Decub. Ulcer: No History Surgical Site Infection Following: None - Disposition Have Diagnosis and Disposition been Completed?: Yes Disposition Time: 18:45 Patient Plan: Admission <Florecita Bui - Last Filed: 06/01/18 00:55> <Thu Allen - Last Filed: 06/03/18 07:43> - Disposition Diagnosis: Gangrene of toe, Hyperkalemia Disposition: HOSPITALIZED Patient Problems: Current Active Problems Problem Status Onset Gangrene of toe Acute Hyperkalemia Acute Condition: STABLE
[2018-05-31 18:57] LABS: BASO # 0.04 K/mm3 (0.0-2.0); BASO % 0.6 % (0.0-3.0); EOS # 0.2 (0.0-0.7); EOS % 2.8 % (1.5-5.0); GRAN # 5.18 (1.4-6.5); GRAN % 75.8 % (50.0-68.0); HEMOGLOBIN 10.2 g/dL (12.0-16.0); LYMPH # 0.8 (1.2-3.4); LYMPH % 12.3 % (22.0-35.0); MEAN CELL VOLUME 95.8 fl (80.0-105.0); MEAN CORPUSCULAR HEMOGLOBIN 30.8 pg (25.0-35.0); MEAN CORPUSCULAR HGB CONC 32.2 g/dl (31.0-37.0); MEAN PLATELET VOLUME 10.4 fl (7.0-11.0); MONO # 0.6 (0.1-0.6); MONO % 8.5 % (1.0-6.0); RBC 3.31 10^6/uL (3.5-6.1); RED CELL DISTRIBUTION WIDTH 16.3 % (11.5-14.5); WHITE BLOOD COUNT 6.8 10^3/ul (4.5-11.0)
[2018-05-31 19:01] LABS: INR 1.2; PARTIAL THROMBOPLASTIN TIME 29.7 Seconds (25.1-36.5); PROTHROMBIN TIME 13.7 SECONDS (9.4-12.5)
[2018-05-31 19:42] LABS: ALB/GLOB RATIO 0.9 (1.1-1.8); ALBUMIN 3.2 g/dL (3.0-4.8); CALCIUM 9.8 mg/dL (8.4-10.5)
[2018-05-31] MEDS ORDERED: Albuterol 0.5% Inhal Sol (5 mg/ ml) 20 ml IH STA (19:49)
[2018-05-31] MEDS ORDERED: Sod Polystyrene Sulf 15 gm/60 ml Susp PO STA (19:49)
[2018-05-31] MEDS ORDERED: Dextrose 50% SYRINGE Inj (50 ml) IVP ONE (19:49)
[2018-05-31] MEDS ORDERED: Insulin Regular 1 UNITS/0.01 ML ML IVP STA (19:50)
[2018-05-31] MEDS ORDERED: guaiFENesin 100 mg/5 ml Syrup UD PO STA (20:29)
[2018-05-31] MEDS ORDERED: Vancomycin 1gm in NS 250ml 1 GM/250 ML BAG IVPB STA (22:17)
[2018-05-31 23:10] LABS: ALB/GLOB RATIO 0.9 (1.1-1.8); CALCIUM 9.8 mg/dL (8.4-10.5)
[2018-05-31 23:20] LABS: TROPONIN I 0.08 ng/mL
--- NOTE | 2018-05-31 23:21 | CARD ---
APPROVED REPORT Date of service: 05/31/2018 EKG Measurement Heart [id number] <Conclusion> Demand pacemaker, interpretation is based on intrinsic rhythm Atrial fibrillation Inferior infarct, age undetermined Possible Anterior infarct, age undetermined T wave abnormality, consider lateral ischemia or digitalis effect Abnormal ECG
[2018-05-31] MEDS ORDERED: Dextrose 50% SYRINGE Inj (50 ml) ONE (23:59)
[2018-06-01] MEDS ORDERED: Dextrose 50% SYRINGE Inj (50 ml) IVP STA ×2 (00:01→01:49)
[2018-06-01] MEDS ORDERED: Glucagon Recombinant 1 mg Inj IV STA (02:15)
[2018-06-01] MEDS ORDERED: Albuterol-Ipratrop 3 mg / 0.5 (3 ml) UD IH STA (02:34)
--- NOTE | 2018-06-01 03:43 | CP.PCM.HP ---
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 Patient states the [employer] that has been taking care of her foot for a month now referred her to ED for evaluation. While in the ED pt was found to have an elevated potassium and given an amp of D50 and then insulin, pt began to experience what appeared like a seizure with her tongue sticking out of her mouth. This activity lasted for about 1-2 mins which stopped spontaneously. Pt did not experience a post ictial state. Her Blood sugar was 56 , she was given another amp of D50, her sugar came up to 99, then on recheck went to 46, she was given another amp of D50 and her sugar corrected to 120 before being transferred to the floor. She denies pain, discharge, fever, chills, chest pain, SOB, nausea, vomiting, abdominal pain, any other complaint. A 12 point ROS was obtained and added to the HPI where appropriate. 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 since January, tobacco in the past, denies alcohol, denies drugs Ruth: ELAYNE PMD: Ervin Nephro: Bi Cardio: Ameen Present on Admission - Present on Admission Any Indicators Present on Admission: No Review of Systems - Review of Systems Review of Systems: a 12 point ROS was obtained and added to the HPI where appropriate Past Patient History - Infectious Disease Hx of Infectious Diseases: None - Tetanus Immunizations Tetanus Immunization: Unknown - Past Medical History & Family History Past Medical History?: Yes - Past Social History Smoking Status: Former Smoker - CARDIAC Hx Congestive Heart Failure: Yes (s/p pacemaker, A fib) Hx Hypertension: Yes - NEUROLOGICAL Hx Paralysis: No - HEENT Hx Cataracts: Yes - RENAL Hx Chronic Kidney Disease: Yes Hx Dialysis: Yes (//sun) Date of Last Dialysis Treatment: 05/13/18 - ENDOCRINE/METABOLIC Hx Hypothyroidism: Yes - HEMATOLOGICAL/ONCOLOGICAL Hx Blood Transfusions: No Hx Blood Transfusion Reaction: No - MUSCULOSKELETAL/RHEUMATOLOGICAL Hx Rheumatoid Arthritis: Yes (, , SUN) - GASTROINTESTINAL Hx Gastrointestinal Disorders: Yes Hx Gastroesophageal Reflux: Yes - PSYCHIATRIC Hx Emotional Abuse: No Hx Physical Abuse: No Hx Substance Use: No - SURGICAL HISTORY Other/Comment: left AV shunt - ANESTHESIA Hx Anesthesia Reactions: No Hx Malignant Hyperthermia: No Meds Allergies/Adverse Reactions: Allergies Allergy/AdvReac Type Severity Reaction Status Date / Time No Known Allergies Allergy Verified 05/07/18 11:54 Physical Exam - Constitutional Appears: No Acute Distress - Head Exam Head Exam: ATRAUMATIC, NORMOCEPHALIC - Eye Exam Eye Exam: EOMI - ENT Exam ENT Exam: Mucous Membranes Moist - Respiratory Exam Respiratory Exam: Clear to Auscultation Bilateral, NORMAL BREATHING PATTERN. absent: Accessory Muscle Use - Cardiovascular Exam Cardiovascular Exam: RRR, +S1, +S2 - GI/Abdominal Exam GI & Abdominal Exam: Normal Bowel Sounds, Soft - Extremities Exam Extremities exam: Negative for: calf tenderness Additional comments: pt 4th toe on left foot is gangrenous - Neurological Exam Neurological exam: Alert, Oriented x3 - Psychiatric Exam Psychiatric exam: Normal Affect, Normal Mood - Skin Skin Exam: Dry, Intact, Warm Results - Vital Signs Recent Vital Signs: Last Vital Signs Temp 97.6 F 06/01/18 03:20 Pulse 80 06/01/18 03:20 Resp 18 06/01/18 03:20 BP 121/53 L 06/01/18 03:20 Pulse Ox 98 06/01/18 03:20 - Labs Result Diagrams: 06/01/18 05:15 06/01/18 05:15 Labs: Laboratory Results - last 24 hr 05/31/18 05/31/18 05/31/18 18:42 18:42 18:42 WBC 6.8 D RBC 3.31 L Hgb 10.2 L Hct 31.7 L MCV 95.8 D MCH 30.8 MCHC 32.2 RDW 16.3 H Plt Count 211 MPV 10.4 Gran % 75.8 H Lymph % (Auto) 12.3 L Ballard % (Auto) 8.5 H Eos % (Auto) 2.8 Baso % (Auto) 0.6 Gran # 5.18 Lymph # (Auto) 0.8 L Ballard # (Auto) 0.6 Eos # (Auto) 0.2 Baso # (Auto) 0.04 PT 13.7 H INR 1.20 APTT 29.7 Sodium 135 Potassium 5.7 H* D Chloride 97 L Carbon Dioxide 27 Anion Gap 17 BUN 40 H Creatinine 5.7 H Est GFR ( Amer) 9 Est GFR (Non-Af Amer) 7 POC Glucose (mg/dL) Random Glucose 86 Calcium 9.8 Total Bilirubin 0.9 AST 35 ALT 16 Alkaline Phosphatase 121 Lactate Dehydrogenase Total Creatine Kinase Troponin I Total Protein 6.6 Albumin 3.2 Globulin 3.4 Albumin/Globulin Ratio 0.9 L 05/31/18 05/31/18 05/31/18 20:34 22:55 23:57 WBC RBC Hgb Hct MCV MCH MCHC RDW Plt Count MPV Gran % Lymph % (Auto) Ballard % (Auto) Eos % (Auto) Baso % (Auto) Gran # Lymph # (Auto) Ballard # (Auto) Eos # (Auto) Baso # (Auto) PT INR APTT Sodium 135 Potassium 5.4 H Chloride 99 Carbon Dioxide 25 Anion Gap 17 BUN 40 H Creatinine 5.8 H Est GFR ( Amer) 8 Est GFR (Non-Af Amer) 7 POC Glucose (mg/dL) 271 H 44 L Random Glucose 56 L Calcium 9.8 Total Bilirubin 0.8 AST 25 ALT 13 Alkaline Phosphatase 105 Lactate Dehydrogenase 406 Total Creatine Kinase 54 Troponin I 0.08 D Total Protein 6.2 Albumin 3.0 Globulin 3.2 Albumin/Globulin Ratio 0.9 L 06/01/18 06/01/18 06/01/18 00:46 01:44 02:32 WBC RBC Hgb Hct MCV MCH MCHC RDW Plt Count MPV Gran % Lymph % (Auto) Ballard % (Auto) Eos % (Auto) Baso % (Auto) Gran # Lymph # (Auto) Ballard # (Auto) Eos # (Auto) Baso # (Auto) PT INR APTT Sodium Potassium Chloride Carbon Dioxide Anion Gap BUN Creatinine Est GFR ( Amer) Est GFR (Non-Af Amer) POC Glucose (mg/dL) 99 49 L 90 Random Glucose Calcium Total Bilirubin AST ALT Alkaline Phosphatase Lactate Dehydrogenase Total Creatine Kinase Troponin I Total Protein Albumin Globulin Albumin/Globulin Ratio 06/01/18 03:29 WBC RBC Hgb Hct MCV MCH MCHC RDW Plt Count MPV Gran % Lymph % (Auto) Ballard % (Auto) Eos % (Auto) Baso % (Auto) Gran # Lymph # (Auto) Ballard # (Auto) Eos # (Auto) Baso # (Auto) PT INR APTT Sodium Potassium Chloride Carbon Dioxide Anion Gap BUN Creatinine Est GFR ( Amer) Est GFR (Non-Af Amer) POC Glucose (mg/dL) 120 H Random Glucose Calcium Total Bilirubin AST ALT Alkaline Phosphatase Lactate Dehydrogenase Total Creatine Kinase Troponin I Total Protein Albumin Globulin Albumin/Globulin Ratio Assessment & Plan - Assessment and Plan (Free Text) Assessment: Pt is a 82yo female with PMH of HTN, CHF, hypothyroid, Afib, pacemaker, and 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 Patient states the [employer] that has been taking care of her foot for a month now referred her to ED for evaluation. Plan: Hyperkalemia - K 5.5 - continue to trend - EKG: no peaked T waves Hypoglycemia possible seizure, Vs confusion due to Hypoglycemia - given glucagon - given D50 - accuchecks - follow up head CT - seizure precautions - continue D10@40 - Dr Hicks consulted Worsening Dry Gangrenous 4th Toe of Left Foot, S/p stent PVD - given vanc - follow up blood cultures - continue allopurinol - continue plavix - continue asa - follow up LE US - WBC 11.9 - Dr Gautam consulted - Dr Ruiz consulted ESRD dialysis on TTHS - Possible HD 06-01-18 - Dr Pat consulted Afib - continue cardizem - day team to follow up why pt is not on anticoagulant HTN, well controlled - continue to obseve without meds Hypothyroid - follow up on TSH and free T4 Ppx - heparin SC Q8 - low risk for GI stress ulcer Pt seen, examined, assessment and plan discussed with Dr Maci Yusuf PGY1, Internal Medicine Resident - Date & Time Date: 06/01/18 Time: 06:27
[2018-06-01 06:10] LABS: BASO # 0.03 K/mm3 (0.0-2.0); BASO % 0.3 % (0.0-3.0); EOS # 0.2 (0.0-0.7); EOS % 1.5 % (1.5-5.0); GRAN # 10.16 (1.4-6.5); GRAN % 85.7 % (50.0-68.0); HEMOGLOBIN 9.5 g/dL (12.0-16.0); LYMPH # 0.9 (1.2-3.4); LYMPH % 7.3 % (22.0-35.0); MEAN CELL VOLUME 95.5 fl (80.0-105.0); MEAN CORPUSCULAR HEMOGLOBIN 30.7 pg (25.0-35.0); MEAN CORPUSCULAR HGB CONC 32.2 g/dl (31.0-37.0); MEAN PLATELET VOLUME 10.8 fl (7.0-11.0); MONO # 0.6 (0.1-0.6); MONO % 5.2 % (1.0-6.0); RBC 3.09 10^6/uL (3.5-6.1); RED CELL DISTRIBUTION WIDTH 16.5 % (11.5-14.5); WHITE BLOOD COUNT 11.9 10^3/ul (4.5-11.0)
[2018-06-01 06:27] LABS: ALB/GLOB RATIO 0.9 (1.1-1.8); ALBUMIN 2.7 g/dL (3.0-4.8); CALCIUM 9.5 mg/dL (8.4-10.5)
[2018-06-01] MEDS: Mometasone 220 mcg/puff-14 puff Inh IH SCH ×2 (06:30→18:47)
[2018-06-01 08:37] LABS: HEMOGLOBIN 9.4 g/dL (12.0-16.0); MEAN CELL VOLUME 94.1 fl (80.0-105.0); MEAN CORPUSCULAR HEMOGLOBIN 30.6 pg (25.0-35.0); MEAN CORPUSCULAR HGB CONC 32.5 g/dl (31.0-37.0); MEAN PLATELET VOLUME 10.5 fl (7.0-11.0); RBC 3.07 10^6/uL (3.5-6.1); RED CELL DISTRIBUTION WIDTH 16.4 % (11.5-14.5); WHITE BLOOD COUNT 9.9 10^3/ul (4.5-11.0)
--- NOTE | 2018-06-01 08:48 | HP ---
HISTORY OF PRESENT ILLNESS: Patient is 82 years old who has been in rehab in [facility]. Patient was visited by Dr. Copeland, who is taking care of her foot wound. He found that the patient's left toe is gangrenous. So, he advised the staff to send her to emergency room for further evaluation. There is no history of fever or chills. No history of nausea or vomiting. Does complain of decreased appetite. Patient was recently discharged on 05/21/2018 to [facility]. During the admission by the end of April, during that stage she had respiratory distress and remained in ICU. She also ended up having paracentesis. PAST MEDICAL HISTORY: Patient carry diagnoses of: 1. Congestive heart failure. 2. Chronic atrial fibrillation. 3. Status post pacemaker placement. 4. End-stage renal disease, on hemodialysis. 5. Hypertension. 6. Coronary artery disease, nonocclusive. 7. History of pleural effusion. 8. Peptic ulcer disease. 9. History of gout. 10. Peripheral vascular disease, status post angioplasty. 11. Recent left external iliac and left common femoral artery atherectomy and drug-eluted balloon angioplasty of distal left superficial femoral and popliteal artery. 12. Left tibioperoneal trunk and proximal left peroneal artery angioplasty. 13. Left profunda femoral artery origin angioplasty. ALLERGIES: PATIENT IS NOT ALLERGIC TO ANY MEDICATION. MEDICATIONS AT HOME: Patient is on diltiazem 30 mg 3 times a day, Protonix 40 daily, Plavix 75 daily, Sensipar 30 mg daily, PhosLo 3 capsules 3 times a day, atorvastatin 40 mg daily, aspirin 81 daily, allopurinol 100 mg daily, Mucomyst and Tylenol. REVIEW OF SYSTEMS: Significant for left toe gangrenous and some discomfort. PHYSICAL EXAMINATION: GENERAL: Patient is awake and alert. Answers simple questions. VITAL SIGNS: She is afebrile, pulse 88, respirations 18, blood pressure 123/67. LUNGS: Bilateral fair airflow. No rhonchi or crackle. HEART: S1 and S2 audible. ABDOMEN: Soft, nontender. No rebound. No guarding. NEUROLOGIC: Patient is awake and alert. There was episode of seizure like activity while she was in the emergency room. LABORATORY DATA: CT scan of the head was done, unremarkable. WBC 6.8, hemoglobin 10.2, hematocrit 31.7, platelets 211. PT 13.7, INR 1.20. Chemistry: Sodium 135, potassium 5.7, chloride 97, CO2 27, BUN 40, creatinine 5.7, blood sugar of 71. LFTs are within normal limit. CT scan of the head reportedly unremarkable. Bilateral arterial Doppler for both legs is pending. ASSESSMENT: 1. Left toe gangrene. 2. Peripheral vascular disease. 3. End-stage renal disease, on hemodialysis. 4. Hypertension. 5. Hyperlipidemia. 6. Chronic atrial fibrillation. 7. Status post pacemaker placement. 8. Left tibioperoneal trunk and proximal left peroneal angioplasty. 9. Left profunda femoral angioplasty. 10. Left external iliac atherectomy and angioplasty. PLAN: Patient will be admitted on telemetry. We will start IV antibiotics. Continue her on Plavix. ID consult by Dr. Gautam; Nephrology consult by Dr. Pat; Vascular consult by Dr. Bk Ruiz have been requested. Bruno Lucas MD
[2018-06-01] MEDS ORDERED: Darbepoetin Alfa 60 mcg/ml Inj IV ONE (09:25)
[2018-06-01 09:43] LABS: FREE T4 1.1 ng/dL (0.78-2.19)
--- NOTE | 2018-06-01 09:56 | CT ---
Date of service: 05/31/2018 PROCEDURE: CT HEAD WITHOUT CONTRAST. HISTORY: s/p seizure COMPARISON: None available. TECHNIQUE: Axial computed tomography images were obtained through the head/brain without intravenous contrast. Radiation dose: Total exam DLP = 1105 mGy-cm. This CT exam was performed using one or more of the following dose reduction techniques: Automated exposure control, adjustment of the mA and/or kV according to patient size, and/or use of iterative reconstruction technique. FINDINGS: HEMORRHAGE: No intracranial hemorrhage. BRAIN: No mass effect or edema. Chronic microvascular changes in the periventricular white matter and basal ganglia bilaterally. Mild atrophy VENTRICLES: Unremarkable. No hydrocephalus. CALVARIUM: Unremarkable. PARANASAL SINUSES: Unremarkable as visualized. No significant inflammatory changes. MASTOID AIR CELLS: Unremarkable as visualized. No inflammatory changes. OTHER FINDINGS: The report concurs with the preliminary report IMPRESSION: No acute findings
[2018-06-01] MEDS: Pantoprazole 40 mg EC Tab PO SCH (10:00)
--- NOTE | 2018-06-01 10:41 | CARD ---
APPROVED REPORT Date of service: 05/31/2018 EKG Measurement Heart [id number] <Conclusion> Demand pacemaker, interpretation is based on intrinsic rhythm Atrial fibrillation Possible Anterolateral infarct, age undetermined T wave abnormality consider lateral wall ischemia Abnormal ECG
--- NOTE | 2018-06-01 11:23 | RAD ---
Date of service: 05/31/2018 PROCEDURE: CHEST RADIOGRAPH, 1 VIEW HISTORY: admission COMPARISON: 05/15/2018 FINDINGS: LUNGS: Clear. PLEURA: No pneumothorax or pleural fluid seen. CARDIOVASCULAR: Moderate cardiomegaly. OSSEOUS STRUCTURES: No significant abnormalities. VISUALIZED UPPER ABDOMEN: Normal. OTHER FINDINGS: Right-sided pacemaker. Left-sided dialysis catheter IMPRESSION: No active disease.
--- NOTE | 2018-06-01 11:32 | CON ---
DATE: 06/01/2018 REFERRING PHYSICIAN: Bruno Lucas MD. REASON FOR CONSULTATION: Evaluation of a patient known to me from inpatient hospitalizations and outpatient dialysis who presents back to the Emergency Room from [facility] with gangrene of her left fourth toe. In the Emergency Room, the patient had a seizure, thought to be secondary to possible hypoglycemia. The patient has no history of diabetes. HISTORY OF PRESENT ILLNESS: The patient is a pleasant 82-year-old black female with a history of end-stage renal disease, on chronic maintenance hemodialysis. The patient dialyzes at [facility] in [place]. She spent most of the summer at [facility]. History of nonocclusive ASHD, history of atrial fibrillation, history of permanent pacemaker. History of significant valvular heart disease, aortic stenosis, mitral regurgitation, mitral stenosis, tricuspid regurgitation, pulmonic insufficiency. History of hypertension. History of severe peripheral vascular disease. Recent hospitalization, she had a left lower extremity arthrectomy and angioplasty of the iliac, femoral, and popliteal arteries. History of COPD, past history of cigarette smoking. History of anemia secondary to chronic kidney disease, secondary hyperparathyroidism, recent ascites status post paracentesis, hyperlipidemia and hypothyroidism. The patient was sent back to the Emergency Room by her scalder because of gangrene developing in her left fourth toe. In the Emergency Room, the patient had a limited seizure, thought to be secondary to hypoglycemia. The patient is due for dialysis today. We are asked to evaluate the patient to provide ongoing medical care and dialysis services. PAST MEDICAL HISTORY: Significant for end-stage renal disease, nonocclusive coronary artery disease, valvular heart disease, ejection fraction 71%, history of severe peripheral vascular disease with left lower extremity gangrene in her toe. Status post recent atherectomy and angioplasty of left lower extremity. History of atrial fibrillation. History of severe pulmonary hypertension, COPD, anemia secondary to chronic kidney disease, secondary hyperparathyroidism, history of ascites status post paracentesis and hyperlipidemia. HOME MEDICATIONS: Include that of diltiazem, Protonix, Plavix, Sensipar, PhosLo, Lipitor, Ecotrin, allopurinol, Tylenol, and inhalation therapy as necessary. ALLERGIES: NO KNOWN ALLERGIES TO MEDICATIONS. CURRENT MEDICATIONS: In hospital include that of Asmanex Twisthaler, Cardizem, dextrose for her hypoglycemia, Ecotrin, Lipitor, subcutaneous heparin, PhosLo, Plavix, Protonix, Sensipar, Tylenol, and allopurinol. SOCIAL HISTORY: Past history of cigarette smoking. No history of alcohol. FAMILY HISTORY: Reviewed, noncontributory. REVIEW OF SYSTEMS: Ten plus systems reviewed with the patient. All negative except what is noted above. GENERAL: The patient states decreased appetite, but no continued weight loss. ENT: Denies any hearing or visual problems. PULMONARY: Mild shortness of breath. History of COPD. History of CHF. CARDIAC: History as noted above. Valvular heart disease as noted above. GASTROINTESTINAL: No nausea, vomiting, diarrhea, constipation, or abdominal pain. GENITOURINARY: No urine outputs. The patient has end-stage renal disease. GYNECOLOGIC: Postmenopausal. ENDOCRINE: No history of diabetes, history of secondary hyperparathyroidism. MUSCULOSKELETAL: No issues. NEUROLOGIC: No history of a recent CVAs or neurologic events. Positive seizure as noted above, likely secondary to mild hypoglycemia. HEMATOLOGIC AND ONCOLOGIC: Positive anemia secondary to chronic kidney disease. PSYCHIATRIC: History is negative. PHYSICAL EXAMINATION: GENERAL: The patient is currently seen in the ER, bed 18, awaiting the initiation of dialysis. The patient appears mildly short of breath. VITAL SIGNS: Blood pressure 114/60, pulse of 79, temperature of 97.6 with a respiratory rate of 18, pulse ox on room air is 97%. HEENT: Shows her to be normocephalic, atraumatic. Conjunctivae are pale. Sclerae are nonicteric. Pupils equal, round, and reactive to light and accommodation. Extraocular muscles are intact. Posterior pharynx is normal. NECK: Supple. No neck vein distention. No thyromegaly. No lymphadenopathy. No audible bruits. CHEST: Clear to auscultation and percussion with no rales, rhonchi, or wheezing. Positive left chest wall PermCath. CARDIOVASCULAR: Shows atrial fibrillation with an irregular S1, S2. Positive aortic stenosis, mitral stenosis, mitral regurgitation, tricuspid regurgitation, and pulmonic insufficiency. No S3, no S4, no rub. ABDOMEN: Soft. Bowel sounds normal. No rebound, guarding, or masses. EXTREMITIES: Showed significantly decreased lower extremity pulses. She has gangrenous changes of her fourth left toe. No edema. No clubbing. Clotted upper extremity AV access. NEUROLOGIC: Shows her to be alert, oriented, sleepy. No gross focal motor or sensory deficits are noted. LABORATORY DATA AND IMAGING: Head CT scan done through the Emergency Room. Chest x-ray done through the Emergency Room. Foot x-ray and extremity ultrasound done through the Emergency Room. All results are pending. CBC: White blood cell count 9.9, hemoglobin 9.4, platelet count is 210,000. Coags: PT of 13.7 with a PTT of 29.7. Chemistries show a sodium of 135; potassium was 5.7, lowered to 5.4, now 5.5. BUN 42 with a creatinine of 5.8. Glucose is 89. Calcium 9.5. Liver enzymes are normal. Albumin is 2.7. Microbiology, no reports available. Admitting EKG shows atrial fibrillation with a paced rhythm. ASSESSMENT: 1. End-stage renal disease. The patient will continue her routine dialysis. She is on a Sunday, , Sunday schedule. She had been on a Sunday, Sunday, and Sunday schedule prior to her [facility] admission. The patient is due for dialysis today. We will try and arrange this as soon as possible given the fact that she has received reasonable amounts of fluid through the Emergency Room during the night. 2. History of severe peripheral vascular disease of lower extremity with gangrenous changes of her left fourth toe. The patient is status post a recent atherectomy and angioplasty. The patient is being evaluated by Podiatry and will likely be evaluated by Vascular. 3. History of nonocclusive coronary artery disease, ejection fraction 71%. Valvular heart disease with aortic stenosis/mitral stenosis/mitral regurgitation/tricuspid regurgitation/pulmonary insufficiency. The patient is in atrial fibrillation and has a pacemaker. 4. History of severe pulmonary hypertension. 5. History of chronic obstructive pulmonary disease, past history of cigarette smoking. 6. History of anemia secondary to chronic kidney disease. The patient will receive Aranesp with dialysis. 7. History of secondary hyperparathyroidism. The patient will continue binder therapy and a renal diet. 8. History of hyperlipidemia and peripheral vascular disease. The patient will continue on statin therapy. PLAN: 1. Discussed with urgency room staff and the patient will try to expedite her dialysis in light of the fact that she is mildly short of breath and mildly hyperkalemic. 2. Agree with vascular and podiatry evaluation for her lower extremity peripheral vascular disease and gangrene in her left fourth toe. 3. Continue present medications for secondary hyperparathyroidism including that of binder therapy, vitamin D as per protocol and Sensipar. 4. Status post seizure activity. Perhaps secondary to hypoglycemia. The patient has no past history of diabetes. She will continue to receive glucose supplements as necessary to keep her glucose level in an acceptable range. Perhaps endocrine evaluation. 5. We will follow the patient closely with you. Thank you for letting me partake and share in the care of our mutual patient. Chuy Talbot MD
--- NOTE | 2018-06-01 12:12 | RAD ---
Date of service: 05/31/2018 PROCEDURE: Left Foot Radiographs. HISTORY: gangrenous toe COMPARISON: None. FINDINGS: BONES: There is some bony destruction of the tip of the 1st distal phalanx consistent with osteomyelitis. JOINTS: Normal. SOFT TISSUES: Normal. OTHER FINDINGS: None. IMPRESSION: There is some bony destruction of the tip of the 1st distal phalanx consistent with osteomyelitis.
[2018-06-01] MEDS ORDERED: Vancomycin 1gm in NS 250ml 1 GM/250 ML BAG IVPB STA (13:21)
--- NOTE | 2018-06-01 16:30 | PN ---
DATE: 06/01/2018 SUBJECTIVE: Patient is 82 years old black female with history of hypertension, congestive heart failure, AFib, end-stage renal disease on hemodialysis and status post pacemaker. Patient was seen by Dr. Copeland in [facility] and she was sent because of worsening of her foot wound. While the patient was in ER, she was found to have hyperkalemia. She was given Kayexalate with D50 and insulin. After that patient had multiple episodes of seizure like activity because of hypoglycemia. After 3 episodes, she was started on D10 since then she is doing well. Initial plan was to send patient to ICU, but later on she is downgraded and she is being transferred to telemetry now. PHYSICAL EXAMINATION: GENERAL: Today, she is awake, alert, oriented, communicative. Tired because she could not sleep last night, otherwise doing well. No nausea, vomiting, or diarrhea. VITAL SIGNS: Patient is afebrile, pulse 79, respiration 18, blood pressure 114/60. LUNGS: Bilateral good airflow. No rhonchi or crackle. HEART: S1 and S2 audible. ABDOMEN: Soft, nontender. No rebound. No guarding. NEUROLOGICAL: Patient is awake, alert, oriented, communicative. LABORATORY EXAMINATION: WBC is 9.9, hemoglobin 9.4, hematocrit 28.9, platelets of 210. Chemistry: Sodium 135, potassium 5.5, chloride 100, CO2 25. BUN 42, creatinine 5.8. Blood sugar 104. TSH 5.89. ASSESSMENT: 1. Seizure secondary to hypoglycemia currently on D10. 2. Hyperkalemia. Patient is going for dialysis today. 3. History of hypertension. 4. Coronary artery disease. 5. Chronic atrial fibrillation. 6. Recent left leg angioplasty. 7. Chronic anemia. 8. Hypertension. PLAN: Patient will receive hemodialysis today. We will feed her regular lunch . If she does well, we can discontinue D10 and monitor her blood sugar and the patient will be evaluated by Dr. Gautam. I discussed with the patient, she agreed for DNR. I will follow the patient in a.m. Bruno Lucas MD [facility] # [id number]
--- NOTE | 2018-06-01 17:30 | CP.PCM.CON ---
History of Present Illness - History of Present Illness History of Present Illness: 82 year old female with PMH of chronic CHF, HTN, atrial fibrillation, S/P pacemaker placement, ESRD on HD, PAD S/P femoral angioplasty, GERD, CAD, gout had angioplasty done on the left leg 2 weeks ago. She followed with her Learning Consultant 2 days ago and was noted to have starting change in the 4th toe on the left foot, which may be signs of dry gangrene and was told to go to [facility] for further evaluation and treatment. There is no note of fever, no vomiting, no diarrhea, no chest pain, no abdominal pain, no cough or colds, no chest pain. Infectious Diseases consult is requested to further evaluate and manage. Review of Systems - Review of Systems All systems: reviewed and no additional remarkable complaints except (as per HPI) Past Patient History - Infectious Disease Hx of Infectious Diseases: None - Tetanus Immunizations Tetanus Immunization: Unknown - Past Medical History & Family History Past Medical History?: Yes - Past Social History Smoking Status: Former Smoker - CARDIAC Hx Congestive Heart Failure: Yes (s/p pacemaker, A fib) Hx Hypertension: Yes - NEUROLOGICAL Hx Paralysis: No - HEENT Hx Cataracts: Yes - RENAL Hx Chronic Kidney Disease: Yes Hx Dialysis: Yes (//sun) Date of Last Dialysis Treatment: 05/13/18 - ENDOCRINE/METABOLIC Hx Hypothyroidism: Yes - HEMATOLOGICAL/ONCOLOGICAL Hx Blood Transfusions: No Hx Blood Transfusion Reaction: No - MUSCULOSKELETAL/RHEUMATOLOGICAL Hx Rheumatoid Arthritis: Yes (, , SUN) - GASTROINTESTINAL Hx Gastrointestinal Disorders: Yes Hx Gastroesophageal Reflux: Yes - PSYCHIATRIC Hx Emotional Abuse: No Hx Physical Abuse: No Hx Substance Use: No - SURGICAL HISTORY Other/Comment: left AV shunt - ANESTHESIA Hx Anesthesia Reactions: No Hx Malignant Hyperthermia: No Meds Allergies/Adverse Reactions: Allergies Allergy/AdvReac Type Severity Reaction Status Date / Time No Known Allergies Allergy Verified 05/07/18 11:54 - Medications Medications: Current Medications Acetaminophen (Tylenol 325mg Tab) 325 mg PO Q6 PRN PRN Reason: Pain, moderate (4-7) Allopurinol (Zyloprim) 100 mg PO DAILY [facility] Aspirin (Ecotrin) 81 mg PO DAILY [facility] Atorvastatin Calcium (Lipitor) 40 mg PO DAILY [facility] Calcium Acetate (Phoslo) 2,001 mg PO WM [facility] Cinacalcet (Sensipar) 30 mg PO DAILY [facility] Clopidogrel Bisulfate (Plavix) 75 mg PO DAILY [facility] Diltiazem HCl (Cardizem) 30 mg PO TID [facility] Heparin Sodium (Porcine) (Heparin) 5,000 units SC Q8 [facility]; Protocol Vancomycin HCl (Vancomycin 1gm) 1 gm in 250 mls @ 167 mls/hr IVPB STAT STA; Protocol Stop: 05/31/18 23:46 Pantoprazole Sodium (Protonix Ec Tab) 40 mg PO DAILY [facility] Physical Exam - Constitutional Appears: No Acute Distress, Chronically Ill - Head Exam Head Exam: NORMAL INSPECTION - Respiratory Exam Respiratory Exam: Decreased Breath Sounds - Cardiovascular Exam Cardiovascular Exam: +S1, +S2 - GI/Abdominal Exam GI & Abdominal Exam: Soft. absent: Tenderness - Extremities Exam Additional comments: left foot 4th toe with duskiness, no tenderness, no discharge; the left foot feels warm (same as other body parts) but no note of erythema, right foot feels cold to the touch Results - Vital Signs Recent Vital Signs: Last Vital Signs Temp 98 F 05/31/18 17:38 Pulse 83 05/31/18 23:07 Resp 18 05/31/18 23:07 BP 118/59 L 05/31/18 23:07 Pulse Ox 97 05/31/18 23:07 - Labs Result Diagrams: 06/01/18 08:03 06/01/18 05:15 Labs: Laboratory Results - last 24 hr 05/31/18 05/31/18 05/31/18 18:42 18:42 18:42 WBC 6.8 D RBC 3.31 L Hgb 10.2 L Hct 31.7 L MCV 95.8 D MCH 30.8 MCHC 32.2 RDW 16.3 H Plt Count 211 MPV 10.4 Gran % 75.8 H Lymph % (Auto) 12.3 L [place] % (Auto) 8.5 H Eos % (Auto) 2.8 Baso % (Auto) 0.6 Gran # 5.18 Lymph # (Auto) 0.8 L [place] # (Auto) 0.6 Eos # (Auto) 0.2 Baso # (Auto) 0.04 PT 13.7 H INR 1.20 APTT 29.7 Sodium 135 Potassium 5.7 H* D Chloride 97 L Carbon Dioxide 27 Anion Gap 17 BUN 40 H Creatinine 5.7 H Est GFR ( Amer) 9 Est GFR (Non-Af Amer) 7 POC Glucose (mg/dL) Random Glucose 86 Calcium 9.8 Total Bilirubin 0.9 AST 35 ALT 16 Alkaline Phosphatase 121 Lactate Dehydrogenase Total Creatine Kinase Troponin I Total Protein 6.6 Albumin 3.2 Globulin 3.4 Albumin/Globulin Ratio 0.9 L 05/31/18 05/31/18 20:34 22:55 WBC RBC Hgb Hct MCV MCH MCHC RDW Plt Count MPV Gran % Lymph % (Auto) [place] % (Auto) Eos % (Auto) Baso % (Auto) Gran # Lymph # (Auto) [place] # (Auto) Eos # (Auto) Baso # (Auto) PT INR APTT Sodium 135 Potassium 5.4 H Chloride 99 Carbon Dioxide 25 Anion Gap 17 BUN 40 H Creatinine 5.8 H Est GFR ( Amer) 8 Est GFR (Non-Af Amer) 7 POC Glucose (mg/dL) 271 H Random Glucose 56 L Calcium 9.8 Total Bilirubin 0.8 AST 25 ALT 13 Alkaline Phosphatase 105 Lactate Dehydrogenase 406 Total Creatine Kinase 54 Troponin I 0.08 D Total Protein 6.2 Albumin 3.0 Globulin 3.2 Albumin/Globulin Ratio 0.9 L Assessment & Plan - Assessment and Plan (Free Text) Plan: Assessment left foot 4th toe with ischemic changes, R/O developing dry gangrene, but no systemic signs of infection PAD S/P femoral angioplasty chronic CHF atrial fibrillation ESRD on HD GERD CAD gout Plan Will give intermittent Vancomycin and check blood cx and monitor WBC count and temperatures follow up plans of Vascular, Podiatry - they are planning amputation of the toe will monitor clinically discussed with family at bedside
[2018-06-01] MEDS ORDERED: Pneumococcal 23-Valent Vaccine IM ONE (17:59)
[2018-06-01] MEDS ORDERED: Influenza Vaccine 60 mcg/0.5 mL SYR (4YR UP) IM ONE (17:59)
--- NOTE | 2018-06-01 18:21 | CON ---
DATE: 06/01/2018 HISTORY OF PRESENT ILLNESS: An 82-year-old female seen in the emergency room for consultation, evaluation, and management of a gangrenous left fourth toe as well as ischemic left foot. 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 The patient is status post angio at [facility] on 05/16/2018. She had been discharged to [facility] where her wound was healing, only to have worsened in the last 1 week. PAST MEDICAL HISTORY: The patient's medical history is significant for end-stage renal disease, on hemodialysis 3 days a week; essential hypertension; HLD; CAD; severe PVD; pacemaker; CHF; AFib; hypothyroidism; gout; pleural effusions; severe right heart failure; and anemia of chronic disease. PAST SURGICAL HISTORY: Includes carotid endarterectomy and recent angiogram and angioplasty of the left lower leg. MEDICATIONS: All medications are noted in MAR. FAMILY HISTORY: Noncontributory. SOCIAL HISTORY: She lives with her daughter, has been residing in [facility] since January. She is a former smoker, quit for many years. Denies any illicit drug use. Denies alcohol abuse. ALLERGIES: THE PATIENT HAS NO KNOWN DRUG ALLERGIES. PHYSICAL EXAMINATION: VITAL SIGNS: Reveal temperature of 97.6, pulse of 80, blood pressure 121/53, respiratory rate 18. LABORATORY FINDINGS: Reveal white count of 9.9, hemoglobin of 9.4, hematocrit of 28.9, and platelet count of 210. There is no microbiology report noted. x-rays of the left foot reveal no radiographic evidence of cortical bone destruction to suggest osteomyelitis at the left fourth digit. However, there is noted to be lisbet gangrene present. Arterial Doppler results are pending. OBJECTIVE: Nonpalpable pedal pulses noted bilaterally. Absent pedal hair growth noted bilaterally. Lower extremity skin presents thin, shining, discolored bilaterally. The patient has diminished protective sensation using 5.07 g monofilament wire testing bilaterally. There is noted to be the left fourth toe presents gangrenous changes and the entire left forefoot presents with dark dusky appearance indicative of impending ischemia. She does have pain upon palpation of the left fourth digit and surrounding area. There is noted to be no palpable popliteal pulse and all pedal pulses are nonpalpable. There is no drainage. There is no purulence. There are no signs of underlying abscess formation. ASSESSMENT: Gangrene of the left fourth digit with impending ischemia of the left forefoot secondary to severe peripheral arterial disease. PLAN: The patient was seen and examined. Foot was cleansed with sterile saline and a dry sterile dressing was applied. Recommend immediate Vascular consult to ascertain lower extremity perfusion. We are waiting arterial Doppler results. We need to determine if a digital amputation is satisfactory or if the patient will require a more proximal amputation. Consult with Dr. Bk Ruiz has been ordered as well as an Infectious Disease consult with Dr. Gautam. We will await arterial Doppler results as well as Vascular input. The patient will be seen and followed daily. Thien Copeland DPM
--- NOTE | 2018-06-01 21:38 | CP.PCM.CON ---
<Joselito Yusuf - Last Filed: 06/01/18 21:43> History of Present Illness - History of Present Illness History of Present Illness: Joselito Yusuf PGY1 History and Physical for Dr Davila Pt is a 82yo female with PMH of HTN, CHF, hypothyroid, Afib, pacemaker, and ESRD dialysis on TTHS bib EMS from [facility] for gangrenous left toe. Patient states the Residential Air Sealing Technician that has been taking care of her foot for a month now referred her to ED for evaluation. While in the ED pt was found to have an elevated potassium and given an amp of D50 and then insulin, pt began to experience what appeared like a seizure with her tongue sticking out of her mouth. This activity lasted for about 1-2 mins which stopped spontaneously. Pt did not experience a post ictial state. Her Blood sugar was 56 , she was given another amp of D50, her sugar came up to 99, then on recheck went to 46, she was given another amp of D50 and her sugar corrected to 120 before being transferred to the floor. She denies pain, discharge, fever, chills, chest pain, SOB, nausea, vomiting, abdominal pain, any other complaint. A 12 point ROS was obtained and added to the HPI where appropriate. 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, severe right heart failure ECHO Apr 2018 EF 70%, RVSP 81, severe tricuspid regurg, severe pulm valve regurg, severe pulm HTN, anemia of chronic disease, PVD s/p angiogram and angioplasty of LLE PSH: denies Meds: per chart FH: reviewed and unremarkable SH: lives with daughter, currently in [facility] since January, tobacco in the past, denies alcohol, denies drugs Alepeggygiyuriy: ELANYE PMD: Ervin Nephro: Bi Cardio: Ameen Review of Systems - Review of Systems Review of Systems: a 12 point ROS was obtained and added to the HPI where appropriate Past Patient History - Infectious Disease Hx of Infectious Diseases: None - Tetanus Immunizations Tetanus Immunization: Unknown - Past Medical History & Family History Past Medical History?: Yes - Past Social History Smoking Status: Former Smoker - CARDIAC Hx Congestive Heart Failure: Yes (s/p pacemaker, A fib) Hx Hypertension: Yes - PULMONARY Hx Respiratory Disorders: No - NEUROLOGICAL Hx Paralysis: No - HEENT Hx Cataracts: Yes - RENAL Hx Chronic Kidney Disease: Yes Hx Dialysis: Yes (//sun) Date of Last Dialysis Treatment: 05/13/18 - ENDOCRINE/METABOLIC Hx Hypothyroidism: Yes - HEMATOLOGICAL/ONCOLOGICAL Hx Blood Transfusions: No Hx Blood Transfusion Reaction: No - INTEGUMENTARY Hx Dermatological Problems: Yes Other/Comment: right foot cold, with thick hard toenails, multiple skin discolorations ble, 0.5cm round dark brown areas of skin, skin darkened to buttocks no openings, left foot dark skin but warm to touch, thick hard toenails, toes gangrenous leathery dark skin, painful when touched - MUSCULOSKELETAL/RHEUMATOLOGICAL Hx Rheumatoid Arthritis: Yes (, , SUN) - GASTROINTESTINAL Hx Gastrointestinal Disorders: Yes Hx Gastroesophageal Reflux: Yes - GENITOURINARY/GYNECOLOGICAL Hx Genitourinary Disorders: Yes (anuria) - PSYCHIATRIC Hx Emotional Abuse: No Hx Physical Abuse: No Hx Substance Use: No - SURGICAL HISTORY Other/Comment: left AV shunt - ANESTHESIA Hx Anesthesia Reactions: No Hx Malignant Hyperthermia: No Meds Allergies/Adverse Reactions: Allergies Allergy/AdvReac Type Severity Reaction Status Date / Time No Known Allergies Allergy Verified 05/07/18 11:54 - Medications Medications: Current Medications Acetaminophen (Tylenol 325mg Tab) 325 mg PO Q6 PRN PRN Reason: Pain, moderate (4-7) Allopurinol (Zyloprim) 100 mg PO DAILY [facility] Last Admin: 06/01/18 10:00 Dose: Not Given Aspirin (Ecotrin) 81 mg PO DAILY [facility] Last Admin: 06/01/18 10:00 Dose: Not Given Atorvastatin Calcium (Lipitor) 40 mg PO DAILY [facility] Last Admin: 06/01/18 10:00 Dose: Not Given Benzonatate (Tessalon Perles) 100 mg PO BID PRN PRN Reason: Cough Calcium Acetate (Phoslo) 2,001 mg PO WM [facility] Last Admin: 06/01/18 18:46 Dose: 2,001 mg Cinacalcet (Sensipar) 30 mg PO DAILY [facility] Last Admin: 06/01/18 10:00 Dose: Not Given Clopidogrel Bisulfate (Plavix) 75 mg PO DAILY [facility] Last Admin: 06/01/18 10:00 Dose: Not Given Diltiazem HCl (Cardizem) 30 mg PO TID [facility] Last Admin: 06/01/18 18:47 Dose: 30 mg Heparin Sodium (Porcine) (Heparin) 5,000 units SC Q8 [facility]; Protocol Last Admin: 06/01/18 14:00 Dose: Not Given Dextrose (Dextrose 10% In Water) 500 mls @ 40 mls/hr IV .[id number] [facility] Last Admin: 06/01/18 02:39 Dose: 40 mls/hr Mometasone Furoate (Asmanex Twisthaler 220 Mcg) 1 puff IH QPM [facility] Last Admin: 06/01/18 18:47 Dose: 1 puff Pantoprazole Sodium (Protonix Ec Tab) 40 mg PO DAILY [facility] Last Admin: 06/01/18 10:00 Dose: Not Given Physical Exam - Head Exam Head Exam: ATRAUMATIC, NORMOCEPHALIC - ENT Exam ENT Exam: Mucous Membranes Moist - Respiratory Exam Respiratory Exam: Clear to Auscultation Bilateral - Cardiovascular Exam Cardiovascular Exam: REGULAR RHYTHM - Skin Skin Exam: Dry, Normal Color, Warm Results - Vital Signs Recent Vital Signs: Last Vital Signs Temp 97.6 F 06/01/18 03:20 Pulse 91 H 06/01/18 18:47 Resp 20 06/01/18 17:59 BP 102/51 L 06/01/18 17:59 Pulse Ox 98 06/01/18 17:59 - Labs Result Diagrams: 06/01/18 08:03 06/01/18 05:15 Labs: Laboratory Results - last 24 hr 05/31/18 05/31/18 06/01/18 22:55 23:57 00:46 WBC RBC Hgb Hct MCV MCH MCHC RDW Plt Count MPV Gran % Lymph % (Auto) [place] % (Auto) Eos % (Auto) Baso % (Auto) Gran # Lymph # (Auto) [place] # (Auto) Eos # (Auto) Baso # (Auto) Sodium 135 Potassium 5.4 H Chloride 99 Carbon Dioxide 25 Anion Gap 17 BUN 40 H Creatinine 5.8 H Est GFR ( Amer) 8 Est GFR (Non-Af Amer) 7 POC Glucose (mg/dL) 44 L 99 Random Glucose 56 L Calcium 9.8 Total Bilirubin 0.8 AST 25 ALT 13 Alkaline Phosphatase 105 Lactate Dehydrogenase 406 Total Creatine Kinase 54 Troponin I 0.08 D Total Protein 6.2 Albumin 3.0 Globulin 3.2 Albumin/Globulin Ratio 0.9 L Free T4 TSH 3rd Generation 06/01/18 06/01/18 06/01/18 01:44 02:32 03:29 WBC RBC Hgb Hct MCV MCH MCHC RDW Plt Count MPV Gran % Lymph % (Auto) [place] % (Auto) Eos % (Auto) Baso % (Auto) Gran # Lymph # (Auto) [place] # (Auto) Eos # (Auto) Baso # (Auto) Sodium Potassium Chloride Carbon Dioxide Anion Gap BUN Creatinine Est GFR ( Amer) Est GFR (Non-Af Amer) POC Glucose (mg/dL) 49 L 90 120 H Random Glucose Calcium Total Bilirubin AST ALT Alkaline Phosphatase Lactate Dehydrogenase Total Creatine Kinase Troponin I Total Protein Albumin Globulin Albumin/Globulin Ratio Free T4 TSH 3rd Generation 06/01/18 06/01/18 06/01/18 04:50 05:15 05:15 WBC 11.9 H D RBC 3.09 L Hgb 9.5 L Hct 29.5 L MCV 95.5 MCH 30.7 MCHC 32.2 RDW 16.5 H Plt Count 210 MPV 10.8 Gran % 85.7 H Lymph % (Auto) 7.3 L [place] % (Auto) 5.2 Eos % (Auto) 1.5 Baso % (Auto) 0.3 Gran # 10.16 H Lymph # (Auto) 0.9 L [place] # (Auto) 0.6 Eos # (Auto) 0.2 Baso # (Auto) 0.03 Sodium 135 Potassium 5.5 H Chloride 100 Carbon Dioxide 25 Anion Gap 15 BUN 42 H Creatinine 5.8 H Est GFR ( Amer) 8 Est GFR (Non-Af Amer) 7 POC Glucose (mg/dL) 95 Random Glucose 89 Calcium 9.5 Total Bilirubin 0.7 AST 25 ALT 23 Alkaline Phosphatase 98 Lactate Dehydrogenase Total Creatine Kinase Troponin I Total Protein 5.9 Albumin 2.7 L Globulin 3.2 Albumin/Globulin Ratio 0.9 L Free T4 TSH 3rd Generation 06/01/18 06/01/18 06/01/18 06:20 08:03 08:03 WBC 9.9 RBC 3.07 L Hgb 9.4 L Hct 28.9 L MCV 94.1 MCH 30.6 MCHC 32.5 RDW 16.4 H Plt Count 210 MPV 10.5 Gran % Lymph % (Auto) [place] % (Auto) Eos % (Auto) Baso % (Auto) Gran # Lymph # (Auto) [place] # (Auto) Eos # (Auto) Baso # (Auto) Sodium Potassium Chloride Carbon Dioxide Anion Gap BUN Creatinine Est GFR ( Amer) Est GFR (Non-Af Amer) POC Glucose (mg/dL) 104 Random Glucose Calcium Total Bilirubin AST ALT Alkaline Phosphatase Lactate Dehydrogenase Total Creatine Kinase Troponin I Total Protein Albumin Globulin Albumin/Globulin Ratio Free T4 1.10 TSH 3rd Generation 5.89 H 06/01/18 06/01/18 09:15 19:43 WBC RBC Hgb Hct MCV MCH MCHC RDW Plt Count MPV Gran % Lymph % (Auto) [place] % (Auto) Eos % (Auto) Baso % (Auto) Gran # Lymph # (Auto) [place] # (Auto) Eos # (Auto) Baso # (Auto) Sodium Potassium Chloride Carbon Dioxide Anion Gap BUN Creatinine Est GFR ( Amer) Est GFR (Non-Af Amer) POC Glucose (mg/dL) 96 144 H Random Glucose Calcium Total Bilirubin AST ALT Alkaline Phosphatase Lactate Dehydrogenase Total Creatine Kinase Troponin I Total Protein Albumin Globulin Albumin/Globulin Ratio Free T4 TSH 3rd Generation Assessment & Plan - Assessment and Plan (Free Text) Assessment: Pt is a 82yo female with PMH of HTN, CHF, hypothyroid, Afib, pacemaker, and ESRD dialysis on TTHS bib EMS from [facility] for gangrenous left toe. Patient states the Residential Air Sealing Technician that has been taking care of her foot for a month now referred her to ED for evaluation. Plan: Hyperkalemia - K 5.5 - continue to trend - EKG: no peaked T waves Hypoglycemia possible seizure, Vs confusion due to Hypoglycemia - given glucagon - given D50 - accuchecks - follow up head CT - seizure precautions - continue D10@40 - Dr Hicks consulted Worsening Dry Gangrenous 4th Toe of Left Foot, S/p stent PVD - given vanc - follow up blood cultures - continue allopurinol - continue plavix - continue asa - follow up LE US - WBC 11.9 - Dr Gautam consulted - Dr Ruiz consulted ESRD dialysis on TTHS - Possible HD 06-01-18 - Dr Pat consulted Afib - continue cardizem - day team to follow up why pt is not on anticoagulant HTN, well controlled - continue to obseve without meds Hypothyroid - follow up on TSH and free T4 Ppx - heparin SC Q8 - low risk for GI stress ulcer Pt seen, examined, assessment and plan discussed with Dr Lola Yusuf PGY1, Internal Medicine Resident - Date & Time Date: 06/01/18 Time: 03:42 <Rowan Davila - Last Filed: 06/02/18 02:26> Meds - Medications Medications: Current Medications Acetaminophen (Tylenol 325mg Tab) 325 mg PO Q6 PRN PRN Reason: Pain, moderate (4-7) Allopurinol (Zyloprim) 100 mg PO DAILY [facility] Last Admin: 06/01/18 10:00 Dose: Not Given Aspirin (Ecotrin) 81 mg PO DAILY [facility] Last Admin: 06/01/18 10:00 Dose: Not Given Atorvastatin Calcium (Lipitor) 40 mg PO DAILY [facility] Last Admin: 06/01/18 10:00 Dose: Not Given Calcium Acetate (Phoslo) 2,001 mg PO WM [facility] Last Admin: 06/01/18 18:46 Dose: 2,001 mg Cinacalcet (Sensipar) 30 mg PO DAILY [facility] Last Admin: 06/01/18 10:00 Dose: Not Given Clopidogrel Bisulfate (Plavix) 75 mg PO DAILY [facility] Last Admin: 06/01/18 10:00 Dose: Not Given Diltiazem HCl (Cardizem) 30 mg PO TID [facility] Last Admin: 06/01/18 18:47 Dose: 30 mg Guaifenesin (Robitussin) 100 mg PO Q4H PRN PRN Reason: Cough Last Admin: 06/02/18 00:57 Dose: 100 mg Heparin Sodium (Porcine) (Heparin) 5,000 units SC Q8 [facility]; Protocol Last Admin: 06/01/18 21:42 Dose: 5,000 units Dextrose (Dextrose 10% In Water) 500 mls @ 40 mls/hr IV .[id number] [facility] Last Admin: 06/01/18 21:42 Dose: 40 mls/hr Mometasone Furoate (Asmanex Twisthaler 220 Mcg) 1 puff IH QPM [facility] Last Admin: 06/01/18 18:47 Dose: 1 puff Pantoprazole Sodium (Protonix Ec Tab) 40 mg PO DAILY [facility] Last Admin: 06/01/18 10:00 Dose: Not Given Results - Vital Signs Recent Vital Signs: Last Vital Signs Temp 98.7 F 06/02/18 00:01 Pulse 97 H 06/02/18 00:01 Resp 19 06/02/18 00:01 BP 108/57 L 06/02/18 00:01 Pulse Ox 96 06/02/18 00:01 - Labs Result Diagrams: 06/01/18 08:03 06/01/18 05:15 Labs: Laboratory Results - last 24 hr 06/01/18 06/01/18 06/01/18 01:44 02:32 03:29 WBC RBC Hgb Hct MCV MCH MCHC RDW Plt Count MPV Gran % Lymph % (Auto) [place] % (Auto) Eos % (Auto) Baso % (Auto) Gran # Lymph # (Auto) [place] # (Auto) Eos # (Auto) Baso # (Auto) Sodium Potassium Chloride Carbon Dioxide Anion Gap BUN Creatinine Est GFR ( Amer) Est GFR (Non-Af Amer) POC Glucose (mg/dL) 49 L 90 120 H Random Glucose Calcium Total Bilirubin AST ALT Alkaline Phosphatase Total Protein Albumin Globulin Albumin/Globulin Ratio Free T4 TSH 3rd Generation 06/01/18 06/01/18 06/01/18 04:50 05:15 05:15 WBC 11.9 H D RBC 3.09 L Hgb 9.5 L Hct 29.5 L MCV 95.5 MCH 30.7 MCHC 32.2 RDW 16.5 H Plt Count 210 MPV 10.8 Gran % 85.7 H Lymph % (Auto) 7.3 L [place] % (Auto) 5.2 Eos % (Auto) 1.5 Baso % (Auto) 0.3 Gran # 10.16 H Lymph # (Auto) 0.9 L [place] # (Auto) 0.6 Eos # (Auto) 0.2 Baso # (Auto) 0.03 Sodium 135 Potassium 5.5 H Chloride 100 Carbon Dioxide 25 Anion Gap 15 BUN 42 H Creatinine 5.8 H Est GFR ( Amer) 8 Est GFR (Non-Af Amer) 7 POC Glucose (mg/dL) 95 Random Glucose 89 Calcium 9.5 Total Bilirubin 0.7 AST 25 ALT 23 Alkaline Phosphatase 98 Total Protein 5.9 Albumin 2.7 L Globulin 3.2 Albumin/Globulin Ratio 0.9 L Free T4 TSH 3rd Generation 06/01/18 06/01/18 06/01/18 06:20 08:03 08:03 WBC 9.9 RBC 3.07 L Hgb 9.4 L Hct 28.9 L MCV 94.1 MCH 30.6 MCHC 32.5 RDW 16.4 H Plt Count 210 MPV 10.5 Gran % Lymph % (Auto) [place] % (Auto) Eos % (Auto) Baso % (Auto) Gran # Lymph # (Auto) [place] # (Auto) Eos # (Auto) Baso # (Auto) Sodium Potassium Chloride Carbon Dioxide Anion Gap BUN Creatinine Est GFR ( Amer) Est GFR (Non-Af Amer) POC Glucose (mg/dL) 104 Random Glucose Calcium Total Bilirubin AST ALT Alkaline Phosphatase Total Protein Albumin Globulin Albumin/Globulin Ratio Free T4 1.10 TSH 3rd Generation 5.89 H 06/01/18 06/01/18 06/02/18 09:15 19:43 00:06 WBC RBC Hgb Hct MCV MCH MCHC RDW Plt Count MPV Gran % Lymph % (Auto) [place] % (Auto) Eos % (Auto) Baso % (Auto) Gran # Lymph # (Auto) [place] # (Auto) Eos # (Auto) Baso # (Auto) Sodium Potassium Chloride Carbon Dioxide Anion Gap BUN Creatinine Est GFR ( Amer) Est GFR (Non-Af Amer) POC Glucose (mg/dL) 96 144 H 110 Random Glucose Calcium Total Bilirubin AST ALT Alkaline Phosphatase Total Protein Albumin Globulin Albumin/Globulin Ratio Free T4 TSH 3rd Generation Attending/Attestation - Attestation I have personally seen and examined this patient.: Yes I have fully participated in the care of the patient.: Yes I have reviewed all pertinent clinical information: Yes
[2018-06-02] MEDS: guaiFENesin 100 mg/5 ml Syrup UD PO PRN ×2 (00:57→12:55)
[2018-06-02 07:54] LABS: HEMOGLOBIN 9.4 g/dL (12.0-16.0); MEAN CELL VOLUME 95.2 fl (80.0-105.0); MEAN CORPUSCULAR HEMOGLOBIN 30.2 pg (25.0-35.0); MEAN CORPUSCULAR HGB CONC 31.8 g/dl (31.0-37.0); MEAN PLATELET VOLUME 10.2 fl (7.0-11.0); RBC 3.11 10^6/uL (3.5-6.1); RED CELL DISTRIBUTION WIDTH 16.4 % (11.5-14.5); WHITE BLOOD COUNT 6.3 10^3/ul (4.5-11.0)
[2018-06-02 09:02] LABS: ALB/GLOB RATIO 0.9 (1.1-1.8); ALBUMIN 2.7 g/dL (3.0-4.8); CALCIUM 9.5 mg/dL (8.4-10.5)
--- NOTE | 2018-06-02 10:27 | PN ---
DATE: 06/02/2018 SUBJECTIVE: The patient has no complaints of any chest pain. No shortness of breath. No headaches. PHYSICAL EXAMINATION: VITAL SIGNS: Temperature is 98.6, pulse of 87, blood pressure is 104/52, respirations 19. GENERAL: The patient is lying in bed, flat, comfortable. HEENT: No oral lesion. Anicteric sclerae. Moist mucosa. NECK: No JVD, adenopathy, or thyromegaly. CARDIOVASCULAR: S1 and S2, regular. No murmurs, rubs, or gallops. LUNGS: Clear to auscultation bilaterally. No wheeze, rales, or rhonchi. ABDOMEN: Bowel sounds are positive, soft, nontender and nondistended. EXTREMITIES: No cyanosis, clubbing or edema. LABORATORY DATA: White count of 6.3, hemoglobin 9.4. The creatinine is 4.9. ASSESSMENT: 1. Seizures secondary to hypoglycemia, improved. 2. Hyperkalemia, improved. 3. Hypertension. 4. Coronary artery disease. 5. Peripheral arterial disease, with left leg angioplasty. 6. Anemia secondary to chronic kidney disease. 7. Hypertension. 8. DNR. 9. End-stage renal disease, on hemodialysis. PLAN: The patient is currently comfortable. She does have a dry gangrene. She is getting intermittent vancomycin. The patient is receiving Cardizem. She is on D10 for the hypoglycemia. The patient's sugars yesterday were still in the 60s. We will continue. She is receiving heparin for DVT prophylaxis. She is on Lipitor for dyslipidemia. She is on PhosLo for her secondary hyperparathyroidism. She is on Sensipar for her secondary hyperparathyroidism. She is going to continue with allopurinol. She is on a renal diet. She is being followed by ID, Podiatry and Nephrology. This is coverage for Dr. Lucas. Delon Mckoy MD
[2018-06-02] MEDS: Pantoprazole 40 mg EC Tab PO SCH (11:00)
--- NOTE | 2018-06-02 13:17 | CP.PCM.PN ---
Subjective - Date & Time of Evaluation Date of Evaluation: 06/02/18 Time of Evaluation: 08:00 - Subjective Subjective: Podiatry - Drs. Copeland/Harrison 82F seen and evaluated this AM for left 4th digit gangrene + ischemia. Patient resting comfortably at time of visit, NAD. Per chart, yesterday pt experienced seizure like activity which stopped spontaneously. Patient reports pain in left 4th digit, well-controlled. Dressing to left foot absent. Denies n/v/f/d/c/sob. Objective - Vital Signs/Intake and Output Vital Signs (last 24 hours): Temp Pulse Resp BP Pulse Ox 98.1 F 72 19 108/58 L 96 06/02/18 12:00 06/02/18 12:00 06/02/18 12:00 06/02/18 12:00 06/02/18 06:00 Intake and Output: 06/02/18 06/02/18 06:59 18:59 Intake Total 506 Output Total 0 Balance 506 - Medications Medications: Current Medications Acetaminophen (Tylenol 325mg Tab) 325 mg PO Q6 PRN PRN Reason: Pain, moderate (4-7) Albuterol/Ipratropium (Duoneb 3 Mg/0.5 Mg (3 Ml) Ud) 3 ml IH Q2H PRN PRN Reason: Shortness of Breath Allopurinol (Zyloprim) 100 mg PO DAILY [facility] Last Admin: 06/02/18 11:00 Dose: 100 mg Aspirin (Ecotrin) 81 mg PO DAILY [facility] Last Admin: 06/02/18 10:59 Dose: 81 mg Atorvastatin Calcium (Lipitor) 40 mg PO DAILY [facility] Last Admin: 06/02/18 10:59 Dose: 40 mg Calcium Acetate (Phoslo) 2,001 mg PO WM [facility] Last Admin: 06/02/18 12:47 Dose: 2,001 mg Cinacalcet (Sensipar) 30 mg PO DAILY [facility] Last Admin: 06/02/18 10:59 Dose: 30 mg Clopidogrel Bisulfate (Plavix) 75 mg PO DAILY [facility] Last Admin: 06/02/18 10:59 Dose: 75 mg Diltiazem HCl (Cardizem) 30 mg PO TID [facility] Last Admin: 06/02/18 10:59 Dose: 30 mg Guaifenesin (Robitussin) 100 mg PO Q4H PRN PRN Reason: Cough Last Admin: 06/02/18 12:55 Dose: 100 mg Heparin Sodium (Porcine) (Heparin) 5,000 units SC Q8 [facility]; Protocol Last Admin: 06/02/18 06:59 Dose: 5,000 units Dextrose (Dextrose 10% In Water) 500 mls @ 40 mls/hr IV .[id number] [facility] Last Admin: 06/02/18 12:52 Dose: 40 mls/hr Mometasone Furoate (Asmanex Twisthaler 220 Mcg) 1 puff IH QPM [facility] Last Admin: 06/01/18 18:47 Dose: 1 puff Pantoprazole Sodium (Protonix Ec Tab) 40 mg PO DAILY [facility] Last Admin: 06/02/18 11:00 Dose: 40 mg - Labs Labs: 06/02/18 07:00 06/02/18 07:00 PT 13.7 SECONDS (9.4-12.5) H 05/31/18 18:42 INR 1.20 05/31/18 18:42 APTT 29.7 Seconds (25.1-36.5) 05/31/18 18:42 - Constitutional Appears: No Acute Distress - Extremities Exam Additional comments: VASC: DP and PT pulses nonpalpable b/l. Skin temperature cool to cool RLE, cool to warm LLE. Pedal hair absent b/l. Nonpitting edema noted proximal to left 4th digit. NEURO: Protective sensation diminished bilaterally. DERM: Thin, atrophic, waxy skin present. Left 4th digit gangrene with no drainage or purulence noted. Dusky discoloration noted to left forefoot. ORTHO: Pain on palpation noted to left 4th digit. - Neurological Exam Neurological Exam: Alert, Awake, Oriented x3 - Psychiatric Exam Psychiatric exam: Normal Affect, Normal Mood Assessment and Plan - Assessment and Plan (Free Text) Assessment: 82F with left 4th digit gangrene 2/2 PVD Plan: Patient seen and evaluated Discussed with attending, Dr. Terry Afebrile, WBC 6.3 f/u LE US f/u vascular consult ID recs appreciated - intermittent Vancomycin and check blood cx and monitor WBC count and temperatures Continue local wound care: betadine, DSD Pain control: Tylenol Podiatry will continue to follow
[2018-06-02] MEDS: Albuterol-Ipratrop 3 mg / 0.5 (3 ml) UD IH PRN (13:28)
[2018-06-02] MEDS ORDERED: Morphine 2 mg/ml ISec IVP PRN (14:22)
--- NOTE | 2018-06-02 14:33 | CP.PCM.PN ---
Subjective - Date & Time of Evaluation Date of Evaluation: 06/02/18 Time of Evaluation: 13:05 - Subjective Subjective: No fevers, not in distress. Objective - Vital Signs/Intake and Output Vital Signs (last 24 hours): Temp Pulse Resp BP Pulse Ox 98.6 F 87 19 104/52 L 96 06/02/18 06:00 06/02/18 06:00 06/02/18 06:00 06/02/18 06:00 06/02/18 06:00 Intake and Output: 06/02/18 06/02/18 06:59 18:59 Intake Total 506 Output Total 0 Balance 506 - Medications Medications: Current Medications Acetaminophen (Tylenol 325mg Tab) 325 mg PO Q6 PRN PRN Reason: Pain, moderate (4-7) Allopurinol (Zyloprim) 100 mg PO DAILY [facility] Last Admin: 06/01/18 10:00 Dose: Not Given Aspirin (Ecotrin) 81 mg PO DAILY [facility] Last Admin: 06/01/18 10:00 Dose: Not Given Atorvastatin Calcium (Lipitor) 40 mg PO DAILY [facility] Last Admin: 06/01/18 10:00 Dose: Not Given Calcium Acetate (Phoslo) 2,001 mg PO WM [facility] Last Admin: 06/01/18 18:46 Dose: 2,001 mg Cinacalcet (Sensipar) 30 mg PO DAILY [facility] Last Admin: 06/01/18 10:00 Dose: Not Given Clopidogrel Bisulfate (Plavix) 75 mg PO DAILY [facility] Last Admin: 06/01/18 10:00 Dose: Not Given Diltiazem HCl (Cardizem) 30 mg PO TID [facility] Last Admin: 06/01/18 18:47 Dose: 30 mg Guaifenesin (Robitussin) 100 mg PO Q4H PRN PRN Reason: Cough Last Admin: 06/02/18 00:57 Dose: 100 mg Heparin Sodium (Porcine) (Heparin) 5,000 units SC Q8 [facility]; Protocol Last Admin: 06/02/18 06:59 Dose: 5,000 units Dextrose (Dextrose 10% In Water) 500 mls @ 40 mls/hr IV .[id number] [facility] Last Admin: 06/02/18 03:53 Dose: Not Given Mometasone Furoate (Asmanex Twisthaler 220 Mcg) 1 puff IH QPM [facility] Last Admin: 06/01/18 18:47 Dose: 1 puff Pantoprazole Sodium (Protonix Ec Tab) 40 mg PO DAILY [facility] Last Admin: 06/01/18 10:00 Dose: Not Given - Labs Labs: 06/02/18 07:00 06/01/18 05:15 PT 13.7 SECONDS (9.4-12.5) H 05/31/18 18:42 INR 1.20 05/31/18 18:42 APTT 29.7 Seconds (25.1-36.5) 05/31/18 18:42 - Constitutional Appears: No Acute Distress, Chronically Ill - Head Exam Head Exam: NORMAL INSPECTION - Respiratory Exam Respiratory Exam: Decreased Breath Sounds - Cardiovascular Exam Cardiovascular Exam: +S1, +S2 - GI/Abdominal Exam GI & Abdominal Exam: Soft. absent: Tenderness - Extremities Exam Additional comments: left foot with dressings in place Assessment and Plan - Assessment and Plan (Free Text) Plan: Assessment left foot 4th toe with ischemic changes, R/O developing dry gangrene, but no systemic signs of infection PAD S/P femoral angioplasty chronic CHF atrial fibrillation ESRD on HD GERD CAD gout Plan continue intermittent Vancomycin and follow up blood and wound cx (negative so far) and monitor WBC count and temperatures follow up plans of Vascular, Podiatry - they are planning amputation of the toe will continue to monitor clinically
--- NOTE | 2018-06-02 14:35 | PN ---
DATE: 06/02/2018 SUBJECTIVE: The patient is currently seen in 2R. She is lying comfortable in bed. She has dry gangrenous changes of her left foot. Apparently, she had MRSA growing out and she is currently in isolation. The patient is awaiting evaluation by her interventional vascular specialist. She is being followed by Podiatry. The patient had an uneventful dialysis yesterday with improvement in her potassium level down from 5.7 to 4.9 today. The patient dialyzed on a 2 K bath. MEDICATIONS: Medication list reviewed. The patient is currently on Asmanex twisthaler, Cardizem, D10 40 mL an hour, Ecotrin, subcu heparin, Lipitor, PhosLo, Plavix, Protonix, Robitussin, Sensipar, Tylenol and allopurinol. No antibiotics have been started as of yet. OBJECTIVE: INTAKE/OUTPUT: Intake 506, output with hemodialysis yesterday. VITAL SIGNS: Present. Blood pressure 104/52, temperature 98.6, respiratory rate of 19 with a pulse of 75. HEENT: Exam shows her to be normocephalic, atraumatic. Conjunctiva are pale. Sclerae are nonicteric. NECK: Supple. No neck vein distention. CHEST: Clear to auscultation and percussion. No rales, rhonchi or wheezing. Positive PermCath left chest wall. Positive pacemaker, right chest wall. CARDIOVASCULAR: Shows atrial fibrillation with an irregular S1, S2. Positive aortic stenosis, mitral stenosis, mitral regurgitation, tricuspid regurgitation, pulmonic insufficiency. No S3, no S4, no rub. Positive permanent pacemaker. ABDOMEN: Soft. Bowel sounds normal. No rebound, guarding or masses. EXTREMITIES: Show nonpalpable pulses of her lower extremity. She has dry gangrenous changes of her left fourth toe with an dusky appearance of her left foot. No edema, no clubbing. She has a clotted upper extremity AV access. NEUROLOGICAL: Shows her be alert and oriented. LABORATORY DATA AND IMAGING: CBC today: White blood cell count 6.3, hemoglobin 9.4, platelet count of 164,000. Chemistry showed normal electrolytes. BUN 28, creatinine today is 4.9 post dialysis. Glucose is 97. Liver enzymes are normal. Albumin is 2.7. Microbiology, all blood cultures are negative at 24 hours. She apparently did have a positive culture of her foot, the gangrenous area on the left toe showing MRSA; hence, the patient is in isolation. Foot x-ray done on admission on 05/31/2018 showed destruction of the tip of the first distal phalanx of the left toe consistent with osteomyelitis. Chest x-ray done showed no active pulmonary disease. Head CT scan done showed no acute findings. Lower extremity ultrasound is pending. ASSESSMENT: 1. End-stage renal disease, status post hyperkalemia. The patient will continue three times a week dialysis, is presently on a Sunday, , Sunday schedule. We will need to check her potassium level tomorrow to see whether or not she will need dialysis tomorrow and perhaps, switch to a Sunday, Sunday, Sunday schedule for this week. 2. Status post seizure activity in the Emergency Room, this was thought to be secondary to hypoglycemia. The patient has no history of diabetes. She remains on D10 and her glucose levels have remained acceptable. 3. Severe peripheral vascular disease with a dusky left foot and dry gangrenous changes of her left fourth toe with perhaps osteomyelitis. Positive MRSA from an outpatient culture. The patient is being evaluated by Podiatry and her Vascular Interventional customer management specialist. 4. History of nonocclusive coronary artery disease with valvular heart disease, currently stable. The patient has an ejection fraction of 71%. 5. History of pulmonary hypertension, currently stable. 6. History of chronic obstructive pulmonary disease with past history of cigarette smoking, currently stable. 7. History of anemia secondary to chronic kidney disease. Hemoglobin 9.4. The patient will receive Aranesp with dialysis. 8. History of hyperlipidemia, on statin therapy given her peripheral vascular disease. 9. DNR noted. PLAN: 1. Continue to monitor labs closely. 2. Dialysis will be scheduled for 06/04/2018. However, she is significantly hyperkalemic tomorrow. She might require dialysis tomorrow or perhaps a dose of Kayexalate. 3. Await input from Podiatry and Vascular Surgery/Interventional Radiology regarding further management of her severe lower extremity peripheral vascular disease. 4. Awaiting input from Infectious Disease regarding treatment of her MRSA. 5. Would continue D10W until we are certain that she no longer has any hypoglycemic episodes. 6. Continue renal diet and binder therapy. Chuy Talbot MD FILIBERTO
[2018-06-02] MEDS: Mometasone 220 mcg/puff-14 puff Inh IH SCH (18:07)
--- NOTE | 2018-06-02 20:14 | US ---
PROCEDURE: Lower extremity KLEVER exam HISTORY: Peripheral vascular disease with pain and ulceration PHYSICIAN(S): Bk Ruiz MD. FINDINGS: The right resting ABIs severely abnormal, 0.52 the left resting KLEVER is relatively normal, 0.92. But the left KLEVER is likely inaccurate due to calcification The brachial systolic pressures are symmetric. The high thigh pressures and waveforms are relatively normal. The right calf PVR waveform does not augment. The right ankle and metatarsal waveforms are severely blunted. This is consistent with right SFA occlusive disease. There also likely right popliteal, trifurcation, and/or tibial disease. The left ankle and metatarsal waveforms are mildly blunted. This is consistent with left tibial occlusive disease. IMPRESSION: 1. Left tibial occlusive disease. 2. Right SFA occlusive disease. 3. Right popliteal, trifurcation, and/or tibial disease.
[2018-06-02] MEDS ORDERED: Alum-Mag Hydrox-Simethicone Susp (30 mL) PO STA (22:52)
[2018-06-03 07:06] LABS: HEMOGLOBIN 10.4 g/dL (12.0-16.0); MEAN CELL VOLUME 95.9 fl (80.0-105.0); MEAN CORPUSCULAR HEMOGLOBIN 30.6 pg (25.0-35.0); MEAN CORPUSCULAR HGB CONC 31.9 g/dl (31.0-37.0); MEAN PLATELET VOLUME 10.9 fl (7.0-11.0); RBC 3.4 10^6/uL (3.5-6.1); RED CELL DISTRIBUTION WIDTH 16.5 % (11.5-14.5); WHITE BLOOD COUNT 8.7 10^3/ul (4.5-11.0)
[2018-06-03] MEDS: Albuterol-Ipratrop 3 mg / 0.5 (3 ml) UD IH PRN (07:56)
[2018-06-03 08:00] LABS: ALB/GLOB RATIO 0.9 (1.1-1.8); ALBUMIN 2.9 g/dL (3.0-4.8); CALCIUM 9.9 mg/dL (8.4-10.5)
[2018-06-03] MEDS ORDERED: Vancomycin 500mg in NS 500 MG/100 ML BAG IVPB STA ×2 (09:25→16:21)
[2018-06-03] MEDS: Pantoprazole 40 mg EC Tab PO SCH (09:37)
[2018-06-03] MEDS ORDERED: Albuterol-Ipratrop 3 mg / 0.5 (3 ml) UD IH PRN (10:32)
[2018-06-03] MEDS ORDERED: Promethazine DM 6.25 mg-15 mg/5 ml Syrup PO PRN (10:33)
[2018-06-03] MEDS: guaiFENesin 100 mg/5 ml Syrup UD PO PRN ×2 (11:56→19:18)
--- NOTE | 2018-06-03 13:34 | CT ---
Date of service: 06/03/2018 PROCEDURE: CT Chest without contrast HISTORY: cough/sob COMPARISON: Not available TECHNIQUE: Contiguous axial images were obtained through the chest without intravenous contrast enhancement. Sagittal and coronal reconstructions were performed. Radiation dose (DLP): 469.18 mGy-cm. This CT exam was performed using one or more of the following dose reduction techniques: Automated exposure control, adjustment of the mA and/or kV according to patient size, and/or use of iterative reconstruction technique. FINDINGS: LUNGS: Bilateral lower lobe subsegmental atelectasis secondary to pleural effusions. Linear scar/atelectasis in lingular segment left upper lobe. No pulmonary mass. MEDIASTINUM: Unremarkable thoracic aorta. No aneurysm. Marked cardiomegaly. Permanent pacemaker. No pericardial effusion. Dilated main pulmonary artery up to 3.5 cm diameter. This may correlate with pulmonary arterial hypertension. No lymphadenopathy. PLEURA: Bilateral small pleural effusion, left greater than right. BONES: No fracture. No destructive lesion. UPPER ABDOMEN: Ascites. OTHER FINDINGS: None. IMPRESSION: Bilateral small pleural effusion and bilateral lower lobe compressive subsegmental atelectasis. Marked cardiomegaly. Dilated main pulmonary artery. Permanent pacemaker. Ascites. No evidence of pneumonia.
[2018-06-03] MEDS ORDERED: Albuterol-Ipratrop 3 mg / 0.5 (3 ml) UD IH SCH (14:00)
--- NOTE | 2018-06-03 14:39 | CON ---
DATE: 06/03/2018 HISTORY OF PRESENT ILLNESS: This is an 82-year-old woman with history of coronary artery disease; peripheral arterial disease; left angioplasty with gangrene of the left fourth toe; hypertension; end-stage renal disease, on hemodialysis; who came in to the hospital for generalized weakness and malaise and found to have hyperkalemia with a potassium of 5.7. She was given Kayexalate and insulin to reduce the potassium and her blood sugar dropped down to 44 in the ER where she had transient of the eyes and twitching of the eyes and unresponsive for less than a minute and did not improve. She was after given D50. Currently, no further seizure-like episodes since. She is moving all extremities. No headaches. No chest pain. She has mild upper respiratory tract discomfort. PAST MEDICAL HISTORY: As above. SOCIAL HISTORY: No illicit drug use, smoking or EtOH abuse. REVIEW OF SYSTEMS: Fourteen-point review of systems is negative except as per the HPI. ALLERGIES: NO KNOWN DRUG ALLERGIES. MEDICATIONS: Reviewed by nurses' reconciliation sheet. FAMILY HISTORY: Noncontributory. LABORATORY DATA: Today's labs were sodium is 132, potassium 4.9, chloride 97, carbon dioxide 27, BUN of 34, creatinine of 5.7, random glucose of 124. PHYSICAL EXAMINATION: VITAL SIGNS: Temperature 97.8, pulse rate of 72, blood pressure 131/62, respiratory rate of 19, oxygen saturation 99% by room air. GENERAL: The patient is sitting up in bed, in no acute distress. HEENT: Atraumatic, normocephalic. PERRLA. Extraocular muscles intact. NECK: Supple. No JVD, no adenopathy noted. LUNGS: Clear to auscultation. No adventitious sounds. HEART: S1 and S2. Normal rate and rhythm. No murmurs, rubs or gallops. ABDOMEN: Soft, nontender and nondistended. Bowel sounds are present. EXTREMITIES: No clubbing. No cyanosis. Peripheral pulses 2+ felt bilaterally. NEUROLOGIC: The patient is alert and oriented to person, place, month and year. Speech is fluent without any errors. Cranial nerves II through XII are intact. Motor exam: Moves all extremities equally. Toes are downgoing bilaterally. Sensory exam: Light touch, pinprick, proprioception and vibration are intact. DTRs are 2+ throughout, 1 at both knees and ankles. Coordination: [id number] intact. No dysmetria noted. Gait is deferred for now. IMPRESSION: Transient seizure-like episode secondary to hypoglycemia caused by insulin and Kayexalate while correcting her hyperkalemia. At this time, no further episode. This is most likely a provoked seizure, therefore no reason for any antiepileptic drugs. At this time, recommend, 1. Monitor electrolytes and correct accordingly. 2. Keep her blood sugars between 140 to 180. 3. Keep her blood pressure between 130s-140s systolic and diastolic 70-80s. Avoid hypotensive episodes. 4. Continue with her hemodialysis regimen given her end-stage renal disease and Physical Therapy/Occupational Therapy evaluation. Thank you for this consult. Juan Hicks MD
--- NOTE | 2018-06-03 15:39 | CP.PCM.PN ---
Subjective - Date & Time of Evaluation Date of Evaluation: 06/03/18 Time of Evaluation: 15:39 - Subjective Subjective: Podiatry Progress Note for Dr. Terry: 82 yo female patient seen and evaluated at bedside with Dr. Terry for left 4th digit gangrene. Patient coughing uncontrollably throughout the bedside visit. Patient reports pain to 4th digit upon dressing change only. Dressing C/D/I. She reports having an episode of vomiting earlier in the day.Patient denies N/F/CP. Objective - Vital Signs/Intake and Output Vital Signs (last 24 hours): Temp Pulse Resp BP Pulse Ox 97.8 F 71 19 128/89 96 06/03/18 12:00 06/03/18 14:54 06/03/18 12:00 06/03/18 14:54 06/03/18 06:00 Intake and Output: 06/03/18 06/03/18 06:59 18:59 Intake Total 660 Balance 660 - Medications Medications: Current Medications Acetaminophen (Tylenol 325mg Tab) 325 mg PO Q6 PRN PRN Reason: Pain, moderate (4-7) Albuterol/Ipratropium (Duoneb 3 Mg/0.5 Mg (3 Ml) Ud) 3 ml IH Q2H PRN PRN Reason: Shortness of Breath Last Admin: 06/03/18 07:56 Dose: 3 ml Albuterol/Ipratropium (Duoneb 3 Mg/0.5 Mg (3 Ml) Ud) 3 ml IH [id number] [facility] Last Admin: 06/03/18 15:23 Dose: 3 ml Albuterol/Ipratropium (Duoneb 3 Mg/0.5 Mg (3 Ml) Ud) 3 ml IH Q2H PRN PRN Reason: Shortness of Breath Allopurinol (Zyloprim) 100 mg PO DAILY [facility] Last Admin: 06/03/18 09:37 Dose: 100 mg Aspirin (Ecotrin) 81 mg PO DAILY [facility] Last Admin: 06/03/18 09:37 Dose: 81 mg Atorvastatin Calcium (Lipitor) 40 mg PO DAILY [facility] Last Admin: 06/03/18 09:37 Dose: 40 mg Calcium Acetate (Phoslo) 2,001 mg PO WM [facility] Last Admin: 06/03/18 11:56 Dose: 2,001 mg Cinacalcet (Sensipar) 30 mg PO DAILY [facility] Last Admin: 06/03/18 09:37 Dose: 30 mg Clopidogrel Bisulfate (Plavix) 75 mg PO DAILY [facility] Last Admin: 06/03/18 09:37 Dose: 75 mg Diltiazem HCl (Cardizem) 30 mg PO TID [facility] Last Admin: 06/03/18 14:54 Dose: 30 mg Guaifenesin (Robitussin) 100 mg PO Q4H PRN PRN Reason: Cough Last Admin: 06/03/18 11:56 Dose: 100 mg Heparin Sodium (Porcine) (Heparin) 5,000 units SC Q8 [facility]; Protocol Last Admin: 06/03/18 14:53 Dose: 5,000 units Dextrose (Dextrose 10% In Water) 500 mls @ 40 mls/hr IV .[id number] [facility] Last Admin: 06/03/18 05:04 Dose: Not Given Lorazepam (Ativan) 0.5 mg IVP Q6H PRN; Protocol PRN Reason: Anxiety Last Admin: 06/02/18 16:28 Dose: 0.5 mg Mometasone Furoate (Asmanex Twisthaler 220 Mcg) 1 puff IH QPM [facility] Last Admin: 06/02/18 18:07 Dose: 1 puff Morphine Sulfate (Morphine) 2 mg IVP Q4H PRN PRN Reason: Pain, severe (8-10) Ondansetron HCl (Zofran Inj) 4 mg IVP Q6H PRN PRN Reason: Nausea/Vomiting Last Admin: 06/02/18 16:28 Dose: 4 mg Pantoprazole Sodium (Protonix Ec Tab) 40 mg PO DAILY [facility] Last Admin: 06/03/18 09:37 Dose: 40 mg Promethazine HCl/Dextromethorphan (Phenergan Dm Syrup) 5 ml PO Q6H PRN PRN Reason: Cough - Labs Labs: 06/03/18 06:30 06/03/18 06:30 PT 13.7 SECONDS (9.4-12.5) H 05/31/18 18:42 INR 1.20 05/31/18 18:42 APTT 29.7 Seconds (25.1-36.5) 05/31/18 18:42 - Constitutional Appears: Non-toxic, No Acute Distress - Extremities Exam Additional comments: Vasc: DP and PT pulses nonpalpable b/l. Skin temperature cool to cool bilaterally. Pedal hair absent b/l. Nonpitting edema noted proximal to left 4th digit. Neuro: Gross sensation intact, protective sensation diminished bilaterally. Derm: Thin, atrophic, waxy skin present. Left 4th digit gangrene with no drainage or purulence noted, malodor appreciated. Dusky discoloration noted to left forefoot. Friable skin noted to bilateral heels. Ortho: Pain on palpation noted to left 4th digit. No tenderness upon calf compression bilaterally - Neurological Exam Neurological Exam: Alert, Awake, Oriented x3 - Psychiatric Exam Psychiatric exam: Normal Affect, Normal Mood Assessment and Plan - Assessment and Plan (Free Text) Assessment: 82 yo female patient with left 4th digit gangrene secondary to PVD Plan: Patient seen and evaluated at bedside with Dr. Terry Afebrile, WBC 6.3 LE US (05/31): L tibial occulsive disease, R SFA occlusive disease, R popliteal, trifurcation and/or tibial disease F/u vascular consult; reccs appreciated Continue with Vancomycin, ID recs appreciated Continue local wound care: betadine, DSD Multipodus boots ordered, to be worn at all times in bed to prevent heel breakdown Plan for patient to OR 10 am for amputation, please optimize patient Podiatry will continue to follow while in house
--- NOTE | 2018-06-03 16:02 | PN ---
DATE: 06/03/2018 SUBJECTIVE: The patient is 82 years old, seen and examined, lying in bed, complaining of cough, mostly dry, complaining of shortness of breath. No fever, no chills noted. Complains of decreased appetite. States she cannot eat because of the cough. PHYSICAL EXAMINATION: VITAL SIGNS: She is afebrile, pulse 81, respiration 18, blood pressure 167/83. LUNGS: Bilateral fair air flow. Few occasion, expiratory rhonchi. HEART: S1, S2 audible. ABDOMEN: Soft, nontender. No rebound. No guarding. NEUROLOGICAL: Patient is awake, alert, oriented, able to communicate. EXTREMITIES: Her left foot is in the dressing. LABORATORY EXAMINATION: WBC 8.7, hemoglobin 10.4, hematocrit 32.6, platelet 193. Chemistry: Sodium 132, potassium 4.9, chloride 97, CO2 21, BUN 34, creatinine 5.7, blood sugar 121. Vancomycin level is 18.5. Blood culture and urine cultures are negative. Wound is growing gram-positive cocci. Left fourth gangrene of the toe. Arterial Doppler shows tibial occlusive disease and right SFA occlusive disease. ASSESSMENT: 1. Left fourth toe gangrene 2. Peripheral vascular disease. 3. Hypertension. 4. End-stage renal disease, on hemodialysis. 5. History of atrial fibrillation. 6. Status post pacemaker placement. 7. History of gout. PLAN: Discussed with Dr. Copeland. He has a plan to do possible TMA, but according to patient and daughter, her Cardiology Dr. Vilchis has told her not to undergo any surgery. Get Cardiology evaluation by Dr. Rubio for second opinion. For now, we will continue the patient on diltiazem. She did develop seizure secondary to hypoglycemia because of her poor oral intake. So, I will start on nebulizer treatment. I will get CT of the chest to rule out underlying pneumonia. Start her on Robitussin DM. Currently, she is on vancomycin Sunday, Sunday and Sunday. After patient's dialysis, we will follow up this patient in a.m. Bruno Lucas MD
--- NOTE | 2018-06-03 16:21 | CP.PCM.PN ---
Subjective - Date & Time of Evaluation Date of Evaluation: 06/03/18 Time of Evaluation: 09:55 - Subjective Subjective: No fevers, not in distress. Objective - Vital Signs/Intake and Output Vital Signs (last 24 hours): Temp Pulse Resp BP Pulse Ox 97.8 F 71 19 128/89 96 06/03/18 12:00 06/03/18 14:54 06/03/18 12:00 06/03/18 14:54 06/03/18 06:00 Intake and Output: 06/03/18 06/03/18 06:59 18:59 Intake Total 660 Balance 660 - Medications Medications: Current Medications Acetaminophen (Tylenol 325mg Tab) 325 mg PO Q6 PRN PRN Reason: Pain, moderate (4-7) Albuterol/Ipratropium (Duoneb 3 Mg/0.5 Mg (3 Ml) Ud) 3 ml IH Q2H PRN PRN Reason: Shortness of Breath Last Admin: 06/03/18 07:56 Dose: 3 ml Albuterol/Ipratropium (Duoneb 3 Mg/0.5 Mg (3 Ml) Ud) 3 ml IH [id number] [facility] Last Admin: 06/03/18 15:23 Dose: 3 ml Albuterol/Ipratropium (Duoneb 3 Mg/0.5 Mg (3 Ml) Ud) 3 ml IH Q2H PRN PRN Reason: Shortness of Breath Allopurinol (Zyloprim) 100 mg PO DAILY [facility] Last Admin: 06/03/18 09:37 Dose: 100 mg Aspirin (Ecotrin) 81 mg PO DAILY [facility] Last Admin: 06/03/18 09:37 Dose: 81 mg Atorvastatin Calcium (Lipitor) 40 mg PO DAILY [facility] Last Admin: 06/03/18 09:37 Dose: 40 mg Calcium Acetate (Phoslo) 2,001 mg PO WM [facility] Last Admin: 06/03/18 11:56 Dose: 2,001 mg Cinacalcet (Sensipar) 30 mg PO DAILY [facility] Last Admin: 06/03/18 09:37 Dose: 30 mg Clopidogrel Bisulfate (Plavix) 75 mg PO DAILY [facility] Last Admin: 06/03/18 09:37 Dose: 75 mg Diltiazem HCl (Cardizem) 30 mg PO TID [facility] Last Admin: 06/03/18 14:54 Dose: 30 mg Guaifenesin (Robitussin) 100 mg PO Q4H PRN PRN Reason: Cough Last Admin: 06/03/18 11:56 Dose: 100 mg Heparin Sodium (Porcine) (Heparin) 5,000 units SC Q8 [facility]; Protocol Last Admin: 06/03/18 14:53 Dose: 5,000 units Dextrose (Dextrose 10% In Water) 500 mls @ 40 mls/hr IV .[id number] [facility] Last Admin: 06/03/18 05:04 Dose: Not Given Lorazepam (Ativan) 0.5 mg IVP Q6H PRN; Protocol PRN Reason: Anxiety Last Admin: 06/02/18 16:28 Dose: 0.5 mg Mometasone Furoate (Asmanex Twisthaler 220 Mcg) 1 puff IH QPM [facility] Last Admin: 06/02/18 18:07 Dose: 1 puff Morphine Sulfate (Morphine) 2 mg IVP Q4H PRN PRN Reason: Pain, severe (8-10) Ondansetron HCl (Zofran Inj) 4 mg IVP Q6H PRN PRN Reason: Nausea/Vomiting Last Admin: 06/02/18 16:28 Dose: 4 mg Pantoprazole Sodium (Protonix Ec Tab) 40 mg PO DAILY [facility] Last Admin: 06/03/18 09:37 Dose: 40 mg Promethazine HCl/Dextromethorphan (Phenergan Dm Syrup) 5 ml PO Q6H PRN PRN Reason: Cough - Labs Labs: 06/03/18 06:30 06/03/18 06:30 PT 13.7 SECONDS (9.4-12.5) H 05/31/18 18:42 INR 1.20 05/31/18 18:42 APTT 29.7 Seconds (25.1-36.5) 05/31/18 18:42 - Constitutional Appears: No Acute Distress, Chronically Ill - Head Exam Head Exam: NORMAL INSPECTION - Neck Exam Neck Exam: absent: Meningismus - Respiratory Exam Respiratory Exam: Decreased Breath Sounds - Cardiovascular Exam Cardiovascular Exam: +S1, +S2 - GI/Abdominal Exam GI & Abdominal Exam: Soft. absent: Tenderness Assessment and Plan - Assessment and Plan (Free Text) Plan: Assessment left foot 4th toe with ischemic changes, R/O developing dry gangrene, but no systemic signs of infection PAD S/P femoral angioplasty chronic CHF atrial fibrillation ESRD on HD GERD CAD gout Plan continue intermittent Vancomycin (with HD) and follow up blood and wound cx (negative so far) and monitor WBC count and temperatures follow up plans of Vascular, Podiatry - they are planning amputation of the toe but as discussed with Dr. Copeland, awaiting plan to re-vascularize will continue to monitor clinically
--- NOTE | 2018-06-03 18:21 | US ---
Date of service: 06/03/2018 HISTORY: r/o ascites COMPARISON: None. TECHNIQUE: Sonographic evaluation of the abdomen. FINDINGS: LIVER: Measures 15.0 cm. Hepatopedal blood flow. Fatty infiltration manifest ultrasonographically as increased echogenicity of the liver parenchyma. No mass. No intrahepatic bile duct dilatation. GALLBLADDER: Thickened gallbladder wall. No gallstones. COMMON BILE DUCT: Measures 5.1 mm. No stones. No dilatation. PANCREAS: Unremarkable as visualized. No mass. No ductal dilatation. RIGHT KIDNEY: Measures 3.3 x 6.8cm. Increased echogenicity compatible with medical renal disease. The right kidney is atrophic LEFT KIDNEY: Measures 3.7 x 6.6cm. Increased echogenicity compatible with medical renal disease. The left kidney is atrophic SPLEEN: Normal in size and contour. No mass. AORTA: No aneurysmal dilatation. IVC: Unremarkable. OTHER FINDINGS: Low volume intra-abdominal ascites is incompletely visualized. IMPRESSION: Atrophic kidneys consistent with medical renal disease. Low volume intra-abdominal ascites which is incompletely visualized.
[2018-06-03] MEDS: Mometasone 220 mcg/puff-14 puff Inh IH SCH (18:43)
--- NOTE | 2018-06-03 19:57 | PN ---
DATE: 06/03/2018 SUBJECTIVE: The patient is currently seen on 2R. She appears to be in no acute distress. She is awaiting cardiac clearance for anesthesia for possible left fourth toe amputation. The patient's potassium level today is 4.9, so she could wait until tomorrow for her routine dialysis. MEDICATIONS: Medication list reviewed. The patient is on Asmanex Twisthaler, Ativan, Cardizem, D10W as necessary, subcu heparin, DuoNeb, Ecotrin, Lipitor, morphine, Phenergan, PhosLo, Plavix, Protonix, Robitussin, Sensipar, Tylenol, Zofran p.r.n., and Zyloprim. PHYSICAL EXAMINATION: INTAKE AND OUTPUT: Intake is 1115, output zero. VITAL SIGNS: Blood pressure 131/63 today. Temperature 97.8, pulse of 72 with a respiratory rate of 19. Last pulse ox is 96%. HEENT: Shows her be normocephalic, atraumatic. Conjunctivae remain pale. Sclerae nonicteric. NECK: Supple. No neck vein distention. CHEST: Clear to auscultation and percussion. No rales, rhonchi, or wheezing. Positive PermCath left chest wall. Positive pacemaker right chest wall. CARDIOVASCULAR: Shows atrial fibrillation with an irregular S1, S2. Aortic stenosis, mitral stenosis, mitral regurgitation, tricuspid regurgitation, and pulmonic insufficiency. No S3, no S4, no rub. Positive permanent pacemaker. ABDOMEN: Soft. Bowel sounds normal. No rebound, guarding, or masses. EXTREMITIES: Show nonpalpable pulses of her lower extremity. She has dry gangrenous changes of her left fourth toe with a dusky appearance of her left foot. No edema, no clubbing. She has clotted upper extremity AV access. LABORATORY DATA AND IMAGING: CBC: White blood cell count today 8.7, hemoglobin better at 10.4. Platelet count is 193,000. Chemistry showed normal electrolytes. Potassium 4.9 today with a CO2 of 21. BUN 34 with a creatinine of 5.7. Glucose 124. Calcium is 9.9. Liver enzymes are normal. Albumin is 2.9. Vancomycin trough level from 06/02 was 18.5. Microbiology: Toe cultures are positive for gram-positive cocci. Apparently, the patient had MRSA, isolated outside of the hospital. The patient is in isolation. Foot x-rays done on admission showed destruction of the tip of the distal left phalanx of the fourth left toe, consistent with osteomyelitis. ASSESSMENT: 1. End-stage renal disease. Status post hyperkalemia. The patient is scheduled for routine dialysis tomorrow. She is on a Sunday, , Sunday schedule. The patient had spent most of the summer in [facility] receiving dialysis in their outpatient unit. 2. Status post seizure activity. No further seizures. This is felt to be secondary to hypoglycemia. The patient had responded nicely to dextrose administration. No further hypoglycemic episodes. No history of diabetes. 3. Peripheral vascular disease of her lower extremity. She has gangrenous changes in her left fourth toe with likely osteomyelitis. The patient is being evaluated by Podiatry. She had been evaluated extensively by Interventional Radiology/Vascular Surgery. In all likelihood, the patient will be going for an amputation of the fourth left toe for dry gangrenous changes. 4. Positive methicillin-resistant Staphylococcus aureus from outpatient cultures. The patient received one dose of vancomycin. Vancomycin trough levels were elevated on 06/02/2018. 5. History of nonocclusive coronary artery disease with valvular heart disease, currently stable. Ejection fraction 71%. 6. History of chronic obstructive pulmonary disease with a past history of cigarette smoking, currently stable. 7. History of anemia secondary to chronic kidney disease. Hemoglobin is improved at 10.4. 8. History of hyperlipidemia, on statin therapy given her peripheral vascular disease. 9. Do not resuscitate noted. PLAN: 1. Hemodialysis orders placed for tomorrow's dialysis on 06/04/2018. 2. Podiatry followup appreciated. The patient will likely be scheduled for amputation of the gangrenous left fourth toe. 3. Continue to monitor for any further seizure activity but with correction of her hypoglycemia. This apparently had resolved. 4. Intermittent dosing of vancomycin pending, subtherapeutic trough levels for possible MRSA of her toe. This was obtained from an outpatient culture. 5. Continue renal diet and binder therapy. Check phosphorus level tomorrow with dialysis. Chuy Talbot MD
--- NOTE | 2018-06-04 01:30 | CON ---
DATE: 06/03/2018 REASON FOR THE CONSULTATION: Preoperative evaluation, risk stratification for possible right transmetatarsal amputation, gangrene of the toe. BRIEF CLINICAL HISTORY: This is an 82-year-old female with past medical history significant for diabetes, hypertension, hyperlipidemia, end-stage renal disease, on dialysis Sunday, , and Sunday, history of chronic atrial fibrillation, sick sinus syndrome, status post permanent pacemaker in 2016, severe peripheral arterial disease, status post right carotid endarterectomy [address] Calix, status post stent in the lower extremity 10 years ago at [facility] by Dr. Calix and recently patient had peripheral angiogram and stent was done by Dr. Ruiz, admitted with gangrene of the toes, needs right transmetatarsal amputation, so Cardiology consult was called. Patient denies any chest pain, denies any shortness of breath unusual, or palpitation. PAST MEDICAL HISTORY: Significant for severe peripheral arterial disease, history of right carotid artery endarterectomy 10 years ago at [facility] by Dr. Calix, history of peripheral angiogram and stent in the past, history of recently admitted to [facility], seen by Dr. Vilchis, where the patient has sever MR, TR, RV systolic pressure 60, LV function mildly decreased 45% by echo at [facility]. BRIEF CARDIAC WORKUP: Patient had sick sinus syndrome with status post permanent pacemaker in 2015, history of recent echo at [facility] done in January that showed ejection fraction 45%, RV systolic pressure of 60, [id number] mitral regurgitation, [id number] tricuspid regurgitation, history of CAD, but no coronary intervention. SOCIAL HISTORY: Lives with daughter named Eda. Information obtained from Eda and by calling Dr. Vilchis. Daughter's name is Eda, telephone # [phone]. Ex-smoker, quit 40 years ago. No history of alcohol abuse. FAMILY HISTORY: Noncontributory at this stage of the life. CURRENT MEDICATIONS: Patient is taking Cardizem 30 mg daily, Protonix 40 mg daily, Plavix 75 mg daily, Sensipar 30 mg daily, atorvastatin 40 mg daily, aspirin 81 mg daily, allopurinol 100 mg daily, acetylcysteine mg, and Tylenol. RECENT WORKUP: Patient had recently KLEVER and PVR done on 05/01/2018 that shows left side 0.56 and the right side 0.456. Patient underwent peripheral intervention. After that, patient had allergic reaction to the dye and almost coded, but managed by non-rebreather mask. History of chronic atrial fibrillation, not on anticoagulation. Patient had recent echo done here in [facility] dated 05/16/2018 that showed ejection fraction 65% to 70%, right ventricle is severely dilated, systolic function is moderate to severely reduced of RV, trace aortic regurgitation, [id number] valvular aortic stenosis, valve area 1.5 sq cm, mitral regurgitation mild to moderate, mild mitral stenosis, valve area 2.2 sq cm, severe tricuspid regurgitation, RV systolic pressure of 81, severe pulmonary hypertension, preserved LV function, ejection fraction 65% to 70%. REVIEW OF SYSTEMS: As per HPI. PHYSICAL EXAMINATION: VITAL SIGNS: Height of the patient 5 feet 5 inches, weight of the patient 167 pounds, body mass index 27.9 Kg/sq m. Rest of the examination as follows; temperature afebrile, heart rate 71, blood pressure 122/89. HEENT: PERRLA. Extraocular muscles intact. NECK: Supple. No carotid bruits or thyromegaly. CHEST: Clear to auscultation. HEART: S1 and S2 regular. ABDOMEN: Soft. EXTREMITIES: Clubbing and cyanosis, negative. Right foot is in dressing. The toes appears to be gangrenous but under the dressing. Very poor circulation. Dorsalis pedis artery could not be palpable. Left is barely palpable. LABORATORY DATA: Blood workup is as follows. WBC 8.7, hemoglobin 10.4, hematocrit 32.6, platelet count 193. Chemistry shows sodium 130, potassium 4.9, chloride 97, carbon dioxide 21, anion gap of 19, BUN 34, creatinine 5.7. EKG shows V paced rhythm, but underlying rhythm is atrial fibrillation. IMPRESSION: This is an 82-year-old female with past medical history of diabetes, hypertension, hyperlipidemia, severe peripheral arterial disease, status post recent peripheral intervention done. After that patient had allergic reaction to dye, almost coded, went into respiratory distress, managed by noninvasive ventilator. Admitted recently for gangrene of the toes, requiring right transmetatarsal amputation. Cardiology consult was called for preoperative evaluation, risk stratification. Patient denies any chest pain, shortness of breath, or any palpitation. No evidence of arrhythmia except baseline atrial fibrillation, status post permanent pacemaker in 2016. Recent echocardiogram showed preserved left ventricular function, ejection fraction 60% to 65%, mild mitral valve area 2.2 sq cm, mild to moderate aortic stenosis, moderate to severe tricuspid regurgitation, severe pulmonary hypertension, right ventricular systolic pressure in 80s, mild to moderate aortic stenosis, aortic valve area 1.5 sq cm, mild to moderate mitral regurgitation and trace aortic regurgitation. In view of above, we will clear the patient to go for surgery as moderate to high risk because of underlying comorbidity, but no evidence of any arrhythmia, except baseline atrial fibrillation, status post pacemaker. No evidence of congestive heart failure, on dialysis, no history of angina. We will follow up. Continue perioperative beta-noelle and suggest to do the surgery after the dialysis, so patient should not get severe pulmonary hypertension and as much as the patient could be in euvolemic dry state. Also monitor hemodynamic in the telemetry. We will follow with you. Thank you, Dr. Lucas, for providing us the opportunity in taking care of the patient, Susan Meza. Liam Rubio MD
[2018-06-04] MEDS: guaiFENesin 100 mg/5 ml Syrup UD PO PRN (02:18)
[2018-06-04 07:23] LABS: HEMOGLOBIN 10.4 g/dL (12.0-16.0); MEAN CELL VOLUME 95.6 fl (80.0-105.0); MEAN CORPUSCULAR HEMOGLOBIN 30.7 pg (25.0-35.0); MEAN CORPUSCULAR HGB CONC 32.1 g/dl (31.0-37.0); MEAN PLATELET VOLUME 10.9 fl (7.0-11.0); RBC 3.39 10^6/uL (3.5-6.1); RED CELL DISTRIBUTION WIDTH 16.2 % (11.5-14.5)
[2018-06-04 07:50] LABS: ALB/GLOB RATIO 0.9 (1.1-1.8); ALBUMIN 2.8 g/dL (3.0-4.8); CALCIUM 9.4 mg/dL (8.4-10.5)
[2018-06-04] MEDS ORDERED: Vancomycin 500mg in NS 500 MG/100 ML BAG IVPB SCH (10:00)
[2018-06-04] MEDS: Pantoprazole 40 mg EC Tab PO SCH (15:36)
--- NOTE | 2018-06-04 15:47 | RAD ---
Date of service: 06/04/2018 HISTORY: R/O pneumonia Vs CHF COMPARISON: 05/31/2018 FINDINGS: LUNGS: No active pulmonary disease. PLEURA: No significant pleural effusion identified, no pneumothorax apparent. CARDIOVASCULAR: Severe cardiomegaly with moderate vascular congestion. OSSEOUS STRUCTURES: No significant abnormalities. VISUALIZED UPPER ABDOMEN: Normal. OTHER FINDINGS: None. IMPRESSION: Severe cardiomegaly with moderate vascular congestion.
--- NOTE | 2018-06-04 16:14 | CP.PCM.PN ---
Subjective - Date & Time of Evaluation Date of Evaluation: 06/04/18 Time of Evaluation: 12:35 - Subjective Subjective: Afebrile, not in distress. Objective - Vital Signs/Intake and Output Vital Signs (last 24 hours): Temp Pulse Resp BP Pulse Ox 98.4 F 70 18 105/55 L 98 06/04/18 05:56 06/04/18 05:56 06/04/18 05:56 06/04/18 05:56 06/04/18 05:56 Intake and Output: 06/04/18 06/04/18 06:59 18:59 Intake Total 780 Output Total 0 Balance 780 - Medications Medications: Current Medications Acetaminophen (Tylenol 325mg Tab) 325 mg PO Q6 PRN PRN Reason: Pain, moderate (4-7) Allopurinol (Zyloprim) 100 mg PO DAILY [facility] Last Admin: 06/03/18 09:37 Dose: 100 mg Aspirin (Ecotrin) 81 mg PO DAILY [facility] Last Admin: 06/03/18 09:37 Dose: 81 mg Atorvastatin Calcium (Lipitor) 40 mg PO DAILY [facility] Last Admin: 06/03/18 09:37 Dose: 40 mg Calcium Acetate (Phoslo) 2,001 mg PO WM [facility] Last Admin: 06/04/18 08:21 Dose: 2,001 mg Cinacalcet (Sensipar) 30 mg PO DAILY [facility] Last Admin: 06/03/18 09:37 Dose: 30 mg Clopidogrel Bisulfate (Plavix) 75 mg PO DAILY [facility] Last Admin: 06/03/18 09:37 Dose: 75 mg Diltiazem HCl (Cardizem) 30 mg PO TID [facility] Last Admin: 06/03/18 18:27 Dose: 30 mg Guaifenesin (Robitussin) 100 mg PO Q4H PRN PRN Reason: Cough Last Admin: 06/04/18 02:18 Dose: 100 mg Heparin Sodium (Porcine) (Heparin) 5,000 units SC Q8 [facility]; Protocol Last Admin: 06/04/18 04:59 Dose: 5,000 units Dextrose (Dextrose 10% In Water) 500 mls @ 40 mls/hr IV .[id number] [facility] Last Admin: 06/04/18 05:00 Dose: 40 mls/hr Levalbuterol HCl (Xopenex) 0.63 mg IH [id number] PRN PRN Reason: Shortness of Breath Lorazepam (Ativan) 0.5 mg IVP Q6H PRN; Protocol PRN Reason: Anxiety Last Admin: 06/02/18 16:28 Dose: 0.5 mg Metoprolol Tartrate (Lopressor) 12.5 mg PO BID [facility] Last Admin: 06/03/18 18:26 Dose: 12.5 mg Mometasone Furoate (Asmanex Twisthaler 220 Mcg) 1 puff IH QPM [facility] Last Admin: 06/03/18 18:43 Dose: 1 puff Morphine Sulfate (Morphine) 2 mg IVP Q4H PRN PRN Reason: Pain, severe (8-10) Ondansetron HCl (Zofran Inj) 4 mg IVP Q6H PRN PRN Reason: Nausea/Vomiting Last Admin: 06/02/18 16:28 Dose: 4 mg Pantoprazole Sodium (Protonix Ec Tab) 40 mg PO DAILY [facility] Last Admin: 06/03/18 09:37 Dose: 40 mg Promethazine HCl/Dextromethorphan (Phenergan Dm Syrup) 5 ml PO Q6H PRN PRN Reason: Cough - Labs Labs: 06/04/18 06:30 06/04/18 06:30 PT 13.7 SECONDS (9.4-12.5) H 05/31/18 18:42 INR 1.20 05/31/18 18:42 APTT 29.7 Seconds (25.1-36.5) 05/31/18 18:42 - Constitutional Appears: Chronically Ill - Extremities Exam Additional comments: right foot with dressings in place Assessment and Plan - Assessment and Plan (Free Text) Plan: Assessment left foot 4th toe with ischemic changes, R/O developing dry gangrene, but no systemic signs of infection PAD S/P femoral angioplasty chronic CHF atrial fibrillation ESRD on HD GERD CAD gout Plan continue intermittent Vancomycin (with HD) ; blood cx are negative and but wound cx is showing MRSA; will continue to monitor WBC count and temperatures follow up plans of Vascular, Podiatry - they are planning amputation of the toe but as discussed with Dr. Copeland, we are awaiting plan to re-vascularize will continue to monitor clinically
--- NOTE | 2018-06-04 16:37 | PN ---
DATE: 06/03/2018 REASON FOR THE CONSULTATION AND FOLLOWUP: Preoperative evaluation, risk stratification for possible right transmetatarsal amputation, gangrene of the toe. SUBJECTIVE: Patient denies any chest pain, shortness of breath, or any palpitation. OBJECTIVE: GENERAL: Not in apparent distress, lying flat on the bed, small coughing and is being planed to go for dialysis in 10 to 20 minutes. VITAL SIGNS: Temperature afebrile, heart rate 70, blood pressure 105/55. HEENT: PERRLA. Extraocular muscles intact. NECK: Supple. No carotid bruits or thyromegaly. CHEST: Clear to auscultation. HEART: S1 and S2 regular. ABDOMEN: Soft. EXTREMITIES: Clubbing and cyanosis, negative. LABORATORY DATA: Blood workup as follows: WBC 12, hemoglobin 10.5, hematocrit 32.4, platelet count 195. Chemistry shows sodium 130, potassium 5.5, chloride 95, carbon dioxide 21, anion gap of 19, BUN 30, creatinine 6.2. TSH 5.75. IMPRESSION AND PLAN: An 82-year-old female with history of severe peripheral arterial disease, history of right carotid artery endarterectomy [address] [facility] by Dr. Calix, history of stent in probably 10 years ago, recently peripheral intervention by Dr. Bk Ruiz, after the patient developed allergic reaction to the dye and admitted to ICU. Most recent echo patient had in [facility] dated 05/16/2018, ejection fraction 65 to 70%, right which was severely dilated, systolic function is [id number] reduced of right ventricle, trace aortic regurgitation, [id number] valvular aortic stenosis, valve area of 1.5 cm2, mitral regurgitation, [id number] mitral stenosis, mitral valve area of 2.2 cm2. Severe tricuspid regurgitation, right ventricular systolic pressure 81 consistent with severe pulmonary hypertension, ejection fraction of left ventricle 65 to 70. History of diabetes, hypertension, hyperlipidemia, severe peripheral arterial disease, history of sick sinus syndrome status post permanent pacemaker. History of chronic atrial fibrillation baseline being followed by Dr. Vilchis. Sick sinus syndrome status post pacemaker two years ago in 2016, now the patient is developing gangrene of the toe. Risks, benefit ratio is in favor, I have to go for surgery though patient will be at high risk for seizures because of underling comorbidity, but no absolute contraindication of surgery. No evidence of congestive heart failure, no evidence of arrhythmia except baseline atrial fibrillation, no history of angina. We will clear the patient to go for OR as a moderate to high risk as no absolute contraindication. Discussed with PMD parts assembler Dr. Vilchis at [facility]. Discussed with patient's daughter, Eda. We will clear the patient to go as mentioned with a high risk cases and order is written for clearance in physician as communication. Suggested to continue dialysis, suggested to get the dialysis before the patient goes to the OR. We will follow with you. We will also get chest x-ray today because the patient states that she has started coughing today. Make sure the patient does not develop aspiration pneumonia. We will get the chest x-ray after dialysis today around 3 p.m. post dialysis. Also assess the status of congestive heart failure. Patient had preserved left ventricular function, congestive heart failure secondary to right-sided failure and pulmonary hypertension. Thank you, Dr. Lucas, for providing us the opportunity in taking care of the patient, Susan Meza. Liam Rubio MD
--- NOTE | 2018-06-04 17:35 | CP.PCM.PN ---
<Aliyah Jaeger - Last Filed: 06/04/18 17:36> Subjective - Date & Time of Evaluation Date of Evaluation: 06/04/18 Time of Evaluation: 17:31 - Subjective Subjective: Podiatry Progress Note for Dr. Copeland: 82 yo female patient seen and evaluated at bedside with Dr. Copeland for L 4th digit gangrene. Patient is AAOx3 and in NAD. Patient aware of plan for surgical intervention for her L foot on . She denies N/V/F/SOB. Objective - Vital Signs/Intake and Output Vital Signs (last 24 hours): Temp Pulse Resp BP Pulse Ox 98.4 F 71 18 110/67 98 06/04/18 05:56 06/04/18 15:32 06/04/18 05:56 06/04/18 15:32 06/04/18 05:56 Intake and Output: 06/04/18 06/04/18 06:59 18:59 Intake Total 780 Output Total 0 Balance 780 - Medications Medications: Current Medications Acetaminophen (Tylenol 325mg Tab) 325 mg PO Q6 PRN PRN Reason: Pain, moderate (4-7) Allopurinol (Zyloprim) 100 mg PO DAILY [facility] Last Admin: 06/04/18 15:32 Dose: 100 mg Aspirin (Ecotrin) 81 mg PO DAILY [facility] Last Admin: 06/04/18 15:37 Dose: 81 mg Atorvastatin Calcium (Lipitor) 40 mg PO DAILY [facility] Last Admin: 06/04/18 15:32 Dose: 40 mg Calcium Acetate (Phoslo) 2,001 mg PO WM [facility] Last Admin: 06/04/18 12:00 Dose: Not Given Cinacalcet (Sensipar) 30 mg PO DAILY [facility] Last Admin: 06/04/18 15:32 Dose: 30 mg Clopidogrel Bisulfate (Plavix) 75 mg PO DAILY [facility] Last Admin: 06/04/18 15:39 Dose: Not Given Diltiazem HCl (Cardizem) 30 mg PO TID [facility] Last Admin: 06/04/18 15:32 Dose: 30 mg Guaifenesin (Robitussin) 100 mg PO Q4H PRN PRN Reason: Cough Last Admin: 06/04/18 02:18 Dose: 100 mg Heparin Sodium (Porcine) (Heparin) 5,000 units SC Q8 [facility]; Protocol Last Admin: 06/04/18 15:37 Dose: 5,000 units Dextrose (Dextrose 10% In Water) 500 mls @ 40 mls/hr IV .[id number] [facility] Last Admin: 06/04/18 05:00 Dose: 40 mls/hr Vancomycin HCl (Vancomycin 500mg In Ns) 500 mg in 100 mls @ 200 mls/hr IVPB TTS [facility]; Protocol Last Admin: 06/04/18 15:37 Dose: 200 mls/hr Levalbuterol HCl (Xopenex) 0.63 mg IH [id number] PRN PRN Reason: Shortness of Breath Lorazepam (Ativan) 0.5 mg IVP Q6H PRN; Protocol PRN Reason: Anxiety Last Admin: 06/02/18 16:28 Dose: 0.5 mg Metoprolol Tartrate (Lopressor) 12.5 mg PO BID [facility] Last Admin: 06/04/18 10:27 Dose: Not Given Mometasone Furoate (Asmanex Twisthaler 220 Mcg) 1 puff IH QPM [facility] Last Admin: 06/03/18 18:43 Dose: 1 puff Morphine Sulfate (Morphine) 2 mg IVP Q4H PRN PRN Reason: Pain, severe (8-10) Ondansetron HCl (Zofran Inj) 4 mg IVP Q6H PRN PRN Reason: Nausea/Vomiting Last Admin: 06/02/18 16:28 Dose: 4 mg Pantoprazole Sodium (Protonix Ec Tab) 40 mg PO DAILY [facility] Last Admin: 06/04/18 15:36 Dose: 40 mg Promethazine HCl/Dextromethorphan (Phenergan Dm Syrup) 5 ml PO Q6H PRN PRN Reason: Cough - Labs Labs: 06/04/18 06:30 06/04/18 06:30 PT 13.7 SECONDS (9.4-12.5) H 05/31/18 18:42 INR 1.20 05/31/18 18:42 APTT 29.7 Seconds (25.1-36.5) 05/31/18 18:42 - Constitutional Appears: Well, Non-toxic, No Acute Distress - Head Exam Head Exam: ATRAUMATIC, NORMOCEPHALIC - Extremities Exam Additional comments: Vasc: DP and PT pulses nonpalpable b/l. Skin temperature cool to cool bilaterally. Pedal hair absent b/l. Nonpitting edema noted proximal to left 4th digit and left hallux. Neuro: Gross sensation intact, protective sensation diminished bilaterally. Derm: Thin, atrophic, waxy skin present. Left 4th digit gangrene with no drainage or purulence noted, malodor appreciated. Dusky discoloration noted to left forefoot. Friable skin noted to bilateral heels. Ortho: Pain on palpation noted to left 4th digit. No tenderness upon calf compression bilaterally - Neurological Exam Neurological Exam: Alert, Awake, Oriented x3 - Psychiatric Exam Psychiatric exam: Normal Affect, Normal Mood Assessment and Plan - Assessment and Plan (Free Text) Assessment: 82 yo female patient with left 4th digit gangrene secondary to PVD Plan: Patient seen and evaluated at bedside with Dr. Dinorah JENSEN, WBC 12 LE US (05/31): L tibial occulsive disease, R SFA occlusive disease, R popliteal, trifurcation and/or tibial disease L toe wound cx; MRSA IV abx per ID reccs; continue intermittent Vancomycin As per Ramiro; KLEVER/PVR (05/01/18) shows L .56 and R .456, patient underwent peripheral vascular intervention Local wound care: betadine, DSD Multipodus boots ordered, to be worn at all times in bed to prevent heel breakdown Plan for patient to OR 10 am for transmetatarsal amputation, please optimize patient Discussed procedure with patient, patient expressed verbal understanding Podiatry will continue to follow while in house <Thien Copeland - Last Filed: 06/04/18 18:39> Objective - Vital Signs/Intake and Output Vital Signs (last 24 hours): Temp Pulse Resp BP Pulse Ox 97.4 F L 70 18 103/52 L 98 06/04/18 17:38 06/04/18 17:38 06/04/18 17:38 06/04/18 17:38 06/04/18 05:56 Intake and Output: 06/04/18 06/04/18 06:59 18:59 Intake Total 780 360 Output Total 0 0 Balance 780 360 - Medications Medications: Current Medications Acetaminophen (Tylenol 325mg Tab) 325 mg PO Q6 PRN PRN Reason: Pain, moderate (4-7) Allopurinol (Zyloprim) 100 mg PO DAILY [facility] Last Admin: 06/04/18 15:32 Dose: 100 mg Aspirin (Ecotrin) 81 mg PO DAILY [facility] Last Admin: 06/04/18 15:37 Dose: 81 mg Atorvastatin Calcium (Lipitor) 40 mg PO DAILY [facility] Last Admin: 06/04/18 15:32 Dose: 40 mg Calcium Acetate (Phoslo) 2,001 mg PO WM [facility] Last Admin: 06/04/18 12:00 Dose: Not Given Cinacalcet (Sensipar) 30 mg PO DAILY [facility] Last Admin: 06/04/18 15:32 Dose: 30 mg Clopidogrel Bisulfate (Plavix) 75 mg PO DAILY [facility] Last Admin: 06/04/18 15:39 Dose: Not Given Diltiazem HCl (Cardizem) 30 mg PO TID [facility] Last Admin: 06/04/18 15:32 Dose: 30 mg Guaifenesin (Robitussin) 100 mg PO Q4H PRN PRN Reason: Cough Last Admin: 06/04/18 02:18 Dose: 100 mg Heparin Sodium (Porcine) (Heparin) 5,000 units SC Q8 [facility]; Protocol Last Admin: 06/04/18 15:37 Dose: 5,000 units Dextrose (Dextrose 10% In Water) 500 mls @ 40 mls/hr IV .[id number] [facility] Last Admin: 06/04/18 05:00 Dose: 40 mls/hr Vancomycin HCl (Vancomycin 500mg In Ns) 500 mg in 100 mls @ 200 mls/hr IVPB TTS [facility]; Protocol Last Admin: 06/04/18 15:37 Dose: 200 mls/hr Levalbuterol HCl (Xopenex) 0.63 mg IH [id number] PRN PRN Reason: Shortness of Breath Lorazepam (Ativan) 0.5 mg IVP Q6H PRN; Protocol PRN Reason: Anxiety Last Admin: 06/02/18 16:28 Dose: 0.5 mg Metoprolol Tartrate (Lopressor) 12.5 mg PO BID [facility] Last Admin: 06/04/18 10:27 Dose: Not Given Mometasone Furoate (Asmanex Twisthaler 220 Mcg) 1 puff IH QPM [facility] Last Admin: 06/03/18 18:43 Dose: 1 puff Morphine Sulfate (Morphine) 2 mg IVP Q4H PRN PRN Reason: Pain, severe (8-10) Ondansetron HCl (Zofran Inj) 4 mg IVP Q6H PRN PRN Reason: Nausea/Vomiting Last Admin: 06/02/18 16:28 Dose: 4 mg Pantoprazole Sodium (Protonix Ec Tab) 40 mg PO DAILY [facility] Last Admin: 06/04/18 15:36 Dose: 40 mg Promethazine HCl/Dextromethorphan (Phenergan Dm Syrup) 5 ml PO Q6H PRN PRN Reason: Cough - Labs Labs: 06/04/18 06:30 06/04/18 06:30 PT 13.7 SECONDS (9.4-12.5) H 05/31/18 18:42 INR 1.20 05/31/18 18:42 APTT 29.7 Seconds (25.1-36.5) 05/31/18 18:42 Attending/Attestation - Attestation I have personally seen and examined this patient.: Yes I have fully participated in the care of the patient.: Yes I have reviewed all pertinent clinical information, including history, physical exam and plan: Yes
[2018-06-04] MEDS: Mometasone 220 mcg/puff-14 puff Inh IH SCH (18:58)
--- NOTE | 2018-06-04 22:42 | PN ---
DATE: 06/04/2018 SUBJECTIVE: Patient is 82 years old, seen and examined. Seen in dialysis unit, resting comfortably. Denies any chest pain. Cough is better. PHYSICAL EXAMINATION: VITAL SIGNS: She is afebrile, pulse 109, respirations 18, blood pressure 110/67. LUNGS: Bilateral fair air flow. No rhonchi or crackles. HEART: S1, S2 audible. ABDOMEN: Soft, nontender. No rebound. No guarding. NEUROLOGICAL: She is awake and alert, able to communicate. EXTREMITIES: Her left foot is in the dressing. Bilateral legs, no edema. LABORATORY DATA: WBC is 12, hemoglobin 10.4, hematocrit 32.4, platelets 195. Chemistry: Sodium 130, potassium 5.5, chloride 95, CO2 of 21, BUN 37, creatinine 6.2. Her foot wound has MRSA. Nares is negative for MRSA. Both bottles are negative blood culture. ASSESSMENT: 1. Left forefoot gangrene of the toe. 2. Peripheral vascular disease. 3. End-stage renal disease, on hemodialysis. 4. Hypertension. 5. Hyperlipidemia. 6. Mild dementia. 7. Cardiomegaly with congestive heart failure. 8. Bilateral pleural effusion. 9. Bilateral subsegmental atelectasis. 10. Status post pacemaker placement. PLAN: Discussed with Dr. Copeland. Dr. Rubio evaluated the patient and the plan is for surgical intervention on . Patient's overall intake is very poor. I will order for Nepro. We will follow up in a.m. I will speak to patient's daughter. Patient will receive dialysis today. We will follow up patient. Bruno Lucas MD
[2018-06-05 07:15] LABS: HEMOGLOBIN 9.3 g/dL (12.0-16.0); MEAN CORPUSCULAR HEMOGLOBIN 30.7 pg (25.0-35.0); MEAN CORPUSCULAR HGB CONC 32.3 g/dl (31.0-37.0); MEAN PLATELET VOLUME 10.3 fl (7.0-11.0); RBC 3.03 10^6/uL (3.5-6.1); RED CELL DISTRIBUTION WIDTH 16.4 % (11.5-14.5); WHITE BLOOD COUNT 7.5 10^3/ul (4.5-11.0)
[2018-06-05 07:18] LABS: ALB/GLOB RATIO 0.8 (1.1-1.8); ALBUMIN 2.4 g/dL (3.0-4.8); CALCIUM 8.5 mg/dL (8.4-10.5)
[2018-06-05] MEDS: Pantoprazole 40 mg EC Tab PO SCH (10:14)
--- NOTE | 2018-06-05 12:44 | CP.PCM.PN ---
Subjective - Date & Time of Evaluation Date of Evaluation: 06/05/18 Time of Evaluation: 11:10 - Subjective Subjective: Afebrile, not in distress. Objective - Vital Signs/Intake and Output Vital Signs (last 24 hours): Temp Pulse Resp BP Pulse Ox 98.5 F 73 20 84/40 L 96 06/05/18 05:45 06/05/18 05:45 06/05/18 05:45 06/05/18 05:45 06/05/18 05:45 Intake and Output: 06/04/18 06/05/18 18:59 06:59 Intake Total 360 600 Output Total 0 Balance 360 600 - Medications Medications: Current Medications Acetaminophen (Tylenol 325mg Tab) 325 mg PO Q6 PRN PRN Reason: Pain, moderate (4-7) Allopurinol (Zyloprim) 100 mg PO DAILY [facility] Last Admin: 06/04/18 15:32 Dose: 100 mg Aspirin (Ecotrin) 81 mg PO DAILY [facility] Last Admin: 06/04/18 15:37 Dose: 81 mg Atorvastatin Calcium (Lipitor) 40 mg PO DAILY [facility] Last Admin: 06/04/18 15:32 Dose: 40 mg Calcium Acetate (Phoslo) 2,001 mg PO WM [facility] Last Admin: 06/04/18 18:56 Dose: 2,001 mg Cinacalcet (Sensipar) 30 mg PO DAILY [facility] Last Admin: 06/04/18 15:32 Dose: 30 mg Clopidogrel Bisulfate (Plavix) 75 mg PO DAILY [facility] Last Admin: 06/04/18 15:39 Dose: Not Given Diltiazem HCl (Cardizem) 30 mg PO TID [facility] Last Admin: 06/04/18 18:55 Dose: Not Given Guaifenesin (Robitussin) 100 mg PO Q4H PRN PRN Reason: Cough Last Admin: 06/04/18 02:18 Dose: 100 mg Heparin Sodium (Porcine) (Heparin) 5,000 units SC Q8 [facility]; Protocol Last Admin: 06/05/18 04:59 Dose: 5,000 units Dextrose (Dextrose 10% In Water) 500 mls @ 40 mls/hr IV .[id number] [facility] Last Admin: 06/05/18 05:16 Dose: 40 mls/hr Vancomycin HCl (Vancomycin 500mg In Ns) 500 mg in 100 mls @ 200 mls/hr IVPB TTS [facility]; Protocol Last Admin: 06/04/18 15:37 Dose: 200 mls/hr Levalbuterol HCl (Xopenex) 0.63 mg IH [id number] PRN PRN Reason: Shortness of Breath Lorazepam (Ativan) 0.5 mg IVP Q6H PRN; Protocol PRN Reason: Anxiety Last Admin: 06/02/18 16:28 Dose: 0.5 mg Metoprolol Tartrate (Lopressor) 12.5 mg PO BID [facility] Last Admin: 06/04/18 18:55 Dose: Not Given Mometasone Furoate (Asmanex Twisthaler 220 Mcg) 1 puff IH QPM [facility] Last Admin: 06/04/18 18:58 Dose: 1 puff Morphine Sulfate (Morphine) 2 mg IVP Q4H PRN PRN Reason: Pain, severe (8-10) Ondansetron HCl (Zofran Inj) 4 mg IVP Q6H PRN PRN Reason: Nausea/Vomiting Last Admin: 06/02/18 16:28 Dose: 4 mg Pantoprazole Sodium (Protonix Ec Tab) 40 mg PO DAILY [facility] Last Admin: 06/04/18 15:36 Dose: 40 mg Promethazine HCl/Dextromethorphan (Phenergan Dm Syrup) 5 ml PO Q6H PRN PRN Reason: Cough - Labs Labs: 06/04/18 06:30 06/04/18 06:30 PT 13.7 SECONDS (9.4-12.5) H 05/31/18 18:42 INR 1.20 05/31/18 18:42 APTT 29.7 Seconds (25.1-36.5) 05/31/18 18:42 - Constitutional Appears: Chronically Ill - Head Exam Head Exam: NORMAL INSPECTION - Respiratory Exam Respiratory Exam: Decreased Breath Sounds - Cardiovascular Exam Cardiovascular Exam: +S1, +S2 - GI/Abdominal Exam GI & Abdominal Exam: Soft. absent: Tenderness Assessment and Plan - Assessment and Plan (Free Text) Plan: Assessment left foot 4th toe with ischemic changes, R/O developing dry gangrene, wound growing MRSA but no systemic signs of infection PAD S/P femoral angioplasty chronic CHF atrial fibrillation ESRD on HD GERD CAD gout Plan continue intermittent Vancomycin (with HD) ; blood cx are negative and but wound cx is showing MRSA; will continue to monitor WBC count and temperatures follow up plans of Vascular, Podiatry - they are planning amputation of the toe but as discussed with Dr. Copeland, we are awaiting plan to re-vascularize will continue to follow clinically
--- NOTE | 2018-06-05 13:08 | PN ---
DATE: 06/05/2018 REASON FOR THE CONSULTATION AND FOLLOWUP: Preop evaluation, risk stratification for right transmetatarsal amputation, gangrene of the toe. SUBJECTIVE: The patient denies any chest pain, shortness of breath or any palpitations. OBJECTIVE: GENERAL: Not in apparent distress. VITAL SIGNS: Temperature afebrile, heart rate 73, blood pressure 106/48. HEENT: PERRLA. Extraocular muscles intact. NECK: Supple. No carotid bruits or thyromegaly. CHEST: Clear to auscultation. HEART: S1, S2 regular. ABDOMEN: Soft. EXTREMITIES: Clubbing and cyanosis negative. LABORATORY DATA: Blood workup as follows: WBC 7.5, hemoglobin 9.3, hematocrit 28.8, platelet count 223. Chemistry shows sodium 131, potassium 4.2, chloride 95, carbon dioxide 26, anion gap of 14, BUN 29, creatinine 5.1. IMPRESSION AND PLAN: An 82-year-old female with past medical history significant for endstage renal disease on dialysis, sick sinus syndrome, paroxysmal atrial fibrillation, status post permanent pacemaker, history of peripheral arterial disease, status post carotid artery endarterectomy 10 years ago, history of peripheral intervention done. Recent echocardiogram in [place] done on 05/16/2018 ejection fraction 65 to 70%, right ventricle severely dilated, right ventricular systolic function decreased, trace aortic regurgitation, [id number] valvular aortic area of 1.5 cm2, mitral regurgitation, mild mitral stenosis, valve area of 2.2 cm2, severe tricuspid regurgitation, right ventricular systolic pressure 81 consistent with pulmonary hypertension. Given the overall patient's condition, risk benefit ratio is in interest to the patient to go for transmetatarsal surgery, though the patient will be high risk with underlying comorbidity. Discussed with the patient's daughter, Eda and Dr. Vilchis, hydrate thickener operator. Risk benefit ratio was in favor of having surgery, otherwise the patient can have sepsis and can from the sepsis from the gangrene of the toe, though the patient will be high risk, we will clear the patient's high risk for surgery. No absolute contraindication, no evidence of any arrhythmic's. At baseline, the patient has an underlying atrial fibrillation. No evidence of further arrhythmia or angina. We will continue perioperative with you. In the interim, continue low-dose beta-noelle to around 5 p.o. b.i.d. as the blood pressure is tolerated. Continue deep venous thrombosis prophylaxis. Continue metoprolol. Thank you, Dr. Lucas, for providing us the opportunity in taking care of the patient, Susan Meza. Liam Rubio MD
--- NOTE | 2018-06-05 13:28 | CP.PCM.PN ---
Subjective - Date & Time of Evaluation Date of Evaluation: 06/05/18 Time of Evaluation: 13:09 - Subjective Subjective: Podiatry Progress Note for Dr. Copeland: 82 yo female patient seen and evaluated for L 4th digit gangrene. Patient is resting comfortably in bed and denies any acute events overnight. She reports pain to the right foot when touched. Patient aware of plan for surgical intervention for transmetatarsal amputation tomorrow. Denies N/V/F/SOB. Objective - Vital Signs/Intake and Output Vital Signs (last 24 hours): Temp Pulse Resp BP Pulse Ox 98 F 69 18 99/53 L 96 06/05/18 12:00 06/05/18 12:00 06/05/18 12:00 06/05/18 12:00 06/05/18 05:45 Intake and Output: 06/05/18 06/05/18 06:59 18:59 Intake Total 600 Balance 600 - Medications Medications: Current Medications Acetaminophen (Tylenol 325mg Tab) 325 mg PO Q6 PRN PRN Reason: Pain, moderate (4-7) Allopurinol (Zyloprim) 100 mg PO DAILY [facility] Last Admin: 06/05/18 10:14 Dose: 100 mg Aspirin (Ecotrin) 81 mg PO DAILY [facility] Last Admin: 06/04/18 15:37 Dose: 81 mg Atorvastatin Calcium (Lipitor) 40 mg PO DAILY [facility] Last Admin: 06/05/18 10:13 Dose: 40 mg Calcium Acetate (Phoslo) 2,001 mg PO WM [facility] Last Admin: 06/05/18 12:28 Dose: 2,001 mg Cinacalcet (Sensipar) 30 mg PO DAILY [facility] Last Admin: 06/05/18 10:13 Dose: 30 mg Clopidogrel Bisulfate (Plavix) 75 mg PO DAILY [facility] Last Admin: 06/04/18 15:39 Dose: Not Given Diltiazem HCl (Cardizem) 30 mg PO TID [facility] Last Admin: 06/05/18 10:13 Dose: 30 mg Guaifenesin (Robitussin) 100 mg PO Q4H PRN PRN Reason: Cough Last Admin: 06/04/18 02:18 Dose: 100 mg Heparin Sodium (Porcine) (Heparin) 5,000 units SC Q8 [facility]; Protocol Last Admin: 06/05/18 04:59 Dose: 5,000 units Vancomycin HCl (Vancomycin 500mg In Ns) 500 mg in 100 mls @ 200 mls/hr IVPB TTS [facility]; Protocol Last Admin: 06/04/18 15:37 Dose: 200 mls/hr Levalbuterol HCl (Xopenex) 0.63 mg IH [id number] PRN PRN Reason: Shortness of Breath Lorazepam (Ativan) 0.5 mg IVP Q6H PRN; Protocol PRN Reason: Anxiety Last Admin: 06/02/18 16:28 Dose: 0.5 mg Metoprolol Tartrate (Lopressor) 12.5 mg PO BID [facility] Last Admin: 06/05/18 10:00 Dose: Not Given Mometasone Furoate (Asmanex Twisthaler 220 Mcg) 1 puff IH QPM [facility] Last Admin: 06/04/18 18:58 Dose: 1 puff Morphine Sulfate (Morphine) 2 mg IVP Q4H PRN PRN Reason: Pain, severe (8-10) Ondansetron HCl (Zofran Inj) 4 mg IVP Q6H PRN PRN Reason: Nausea/Vomiting Last Admin: 06/02/18 16:28 Dose: 4 mg Pantoprazole Sodium (Protonix Ec Tab) 40 mg PO DAILY [facility] Last Admin: 06/05/18 10:14 Dose: 40 mg Promethazine HCl/Dextromethorphan (Phenergan Dm Syrup) 5 ml PO Q6H PRN PRN Reason: Cough - Labs Labs: 06/05/18 06:30 06/05/18 06:30 PT 13.7 SECONDS (9.4-12.5) H 05/31/18 18:42 INR 1.20 05/31/18 18:42 APTT 29.7 Seconds (25.1-36.5) 05/31/18 18:42 - Constitutional Appears: Well, Non-toxic, No Acute Distress - Head Exam Head Exam: ATRAUMATIC, NORMOCEPHALIC - Extremities Exam Additional comments: Vasc: DP and PT pulses nonpalpable b/l. Skin temperature cool to cool bilaterally. Pedal hair absent b/l. Nonpitting edema noted proximal to left 4th digit and left hallux. Neuro: Gross sensation intact, protective sensation diminished bilaterally. Derm: Thin, atrophic, waxy skin present. Left 4th digit gangrene with no drainage or purulence noted, malodor appreciated. Dusky discoloration noted to left forefoot. Friable skin noted to bilateral heels. Ortho: Pain on palpation noted to left 4th digit. 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 Copeland, please optimize patient Plan for dialysis first time spot in the morning to not delay surgical intervention. Patient NPO past midnight Discussed procedure with patient, patient expressed verbal understanding Podiatry will continue to follow while in house
--- NOTE | 2018-06-05 14:06 | PN ---
DATE: 06/05/2018 SUBJECTIVE: The patient is seen sitting up in bed. She is trying to eat lunch. She denies any chest pain. She denies any shortness of breath. She had dialysis yesterday. PHYSICAL EXAMINATION: GENERAL: Elderly lady, sitting in bed. VITAL SIGNS: Blood pressure 99/53, heart rate 69, respiratory rate 18, temperature 98. HEENT: Normocephalic, atraumatic, positive pallor. NECK: Supple, no JVD. LUNGS: Bilateral equal air entry, bilateral rhonchi, no rales. CARDIAC: S1 and S2, regular rate and rhythm, positive murmur, no rub. ABDOMEN: Obese, distended, soft, nontender, bowel sounds present. EXTREMITIES: Dressing of the right foot. No edema of the lower extremities. INTAKE AND OUTPUT: Not charted. LABORATORY DATA: WBC 7.5, hemoglobin 9.3, hematocrit 28.8, platelets 223. Sodium 131, potassium 4.2, chloride 95, CO2 of 26, BUN 29, creatinine 5.1, glucose 107, calcium 8.5, albumin 2.4, globulin 3. TSH 5.7. Vancomycin trough level 18.5 from 06/02/2018. Wound culture, MRSA. CT chest on 06/03/2010, bilateral small pleural effusions and bilateral lower lobe compressive atelectasis, marked cardiomegaly, dilated main pulmonary artery, permanent pacemaker, ascites, no evidence of pneumonia. CURRENT MEDICATIONS: Asmanex; Ativan; Cardizem 30 t.i.d.; Ecotrin; heparin; Lipitor; Lopressor; morphine; PhosLo 3 tablets three times a day with food; Plavix; Protonix; Robitussin; Sensipar; vancomycin 500 mg Sunday, , Sunday; Xopenex; Zofran. ASSESSMENT: 1. End-stage renal disease, resolved hyperkalemia. 2. Status post seizure activity. 3. Severe peripheral vascular disease, gangrene of multiple toes on the foot. 5. Methicillin-resistant Staphylococcus aureus wound infection. 5. Chronic obstructive pulmonary disease. 6. Pulmonary hypertension. 7. Severe anemia. PLAN: 1. Status post stable dialysis yesterday. 2. Next dialysis will be tomorrow. 3. Schedule TMA tomorrow. 4. Monitor for seizure activity. 5. Continue vancomycin 500 mg Sunday, and Sunday. 6. Continue renal diet and monitor phosphorus levels. Demetrice Pat MD
--- NOTE | 2018-06-05 14:38 | PN ---
DATE: 06/05/2018 SUBJECTIVE: The patient is 82 years old, seen and examined. States her cough is better. Complained of generalized weakness, poor oral intake. Complained of back pain. PHYSICAL EXAMINATION: VITAL SIGNS: She is afebrile, pulse 69, respirations 18, and blood pressure 90/53. LUNGS: Bilateral fair airflow. Decreased at bases. HEART: S1, S2 audible. ABDOMEN: Soft, nontender. No rebound, no guarding. NEUROLOGICAL: The patient is awake, alert, oriented, and communicative. EXTREMITIES: Bilateral legs, no edema. Left foot has a foul smelling crusted ulcer. Culture positive for MRSA. LABORATORY EXAM: WBC is 12, hemoglobin 10.4, hematocrit 34.2, and platelets of 195. Chemistry: Sodium 131, potassium 4.2, chloride 95, CO2 of 26. BUN 29, creatinine 5.1. Blood sugar of 123. The patient clinically looked pale and lethargic. Discussed with Dr. Copeland. Since the patient is dialysis patient, she clinically looks anemic, might be hemoconcentration. We will give her blood transfusion today and she is scheduled for OR tomorrow for possibly TMA. Dr. Rubio's input noted and appreciated. The patient is moderate to high risk and family knows that, so she is scheduled for tomorrow. Bruno Lucas MD
[2018-06-05] MEDS: Levalbuterol 0.63 MG/3 ML Inhal Soln UD IH PRN (18:15)
[2018-06-05] MEDS: Mometasone 220 mcg/puff-14 puff Inh IH SCH (18:17)
--- NOTE | 2018-06-06 08:22 | CP.PCM.PN ---
Subjective - Date & Time of Evaluation Date of Evaluation: 06/06/18 Time of Evaluation: 06:10 - Subjective Subjective: Awake, alert, denies chest pain or shortness of breath, for surgery today Reason for consultation and follow up: Cardiac evaluation for left toe surgery, risk stratification,history of CHF, hypertension,Atrial fibrillation,PPM, ESRD on hemodialysis TTHS, chronic anemia,PVD s/p angiogram and angioplasty of left lower extremity. Seen and examined by me and Dr. Rubio Objective - Vital Signs/Intake and Output Vital Signs (last 24 hours): Temp Pulse Resp BP Pulse Ox 97.8 F 73 20 98/52 L 98 06/06/18 06:00 06/06/18 06:00 06/06/18 06:00 06/06/18 06:00 06/06/18 06:00 Intake and Output: 06/06/18 06/06/18 06:59 18:59 Intake Total 1575 Balance 1575 - Medications Medications: Current Medications Acetaminophen (Tylenol 325mg Tab) 325 mg PO Q6 PRN PRN Reason: Pain, moderate (4-7) Allopurinol (Zyloprim) 100 mg PO DAILY [facility] Last Admin: 06/05/18 10:14 Dose: 100 mg Aspirin (Ecotrin) 81 mg PO DAILY [facility] Last Admin: 06/04/18 15:37 Dose: 81 mg Atorvastatin Calcium (Lipitor) 40 mg PO DAILY [facility] Last Admin: 06/05/18 10:13 Dose: 40 mg Calcium Acetate (Phoslo) 2,001 mg PO WM [facility] Last Admin: 06/05/18 18:03 Dose: 2,001 mg Cinacalcet (Sensipar) 30 mg PO DAILY [facility] Last Admin: 06/05/18 10:13 Dose: 30 mg Clopidogrel Bisulfate (Plavix) 75 mg PO DAILY [facility] Last Admin: 06/04/18 15:39 Dose: Not Given Diltiazem HCl (Cardizem) 30 mg PO TID [facility] Last Admin: 06/05/18 18:03 Dose: 30 mg Guaifenesin (Robitussin) 100 mg PO Q4H PRN PRN Reason: Cough Last Admin: 06/04/18 02:18 Dose: 100 mg Heparin Sodium (Porcine) (Heparin) 5,000 units SC Q8 [facility]; Protocol Last Admin: 06/05/18 04:59 Dose: 5,000 units Vancomycin HCl (Vancomycin 500mg In Ns) 500 mg in 100 mls @ 200 mls/hr IVPB TTS [facility]; Protocol Last Admin: 06/04/18 15:37 Dose: 200 mls/hr Levalbuterol HCl (Xopenex) 0.63 mg IH R2ESNCT PRN PRN Reason: Shortness of Breath Last Admin: 06/05/18 18:15 Dose: 0.63 mg Lorazepam (Ativan) 0.5 mg IVP Q6H PRN; Protocol PRN Reason: Anxiety Last Admin: 06/02/18 16:28 Dose: 0.5 mg Metoprolol Tartrate (Lopressor) 12.5 mg PO BID [facility] Last Admin: 06/05/18 18:03 Dose: 12.5 mg Mometasone Furoate (Asmanex Twisthaler 220 Mcg) 1 puff IH QPM [facility] Last Admin: 06/05/18 18:17 Dose: 1 puff Morphine Sulfate (Morphine) 2 mg IVP Q4H PRN PRN Reason: Pain, severe (8-10) Ondansetron HCl (Zofran Inj) 4 mg IVP Q6H PRN PRN Reason: Nausea/Vomiting Last Admin: 06/02/18 16:28 Dose: 4 mg Pantoprazole Sodium (Protonix Ec Tab) 40 mg PO DAILY [facility] Last Admin: 06/05/18 10:14 Dose: 40 mg Promethazine HCl/Dextromethorphan (Phenergan Dm Syrup) 5 ml PO Q6H PRN PRN Reason: Cough - Labs Labs: 06/05/18 06:30 06/05/18 06:30 PT 13.7 SECONDS (9.4-12.5) H 05/31/18 18:42 INR 1.20 05/31/18 18:42 APTT 29.7 Seconds (25.1-36.5) 05/31/18 18:42 - Constitutional Appears: Non-toxic, No Acute Distress - Head Exam Head Exam: NORMAL INSPECTION, NORMOCEPHALIC - Eye Exam Eye Exam: Normal appearance - Respiratory Exam Respiratory Exam: Decreased Breath Sounds, Clear to Ausculation Bilateral, NORMAL BREATHING PATTERN - Cardiovascular Exam Cardiovascular Exam: +S1, +S2 Additional comments: PPM V- pacing 70's left chest permacath - GI/Abdominal Exam GI & Abdominal Exam: Soft, Normal Bowel Sounds - Exam Additional comments: ESRD on hemodialysis 3 x a week (TTHS) - Back Exam Additional comments: left foot with wrapped kerlex - Neurological Exam Neurological Exam: Alert, Awake, Oriented x3 - Psychiatric Exam Psychiatric exam: Normal Affect, Normal Mood - Skin Skin Exam: Dry, Normal Color, Warm Assessment and Plan - Assessment and Plan (Free Text) Assessment: A 82 year old female who was sent to the ER from [facility] due to gangrenous left 4th toe. hypoglycemia in ER and treated with IV D50W. History of congestive heart failure, hypertension,hyperlipidemia, non obstructive coronary artery disease,hypothyroidism, Atrial fibrillation,PPM, ESRD on hemodialysis TTHS, chronic anemia,peripheral vascular disease with multiple s/p angiogram and angioplasty of left lower extremity, carotid endarterectomy 10 years ago. 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 ECHO 04/2018- LVEF 65-70%, RV severely dilated, Moderately to severe decreased RV function, Trace AR,mild to moderate aortic valvular stenosis ROBIN 1.5 cm2,mild to moderate MR, severe TR, severe pulmonary hypertension,moderate to severe pulmonic valve regurgitation. Given co- morbidities, patient is high risk for surgery. Dr. Rubio discussed with daughter and Dr. Vilchis (patient's radiologic technician). Risk benefit ratio was in favor to have the surgery or patient will develop sepsis. cleared for surgery from cardiac standpoint. Underlying rhythm is afib, currently V-pacing at 70's. no shortness of breath or chest pain. Clinically stable. Plan: For left 4th toe surgery today Heart rate and blood pressure stable No shortness of breath, no distress Cleared for surgery from cardiac standpoint H/H stable On ASA 81 mg daily,Lipitor 40 mg daily,Plavix 75 mg daily (held) Cardizem 30 mg TID, Lopressor 12.5 mg BID Continue current treatment Continue current medications Chart reviewed Will follow up postoperatively Plan and treatment discussed with Dr. Rubio
[2018-06-06] MEDS ORDERED: Darbepoetin Alfa 60 mcg/ml Inj IVP ONE (08:34)
[2018-06-06] MEDS ORDERED: Doxercalciferol 4 mcg/2 ml Inj IVP ONE (08:35)
[2018-06-06 08:43] LABS: HEMOGLOBIN 10.3 g/dL (12.0-16.0); MEAN CELL VOLUME 94.4 fl (80.0-105.0); MEAN CORPUSCULAR HEMOGLOBIN 30.6 pg (25.0-35.0); MEAN CORPUSCULAR HGB CONC 32.4 g/dl (31.0-37.0); MEAN PLATELET VOLUME 9.7 fl (7.0-11.0); RBC 3.37 10^6/uL (3.5-6.1); RED CELL DISTRIBUTION WIDTH 16.4 % (11.5-14.5); WHITE BLOOD COUNT 7.4 10^3/ul (4.5-11.0)
[2018-06-06 08:54] LABS: ALB/GLOB RATIO 0.8 (1.1-1.8); ALBUMIN 2.5 g/dL (3.0-4.8); CALCIUM 8.7 mg/dL (8.4-10.5)
[2018-06-06] MEDS ORDERED: Lidocaine 2% PF (10 ml) Amp ONE ×2 (10:31→11:16)
[2018-06-06] MEDS ORDERED: Bupivacaine 0.25% 50 ML INJ IJ ONE ×2 (10:31→10:32)
[2018-06-06] MEDS ORDERED: Midazolam 2 MG/2 ML VIAL ONE (11:07)
[2018-06-06] MEDS ORDERED: Propofol 10 mg/ml Inj (20 ML) ONE (11:15)
[2018-06-06] MEDS ORDERED: Naloxone 0.4 mg/ml Inj (Adult) ONE ×2 (12:35→12:36)
[2018-06-06] MEDS ORDERED: Oxycodone/Acetaminophen 5/325 mg Tab PO PRN ×2 (12:47)
--- NOTE | 2018-06-06 12:52 | PCM.SURG1 ---
Surgeon's Initial Post Op Note - Surgeon's Notes Surgeon: Dr. Copeland, DPM Automotive Electrical Fitter: Dr. Aliyah Jaeger PGY1 Type of Anesthesia: MAC Anesthesia Administered By: Dr. Kaufman Pre-Operative Diagnosis: Gangrene and infection of left 4th digit Operative Findings: See dictation. I: None. M: 3-0 Vicryl, 3-0 Nylon Post-Operative Diagnosis: Same Operation Performed: Left transmetatarsal amputation Specimen/Specimens Removed: Bone and soft tissue from left foot Estimated Blood Loss: EBL {In ML}: 10 Blood Products Given: N/A Drains Used: No Drains Post-Op Condition: Good Date of Surgery/Procedure: 06/06/18 Time of Surgery/Procedure: 12:51
[2018-06-06] MEDS ORDERED: Levalbuterol 1.25 MG/3 ML Inhal Soln UD ONE (13:55)
[2018-06-06] MEDS: Levalbuterol 0.63 MG/3 ML Inhal Soln UD IH PRN (14:00)
[2018-06-06] MEDS: guaiFENesin 100 mg/5 ml Syrup UD PO PRN (14:40)
--- NOTE | 2018-06-06 14:54 | PN ---
DATE: 06/06/2018 SUBJECTIVE: The patient is 82 years old, got dialysis, going to OR for left TMA. Cough is better. No nausea, vomiting. No diarrhea. PHYSICAL EXAMINATION: VITAL SIGNS: She is afebrile, pulse 70, respirations 20, blood pressure 102/51. LUNGS: Bilateral fair airflow. No rhonchi or crackle. HEART: S1 and S2 audible. ABDOMEN: Soft. Nontender. No rebound. No guarding. NEUROLOGICAL: The patient is awake and alert, able to communicate. EXTREMITIES: Left forefoot has swelling and fourth toe gangrene with foul smelling discharge. LABORATORY EXAM: WBC 7.4, hemoglobin 10.3, hematocrit 31.8, platelet 230. Chemistry: Sodium 131, potassium 4.6, chloride 95, CO2 of 27, BUN 39, creatinine 5.9, blood sugar of 50. ASSESSMENT: 1. End-stage renal disease, on hemodialysis. 2. Acute chronic atrial fibrillation. 3. Status post pacemaker placement. 4. Chronic anemia. 5. Status post left lower extremity angioplasty. 6. Nonobstructive coronary artery disease. 7. Hypothyroidism. 8. Left fourth toe gangrene, for transmetatarsal amputation today. PLAN: In spite of being high risk for surgery that was discussed with the hr internship, with the daughter and she will be monitored on telemetry. We will monitor her CBC and CMP. We will continue to monitor her mental status. Continue her on current medications. We will follow up the patient in the a.m. Bruno Lucas MD
[2018-06-06] MEDS ORDERED: Dextrose 50% SYRINGE Inj (50 ml) ONE ×2 (15:43→15:45)
[2018-06-06 16:11] LABS: ARTERIAL BLOOD GAS HCO3 18.5 mmol/L (21-28); ARTERIAL BLOOD GAS HEMOGLOBIN 11.1 g/dL (11.7-17.4); ARTERIAL BLOOD GAS O2 CAPACITY 15.2 mL/dl (16-24); ARTERIAL BLOOD GAS O2 CONTENT 13.7 ML/dl (15-23); ARTERIAL BLOOD GAS O2 SAT 90.4 % (95-98); ARTERIAL BLOOD GAS PCO2 35 mm/Hg (35-45); ARTERIAL BLOOD GAS PH 7.33 (7.35-7.45); ARTERIAL BLOOD GAS TCO2 19.6 mmol.L (22-28)
--- NOTE | 2018-06-06 16:27 | RAD ---
Date of service: 06/06/2018 HISTORY: low o2 COMPARISON: 06/04/2018 FINDINGS: LUNGS: There is a superimposed external density over the right lung base. There is moderate vascular congestion PLEURA: No significant pleural effusion identified, no pneumothorax apparent. CARDIOVASCULAR: Moderate cardiomegaly OSSEOUS STRUCTURES: No significant abnormalities. VISUALIZED UPPER ABDOMEN: Normal. OTHER FINDINGS: None. IMPRESSION: Moderate vascular congestion
[2018-06-06] MEDS ORDERED: Dextrose 50% SYRINGE Inj (50 ml) IVP ONE (16:40)
--- NOTE | 2018-06-06 16:41 | PCM.RRT ---
<Celestino Forrester - Last Filed: 06/06/18 16:41> CERTIFIED PHYSICAL THERAPIST ASSISTANT Nurse Assessment - Situation Date: 06/06/18 Time CERTIFIED PHYSICAL THERAPIST ASSISTANT was called: 15:33 CERTIFIED PHYSICAL THERAPIST ASSISTANT Responder Arrival Time: 15:35 CERTIFIED PHYSICAL THERAPIST ASSISTANT Location:: [address] [place] [address] Room Number: [id number] CERTIFIED PHYSICAL THERAPIST ASSISTANT Reason for Call: O2 Saturation below 90% CERTIFIED PHYSICAL THERAPIST ASSISTANT Called By: RN - IV IV Inserted during CERTIFIED PHYSICAL THERAPIST ASSISTANT?: No - Respiratory Oxygen Delivery Method: Non Rebreather @% Received Nebulizer Treatments:: No Was the Patient Ventilated with Bag/Mask 100% O2?: No Secretions Suctioned?: Yes Was the Patient Intubated?: No Was the Patient Placed on a Ventilator?: No - Medication Medications Administered During CERTIFIED PHYSICAL THERAPIST ASSISTANT: D50 - Diagnostic Test Ordered EKG: Yes Chest X-Ray: Yes CT Scan: No - Stat Labs Ordered CERTIFIED PHYSICAL THERAPIST ASSISTANT Stat Labs Ordered: ABG CPR started during CERTIFIED PHYSICAL THERAPIST ASSISTANT?: No - Vital Signs Vital Sign: Rapid Response Vital Sign Blood Pressure 104/49 Pulse Rate 84 Temperature 99.5 F Oxygen Saturation 77 - Finger Stick Blood Glucose Finger Stick Blood Glucose: 55 - Time CERTIFIED PHYSICAL THERAPIST ASSISTANT Ended Time CERTIFIED PHYSICAL THERAPIST ASSISTANT Ended: 16:05 - Vital Signs at end of CERTIFIED PHYSICAL THERAPIST ASSISTANT Vital Signs at end of CERTIFIED PHYSICAL THERAPIST ASSISTANT: Rapid Response End Vital Sign Blood Pressure 118/65 Pulse Rate 79 Respiratory Rate 16 Temperature 99.5 F O2 Sat by Pulse Oximetry 90 - Recommendations Notifications: Attending Physician, Family or Designated Caregiver - Respiratory Oxygen Delivery Method: Non Rebreather @% - Head Head Exam: NORMAL INSPECTION, NORMOCEPHALIC - Eyes Eye Exam: Normal appearance - Respiratory Exam Respiratory Exam: Decreased Breath Sounds. absent: Chest Wall Tenderness - Cardiovascular Exam Cardiovascular Exam: Irregular Rhythm - GI/Abdominal Exam GI & Abdominal Exam: Soft. absent: Tenderness - Neurological Exam Neurological Exam: Alert, Awake Plan - Assessment of Findings&Treatment Plan Rapid response was called by nursing staff or low oxygen saturation. Patient was assessed and vitals taken, patient was place don non rebreather with improvement of saturation to the 90s. EKG was done showing Afib, chest xray was done showing vascular congestion unchanged from previous xray. ABG was done showing hypoxia with oxygen of 58 wit ph of 7.33. Blood glucose level was 55 amp of d50 was given. Patient was alert opening eyes and answering questions appropriately. I reached out to Dr. Lucas who was made aware of the situation and Dr. Pat. ICU Dr. Litinsky was consulted and after discussion with family they chose palliative care and avoid aggressive measures. <Breanna Norman - Last Filed: 06/06/18 19:24> CERTIFIED PHYSICAL THERAPIST ASSISTANT Nurse Assessment - Vital Signs Vital Sign: Rapid Response Vital Sign Blood Pressure 104/49 Pulse Rate 84 Temperature 99.5 F Oxygen Saturation 77 - Vital Signs at end of CERTIFIED PHYSICAL THERAPIST ASSISTANT Vital Signs at end of CERTIFIED PHYSICAL THERAPIST ASSISTANT: Rapid Response End Vital Sign Blood Pressure 118/65 Pulse Rate 79 Respiratory Rate 16 Temperature 99.5 F O2 Sat by Pulse Oximetry 90 Attending/Attestation - Attestation I have personally seen and examined this patient.: Yes I have fully participated in the care of the patient.: Yes I have reviewed all pertinent clinical information, including history, physical exam and plan: Yes
--- NOTE | 2018-06-06 17:18 | CP.PCM.PN ---
Subjective - Date & Time of Evaluation Date of Evaluation: 06/06/18 Time of Evaluation: 08:40 - Subjective Subjective: Patient is for surgery today, no fevers. Objective - Vital Signs/Intake and Output Vital Signs (last 24 hours): Temp Pulse Resp BP Pulse Ox 97.8 F 73 20 98/52 L 98 06/06/18 06:00 06/06/18 06:00 06/06/18 06:00 06/06/18 06:00 06/06/18 06:00 Intake and Output: 06/05/18 06/06/18 18:59 06:59 Intake Total 415 1575 Balance 415 1575 - Medications Medications: Current Medications Acetaminophen (Tylenol 325mg Tab) 325 mg PO Q6 PRN PRN Reason: Pain, moderate (4-7) Allopurinol (Zyloprim) 100 mg PO DAILY [facility] Last Admin: 06/05/18 10:14 Dose: 100 mg Aspirin (Ecotrin) 81 mg PO DAILY [facility] Last Admin: 06/04/18 15:37 Dose: 81 mg Atorvastatin Calcium (Lipitor) 40 mg PO DAILY [facility] Last Admin: 06/05/18 10:13 Dose: 40 mg Calcium Acetate (Phoslo) 2,001 mg PO WM [facility] Last Admin: 06/05/18 18:03 Dose: 2,001 mg Cinacalcet (Sensipar) 30 mg PO DAILY [facility] Last Admin: 06/05/18 10:13 Dose: 30 mg Clopidogrel Bisulfate (Plavix) 75 mg PO DAILY [facility] Last Admin: 06/04/18 15:39 Dose: Not Given Diltiazem HCl (Cardizem) 30 mg PO TID [facility] Last Admin: 06/05/18 18:03 Dose: 30 mg Guaifenesin (Robitussin) 100 mg PO Q4H PRN PRN Reason: Cough Last Admin: 06/04/18 02:18 Dose: 100 mg Heparin Sodium (Porcine) (Heparin) 5,000 units SC Q8 [facility]; Protocol Last Admin: 06/05/18 04:59 Dose: 5,000 units Vancomycin HCl (Vancomycin 500mg In Ns) 500 mg in 100 mls @ 200 mls/hr IVPB TTS [facility]; Protocol Last Admin: 06/04/18 15:37 Dose: 200 mls/hr Levalbuterol HCl (Xopenex) 0.63 mg IH D6DFALS PRN PRN Reason: Shortness of Breath Last Admin: 06/05/18 18:15 Dose: 0.63 mg Lorazepam (Ativan) 0.5 mg IVP Q6H PRN; Protocol PRN Reason: Anxiety Last Admin: 06/02/18 16:28 Dose: 0.5 mg Metoprolol Tartrate (Lopressor) 12.5 mg PO BID [facility] Last Admin: 06/05/18 18:03 Dose: 12.5 mg Mometasone Furoate (Asmanex Twisthaler 220 Mcg) 1 puff IH QPM [facility] Last Admin: 06/05/18 18:17 Dose: 1 puff Morphine Sulfate (Morphine) 2 mg IVP Q4H PRN PRN Reason: Pain, severe (8-10) Ondansetron HCl (Zofran Inj) 4 mg IVP Q6H PRN PRN Reason: Nausea/Vomiting Last Admin: 06/02/18 16:28 Dose: 4 mg Pantoprazole Sodium (Protonix Ec Tab) 40 mg PO DAILY [facility] Last Admin: 06/05/18 10:14 Dose: 40 mg Promethazine HCl/Dextromethorphan (Phenergan Dm Syrup) 5 ml PO Q6H PRN PRN Reason: Cough - Labs Labs: 06/05/18 06:30 06/05/18 06:30 PT 13.7 SECONDS (9.4-12.5) H 05/31/18 18:42 INR 1.20 05/31/18 18:42 APTT 29.7 Seconds (25.1-36.5) 05/31/18 18:42 - Constitutional Appears: Chronically Ill - Head Exam Head Exam: NORMAL INSPECTION - Respiratory Exam Respiratory Exam: Decreased Breath Sounds - Cardiovascular Exam Cardiovascular Exam: +S1, +S2 - GI/Abdominal Exam GI & Abdominal Exam: Soft. absent: Tenderness - Extremities Exam Additional comments: left foot with dressings in place Assessment and Plan - Assessment and Plan (Free Text) Plan: Assessment left foot 4th toe with ischemic changes, R/O developing dry gangrene, wound growing MRSA but no systemic signs of infection PAD S/P femoral angioplasty chronic CHF atrial fibrillation ESRD on HD GERD CAD gout Plan continue intermittent Vancomycin (with HD) ; blood cx are negative and but wound cx is showing MRSA; will continue to monitor WBC count and temperatures follow up plans of Vascular, Podiatry - they are planning amputation of the toe but as discussed with Dr. Copeland, we are awaiting plan to re-vascularize - for surgery today will continue to follow clinically
[2018-06-06] MEDS: Morphine 2 mg/ml ISec IVP PRN ×2 (18:23→21:25)
[2018-06-06] MEDS: Mometasone 220 mcg/puff-14 puff Inh IH SCH (18:39)
--- NOTE | 2018-06-06 21:36 | PN ---
DATE: 06/06/2018 SUBJECTIVE: The patient is seen status post TMA. She is lying in bed. She is groggy. She is just coming back from the PACU. She is complaining of feeling cold, she is shivering. Daughter is at bedside. PHYSICAL EXAMINATION GENERAL: Elderly lady lying in bed. VITAL SIGNS: Blood pressure 133/60, heart rate 73, respiratory rate 18-20, temperature 98.7. HEENT: Normocephalic, atraumatic, positive pallor. NECK: Supple, no JVD. LUNGS: Bilateral equal entry, bilateral decreased breath sounds at bases, no rales appreciated. CARDIAC: S1 and S2, regular rate and rhythm, no murmur, no rub. ABDOMEN: Obese, distended, soft, nontender, bowel sounds present. EXTREMITIES: Dressing of the foot. INTAKE AND OUTPUT: Not charted. LABORATORY DATA: WBC 7.4, hemoglobin 10.3, hematocrit 32, platelets 213. Sodium 131, potassium 4.6, chloride 95, CO2 27, BUN 39, creatinine 5.9, glucose 80, calcium 8.7, albumin 2.5, globulin 3. CURRENT MEDICATIONS: List reviewed. ASSESSMENT: 1. End-stage renal disease, status post dialysis earlier today. 2. Severe peripheral vascular disease, gangrene of toes, status post transmetatarsal amputation. 3. Congestive heart failure. 4. Chronic obstructive pulmonary disease/pulmonary hypertension. 5. Anemia of chronic kidney disease. 6. Secondary hyperparathyroidism. PLAN: 1. Monitor vital signs closely, monitor for fevers. 2. Stable dialysis today. 3. Continue antibiotics as per ID recommendations. 4. Pain management. Demetrice Pat MD
[2018-06-07] MEDS: Levalbuterol 0.63 MG/3 ML Inhal Soln UD IH PRN (00:24)
[2018-06-07] MEDS: Morphine 2 mg/ml ISec IVP PRN ×3 (00:59→07:52)
[2018-06-07] MEDS ORDERED: Dextrose 50% SYRINGE Inj (50 ml) IVP STA (05:42)
[2018-06-07] MEDS ORDERED: Dextrose 50% SYRINGE Inj (50 ml) IVP ONE (05:43)
[2018-06-07 06:30] VITALS: O2SAT 97
--- NOTE | 2018-06-07 06:38 | CON ---
DATE: 06/06/2018 HISTORY OF PRESENT ILLNESS: This is a 82-year-old lady who initially presented 6 days ago for treatment and evaluation of her gangrenous left toe. The patient denied discharge fever, chills, chest pain, shortness of breath, nausea, vomiting or abdominal pain. She was treated with antibiotics and Podiatry care/Wound care with partial improvement. However, today, rapid response was called after she returned from dialysis (the patient has end-stage renal disease on chronic dialysis) where she was found to be hypoxemic with altered mental status. Of note, the patient's DNR/DNI which was confirmed by the patient's family at bedside. PAST MEDICAL HISTORY: Hypertension, CHF, hypothyroidism, atrial fibrillation, pacemaker, end-stage renal disease on dialysis. ALLERGIES: NKDA. FAMILY HISTORY: Noncontributory. SOCIAL HISTORY: No alcohol or illicit drug abuse. No tobacco smoking. PHYSICAL EXAMINATION: VITAL SIGNS: Blood pressure 104/49, respiratory rate 15, oxygen saturation 89% on partial non-rebreather, temperature 99.5. ENT: Head and neck atraumatic. LUNGS: Few crackles bilaterally. HEART: Irregular rate and rhythm. S1 and S2 distant. ABDOMEN: Soft, nontender, nondistended. MUSCULOSKELETAL: Trace bilateral pedal and ankle edema. NEUROLOGIC: The patient was not observed moving upper and lower extremities spontaneously. SKIN: Moist. PSYCHIATRY: The patient is very somnolent. LABORATORY DATA: WBC 7.4, hemoglobin 10.3, platelet count 213. Sodium 131, potassium 4.6, chloride 95, carbon dioxide 27, BUN 39, creatinine 5.9, glucose 80, AST 27, ALT 18, bilirubin 0.8. INR 1.2. MEDICATIONS: Tylenol p.r.n., allopurinol, Lipitor, PhosLo, Sensipar, Cardizem, Robitussin p.r.n., Xopenex p.r.n., metoprolol, Asmanex inhalers, Zofran p.r.n., Percocet p.r.n., Protonix, vancomycin IV. ASSESSMENT AND PLAN: This is 82-year-old lady with altered mental status and some hypoxemia. I spoke with family at bedside extensively and they reiterated her DNR/DNI status. They wanted to proceed with comfort care which will be honored. Palliative care nurse would be recommended to see the patient as well. No need for close monitoring in MICU in order to provide optimal palliative/comfort care. Please call for ICU re-eval if clinical or social (advanced directives) situation changed ccm time 40 min Jarvis Olmos MD MTD[facility]iffin
[2018-06-07 07:10] LABS: HEMOGLOBIN 9.5 g/dL (12.0-16.0); MEAN CELL VOLUME 95.1 fl (80.0-105.0); MEAN CORPUSCULAR HEMOGLOBIN 30.7 pg (25.0-35.0); MEAN CORPUSCULAR HGB CONC 32.3 g/dl (31.0-37.0); MEAN PLATELET VOLUME 10.5 fl (7.0-11.0); RBC 3.09 10^6/uL (3.5-6.1); RED CELL DISTRIBUTION WIDTH 16.3 % (11.5-14.5); WHITE BLOOD COUNT 15.2 10^3/ul (4.5-11.0)
--- NOTE | 2018-06-07 07:40 | CP.PCM.PN ---
Subjective - Date & Time of Evaluation Date of Evaluation: 06/07/18 Time of Evaluation: 06:40 - Subjective Subjective: Lethargic but arousable, denies shortness of breath,discussed with RN, post PROCESS PLANT OPERATOR, NRM 100%, low oxygen saturation Reason for consultation and follow up: Cardiac evaluation for left toe surgery, risk stratification,history of CHF, hypertension,Atrial fibrillation,PPM, ESRD on hemodialysis TTHS, chronic anemia,PVD s/p angiogram and angioplasty of left lower extremity. Seen and examined by me and Dr. Rubio Objective - Vital Signs/Intake and Output Vital Signs (last 24 hours): Temp Pulse Resp BP Pulse Ox 98.3 F 77 18 80/38 L 97 06/07/18 06:00 06/07/18 06:00 06/07/18 06:00 06/07/18 06:00 06/07/18 06:00 Intake and Output: 06/07/18 06/07/18 06:59 18:59 Intake Total 0 Output Total 0 Balance 0 - Medications Medications: Current Medications Acetaminophen (Tylenol 325mg Tab) 650 mg PO Q4H PRN PRN Reason: Pain, Mild (1-3) Allopurinol (Zyloprim) 100 mg PO DAILY [facility] Last Admin: 06/05/18 10:14 Dose: 100 mg Aspirin (Ecotrin) 81 mg PO DAILY [facility] Last Admin: 06/04/18 15:37 Dose: 81 mg Atorvastatin Calcium (Lipitor) 40 mg PO DAILY [facility] Last Admin: 06/05/18 10:13 Dose: 40 mg Calcium Acetate (Phoslo) 2,001 mg PO WM [facility] Last Admin: 06/06/18 11:06 Dose: Not Given Cinacalcet (Sensipar) 30 mg PO DAILY [facility] Last Admin: 06/05/18 10:13 Dose: 30 mg Clopidogrel Bisulfate (Plavix) 75 mg PO DAILY [facility] Last Admin: 06/04/18 15:39 Dose: Not Given Diltiazem HCl (Cardizem) 30 mg PO TID [facility] Last Admin: 06/06/18 18:40 Dose: Not Given Guaifenesin (Robitussin) 100 mg PO Q4H PRN PRN Reason: Cough Last Admin: 06/06/18 14:40 Dose: 100 mg Heparin Sodium (Porcine) (Heparin) 5,000 units SC Q8 [facility]; Protocol Last Admin: 06/05/18 04:59 Dose: 5,000 units Vancomycin HCl (Vancomycin 500mg In Ns) 500 mg in 100 mls @ 200 mls/hr IVPB TTS [facility]; Protocol Last Admin: 06/04/18 15:37 Dose: 200 mls/hr Levalbuterol HCl (Xopenex) 0.63 mg IH [id number] PRN PRN Reason: Shortness of Breath Last Admin: 06/07/18 00:24 Dose: 0.63 mg Lorazepam (Ativan) 0.5 mg IVP Q6H PRN; Protocol PRN Reason: Anxiety Last Admin: 06/02/18 16:28 Dose: 0.5 mg Metoprolol Tartrate (Lopressor) 12.5 mg PO BID [facility] Last Admin: 06/06/18 11:05 Dose: Not Given Mometasone Furoate (Asmanex Twisthaler 220 Mcg) 1 puff IH QPM [facility] Last Admin: 06/06/18 18:39 Dose: Not Given Morphine Sulfate (Morphine) 1 mg IVP Q3H PRN PRN Reason: Pain, severe (8-10) Last Admin: 06/07/18 04:51 Dose: 1 mg Ondansetron HCl (Zofran Inj) 4 mg IVP Q6H PRN PRN Reason: Nausea/Vomiting Last Admin: 06/02/18 16:28 Dose: 4 mg Oxycodone/Acetaminophen (Percocet 5/325 Mg Tab) 1 tab PO Q4H PRN PRN Reason: Pain, moderate (4-7) Stop: 06/09/18 12:48 Oxycodone/Acetaminophen (Percocet 5/325 Mg Tab) 2 tab PO Q4H PRN PRN Reason: Pain, severe (8-10) Stop: 06/09/18 12:48 Pantoprazole Sodium (Protonix Ec Tab) 40 mg PO DAILY [facility] Last Admin: 06/05/18 10:14 Dose: 40 mg Promethazine HCl/Dextromethorphan (Phenergan Dm Syrup) 5 ml PO Q6H PRN PRN Reason: Cough - Labs Labs: 06/07/18 06:30 06/06/18 07:00 PT 13.7 SECONDS (9.4-12.5) H 05/31/18 18:42 INR 1.20 05/31/18 18:42 APTT 29.7 Seconds (25.1-36.5) 05/31/18 18:42 - Constitutional Appears: Non-toxic, No Acute Distress - ENT Exam ENT Exam: Mucous Membranes Dry - Respiratory Exam Respiratory Exam: Decreased Breath Sounds, Respiratory Distress Additional comments: Oxygen saturation on nasal cannula 88%, venturimask 60 %- 88%, placed back on NRM 100% - 96- 98% - Cardiovascular Exam Cardiovascular Exam: +S1, +S2 Additional comments: PPM left chest permacath - GI/Abdominal Exam GI & Abdominal Exam: Soft, Normal Bowel Sounds - Exam Additional comments: ESRD on hemodialysis 3x a week (TTHS) - Extremities Exam Additional comments: left foot wrapped with kerlex - Neurological Exam Additional comments: lethargic but responsive - Psychiatric Exam Additional comments: lethargic - Skin Skin Exam: Dry, Normal Color, Warm Assessment and Plan - Assessment and Plan (Free Text) Assessment: A 82 year old female who was sent to the ER from [facility] due to gangrenous left 4th toe. hypoglycemia in ER and treated with IV [id number]. History of congestive heart failure, hypertension,hyperlipidemia, non obstructive coronary artery disease,hypothyroidism, Atrial fibrillation,PPM, ESRD on hemodialysis TTHS, chronic anemia,peripheral vascular disease with multiple s/p angiogram and angioplasty of left lower extremity, carotid endarterectomy 10 years ago. 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 ECHO 04/2018- LVEF 65-70%, RV severely dilated, Moderately to severe decreased RV function, Trace AR,mild to moderate aortic valvular stenosis ROBIN 1.5 cm2,mild to moderate MR, severe TR, severe pulmonary hypertension,moderate to severe pulmonic valve regurgitation. Given co- morbidities, patient is high risk for surgery. Dr. Rubio discussed with daughter and Dr. Vilchis (patient's corporate development intern). Risk benefit ratio was in favor to have the surgery or patient will develop sepsis. cleared for surgery from cardiac standpoint. Underlying rhythm is afib, currently V-pacing at 70's. no shortness of breath or chest pain. Clinically stable.Status post left 4th toe amputation POD#1 Plan: Post PROCESS PLANT OPERATOR last night for low oxygen saturation Placed on NRM 100%,oxygen saturation at above 92% Chest X ray, moderate vascular congestion but no change from previous day. ICU cytotechnologist had spoken to the family and decided DNR Patient is comfortable with mild respiratory distress Status post left 4th toe amputation yesterday POD#! Low blood pressure systolic 80's On ASA 81 mg daily,Lipitor 40 mg daily,Plavix 75 mg daily (held) Cardizem 30 mg TID, Lopressor 12.5 mg BID Continue current treatment Continue current medications Chart reviewed Supportive care Will follow up Plan and treatment discussed with Dr. Rubio
[2018-06-07 07:41] LABS: ALB/GLOB RATIO 0.8 (1.1-1.8); ALBUMIN 2.4 g/dL (3.0-4.8); CALCIUM 8.3 mg/dL (8.4-10.5)
--- NOTE | 2018-06-07 09:15 | PN ---
DATE: 06/06/2018 This note is an addition to initial progress note dictated by our nurse practitioner. SUBJECTIVE: Patient is scheduled for surgery. History of atrial fibrillation; end-stage renal disease, on dialysis; lower extremity; history of PTCA as outpatient; is scheduled today for amputation of fourth toe, left. Denies any chest pain, shortness of breath, or any palpitations. Patient is cleared to go for surgery from Cardiology point of view with moderate risk, although patient had underlying comorbidity with surgical risk low because of very low risk procedure. . We will follow with you. Interim, continue Lopressor 12.5 mg b.i.d. and Cardizem 30 mg three times a day. Thank you, Dr. Lucas, for providing us the opportunity in taking of patient, Susan Meza. Liam Rubio MD
[2018-06-07] MEDS ORDERED: Morphine 2 mg/ml ISec IVP STA (09:18)
--- NOTE | 2018-06-07 09:45 | RAD ---
Date of service: 06/07/2018 PROCEDURE: Left Foot Radiographs. HISTORY: L foot surgery COMPARISON: Left foot radiographs 05/31/2018. FINDINGS: BONES: Patient is now seen to be status post transmetatarsal amputation at the left foot with skin jazmine identified at local soft tissues. Diffuse osteopenia suggests osteoporosis. JOINTS: Limited degenerative changes seen at the midfoot and hindfoot bony anatomy. No subluxation or dislocation. SOFT TISSUES: As above. OTHER FINDINGS: None. IMPRESSION: Interval transmetatarsal amputation left forefoot.
--- NOTE | 2018-06-07 10:07 | CARD ---
APPROVED REPORT Date of service: 06/06/2018 EKG Measurement Heart [id number] <Conclusion> Atrial fibrillation Occasional Pacemaker Captured Beats. ST_T Changes.
--- NOTE | 2018-06-07 10:11 | CP.PCM.CON ---
History of Present Illness - History of Present Illness History of Present Illness: Palliative consult requested by Dr Laura Norman copied to Dr All Lucas Reason: Goals of care 82 year old female resident [facility] with history of HTN, ESRD on HD, DM who presented to ED on with gangrene of left Patient had amputation of left 4th metatarsal. PMHx: severe PVD, VAD, sick sinus syndrome, chronic atrial fibrillation, , EF 45%, severe MR,TR, RV dystolic pressure mitral and tricuspid regurgitation, HTN, HLD, DM, ESRD on HD PSHX; right carotid endarterectomy, stent placment in lower extremity, pacemaker Social History: Former smoker, no alcohol or drug use. Resident of [facility] Advance Care Planning: POLST: DNR/DNI. Daughter Eda Meza is POA. Family History: Non contributory Review of Systems: Complains of abdominal pain, weakness, and bloating.Denies shortness of breath chest pain, dizziness, nausea, vomiting, fever, chills, diarrhea, constipation, hematemisis, melena Past Patient History - Infectious Disease Hx of Infectious Diseases: None - Tetanus Immunizations Tetanus Immunization: Unknown - Past Medical History & Family History Past Medical History?: Yes - Past Social History Smoking Status: Former Smoker - CARDIAC Hx Congestive Heart Failure: Yes (s/p pacemaker, A fib) Hx Hypertension: Yes - PULMONARY Hx Respiratory Disorders: No - NEUROLOGICAL Hx Paralysis: No - HEENT Hx Cataracts: Yes - RENAL Hx Chronic Kidney Disease: Yes Hx Dialysis: Yes (//sun) Date of Last Dialysis Treatment: 05/13/18 - ENDOCRINE/METABOLIC Hx Hypothyroidism: Yes - HEMATOLOGICAL/ONCOLOGICAL Hx Blood Transfusions: Yes Hx Blood Transfusion Reaction: No - INTEGUMENTARY Hx Dermatological Problems: Yes Other/Comment: right foot cold, with thick hard toenails, multiple skin discolorations ble, 0.5cm round dark brown areas of skin, skin darkened to buttocks no openings, left foot dark skin but warm to touch, thick hard toenails, toes gangrenous leathery dark skin, painful when touched - MUSCULOSKELETAL/RHEUMATOLOGICAL Hx Rheumatoid Arthritis: Yes (, , SUN) - GASTROINTESTINAL Hx Gastrointestinal Disorders: Yes Hx Gastroesophageal Reflux: Yes - GENITOURINARY/GYNECOLOGICAL Hx Genitourinary Disorders: Yes (anuria) - PSYCHIATRIC Hx Emotional Abuse: No Hx Physical Abuse: No Hx Substance Use: No - SURGICAL HISTORY Hx Surgeries: Yes - ANESTHESIA Hx Anesthesia Reactions: No Hx Malignant Hyperthermia: No Meds Allergies/Adverse Reactions: Allergies Allergy/AdvReac Type Severity Reaction Status Date / Time No Known Allergies Allergy Verified 05/07/18 11:54 - Medications Medications: Current Medications Acetaminophen (Tylenol 325mg Tab) 650 mg PO Q4H PRN PRN Reason: Pain, Mild (1-3) Allopurinol (Zyloprim) 100 mg PO DAILY [facility] Last Admin: 06/05/18 10:14 Dose: 100 mg Aspirin (Ecotrin) 81 mg PO DAILY [facility] Last Admin: 06/04/18 15:37 Dose: 81 mg Atorvastatin Calcium (Lipitor) 40 mg PO DAILY [facility] Last Admin: 06/05/18 10:13 Dose: 40 mg Calcium Acetate (Phoslo) 2,001 mg PO WM [facility] Last Admin: 06/06/18 11:06 Dose: Not Given Cinacalcet (Sensipar) 30 mg PO DAILY [facility] Last Admin: 06/05/18 10:13 Dose: 30 mg Clopidogrel Bisulfate (Plavix) 75 mg PO DAILY [facility] Last Admin: 06/04/18 15:39 Dose: Not Given Diltiazem HCl (Cardizem) 30 mg PO TID [facility] Last Admin: 06/06/18 18:40 Dose: Not Given Guaifenesin (Robitussin) 100 mg PO Q4H PRN PRN Reason: Cough Last Admin: 06/06/18 14:40 Dose: 100 mg Heparin Sodium (Porcine) (Heparin) 5,000 units SC Q8 [facility]; Protocol Last Admin: 06/05/18 04:59 Dose: 5,000 units Vancomycin HCl (Vancomycin 500mg In Ns) 500 mg in 100 mls @ 200 mls/hr IVPB TTS [facility]; Protocol Last Admin: 06/04/18 15:37 Dose: 200 mls/hr Levalbuterol HCl (Xopenex) 0.63 mg IH [id number] PRN PRN Reason: Shortness of Breath Last Admin: 06/07/18 00:24 Dose: 0.63 mg Lorazepam (Ativan) 0.5 mg IVP Q6H PRN; Protocol PRN Reason: Anxiety Last Admin: 06/02/18 16:28 Dose: 0.5 mg Metoprolol Tartrate (Lopressor) 12.5 mg PO BID [facility] Last Admin: 06/06/18 11:05 Dose: Not Given Mometasone Furoate (Asmanex Twisthaler 220 Mcg) 1 puff IH QPM [facility] Last Admin: 06/06/18 18:39 Dose: Not Given Morphine Sulfate (Morphine) 1 mg IVP Q3H PRN PRN Reason: Pain, severe (8-10) Last Admin: 06/07/18 07:52 Dose: 1 mg Ondansetron HCl (Zofran Inj) 4 mg IVP Q6H PRN PRN Reason: Nausea/Vomiting Last Admin: 06/07/18 09:43 Dose: 4 mg Oxycodone/Acetaminophen (Percocet 5/325 Mg Tab) 1 tab PO Q4H PRN PRN Reason: Pain, moderate (4-7) Stop: 06/09/18 12:48 Oxycodone/Acetaminophen (Percocet 5/325 Mg Tab) 2 tab PO Q4H PRN PRN Reason: Pain, severe (8-10) Stop: 06/09/18 12:48 Pantoprazole Sodium (Protonix Ec Tab) 40 mg PO DAILY [facility] Last Admin: 06/05/18 10:14 Dose: 40 mg Promethazine HCl/Dextromethorphan (Phenergan Dm Syrup) 5 ml PO Q6H PRN PRN Reason: Cough Physical Exam - Constitutional Appears: Cachectic, Chronically Ill - Head Exam Head Exam: NORMAL INSPECTION - Eye Exam Eye Exam: Normal appearance, PERRL - ENT Exam ENT Exam: Mucous Membranes Moist, Normal Oropharynx - Respiratory Exam Respiratory Exam: Decreased Breath Sounds, Rales - Cardiovascular Exam Cardiovascular Exam: Irregular Rhythm, +S1, +S2 - GI/Abdominal Exam GI & Abdominal Exam: Diminished Bowel Sounds, Distended, Soft - Extremities Exam Additional comments: right toes with dressing, left foot 2+ pedal pulses - Neurological Exam Additional comments: lethargic, answers simple questions - Skin Skin Exam: Dry, Warm - Additional Findings Additional findings: Palliative performance scale rating 20% Results - Vital Signs Recent Vital Signs: Last Vital Signs Temp 98.3 F 06/07/18 06:00 Pulse 77 06/07/18 06:00 Resp 22 06/07/18 08:01 BP 83/38 L 06/07/18 08:01 Pulse Ox 97 06/07/18 06:00 - Labs Result Diagrams: 06/07/18 06:30 06/07/18 06:30 Labs: Laboratory Results - last 24 hr 06/06/18 06/06/18 06/06/18 15:40 16:07 16:27 WBC RBC Hgb Hct MCV MCH MCHC RDW Plt Count MPV pCO2 35 pO2 57.0 L HCO3 18.5 L ABG pH 7.33 L ABG Total CO2 19.6 L ABG O2 Saturation 90.4 L ABG O2 Content 13.7 L ABG Base Excess -6.7 L ABG Hemoglobin 11.1 L ABG Carboxyhemoglobin 2.3 H POC ABG HHb (Measured) 9.3 H ABG Methemoglobin 0.5 ABG O2 Capacity 15.2 L Hgb O2 Saturation 87.9 L FiO2 100.0 Sodium Potassium Chloride Carbon Dioxide Anion Gap BUN Creatinine Est GFR ( Amer) Est GFR (Non-Af Amer) POC Glucose (mg/dL) 55 L 51 L Random Glucose Calcium Total Bilirubin AST ALT Alkaline Phosphatase Total Protein Albumin Globulin Albumin/Globulin Ratio 06/06/18 06/07/18 06/07/18 23:36 05:32 06:30 WBC RBC Hgb Hct MCV MCH MCHC RDW Plt Count MPV pCO2 pO2 HCO3 ABG pH ABG Total CO2 ABG O2 Saturation ABG O2 Content ABG Base Excess ABG Hemoglobin ABG Carboxyhemoglobin POC ABG HHb (Measured) ABG Methemoglobin ABG O2 Capacity Hgb O2 Saturation FiO2 Sodium 132 Potassium 4.2 Chloride 101 Carbon Dioxide 21 Anion Gap 15 BUN 29 H Creatinine 5.0 H Est GFR ( Amer) 10 Est GFR (Non-Af Amer) 8 POC Glucose (mg/dL) 72 60 L Random Glucose 124 H Calcium 8.3 L Total Bilirubin 0.8 AST 28 ALT 19 Alkaline Phosphatase 89 Total Protein 5.3 L Albumin 2.4 L Globulin 2.9 Albumin/Globulin Ratio 0.8 L 06/07/18 06/07/18 06:30 06:48 WBC 15.2 H D RBC 3.09 L Hgb 9.5 L Hct 29.4 L MCV 95.1 MCH 30.7 MCHC 32.3 RDW 16.3 H Plt Count 204 MPV 10.5 pCO2 pO2 HCO3 ABG pH ABG Total CO2 ABG O2 Saturation ABG O2 Content ABG Base Excess ABG Hemoglobin ABG Carboxyhemoglobin POC ABG HHb (Measured) ABG Methemoglobin ABG O2 Capacity Hgb O2 Saturation FiO2 Sodium Potassium Chloride Carbon Dioxide Anion Gap BUN Creatinine Est GFR ( Amer) Est GFR (Non-Af Amer) POC Glucose (mg/dL) 143 H Random Glucose Calcium Total Bilirubin AST ALT Alkaline Phosphatase Total Protein Albumin Globulin Albumin/Globulin Ratio Assessment & Plan - Assessment and Plan (Free Text) Assessment: 82 year old female with multiple comorbidities( see PMH) wh0 was admitted with gangrene of left toe, ESRD. She was a Rapid Response upon return from dialysis yesterday found to be hypoxic and altered. Medial team discussed goals of care with family who was at beside> Family requesting that pat be made comfort care and are requesting to meet with hospice I called daughter Eda last evening. She confirmed that family wants mother to be on hospice care. Hospice danita explained Family agreed to meet with hospice physician today. I met with patients daughter Eda this morning. The family verbalized understanding of hospice services and affirms that they want they want patient to be kept comfortable. They are aware that by withdrawing dialysis that patient will likely express End of life counseling provided The patient is is restless,complaining of abdominal pain Time spent with family in goals of care discussion and and of life counseling, 60 minutes Addendum: [facility] has accepted patient to [facility] services. Family signed consent for [facility] hospice services Plan: Goals of care and advance care planning Hospice evaluation Discontinue al labs, imaging and telemetry monitoring Discharge/ Transfer to med surg Pain and symptom management:Morphine continuos RADIATION / CHEMISTRY TECHNICIAN 1 mg/hr, Ativan 0.5mg IV as needed for restlessness,Scopolamine transdermal to decrease respiratory s ecretions
[2018-06-07] MEDS ORDERED: Morphine PCA 1 mg/ml (30ml) 30 ML IV PRN ×4 (11:24→13:54)
--- NOTE | 2018-06-07 11:32 | PN ---
DATE: 06/07/2018 REASON FOR THE CONSULTATION: Followup status post rapid response this morning, status post amputation of forefoot yesterday. The patient had EARLY CHILDHOOD LEAD TEACHER this morning with low oxygen carpenter mold. This note is in addition to dictated by nurse practitioner. Status post postop day 1. Family is at the bedside. Blood pressure systolic is 80. IV fluid was given. The patient responded. Awake and alert. Automation And Control Engineer spoke to the family, made the DNR. Continue supportive care. The patient has end-stage renal disease, on dialysis, cautious hydration and do not push fluid. We will follow up with you. Overall, the patient's condition is critical. Long-term prognosis guarded. Thank you, Dr. Lucas for providing us the opportunity in taking care of the patient, Susan Meza. Liam Rubio MD
[2018-06-07 12:18] VITALS: BP 83/47; PULSE 70; RESP 20; TEMP 97.6
--- NOTE | 2018-06-07 12:25 | CP.PCM.PN ---
<Aliyah Jaeger - Last Filed: 06/07/18 12:28> Subjective - Date & Time of Evaluation Date of Evaluation: 06/07/18 Time of Evaluation: 12:14 - Subjective Subjective: Podiatry Progress Note for Dr. Copeland: 82 yo female patient seen and evaluated 1 day s/p L transmetatarsal amputation (DOS 06/06). Patient had PERSONAL BANKING OFFICER last night for low O2 sat, currently on oyxgen. Patient is lethargic, arousable. Objective - Vital Signs/Intake and Output Vital Signs (last 24 hours): Temp Pulse Resp BP Pulse Ox 98.3 F 77 22 83/38 L 97 06/07/18 06:00 06/07/18 06:00 06/07/18 08:01 06/07/18 08:01 06/07/18 06:00 Intake and Output: 06/07/18 06/07/18 06:59 18:59 Intake Total 0 Output Total 0 Balance 0 - Medications Medications: Current Medications Morphine Sulfate (Morphine Outdoor Advertising Leasing Agent 1 Mg/Ml) 30 mls @ 2 mls/hr IV PRN PRN; Protocol PRN Reason: ASSOCIATE DIRECTOR FINANCE PER MD ORDER Levalbuterol HCl (Xopenex) 0.63 mg IH [id number] PRN PRN Reason: Shortness of Breath Last Admin: 06/07/18 00:24 Dose: 0.63 mg Lorazepam (Ativan) 1 mg IVP Q6H PRN; Protocol PRN Reason: Anxiety Morphine Sulfate (Morphine) 1 mg IVP Q3H PRN PRN Reason: Pain, severe (8-10) Last Admin: 06/07/18 07:52 Dose: 1 mg Scopolamine (Transderm-Scop) 1 patch TD Q3D [id number] - Labs Labs: 06/07/18 06:30 06/07/18 06:30 PT 13.7 SECONDS (9.4-12.5) H 05/31/18 18:42 INR 1.20 05/31/18 18:42 APTT 29.7 Seconds (25.1-36.5) 05/31/18 18:42 - Extremities Exam Additional comments: Vasc: DP and PT pulses nonpalpable b/l. Skin temperature cool to cool bilaterally. Pedal hair absent b/l. Neuro: Gross sensation intact, protective sensation diminished bilaterally. Derm: Left TMA surgical site intact, sutures intact, skin edges well coapted, no evidence of dehiscence, no drainage, no purulence, no maceration, no clinical signs of infection appreciated. Ortho: No tenderness to palpation of TMA surgical site. L TMA. - Neurological Exam Neurological Exam: Awake Assessment and Plan - Assessment and Plan (Free Text) Assessment: 82 yo female patient with left 4th digit gangrene secondary to PVD Plan: Patient seen and evaluated at bedside with Dr. Copeland BP low, WBC 15.[address] Kerns; continue intermittent Vancomycin Post-op x-rays; pending Surgical site dressed with betadine, adaptic, DSD Waiting for intra-op wound cultures/pathology report; pending LE US (05/31): L tibial occulsive disease, R SFA occlusive disease, R popliteal, trifurcation and/or tibial disease As per Ramiro; KLEVER/PVR (05/01/18) shows L .56 and R .456, patient underwent peripheral vascular intervention Podiatry will continue to follow while in house <Thien Copeland - Last Filed: 06/07/18 17:11> Objective - Vital Signs/Intake and Output Vital Signs (last 24 hours): Temp Pulse Resp BP Pulse Ox 97.6 F 70 20 83/47 L 97 06/07/18 12:00 06/07/18 12:00 06/07/18 12:00 06/07/18 12:00 06/07/18 06:00 Intake and Output: 06/07/18 06/07/18 06:59 18:59 Intake Total 0 Output Total 0 Balance 0 - Medications Medications: Current Medications Morphine Sulfate (Morphine Outdoor Advertising Leasing Agent 1 Mg/Ml) 30 mls @ 1 mls/hr IV PRN PRN; Protocol PRN Reason: ASSOCIATE DIRECTOR FINANCE PER MD ORDER Last Admin: 06/07/18 14:03 Dose: 1 mg/hr, 1 mls/hr - Labs Labs: 06/07/18 06:30 06/07/18 06:30 PT 13.7 SECONDS (9.4-12.5) H 05/31/18 18:42 INR 1.20 05/31/18 18:42 APTT 29.7 Seconds (25.1-36.5) 05/31/18 18:42 Attending/Attestation - Attestation I have personally seen and examined this patient.: Yes I have fully participated in the care of the patient.: Yes I have reviewed all pertinent clinical information, including history, physical exam and plan: Yes
--- NOTE | 2018-06-07 18:20 | CP.PCM.PN ---
Subjective - Date & Time of Evaluation Date of Evaluation: 06/07/18 Time of Evaluation: 12:05 - Subjective Subjective: Comfortable in bed, had surgery yesterday on her left foot, but I have been informed that the patient has been placed on hospice care. No fevers overnight. Objective - Vital Signs/Intake and Output Vital Signs (last 24 hours): Temp Pulse Resp BP Pulse Ox 97.6 F 70 20 83/47 L 97 06/07/18 12:00 06/07/18 12:00 06/07/18 12:00 06/07/18 12:00 06/07/18 06:00 Intake and Output: 06/07/18 06/07/18 06:59 18:59 Intake Total 0 Output Total 0 Balance 0 - Medications Medications: Current Medications Morphine Sulfate (Morphine Raiser Helper 1 Mg/Ml) 30 mls @ 1 mls/hr IV PRN PRN; Protocol PRN Reason: CHURCH OFFICIAL PER MD ORDER Last Admin: 06/07/18 14:03 Dose: 1 mg/hr, 1 mls/hr - Labs Labs: 06/07/18 06:30 06/07/18 06:30 PT 13.7 SECONDS (9.4-12.5) H 05/31/18 18:42 INR 1.20 05/31/18 18:42 APTT 29.7 Seconds (25.1-36.5) 05/31/18 18:42 - Constitutional Appears: No Acute Distress, Chronically Ill - Head Exam Head Exam: NORMAL INSPECTION - Extremities Exam Additional comments: left foot with dressings in place Assessment and Plan - Assessment and Plan (Free Text) Plan: Assessment left foot 4th toe with ischemic changes, R/O developing dry gangrene, wound growing MRSA - S/P TMA POD #1 PAD S/P femoral angioplasty chronic CHF atrial fibrillation ESRD on HD GERD CAD gout Plan continue intermittent Vancomycin (with HD) but patient has been placed on hospice - all meds except pain meds have been discontinued overall prognosis is poor
--- NOTE | 2018-06-07 21:32 | PN ---
DATE: 06/07/2018 SUBJECTIVE: The patient is seen lying in bed. She is awake, eyes are open, but she is not really following commands, she is very lethargic. She is moving all her extremities. Events of last night are noted. She had a TMA done, postoperatively she became confused, hypoxic, hypotensive. She was evaluated by the ICU. Case was discussed with family members. No aggressive intervention was decided by family. Currently, she appears to be in moderate respiratory distress. PHYSICAL EXAMINATION: GENERAL: Elderly lady lying in bed. VITAL SIGNS: Blood pressure 83/47, heart rate 70, respiratory rate 20 to 24, temperature 98.3, T-max is 98.7. HEENT: Normocephalic, atraumatic, positive pallor. NECK: Supple, no JVD. LUNGS: Bilateral rhonchi, loud vesicular breathing, expiratory wheeze. CARDIAC: S1 and S2, no murmur, no rub. ABDOMEN: Obese, distended, soft, nontender, bowel sounds present. EXTREMITIES: Dressing of the foot. LABORATORY DATA: WBC 15, hemoglobin 9.5, hematocrit 29, platelets 204. Sodium 132, potassium 4.2, chloride 101, CO2 of 21, BUN 29, creatinine 5, glucose 124, calcium 8.3, albumin 2.4, globulin 2.9. CURRENT MEDICATIONS: Morphine drip, Cardizem 30 p.o. t.i.d. not given, Ativan. ASSESSMENT AND PLAN: 1. Status post rapid response, comfort care desired by family. 2. Status post amputation of forefoot, postop day #1. 3. End-stage renal disease. 4. Congestive heart failure. 5. Pulmonary hypertension. 6. Advanced age. PLAN: 1. As per family request comfort care only. 2. The patient is awaiting evaluation by hospice. 3. No further dialysis desired. 4. Pain management and supportive care. Demetrice Pat MD
--- NOTE | 2018-06-08 08:48 | OP ---
PROCEDURE DATE: 06/06/2018 PREOPERATIVE DIAGNOSES: Gangrene of the left fourth toe, gangrene of the left forefoot. POSTOPERATIVE DIAGNOSES: Gangrene of the left fourth toe, gangrene of the left forefoot. PROCEDURE: Transmetatarsal amputation. SURGEON: Thien Copeland DPM. ROUNDHOUSE SUPERVISOR: Aliyah Bashir. TYPE OF ANESTHESIA: Local with monitored anesthetic care. HEMOSTASIS: No ankle tourniquet was used. ESTIMATED BLOOD LOSS: Minimal. INDICATIONS: The patient was seen at [facility] over the course of the last one month, where she had developed an ulceration on her left fourth toe, which gradually progressed into lisbet gangrene of the fourth digit and entire left forefoot. After reviewing vascular studies with Dr. Bk Ruiz, it was decided to attempt to perform a transmetatarsal amputation in lieu of a below-knee amputation. The patient's family was consulted and all risks were explained including possible . The patient was seen by Cardiology and medically cleared for the surgery under general anesthesia with high risk involved. Prior to surgery, discussion with anesthesiologist, we proceeded to perform surgery with IV sedation and local regional block to minimize risks. DESCRIPTION OF PROCEDURE: The patient was brought into the operating room and placed on the operating room table in the supine position. Following IV sedation, local anesthesia was obtained about the left ankle, utilizing approximately 20 mL of 1:1 mixture of 2% lidocaine plain and 0.25% Marcaine plain. Foot was then scrubbed, prepped, and draped in the usual aseptic manner. Attention was then directed to the dorsal aspect of the foot, where an incision was made from medial to lateral in a circumferential direction, continuing plantarly above the metatarsal head, then into the base of the toes and wrapped around attaching to the original dorsal incision. At this time, there was noted to be minimal bleeding. Next, utilizing a fresh #15 blade scalpel, dissection continued and all of the digits were resected at the metatarsophalangeal joint and removed in total. At this time, there was noted to be minimal bleeding occurring. Dissection continued with a new fresh 15 blade. All soft tissues were dissected and a plantar flap was formed. All ligamentous and soft tissue attachments at the distal metatarsal were freed and using a sagittal saw, metatarsal were resected distally and removed from the operative field. At this time, all exposed tendons were retracted and excised and passed from the operative field. Metatarsal rough edges were then smoothed with a bone rasp. Once again, at this time, there was noted to be minimal bleeding throughout the surgical site. The area was flushed with copious amounts of normal sterile saline and a wound culture was taken. Next, utilizing 4-0 Vicryl, the plantar skin flap was rotated, was sutured in 3 layers from plantar to proximal and there was noted to be excellent approximation from the plantar flap to the dorsal skin incision. Next, utilizing 3-0 nylon in a horizontal mattress technique, the incision site was closed and then reinforced with sterile jazmine. The foot was then cleansed with Betadine solution and sterile Betadine soaked Adaptic was applied to the incision site and a bulky dry sterile dressing was applied. The patient tolerated the procedure and anesthesia well. She was transferred to the recovery room with all vital signs stable. Following a period of postoperative monitoring, the patient was discharged back to her room with written and oral postoperative instructions. The patient will be seen for dressing change in the a.m. Thien Copeland DPM
--- NOTE | 2018-06-08 11:03 | DS ---
HISTORY OF PRESENT ILLNESS: The patient is 82-year-old, who was initially admitted because of left foot multiple toe gangrene and was taken to OR yesterday, had transmetatarsal amputation done. By the afternoon, the patient became short of breath, hypotensive. Although rapid response was called yesterday, since patient is DNR, Dr. Olmos spoke to the family. They did not want any aggressive measures. They wanted her to be comfortable. So, this morning, after discussing with the family, she is being placed to hospice care and being discharged to hospice care. PHYSICAL EXAMINATION: GENERAL: The patient is sleepy, but arousable. No chest pain. No shortness of breath. Complains of some pain to the left foot, otherwise feels comfortable. Not in any distress. VITAL SIGNS: She is afebrile. Pulse 77, respirations 18, blood pressure 80/38. LUNGS: Bilateral poor respiratory effort. HEART: S1, S2 audible. ABDOMEN: Soft, nontender. No rebound. No guarding. NEUROLOGIC: The patient is sleepy, but arousable. LABORATORY DATA: WBC 15.2, hemoglobin 9.5, hematocrit 29.4, platelets 204. Chemistry: Sodium 132, potassium 4.2, chloride 101, CO2 of 21, BUN 29, creatinine 5, blood sugar 143. ASSESSMENT: 1. Respiratory insufficiency. 2. Status post left transmetatarsal amputation. 3. End-stage renal disease, on hemodialysis. 4. Hypertension. 5. Chronic atrial fibrillation. 6. History of right carotid endarterectomy. 7. Bilateral leg angioplasty. PLAN: The patient's family wants comforts care. We will start her on morphine drip, Ativan standing order, and nebulizer as needed. Discussed with the patient's family who was by the bedside. Bruno Lucas MD
== END 2018-06-07 13:38 | disposition hospice, inpatient (51) | DRG 239 ==
LOC: ED 17:37 → ERH 18:43 → 2RSO 06-01 19:04
PROVIDERS: ADMIT Internal Medicine; ATTEND Internal Medicine
PROC: 5A1D70Z Performance of Urinary Filtration, Intermittent, Less than 6 Hours Per Day (ICD-10-PCS; 2018-06-01)
PROC: 5A1D70Z Performance of Urinary Filtration, Intermittent, Less than 6 Hours Per Day (ICD-10-PCS; 2018-06-04)
PROC: 30233N1 Transfusion of Nonautologous Red Blood Cells into Peripheral Vein, Percutaneous Approach (ICD-10-PCS; 2018-06-05)
PROC: 5A1D70Z Performance of Urinary Filtration, Intermittent, Less than 6 Hours Per Day (ICD-10-PCS; 2018-06-06)
PROC: 0Y6N0Z0 Detachment at Left Foot, Complete, Open Approach (ICD-10-PCS; principal; 2018-06-06 10:00)
DX: E11.52 Type 2 diabetes mellitus with diabetic peripheral angiopathy with gangrene (principal); N18.6 End stage renal disease; I13.2 Hypertensive heart and chronic kidney disease with heart failure and with stage 5 chronic kidney disease, or end stage renal disease; N25.81 Secondary hyperparathyroidism of renal origin; J98.11 Atelectasis; M86.172 Other acute osteomyelitis, left ankle and foot; I50.812 Chronic right heart failure; E11.69 Type 2 diabetes mellitus with other specified complication; I48.2 Chronic atrial fibrillation; E11.22 Type 2 diabetes mellitus with diabetic chronic kidney disease; E87.5 Hyperkalemia; R56.9 Unspecified convulsions; D63.1 Anemia in chronic kidney disease; E11.649 Type 2 diabetes mellitus with hypoglycemia without coma; E03.9 Hypothyroidism, unspecified; I25.10 Atherosclerotic heart disease of native coronary artery without angina pectoris; F03.90 Unspecified dementia, unspecified severity, without behavioral disturbance, psychotic disturbance, mood disturbance, and anxiety; E78.5 Hyperlipidemia, unspecified; M06.9 Rheumatoid arthritis, unspecified; B95.62 Methicillin resistant Staphylococcus aureus infection as the cause of diseases classified elsewhere; I08.3 Combined rheumatic disorders of mitral, aortic and tricuspid valves; J44.9 Chronic obstructive pulmonary disease, unspecified; I48.0 Paroxysmal atrial fibrillation; E11.621 Type 2 diabetes mellitus with foot ulcer; L97.529 Non-pressure chronic ulcer of other part of left foot with unspecified severity; I27.29 Other secondary pulmonary hypertension; K21.9 Gastro-esophageal reflux disease without esophagitis; R09.02 Hypoxemia; M10.9 Gout, unspecified; Z66 Do not resuscitate; Z51.5 Encounter for palliative care; I49.5 Sick sinus syndrome; Z95.0 Presence of cardiac pacemaker; Z99.2 Dependence on renal dialysis; Z87.11 Personal history of peptic ulcer disease; Z86.73 Personal history of transient ischemic attack (TIA), and cerebral infarction without residual deficits; Z79.02 Long term (current) use of antithrombotics/antiplatelets; Z79.82 Long term (current) use of aspirin; Z87.891 Personal history of nicotine dependence; Z98.62 Peripheral vascular angioplasty status

== ENCOUNTER 2018-06-07 13:53 | Inpatient (IN) | payer OTHER ==
[2018-06-07] MEDS ORDERED: Morphine PCA 1 mg/ml (30ml) 30 ML IV PRN (14:27)
[2018-06-07 19:51] VITALS: BP 83/43; PULSE 70; RESP 20; TEMP 96.6; BMI 27.4
[2018-06-07] MEDS ORDERED: Influenza Vaccine 60 mcg/0.5 mL SYR (4YR UP) IM ONE (19:51)
[2018-06-07] MEDS ORDERED: Pneumococcal 23-Valent Vaccine IM ONE (19:51)
--- NOTE | 2018-06-07 19:58 | CP.PCM.PRO ---
Pronouncement of Note - Clinical Findings Physical Exam: No Response Verbal/Painful Stimuli, Absent Peripheral Puls es{Carotid & Femoral}, Absent Heart & Breath Sounds, No Pupillary Light Reflex, No Corneal Reflex, Pupils Fixed & Dilated, Absence of Vital Signs - Pronouncement Time Time of Pronouncement of : 07:51 - Notifications Pronouncement Notifications: Family Notified, Atending Notified Lining Scrubber Notified: Yes - Autopsy Autopsy Requested: No - [place] [id number]
== END 2018-06-07 19:51 | DRG 299 ==
LOC: 2RSO 13:53 → 5RSO 17:04
PROVIDERS: ADMIT Internal Medicine; ATTEND Internal Medicine
DX: E11.52 Type 2 diabetes mellitus with diabetic peripheral angiopathy with gangrene (principal); N18.6 End stage renal disease; I13.2 Hypertensive heart and chronic kidney disease with heart failure and with stage 5 chronic kidney disease, or end stage renal disease; Z51.5 Encounter for palliative care; Z66 Do not resuscitate; R09.02 Hypoxemia; E11.22 Type 2 diabetes mellitus with diabetic chronic kidney disease; I50.812 Chronic right heart failure; Z99.2 Dependence on renal dialysis